=== PATIENT | female | born 1995 | race Caucasian/White ===

== ENCOUNTER 2017-09-07 21:37 | Emergency (ER) | payer MEDICAID, SELFPAY ==
[2017-09-07 21:38] VITALS: BP 138/86; PULSE 107; RESP 20; TEMP 36.9; O2SAT 98; BMI 61.8
--- NOTE | 2017-09-07 22:12 | EKG12_ITS ---
Test Reason : Blood Pressure : / mmHG Vent. Rate : 088 BPM Atrial Rate : 088 BPM P-R Int : 138 ms QRS Dur : 084 ms QT Int : 344 ms P-R-T Axes : 043 066 059 degrees QTc Int : 416 ms Normal sinus rhythm Normal ECG Confirmed by FABRICIO TRIPLETT ([id number]), associate entertainment editor TROY BLANK ([id number] on 09/12/2017 10:02:16 AM Referred By: JANIA Confirmed By:FABRICIO TRIPLETT
--- NOTE | 2017-09-07 22:14 | ED.VISSUMM ---
- ER Visit Summary Date of Service: 09/07/17 Chief Complaint: [] Chest pain, cough History of Present Illness: The patient is a 21 F [] morbidly obese female presenting with chest discomfort after cough. She reports URI symptoms. Denies fevers. Denies nausea and vomiting. No other complaints at this time. Physical Examination: [] Afebrile, vital signs stable. Patient is slightly tachycardic on cardiovascular exam. Regular rhythm. Lungs were clear to auscultation. Abdomen is obese, soft, nontender. No lower extremity edema. Test Results: [] Chest x-ray negative. EKG shows normal sinus rhythm, rate of 88 with no ectopy or ischemic changes. CBC, BMP within normal limits. D-dimer negative at 0.35. Emergency Department Course and Treatment: [] Patient was evaluated for her symptoms including chest pain. Workup was negative. Patient was reassured and encouraged to follow-up with her primary care physician. Treatment Plan: [] Follow-up with PCP. Disposition: [] Discharge, stable. Impression: [] URI This note was generated with [employer]ian[employer] dictation software. It may contain incorrect words, spelling, and punctuation that were not noted in review of the chart prior to signing ED Disposition - Plan for ED Patient: Chief Complaint: Cough Referrals: Talha Vargas MD [STAFF PHYSICIAN] -
--- NOTE | 2017-09-07 23:05 | RAD_ITS ---
STUDY: X-RAY CHEST REASON FOR EXAM: Female, 21 years old. Chest pain and coughing. TECHNIQUE: 2 views COMPARISON: None. FINDINGS: The lungs are clear and expanded. There is no demonstrated pleural abnormality. Normal size heart. Normal mediastinum and debora. Normal visualized pulmonary arteries. Normal visualized aortic arch and descending thoracic aorta. Normal visualized thoracic spine. Normal visualized ribs, clavicles, and shoulders. There is no demonstrated abnormality of the visualized soft tissue structures of the upper abdomen. RAD/Chest PA and Lateral IMPRESSION: Normal x-ray examination of the chest. Electronically Signed: Nela Pearl MD at 23:22 EST , Service support ,
[2017-09-07 23:06] LABS: Absolute Lymphocyte Count 1.67 X10^3/ul (0.83-4.51); Absolute Neutrophil Count 3.2 X10^3/uL (2.0-7.7); Basophil# 0.05 X10^3/uL; Basophil% 0.8 % (0-1); Eosinophil# 0.38 X10^3/uL; Eosinophils% 6.3 % (0-5); Hematocrit 43.3 % (37-47); Hemoglobin 13.8 g/dl (12.0-15.0); Lymphocyte # 1.67 X10^3/ul (4.0); Lymphocyte % 27.6 % (19-41); Mean Corp Hgb Conc 31.9 g/gl (32-36); Mean Corpuscular Hgb 28.2 pg (27.0-32.0); Mean Corpuscular Volume 88.5 fL (81-99); Mean Platelet Vol. 10.5 fl (6.2-12.0); Monocyte# 0.77 X10^3/uL; Monocyte% 12.7 % (0-10); Neutrophil # 3.18 X10^3/uL (2.7-7.7); Neutrophil % 52.4 % (47-70); Platelet Count 237 K/mm3 (150-450); RBC Distribution Width CV 13.5 % (11.6-14.6); RBC Distribution Width SD 43.7 fl (35.1-43.9); Red Blood Count 4.89 M/mm3 (4.2-5.4); White Blood Count 6.1 K/mm3 (4.4-11.0)
[2017-09-07 23:07] LABS: POSITIVE COUNT NO; POSITIVE DIFFERENTIAL NO; POSITIVE MORPHOLOGY NO
[2017-09-07 23:16] LABS: D-Dimer Quantitative (DVT/PE) 0.35 FEU/ug/m (0.27-0.49)
[2017-09-07 23:17] LABS: Anion Gap 6 (5-15); BUN 7 mg/dL (7-18); BUN/Creat Ratio 10.2 RATIO (10-20); Calcium,Total 8.8 mg/dL (8.5-10.1); Chloride 106 mmol/L (98-107); Creatinine, Serum 0.69 mg/dL (0.55-1.02); EST Glomerular Filtration Rate 116 mL/min (>60); Est Glom Filt Rate - Afr Amer 141 mL/min (>60); Glucose 94 mg/dL (70-110); Potassium 4.4 mmol/L (3.5-5.1); Sodium Level 141 mmol/L (136-145)
--- NOTE | 2017-09-07 23:58 | ED.DEP ---
ED Disposition - Plan for ED Patient: Disposition: Home or Assisted Living Chief Complaint: Cough Instructions: ED Upper Resp Infec No Abx Tx Referrals: Talha Vargas MD [STAFF PHYSICIAN] -
[2017-09-08 00:18] VITALS: BP 95/67; PULSE 81; RESP 16; O2SAT 98
== END 2017-09-08 00:24 | disposition home or self-care (01) ==
PROVIDERS: Emergency Provider Emergency Medicine
DX: J06.9 Acute upper respiratory infection, unspecified (principal); E66.01 Morbid (severe) obesity due to excess calories; Z72.0 Tobacco use
CPT/HCPCS: 71046; 80048; 85025; 85379; 93005; 99283; A4216

== ENCOUNTER 2018-07-13 13:20 | Emergency (ER) | payer MEDICAID, SELFPAY ==
[2018-07-13 13:21] VITALS: BP 159/84; PULSE 105; RESP 20; TEMP 36.2; O2SAT 96; BMI 56.2
[2018-07-13] MEDS: Metoclopramide 10 MG/2 ML Vial IV (15:00)
[2018-07-13] MEDS: DiphenhydrAMINE 50 MG/ML Syringe 25 MG IV (15:00)
[2018-07-13] MEDS: Ketorolac 30 MG/ML Syringe IV (15:00)
--- NOTE | 2018-07-13 16:01 | ED.VISSUMM ---
- ER Visit Summary Date of Service: 07/13/18 Chief Complaint: Bifrontal throbbing headache History of Present Illness: The patient is a 22 F who presents with bifrontal throbbing headache associated with photophobia and sonophobia. She has history of chronic headaches. She is unaware of any trigger. She denies fever, chills night sweats. She denies blurred vision, change in vision or loss of vision. Denies double vision. Does complain of mild nasal congestion otherwise HEENT exam normal. She denies chest pain palpitations. Denies shortness of breath, cough, dyspnea on exertion, orthopnea PND. She does report nausea and vomiting since last evening. Denies diarrhea. Denies black or maroon stool. She denies urologic symptoms. She has myalgias arthralgias or back pain. She denies anesthesia, paresthesia or motor weakness. Physical Examination: Vital signs noted and remarkable for heart rate of 105 and blood pressure 139/84. BMI is 56.3. Head is atraumatic normocephalic. Pupils are equal round reactive. Extraocular muscles are intact. TMs are pearly white with landmarks noted. Nares patent with no drainage. Posterior pharynx without erythema or exudate. Uvula is midline. There is no dysphonia or dysphasia. Trachea is midline. There is no stridor with auscultation of the neck. Neck is supple. Heart is regular without murmur, gallop or rub. S1 and S2 are normal. Lungs are clear to auscultation with good movement of air bilaterally. Abdomen is soft nontender. Patient is alert and oriented ?3. Motor is 5 over 5. Sensory is intact. DTRs are symmetric with no clonus or Babinski sign. Cranial 2 through 12 are intact. Cerebellar testing is normal. Test Results: None were obtained Emergency Department Course and Treatment: She was treated with 30 mg Toradol IV push, 25 mg of Benadryl IV push and 10 mg of Reglan IV push. She was reassessed at 1600. She is smiling with 90% improvement of her pain. Treatment Plan: Follow-up with PCP Disposition: Discharged to home in stable improved condition Impression: Migraine without aura This note was generated with [employer]VS Intelestream[employer] software. It may contain incorrect words, spelling, and punctuation that were not noted in review of the chart prior to signing ED Disposition - Plan for ED Patient: Disposition: Home or Assisted Living Chief Complaint: Headache Instructions: ED Headache Migraine Referrals: Care Physician,No Primary [Primary Care Provider] - [facility] [NON-STAFF] - Additional Instructions: You should keep a diary to see if there are any association with certain types of foods. Since you have recurrent headaches recommend following up with health care provider at [facility].
[2018-07-13 16:23] VITALS: BP 130/80; PULSE 90; RESP 18; O2SAT 98
--- OUTSIDE RECORDS SUMMARY | 2018-09-07 14:01 | XMS RPT_ITS ---
:1995 Author Organization OH[facility] Care Team Providers Name Role Phone ALLEN KIMBALL (PA) Referring Unavailable SUZANNA LUA Attending Unavailable Roxanna Barrientos Attending Unavailable Primay Care Physicia, No Primary Care Unavailable Primay Care Physicia, No Primary Care Unavailable Marcos Rodriguez Attending Unavailable PROBLEMS PROBLEMS DATE TYPE CONDITION / CODE ATTENDING STATUS SOURCE 10/07/2017 Active Pain in left NA Active [facility] ankle and joints [facility] [place] of left foot / Repository M25.572(ICD-10) PROCEDURES PROCEDURES No Procedure Records FoundRESULTS RESULTS EMERGENCY DEPARTMENT Observed: 07/13/2018 Status: F Source: [place] SUMMARY 4:05 PM [facility] REPOSITORY [facility] Medical Records Department [address] [place] [address] Emergency Department Summary 07/13/18 1601 MR#: [id number] Acct: [id number] Name: ABRAHAM MCCLELLAN Rep #: [id number] : 1995 22 From: Marcos Rodriguez MD PCP: Care Physician, No Primary Status: REG ER - ER Visit Summary Date of Service: 07/13/18 Chief Complaint: Bifrontal throbbing headache History of Present Illness: The patient is a 22 F who presents with bifrontal throbbing headache associated with photophobia and sonophobia. She has history of chronic headaches. She is unaware of any trigger. She denies fever, chills night sweats. She denies blurred vision, change in vision or loss of vision. Denies double vision. Does complain of mild nasal congestion otherwise HEENT exam normal. She denies chest pain palpitations. Denies shortness of breath, cough, dyspnea on exertion, orthopnea PND. She does report nausea and vomiting since last evening. Denies diarrhea. Denies black or maroon stool. She denies urologic symptoms. She has myalgias arthralgias or back pain. She denies anesthesia, paresthesia or motor weakness. Physical Examination: Vital signs noted and remarkable for heart rate of 105 and blood pressure 139/84. BMI is 56.3. Head is atraumatic normocephalic. Pupils are equal round reactive. Extraocular muscles are intact. TMs are pearly white with landmarks noted. Nares patent with no drainage. Posterior pharynx without erythema or exudate. Uvula is midline. There is no dysphonia or dysphasia. Trachea is midline. There is no stridor with auscultation of the neck. Neck is supple. Heart is regular without murmur, gallop or rub. S1 and S2 are normal. Lungs are clear to auscultation with good movement of air bilaterally. Abdomen is soft nontender. Patient is alert and oriented 3. Motor is 5 over 5. Sensory is intact. DTRs are symmetric with no clonus or Babinski sign. Cranial 2 through 12 are intact. Cerebellar testing is normal. Test Results: None were obtained Emergency Department Course and Treatment: She was treated with 30 mg Toradol IV push, 25 mg of Benadryl IV push and 10 mg of Reglan IV push. She was reassessed at 1600. She is smiling with 90% improvement of her pain. Treatment Plan: Follow-up with PCP Disposition: Discharged to home in stable improved condition Impression: Migraine without aura This note was generated with [email or web address] dictation software. It may contain incorrect words, spelling, and punctuation that were not noted in review of the chart prior to signing ED Disposition - Plan for ED Patient: Disposition: Home or Assisted Living Chief Complaint: Headache Instructions: ED Headache Migraine Referrals: Care Physician,No Primary [Primary Care Provider] - Juana Rosado [NON-STAFF] - Additional Instructions: You should keep a diary to see if there are any association with certain types of foods. Since you have recurrent headaches recommend following up with health care provider at [facility]. What to do if you have Problems For any increased pain, shortness of breath, bleeding, nausea or vomiting, chest pain, or any unexpected problems, contact your Primary Care Provider. Call [facility] ([phone]) or report to the closest Emergency Room. Call 911 if necessary. 07/13/18 [id number] <Electronically signed by Marcos Rodriguez MD> Date Marcos Rodriguez MD Cosigner Signature (If Indicated): Date CC: No Primary Care Physician PROGRESS Observed: 05/02/2018 Status: COMPLETED Source: [place] 7:58 AM [facility] REPOSITORY [facility] ID: [id number] Author: Silvina Longoria Page Service: (none) Author Type: Nurse Practitioner Type: Progress Notes Filed: 05/02/2018 8:21 AM Note Text: 05/02/2018 Patient presents with: cough, congestion and bilateral ear pain: x 2 days SUBJECTIVE: This is a 22 year old female that is here today for acute onset of bilateral ear pain, left side worse than left for 4 days. Patient rates pain at 7 on Numerical pain scale. Patient has been taking ibuprofen, dayquil with minimal relief of symptoms. The severity is mild and the symptoms are not improving. The patient did not have a similar problem in the last 3 months. The patient did not take any antibiotics in the last 3 months. Patient has not been exposed to sick contacts. Patient denies recent travel. Pertinent medical history PAST MEDICAL HISTORY Diagnosis Date - PMH - PAST MEDICAL HISTORY OF 03/16 normal color vision ALLERGIES Patient has no known allergies. MEDICATIONS No current outpatient prescriptions on file. No current facility-administered medications for this visit. SOCIAL HISTORY Social History Marital status: Single Spouse name: Years of education: Number of children: Social History Main Topics Smoking status: Former Smoker Packs/day: 0.00 Years: 0.00 Quit date: 01/18/2018 Smokeless tobacco: Never Used Comment: . step mom and sibling smokes outside Alcohol use: No Drug use: No Sexual activity: Yes control/protection: None REVIEW OF SYSTEMS Review of Systems Constitutional: Negative for chills, diaphoresis, fatigue and fever. HENT: Positive for congestion and ear pain. Negative for postnasal drip, rhinorrhea, sinus pain, sinus pressure and sore throat. Respiratory: Positive for cough. Negative for chest tightness, shortness of breath and wheezing. Cardiovascular: Negative for chest pain and palpitations. Gastrointestinal: Negative for abdominal pain, diarrhea, nausea and vomiting. Skin: Negative for rash. Neurological: Negative for dizziness, light-headedness and headaches. OBJECTIVE: BP 120/72 Pulse 92 Temp 37.2 ?C (99 ?F) (Tympanic) Resp 18 Wt (!) 179.7 kg (396 lb 3.2 oz) SpO2 100% BMI 65.93 kg/m? Physical Exam Constitutional: She is oriented to person, place, and time. Vital signs are normal. She appears well-developed and well-nourished. Non-toxic appearance. HENT: Head: Normocephalic and atraumatic. Right Ear: Tympanic membrane, external ear and ear canal normal. Left Ear: External ear and ear canal normal. Tympanic membrane is erythematous and bulging. Nose: Nose normal. Mouth/Throat: Uvula is midline, oropharynx is clear and moist and mucous membranes are normal. Neck: Normal range of motion. Cardiovascular: Normal rate, regular rhythm and normal heart sounds. Pulmonary/Chest: Effort normal and breath sounds normal. Lymphadenopathy: She has no cervical adenopathy. She has no axillary adenopathy. Neurological: She is alert and oriented to person, place, and time. Skin: Skin is warm, dry and intact. Nursing note and vitals reviewed. ASSESSMENT/PLAN: 1. Acute otitis media, left - ICD9: 382.9, ICD10: H66.92 - Will begin treatment with Augmentin 875 mg PO BID for 10 days - The patient should also be given OTC decongestants prn, OTC cough and cold meds as needed, warm salt water gargles, throat lozenges and/or OTC throat spray as needed and nasal saline gtts and suction prn for the first 5-7 days of treatment. - Supportive care with plenty of fluids, rest, and analgesia prn. - Follow up in 3-5 days if symptoms persist or worsen. Silvina Rai APRN.JONO CNOV Observed: 05/02/2018 Status: COMPLETED Source: [place] 7:45 AM [facility] REPOSITORY Office Visit (UCWSTR) ABRAHAM MCCLELLAN ([id number]) 1995 F Date Time Provider Department 05/02/18 7:45 AM SILVINA RAI [facility] During your visit today, we recorded the following information about you: Temperature Pulse Respiration Blood pressure 99 degrees 92/minute 18/minute 120/72 Weight 179.7 kg Silvina Rai APRN.JONO 05/02/2018 8:21 AM Signed 05/02/2018 Patient presents with: cough, congestion and bilateral ear pain: x 2 days SUBJECTIVE: This is a 22 year old female that is here today for acute onset of bilateral ear pain, left side worse than left for 4 days. Patient rates pain at 7 on Numerical pain scale. Patient has been taking ibuprofen, dayquil with minimal relief of symptoms. The severity is mild and the symptoms are not improving. The patient did not have a similar problem in the last 3 months. The patient did not take any antibiotics in the last 3 months. Patient has not been exposed to sick contacts. Patient denies recent travel. Pertinent medical history PAST MEDICAL HISTORY Diagnosis Date - PMH - PAST MEDICAL HISTORY OF 03/16 normal color vision ALLERGIES Patient has no known allergies. MEDICATIONS No current outpatient prescriptions on file. No current facility-administered medications for this visit. SOCIAL HISTORY Social History Marital status: Single Spouse name: Years of education: Number of children: Social History Main Topics Smoking status: Former Smoker Packs/day: 0.00 Years: 0.00 Quit date: 01/18/2018 Smokeless tobacco: Never Used Comment: . step mom and sibling smokes outside Alcohol use: No Drug use: No Sexual activity: Yes control/protection: None REVIEW OF SYSTEMS Review of Systems Constitutional: Negative for chills, diaphoresis, fatigue and fever. HENT: Positive for congestion and ear pain. Negative for postnasal drip, rhinorrhea, sinus pain, sinus pressure and sore throat. Respiratory: Positive for cough. Negative for chest tightness, shortness of breath and wheezing. Cardiovascular: Negative for chest pain and palpitations. Gastrointestinal: Negative for abdominal pain, diarrhea, nausea and vomiting. Skin: Negative for rash. Neurological: Negative for dizziness, light-headedness and headaches. OBJECTIVE: BP 120/72 Pulse 92 Temp 37.2 ?C (99 ?F) (Tympanic) Resp 18 Wt (!) 179.7 kg (396 lb 3.2 oz) SpO2 100% BMI 65.93 kg/m? Physical Exam Constitutional: She is oriented to person, place, and time. Vital signs are normal. She appears well-developed and well-nourished. Non- toxic appearance. HENT: Head: Normocephalic and atraumatic. Right Ear: Tympanic membrane, external ear and ear canal normal. Left Ear: External ear and ear canal normal. Tympanic membrane is erythematous and bulging. Nose: Nose normal. Mouth/Throat: Uvula is midline, oropharynx is clear and moist and mucous membranes are normal. Neck: Normal range of motion. Cardiovascular: Normal rate, regular rhythm and normal heart sounds. Pulmonary/Chest: Effort normal and breath sounds normal. Lymphadenopathy: She has no cervical adenopathy. She has no axillary adenopathy. Neurological: She is alert and oriented to person, place, and time. Skin: Skin is warm, dry and intact. Nursing note and vitals reviewed. ASSESSMENT/PLAN: 1. Acute otitis media, left - ICD9: 382.9, ICD10: H66.92 - Will begin treatment with Augmentin 875 mg PO BID for 10 days - The patient should also be given OTC decongestants prn, OTC cough and cold meds as needed, warm salt water gargles, throat lozenges and/or OTC throat spray as needed and nasal saline gtts and suction prn for the first 5-7 days of treatment. - Supportive care with plenty of fluids, rest, and analgesia prn. - Follow up in 3-5 days if symptoms persist or worsen. Silvina Rai APRN.JONO Rai APRN.JONO 05/02/2018 8:02 AM Signed ASSESSMENT/PLAN: 1. Acute otitis media, left - ICD9: 382.9, ICD10: H66.92 - Will begin treatment with Augmentin 875 mg PO BID for 10 days - The patient should also be given OTC decongestants prn, OTC cough and cold meds as needed, warm salt water gargles, throat lozenges and/or OTC throat spray as needed and nasal saline gtts and suction prn for the first 5-7 days of treatment. - Supportive care with plenty of fluids, rest, and analgesia prn. - Follow up in 3-5 days if symptoms persist or worsen. Silvina Rai APRN.GUN STOCKER Referring Provider: SELF [200] Allergies As of Date: 05/02/2018 (No Known Allergies) Date Reviewed: 05/02/2018 Reviewed by: Monica Bolton LPN - Fully Assessed Reason for Visit: cough, congestion and bilateral ear pain [Other] Cmt: x 2 days Primary Visit Diagnosis:Acute otitis media, left [H66.92] Order(s):amoxicillin-clavulanic acid (AUGMENTIN) 875-125 mg per tabletTake 1 tablet by mouth twice daily for 10 days.Disp: 20 tabletRfl: 0 fluticasone (FLONASE) 50 mcg/actuation nasal sprayUse 2 Sprays in each nostril once daily. Rinse mouth after use.Disp: 1 BottleRfl: 11 Prescriptions as of 05/02/2018 Sig: AMOXICILLIN 875 MG-POTASSIUM * Take 1 tablet by mouth twice * FLUTICASONE 50 MCG/ACTUATION * Use 2 Sprays in each nostril * Problem List As Of Date 05/02/2018 Noted Resolved Headache [R51] INVALID FOR* Papilledema [H47.10] INVALID FOR* Obesity [E66.9] INVALID FOR* Other instructions from your clinician: ASSESSMENT/PLAN: 1. Acute otitis media, left - ICD9: 382.9, ICD10: H66.92 - Will begin treatment with Augmentin 875 mg PO BID for 10 days - The patient should also be given OTC decongestants prn, OTC cough and cold meds as needed, warm salt water gargles, throat lozenges and/or OTC throat spray as needed and nasal saline gtts and suction prn for the first 5-7 days of treatment. - Supportive care with plenty of fluids, rest, and analgesia prn. - Follow up in 3-5 days if symptoms persist or worsen. Silvina Rai APRN.GUN STOCKER Prescriptions ordered this encounter Disp Refills Start End AMOXICILLIN 875 MG-POTASSIUM CLAVULA* 20 t* 0 05/02/2018 05/12/2018 Route: ORAL Sig: Take 1 tablet by mouth twice daily for 10 days. FLUTICASONE 50 MCG/ACTUATION NASAL S* 1 Jalil* 11 05/02/2018 Route: EACH NOSTRIL Sig: Use 2 Sprays in each nostril once daily. Rinse mouth after use. Medications Discontinued During This Encounter FLUoxetine (PROZAC) 20 mg capsule 14 c* 0 04/27/2015 05/02/2018 Route: ORAL Sig: Take 1 capsule by mouth once daily. Disc: Course of therapy completed Drospirenone-Ethinyl Estradiol (TRA,* 3 Pa* 3 11/10/2015 05/02/2018 Route: ORAL Sig: Take 1 tablet by mouth once daily. Disc: Course of therapy completed Encounter Status:Closed by SILVINA RAI on 05/02/18 PROGRESS Observed: 02/08/2018 Status: COMPLETED Source: [place] 6:42 AM [facility] REPOSITORY [facility] ID: [id number] Author: Leann Patricia Service: (none) Author Type: Nurse Practitioner Type: Progress Notes Filed: 02/08/2018 7:20 AM Note Text: Subjective The history is provided by the patient. No speech language specialist was used. Knee Pain Pertinent negatives include no fever or tingling. HPI Abraham Mcclellan is a 22 year old female who presents today for CC of right knee pain. This started Monday. She is also having decreased rom of motion. She was walking and stepped off step and felt like it hit hard. Symptoms are worsened by nothing. She has tried ice and ibuprofen with slight relief. Risk factors none known, obesity PMH none BP 118/74 Pulse 92 Temp 37.3 ?C (99.1 ?F) Resp 18 Wt (!) 176.9 kg (390 lb) BMI 64.90 kg/m? ALLERGIES No Known Allergies ACTIVE PROBLEM LIST Headache(784.0) Papilledema Obesity Family History Problem Relation Age of Onset - Breast Cancer Maternal Grandmother - Hypertension Maternal Grandfather - Diabetes mggm - Pulmonary Embolism [Other] [OTHER] Mother with embolism Social History Marital status: Single Spouse name: Years of education: Number of children: Social History Main Topics Smoking status: Former Smoker Packs/day: 0.00 Years: 0.00 Quit date: 01/18/2018 Smokeless tobacco: Never Used Comment: . step mom and sibling smokes outside Alcohol use: No Drug use: No Sexual activity: Yes control/protection: None Review of Systems Constitutional: Negative for chills, fever and malaise/fatigue. Musculoskeletal: Positive for joint pain (knee - right). Negative for myalgias. Skin: Negative for rash. Neurological: Negative for tingling and headaches. Speech change: Objective Physical Exam Constitutional: She is oriented to person, place, and time and well-developed, well-nourished, and in no distress. No distress. HENT: Head: Normocephalic and atraumatic. Eyes: Conjunctivae and EOM are normal. Pupils are equal, round, and reactive to light. Neck: Normal range of motion. Neck supple. Pulmonary/Chest: Effort normal. Musculoskeletal: Right knee: She exhibits decreased range of motion, swelling and abnormal meniscus. She exhibits no effusion, no ecchymosis, no deformity, no laceration, no erythema, normal alignment, no LCL laxity, no bony tenderness and no MCL laxity. No tenderness found. Neurological: She is alert and oriented to person, place, and time. Skin: Skin is warm and dry. Psychiatric: Affect normal. Nursing note and vitals reviewed. ASSESSMENT/PLAN: 1. Acute pain of right knee - ICD9: 719.46, ICD10: M25.561 Rest, ice, elevation, ELI wrap or splint as applied, pain medications as discussed Ibuprofen 800 mg three times a day or Aleve 2 twice a day - both with food, for 14 days If no improvement after 2 weeks, xray and follow up with ortho for further treatment. See your doctor or express care if not improving Order placed for xray, will obtain if no improvement. Knee exercises given. Diagnosis and treatment plan were discussed and questions were answered to the patient's satisfaction. Pt acknowledged understanding of concepts and follow up plan. Specific signs and symptoms that would indicate the need for higher level of care were discussed in detail warranting prompt ER evaluation. Leann Patricia APRN.CNP CNOV Observed: 02/08/2018 Status: COMPLETED Source: [place] 6:30 AM [facility] REPOSITORY Office Visit ([facility]) ABRAHAM MCCLELLAN ([id number]) 1995 F Date Time Provider Department 02/08/18 6:30 AM LEANN PATRICIA (JONO) [facility] During your visit today, we recorded the following information about you: Temperature Pulse Respiration Blood pressure 99.1 degrees 92/minute 18/minute 118/74 Weight 176.9 kg Leann Patricia APRN.CNP 02/08/2018 7:20 AM Addendum Subjective The history is provided by the patient. No speech language specialist was used. Knee Pain Pertinent negatives include no fever or tingling. DIMITRI Renee Kyree is a 22 year old female who presents today for CC of right knee pain. This started Monday. She is also having decreased rom of motion. She was walking and stepped off step and felt like it hit hard. Symptoms are worsened by nothing. She has tried ice and ibuprofen with slight relief. Risk factors none known, obesity PMH none BP 118/74 Pulse 92 Temp 37.3 ?C (99.1 ?F) Resp 18 Wt (!) 176.9 kg (390 lb) BMI 64.90 kg/m? ALLERGIES No Known Allergies ACTIVE PROBLEM LIST Headache(784.0) Papilledema Obesity Family History Problem Relation Age of Onset - Breast Cancer Maternal Grandmother - Hypertension Maternal Grandfather - Diabetes mggm - Pulmonary Embolism [Other] [OTHER] Mother with embolism Social History Marital status: Single Spouse name: Years of education: Number of children: Social History Main Topics Smoking status: Former Smoker Packs/day: 0.00 Years: 0.00 Quit date: 01/18/2018 Smokeless tobacco: Never Used Comment: . step mom and sibling smokes outside Alcohol use: No Drug use: No Sexual activity: Yes control/protection: None Review of Systems Constitutional: Negative for chills, fever and malaise/fatigue. Musculoskeletal: Positive for joint pain (knee - right). Negative for myalgias. Skin: Negative for rash. Neurological: Negative for tingling and headaches. Speech change: Objective Physical Exam Constitutional: She is oriented to person, place, and time and well-developed, well-nourished, and in no distress. No distress. HENT: Head: Normocephalic and atraumatic. Eyes: Conjunctivae and EOM are normal. Pupils are equal, round, and reactive to light. Neck: Normal range of motion. Neck supple. Pulmonary/Chest: Effort normal. Musculoskeletal: Right knee: She exhibits decreased range of motion, swelling and abnormal meniscus. She exhibits no effusion, no ecchymosis, no deformity, no laceration, no erythema, normal alignment, no LCL laxity, no bony tenderness and no MCL laxity. No tenderness found. Neurological: She is alert and oriented to person, place, and time. Skin: Skin is warm and dry. Psychiatric: Affect normal. Nursing note and vitals reviewed. ASSESSMENT/PLAN: 1. Acute pain of right knee - ICD9: 719.46, ICD10: M25.561 Rest, ice, elevation, ELI wrap or splint as applied, pain medications as discussed Ibuprofen 800 mg three times a day or Aleve 2 twice a day - both with food, for 14 days If no improvement after 2 weeks, xray and follow up with ortho for further treatment. See your doctor or express care if not improving Order placed for xray, will obtain if no improvement. Knee exercises given. Diagnosis and treatment plan were discussed and questions were answered to the patient's satisfaction. Pt acknowledged understanding of concepts and follow up plan. Specific signs and symptoms that would indicate the need for higher level of care were discussed in detail warranting prompt ER evaluation. NIRMALA Perkins APRN.CNP 02/08/2018 6:55 AM Signed ASSESSMENT/PLAN: 1. Acute pain of right knee - ICD9: 719.46, ICD10: M25.561 Rest, ice, elevation, ELI wrap or splint as applied, pain medications as discussed Ibuprofen 800 mg three times a day or Aleve 2 twice a day - both with food, for 14 days If no improvement after 2 weeks, xray and follow up with ortho for further treatment. See your doctor or express care if not improving Referring Provider: SELF [200] Allergies As of Date: 02/08/2018 (No Known Allergies) Date Reviewed: 02/08/2018 Reviewed by: Leann Hartley) Harshad - Fully Assessed Reason for Visit: Knee Pain [132] Cmt: x 3 weeks right knee pain radiating down into right posterior lower leg Primary Visit Diagnosis:Acute pain of right knee [M25.561] Order(s):XR KNEE GENERAL 4V AP BOTH/PA BOTH/LAT/MERC RT [[id number]] Order #: [id number] FUTURE Prescriptions as of 02/08/2018 Sig: DROSPIRENONE-ETHINYL ESTRADIO* Take 1 tablet by mouth once d* FLUOXETINE 20 MG CAPSULE Take 1 capsule by mouth once * Problem List As Of Date 02/08/2018 Noted Resolved Headache [R51] INVALID FOR* Papilledema [H47.10] INVALID FOR* Obesity [E66.9] INVALID FOR* Other instructions from your clinician: ASSESSMENT/PLAN: 1. Acute pain of right knee - ICD9: 719.46, ICD10: M25.561 Rest, ice, elevation, ELI wrap or splint as applied, pain medications as discussed Ibuprofen 800 mg three times a day or Aleve 2 twice a day - both with food, for 14 days If no improvement after 2 weeks, xray and follow up with ortho for further treatment. See your doctor or express care if not improving Encounter Status:Closed by LEANN PATRICIA CNP on 02/08/18 PROGRESS Observed: 10/18/2017 Status: COMPLETED Source: [place] 6:50 PM [facility] REPOSITORY [facility] ID: [id number] Author: Suzanna Lua Service: (none) Author Type: Physician Type: Progress Notes Filed: 10/18/2017 7:08 PM Note Text: Chief Complaint Patient presents with: Hearing Problem: x 6 months HPI Abraham Mcclellan is a 21 year old female who presents here today for Evaluation of of hearing changes.. Over the past year patient has been noting decreased hearing and at sometime hard to hear at all. No pain. Has ringing. No vertigo, nausea or vomiting. Ears will itch and in the past has used scissors to scratch the canals.. No vision changes. No weakness or numbness in extremities Past medical history, appointments, medications, allergies reviewed. Previous Medical History PAST MEDICAL HISTORY Diagnosis Date - PMH - PAST MEDICAL HISTORY OF 03/16 normal color vision Previous Surgical History PAST SURGICAL HISTORY Procedure Laterality Date - REMOVAL OF TONSILS,<14 Y/O Family History FAMILY HISTORY Problem Relation Age of Onset - Breast Cancer Maternal Grandmother - Hypertension Maternal Grandfather - Diabetes mggm - Pulmonary Embolism [Other] [OTHER] Mother with embolism Patient Allergies ALLERGIES No Known Allergies Current Medications Current Outpatient Prescriptions on File Prior to Visit: Drospirenone-Ethinyl Estradiol (TRA, 28,) 3-0.02 mg per tablet Take 1 tablet by mouth once daily. FLUoxetine (PROZAC) 20 mg capsule Take 1 capsule by mouth once daily. No current facility-administered medications on file prior to visit. Social History Social History Marital status: Single Spouse name: Years of education: Number of children: Social History Main Topics Smoking status: Current Every Day Smoker Packs/day: 0.00 Years: 0.00 Smokeless status: Never Used Comment: . step mom and sibling smokes outside Alcohol use: No Drug use: No Sexual activity: Yes control/protection: None Review of Symptoms REVIEW OF SYSTEMS sEE hpi EXAM: BP 120/84 (BP Site: Left Arm, BP Position: Sitting, BP Cuff Size: Large Adult) Pulse 96 Resp 16 Ht 165.1 cm (5' 5) Wt (!) 171.5 kg (378 lb) LMP 10/18/2017 BMI 62.9 kg/m2 General Appearance: Well appearing, alert, in no acute distress, well-hydrated, well nourished., Morbidly obese. Ears: External ears normal, canals clear. TM's normal on both sides. Health Maintenance List GC (GONORRHEA) SCREENING (18-24) due on 11/12/2015 CHLAMYDIA SCREENING (18-24) due on 11/12/2015 ONE PNEUMOVAX PRIOR TO AGE 65 due on 2016 TETANUS due on 12/03/2019 HPV VACCINE Completed INFLUENZA Completed Data reviewed In office hearing test was abnormal A/P ASSESSMENT/PLAN: 1. Bilateral hearing loss, unspecified hearing loss type - ICD9: 389.9, ICD10: H91.93 - CONSULT TO ENT 2. Abnormal hearing test - ICD9: 389.9, ICD10: Z01.118, R94.128 -consult to ENT Suzanna Lua MD CNOV Observed: 10/18/2017 Status: COMPLETED Source: [place] 6:00 PM [facility] REPOSITORY Office Visit (FAMPWS) ABRAHAM MCCLELLAN ([id number]) 1995 F Date Time Provider Department 10/18/17 6:00 PM [facility] During your visit today, we recorded the following information about you: Pulse Respiration Blood pressure Weight 96/minute 16/minute 120/84 171.5 kg Height Last Period 1.651 m 10/18/17 Suzanna Lua MD 10/18/2017 7:08 PM Signed Chief Complaint Patient presents with: Hearing Problem: x 6 months HPI Abraham Renee Kyree is a 21 year old female who presents here today for Evaluation of of hearing changes.. Over the past year patient has been noting decreased hearing and at sometime hard to hear at all. No pain. Has ringing. No vertigo, nausea or vomiting. Ears will itch and in the past has used scissors to scratch the canals.. No vision changes. No weakness or numbness in extremities Past medical history, appointments, medications, allergies reviewed. Previous Medical History PAST MEDICAL HISTORY Diagnosis Date - PMH - PAST MEDICAL HISTORY OF 03/16 normal color vision Previous Surgical History PAST SURGICAL HISTORY Procedure Laterality Date - REMOVAL OF TONSILS,ANDlt;14 Y/O Family History FAMILY HISTORY Problem Relation Age of Onset - Breast Cancer Maternal Grandmother - Hypertension Maternal Grandfather - Diabetes mggm - Pulmonary Embolism [Other] [OTHER] Mother with embolism Patient Allergies ALLERGIES No Known Allergies Current Medications Current Outpatient Prescriptions on File Prior to Visit: Drospirenone-Ethinyl Estradiol (TRA, 28,) 3-0.02 mg per tablet Take 1 tablet by mouth once daily. FLUoxetine (PROZAC) 20 mg capsule Take 1 capsule by mouth once daily. No current facility-administered medications on file prior to visit. Social History Social History Marital status: Single Spouse name: Years of education: Number of children: Social History Main Topics Smoking status: Current Every Day Smoker Packs/day: 0.00 Years: 0.00 Smokeless status: Never Used Comment: . step mom and sibling smokes outside Alcohol use: No Drug use: No Sexual activity: Yes control/protection: None Review of Symptoms REVIEW OF SYSTEMS sEE hpi EXAM: BP 120/84 (BP Site: Left Arm, BP Position: Sitting, BP Cuff Size: Large Adult) Pulse 96 Resp 16 Ht 165.1 cm (5' 5ANDquot;) Wt (!) 171.5 kg (378 lb) LMP 10/18/2017 BMI 62.9 kg/m2 General Appearance: Well appearing, alert, in no acute distress, well-hydrated, well nourished., Morbidly obese. Ears: External ears normal, canals clear. TM's normal on both sides. Health Maintenance List GC (GONORRHEA) SCREENING (18-24) due on 11/12/2015 CHLAMYDIA SCREENING (18-24) due on 11/12/2015 ONE PNEUMOVAX PRIOR TO AGE 65 due on 2016 TETANUS due on 12/03/2019 HPV VACCINE Completed INFLUENZA Completed Data reviewed In office hearing test was abnormal A/P ASSESSMENT/PLAN: 1. Bilateral hearing loss, unspecified hearing loss type - ICD9: 389.9, ICD10: H91.93 - CONSULT TO ENT 2. Abnormal hearing test - ICD9: 389.9, ICD10: Z01.118, R94.128 -consult to ENT Suzanna Lua MD Referring Provider: SELF [200] Allergies As of Date: 10/18/2017 (No Known Allergies) Date Reviewed: 10/18/2017 Reviewed by: Suzanna Lua - Fully Assessed Reason for Visit: Hearing Problem [53] Cmt: x 6 months Reason For Visit History Recorded Primary Visit Diagnosis:Bilateral hearing loss, unspecified hearing loss type [H91.93] Other Visit Diagnosis:Abnormal hearing test [Z01.118, R94.128] Order(s):CONSULT TO ENT [9008] Order #: [id number]: 1 Prescriptions as of 10/18/2017 Sig: DROSPIRENONE-ETHINYL ESTRADIO* Take 1 tablet by mouth once d* FLUOXETINE 20 MG CAPSULE Take 1 capsule by mouth once * Problem List As Of Date 10/18/2017 Noted Resolved Headache [R51] INVALID FOR* Papilledema [H47.10] INVALID FOR* Obesity [E66.9] INVALID FOR* Disposition: Return if symptoms worsen or fail to improve. Follow-up and Disposition History Recorded Encounter Status:Closed by SUZANNA LUA on 10/18/17 XR FOOT 3V AP/LAT/OBL Observed: 10/07/2017 Status: F Source: [facility] 9:23 AM [facility] REPOSITORY * * *Final Report* * * DATE OF EXAM: Oct 07 2017 9:23AM WOX 5336 - XR FOOT 3V AP/LAT/OBL LT / PROCEDURE REASON: Pain in left ankle and joints of left foot * * * * Physician Interpretation * * * * LEFT ANKLE AND FOOT TECHNIQUE: AP, lateral, oblique views of the ankle of interest: 3 images. AP lateral and oblique views of the foot of interest: 2 images HISTORY: Pain COMPARISON: none RESULT: Ankle: No soft tissue, osseous or articular abnormalities seen. Foot: No soft tissue, osseous or articular abnormalities seen. IMPRESSION: UNREMARKABLE EXAMINATION Box Tender: MAC Transcribe Date/Time: Oct 07 2017 9:31A Dictated by : SIERRA ALSTON MD This examination was interpreted and the report reviewed and electronically signed by: SIERRA ALSTON MD on Oct 07 2017 9:32AM EST [id number] XR ANKLE 3V AP/LAT/OBL Observed: 10/07/2017 Status: F Source: [facility] 9:23 AM [facility] REPOSITORY * * *Final Report* * * DATE OF EXAM: Oct 07 2017 9:23AM WOX 5298 - XR ANKLE 3V AP/LAT/OBL LT / PROCEDURE REASON: Pain in left ankle and joints of left foot * * * * Physician Interpretation * * * * LEFT ANKLE AND FOOT TECHNIQUE: AP, lateral, oblique views of the ankle of interest: 3 images. AP lateral and oblique views of the foot of interest: 2 images HISTORY: Pain COMPARISON: none RESULT: Ankle: No soft tissue, osseous or articular abnormalities seen. Foot: No soft tissue, osseous or articular abnormalities seen. IMPRESSION: UNREMARKABLE EXAMINATION Box Tender: MAC Transcribe Date/Time: Oct 07 2017 9:31A Dictated by : SIERRA ALSTON MD This examination was interpreted and the report reviewed and electronically signed by: SIERRA ALSTON MD on Oct 07 2017 9:32AM EST [id number] PROGRESS Observed: 10/07/2017 Status: COMPLETED Source: [place] 9:20 AM [facility] REPOSITORY HNO ID: [id number] Author: Sol Damian (Rt) Alivia Strickland Service: (none) Author Type: Vice President Education Type: Progress Notes Filed: 10/07/2017 9:23 AM Note Text: Radiology Service Progress Note PATIENT NAME: Abraham Mcclellan DATE OF SERVICE: October 07, 2017 TIME: 9:20 AM PATIENT IDENTITY VERIFICATION COMPLETED USING TWO (2) METHODS: Patient confirmed name verbally and Date of . PATIENT GENDER DATA: Female. status: : No status: NO. PATIENT RELEVANT IMPLANT DATA REVIEWED: Not Applicable RADIOLOGY DEPARTMENT: General X-ray: Exam(s) Completed: Lower Extremity X-Ray(s): Ankle, Left and Foot, Left: PERIPHERAL IV DATA: Not applicable SIGNED BY: RT Elo October 07, 2017 9:20 AM PROGRESS Observed: 10/07/2017 Status: COMPLETED Source: [facility] [facility] 8:54 AM [facility] REPOSITORY HNO ID: [id number] Author: Allen Kimball (Pa) Service: (none) Author Type: Physician Sample Card Maker Type: Progress Notes Filed: 10/07/2017 10:21 AM Note Text: Subjective HPI Pt presents with left ankle pain x 4 days. She had stepped off her stoop and twisted the ankle. Her pain is worsened with walking. Review of Systems HENT: Negative. Eyes: Negative. Respiratory: Negative. Cardiovascular: Negative. Gastrointestinal: Negative. Musculoskeletal: Left ankle pain Skin: Negative. All other systems reviewed and are negative. PAST MEDICAL HISTORY Diagnosis Date - PMH - PAST MEDICAL HISTORY OF 03/16 normal color vision Current Outpatient Prescriptions: Drospirenone-Ethinyl Estradiol (TRA, 28,) 3-0.02 mg per tablet Take 1 tablet by mouth once daily. Disp: 3 Package Rfl: 3 FLUoxetine (PROZAC) 20 mg capsule Take 1 capsule by mouth once daily. Disp: 14 capsule Rfl: 0 No current facility-administered medications for this visit. PAST SURGICAL HISTORY Procedure Laterality Date - REMOVAL OF TONSILS,<12 Y/O FAMILY HISTORY Problem Relation Age of Onset - Breast Cancer Maternal Grandmother - Hypertension Maternal Grandfather - Diabetes mggm - Pulmonary Embolism [Other] [OTHER] Mother with embolism Social History Substance Use Topics - Smoking status: Never Smoker - Smokeless tobacco: Never Used Comment: . step mom and sibling smokes outside - Alcohol use No Pulse 104 Temp 37.1 ?C (98.7 ?F) (Tympanic) Resp 20 Wt (!) 170.1 kg (375 lb) Objective Physical Exam Constitutional: She is oriented to person, place, and time and well-developed, well-nourished, and in no distress. HENT: Head: Normocephalic and atraumatic. Cardiovascular: Normal rate, regular rhythm and normal heart sounds. Pulmonary/Chest: Effort normal and breath sounds normal. Musculoskeletal: Pt tender diffusely on the lateral and medial malleolus. No tenderness of the achilles. FROM on plantar and dorsiflexion. Pedal pulses 2+. She is mildly tender over the base of the fifth metatarsal, no swelling. Neurological: She is oriented to person, place, and time. Skin: Skin is warm and dry. Psychiatric: Affect and judgment normal. Nursing note and vitals reviewed. ASSESSMENT/PLAN: 1. Acute left ankle pain - ICD9: 719.47, ICD10: M25.572 I feel pt has a strain, xrays here are negative. I placed her in an eli wrap and aircast ankle splint. Discussed RICE and if no improvement following up with primary doctor. She was agreeable with this plan. - XR ANKLE GENERAL 3V AP/LAT/OBL LT - XR FOOT GENERAL 3V AP/LAT/OBL LT Allen Kimball PA-C 12 LEAD ELECTROCARDIOGRAM Observed: 09/12/2017 Status: F Source: [place] 10:02 AM [facility] REPOSITORY [facility] Cardiovascular [place] [address] 12 Lead EKG 09/07/172231 MR#: [id number] Acct: [id number] Name: ABRAHAM MCCLELLAN O Rep #: [id number] : 1995 21 From: uJlian Triplett MD Attending Dr: Status: DEP ER Ordering Dr: Roxanna Barrientos DO Date: 09/07/17 Location: ED Sex: F C Admitted: Test Reason : Blood Pressure : / mmHG Vent. Rate : 088 BPM Atrial Rate : 088 BPM P-R Int : 138 ms QRS Dur : 084 ms QT Int : 344 ms P-R-T Axes : 043 066 059 degrees QTc Int : 416 ms Normal sinus rhythm Normal ECG Confirmed by JULIAN TRIPLETT ([id number]), legal editor TROY BLANK ([id number]) on 09/12/2017 10:02:16 AM Referred By: JANIA Confirmed By:JULIAN TRIPLETT 09/12/171001 Date Julian Triplett MD CC: No Primary Care Physician Signed EMERGENCY DEPARTMENT Observed: 09/08/2017 Status: F Source: [place] SUMMARY 7:45 AM [facility] REPOSITORY [facility] Medical Records Department [address] [place] [id number] Emergency Department Summary 09/07/17 2214 MR#: [id number] Acct: [id number] Name: ABRAHAM MCCLELLAN O Rep #: [id number] : 1995 21 From: Roxanna Barrientos DO PCP: Care Physician, No Primary Status: DEP ER - ER Visit Summary Date of Service: 09/07/17 Chief Complaint: [] Chest pain, cough History of Present Illness: The patient is a 21 F [] morbidly obese female presenting with chest discomfort after cough. She reports URI symptoms. Denies fevers. Denies nausea and vomiting. No other complaints at this time. Physical Examination: [] Afebrile, vital signs stable. Patient is slightly tachycardic on cardiovascular exam. Regular rhythm. Lungs were clear to auscultation. Abdomen is obese, soft, nontender. No lower extremity edema. Test Results: [] Chest x-ray negative. EKG shows normal sinus rhythm, rate of 88 with no ectopy or ischemic changes. CBC, BMP within normal limits. D-dimer negative at 0.35. Emergency Department Course and Treatment: [] Patient was evaluated for her symptoms including chest pain. Workup was negative. Patient was reassured and encouraged to follow-up with her primary care physician. Treatment Plan: [] Follow-up with PCP. Disposition: [] Discharge, stable. Impression: [] URI This note was generated with EyeICation software. It may contain incorrect words, spelling, and punctuation that were not noted in review of the chart prior to signing ED Disposition - Plan for ED Patient: Chief Complaint: Cough Referrals: Talha Vargas MD [STAFF PHYSICIAN] - What to do if you have Problems For any increased pain, shortness of breath, bleeding, nausea or vomiting, chest pain, or any unexpected problems, contact your Primary Care Provider. Call [facility] ([phone]) or report to the closest Emergency Room. Call 911 if necessary. 09/08/17 0745 <Electronically signed by Roxanna Barrientos DO> Date Roxanna Barrientos DO Cosigner Signature (If Indicated): Date CC: No Primary Care Physician DISCHARGE INSTRUCTION Observed: 09/07/2017 Status: F Source: [place] 11:58 PM [facility] REPOSITORY [facility] Medical Records Department [address] [place] [address] Discharge Instruction 09/07/17 2358 MR#: [id number] Acct: [id number] Name: ABRAHAM MCCLELLAN Thelma Rep #: [id number] : 1995 21 From: Roxanna Barrientos DO PCP: Care Physician, No Primary Status: REG ER ED Disposition - Plan for ED Patient: Disposition: Home or Assisted Living Chief Complaint: Cough Instructions: ED Upper Resp Infec No Abx Tx Referrals: Talha Vargas MD [STAFF PHYSICIAN] - What to do if you have Problems For any increased pain, shortness of breath, bleeding, nausea or vomiting, chest pain, or any unexpected problems, contact your Primary Care Provider. Call [facility] ([phone]) or report to the closest Emergency Room. Call 911 if necessary. 09/07/17 9097 <Electronically signed by Roxanna Barrientos DO> Date Roxanna Barrientos DO Cosigner Signature (If Indicated): Date CC: No Primary Care Physician CBC W/DIFF, AUTOMATED Collected: 09/07/2017 Status: F Source: [place] 10:59 PM [facility] REPOSITORY TYPE CODE TESTS RESULT OUT OF RANGE REFERENCE UNITS LAB L100.1000 4.4-11.0 K/mm3 Normal WBC 6.1 LAB L100.1200 4.2-5.4 M/mm3 Normal RBC 4.89 LAB L100.1300 12.0-15.0 g/dl Normal HGB 13.8 LAB L100.1400 37-47 % Normal HCT 43.3 LAB L100.1500 81-99 fL Normal MCV 88.5 LAB L100.1600 27.0-32.0 pg Normal MCH 28.2 LAB L100.1700 32-36 g/gl Low MCHC 31.9 LAB L100.1810 11.6-14.6 % Normal RDW CV 13.5 LAB L100.1820 35.1-43.9 fl Normal RDW SD 43.7 LAB L100.1900 150-450 K/mm3 Normal PLT 237 LAB L100.2000 6.2-12.0 fl Normal MPV 10.5 LAB L100.2100 47-70 % Normal NEUT% 52.4 LAB L100.2200 19-41 % Normal LY% 27.6 LAB L100.2300 0-10 % High MONO% 12.7 LAB L100.2400 0-5 % High EO% 6.3 LAB L100.2500 0-1 % Normal BASO% 0.8 LAB L100.2550 0.0-0.9 % Normal IM GRAN % 0.200 Result Comment: IG% - Immature Granulocytes (promyelocytes, myelocytes and metamyelocytes) > 1% indicates that a LEFT SHIFT is Present. LAB L100.2620 2.0-7.7 X10 3/uL Normal Absolute Neut 3.2 LAB L100.2720 0.83-4.51 X10 3/ul Normal Absolute Lymph 1.67 Performed By: #### L100.0100 #### [facility] [address] [place], [place], [address] D-DIMER QUANTITATIVE Collected: 09/07/2017 Status: F Source: [place] (DVT/PE) 10:59 PM [facility] REPOSITORY TYPE CODE TESTS RESULT OUT OF RANGE REFERENCE UNITS LAB L300.8000 0.27-0.49 FEU/ug/m Normal D-DIMER 0.35 QUANT Result Comment: NORMAL D-Dimer level (<0.50) indicates no DVT or PE. Performed By: #### L300.8000 #### [facility] [address] [place], [place], [address] BASIC METABOLIC Collected: 09/07/2017 Status: F Source: [place] PROFILE (BMP) 10:59 PM [facility] REPOSITORY TYPE CODE TESTS RESULT OUT OF RANGE REFERENCE UNITS LAB L501.0100 70-110 mg/dL Normal GLU 94 LAB L501.1000 7-18 mg/dL Normal BUN 7 LAB L501.1100 0.55-1.02 mg/dL Normal 0.69 CREAT,SERUM Result Comment: The validity of the calculated GFR AND GFRAA in patients over 70 years has not been determined. Clinical correlation is essential. LAB L501.1110 >60 mL/min Normal EST GFR 116 Result Comment: Non- GFR Calc LAB L501.1115 >60 mL/min Normal EST GFR - AA 141 Result Comment: GFR Calc LAB L501.1255 ml/min Normal Estimated CRCL 118.00 LAB L501.1300 10-20 RATIO BUN/CRE Normal 10.2 LAB L501.2200 8.5-10 mg/dL .1 CA Normal 8.8 LAB L501.5300 136-14 mmol/L 5 NA Normal 141 LAB L501.5600 3.5-5. mmol/L 1 K Normal 4.4 Result Comment: Slight Hemolysis, Result may be falsely increased. LAB L501.5900 98-107 mmol/L Normal CL 106 LAB L501.6100 21.0-32.0 mmol/L Normal CO2 29.0 LAB L501.6200 5-15 Normal 6 GAP Performed By: #### L500.2500 #### [facility] [address] [place], [address] CHEST PA AND LATERAL Observed: 09/07/2017 Status: F Source: [place] 10:14 PM [facility] REPOSITORY [facility] Imaging Services [address] [place] [address] Chest PA and Lateral MR#: [id number] Acct: [id number] Name: ABRAHAM MCCLELLAN Rep #: [id number] : 1995 F 21 From: Nela Pearl MD PCP: Care Physician, No Primary Status: REG ER Study: Chest PA and Lateral Date of Exam: 09/07/17 Exam# [id number] Ordering Dr: Roxanna Barrientos DO STUDY: X-RAY CHEST REASON FOR EXAM: Female, 21 years old. Chest pain and coughing. TECHNIQUE: 2 views COMPARISON: None. FINDINGS: The lungs are clear and expanded. There is no demonstrated pleural abnormality. Normal size heart. Normal mediastinum and debora. Normal visualized pulmonary arteries. Normal visualized aortic arch and descending thoracic aorta. Normal visualized thoracic spine. Normal visualized ribs, clavicles, and shoulders. There is no demonstrated abnormality of the visualized soft tissue structures of the upper abdomen. RAD/Chest PA and Lateral IMPRESSION: Normal x-ray examination of the chest. Electronically Signed: Nela Pearl MD at 23:22 EST , Service support , CC: No Primary Care Physician; Roxanna Barrientos DO Box Tender: Signed ALLERGIES ALLERGIES DATE TYPE / CODE NAME / CODE REACTION SEVERITY SOURCE 07/13/2018 Drug No Known Unknown [facility] Allergy/416 Allergies/D43054 Hospital 983051(SNOM 0388(RXNORM) Repository ED CT) Drug NO KNOWN [facility] Class/67100 ALLERGIES Main [place] 1003(SNOMED Repository CT) ENCOUNTERS ENCOUNTERS ADMIT/DISCHARGE ACCOUNT ADMITTING ENCOUNTER LOCATION SOURCE NUMBER CLASS 07/13/2018/07/13/20 [id number] Emergency [address] ing:ED Repository 05/02/2018/05/02/20 [id number] Ambulatory [address] Repository 02/08/2018/02/09/20 [id number] Ambulatory [address] Repository 10/18/2017/10/20/19 [id number] Ambulatory [address] [place] Repository 10/07/2017/10/07/19 [id number] Ambulatory [address] [place] Repository 10/07/2017/04/05/20 [id number] Ambulatory [address] Repository 09/07/2017/09/08/19 [id number] Emergency [address] ing:ED Repository PAYERS PAYERS ENCOUNTER GUARANTOR PAYER SUBSCRIBER SOURCE 07/13/2018 TAYLR O Primary TAYLR O [place] [id number] Insurance:ROSALIND TAVARES: [facility] [id number] [address]Txr: (121) PLANPolicy Number: Repository [phone] HP) [id number] Date:[id number] [address]SK: 07/13/2018 Secondary NOT GIVENUNK [place] Insurance:SELF PAY [facility] Number: Effective Repository Date:2018-07-13 09/07/2017 TAYLR O Primary TAYLR O [place] [id number] NILO Insurance:ROSALIND TAVARES: [facility] [id number] Number: Repository [id number]: (285) [id number] [phone] () Date:[id number] [address]GK: 09/07/2017 Secondary NOT GIVENUNK [place] Insurance:SELF PAY [facility] Number: Effective Repository Date:2017-09-07
== END 2018-07-13 16:24 | disposition home or self-care (01) ==
PROVIDERS: Emergency Provider Emergency Medicine
DX: G43.009 Migraine without aura, not intractable, without status migrainosus (principal); R09.81 Nasal congestion; E66.9 Obesity, unspecified; E28.2 Polycystic ovarian syndrome; Z87.891 Personal history of nicotine dependence
CPT/HCPCS: 96374; 96375; 99284; J7030; A4216

== ENCOUNTER 2018-10-03 19:00 | Emergency (ER) | payer MEDICAID, SELFPAY ==
[2018-10-03 19:01] VITALS: BP 162/102; PULSE 112; RESP 18; TEMP 37.2; O2SAT 98; BMI 64.9
--- NOTE | 2018-10-03 19:15 | RAD_ITS ---
STUDY: X-RAY - LEFT FOOT CLINICAL: Female, 22 years old. Fall. Pain. TECHNIQUE: 3 view(s) of the foot. COMPARISON: None. FINDINGS: There is no evidence of fracture or dislocation. There is a plantar calcaneal spur noted. There are no radiodense foreign bodies. RAD/Foot min 3 Views IMPRESSION: No fracture or dislocation. Plantar calcaneal spur. Electronically Signed: Mata Romero, at 19:47 EST Tel , Service support ,
--- NOTE | 2018-10-03 19:16 | RAD_ITS ---
STUDY: X-RAY - LEFT ANKLE REASON FOR EXAM: Female, 22 years old. Fall. Pain. TECHNIQUE: 3 view(s) of the ankle. COMPARISON: None. FINDINGS: There is no evidence of fracture or dislocation. There are no significant degenerative changes. There are no radiodense foreign bodies. RAD/Ankle min 3 Views IMPRESSION: No fracture or dislocation. Electronically Signed: Mata Romero, at 19:44 EST Tel , Service support ,
--- NOTE | 2018-10-03 20:13 | ED.DCSUM_ITS ---
- ER Visit Summary Date of Service: 10/03/18 Chief Complaint: [Left foot and ankle injury] History of Present Illness: The patient is a 22 F [presents the emergency department complaint of an injury to her left foot and ankle that occurred about an hour ago. Patient states she was getting out of the shower when she struck her foot on the tub and then twisted her ankle. Patient able to bear weight but having pain. Denies any other injuries.] Physical Examination: [HEENT-PERRLA, EOMI. Cranial nerves II through XII grossly intact. TMs clear. Mucous membranes moist. No adenopathy. Cardiovascular-regular rate and rhythm without murmur or ectopy Lungs-clear to auscultation, chest wall stable without crepitus or subcu emphysema Abdomen-normoactive bowel sounds, soft, nontender, no rebound or rigidity, no peritoneal signs. Extremities-intact ?4, normal range of motion, normal pulses, atraumatic. Left foot and ankle-patient does have tenderness palpation over the lateral malleolus with some mild soft tissue swelling noted. Patient has no pain at the proximal fibular head. Patient has tenderness diffusely about the first metatarsal and the distal aspect of the foot. There is no ecchymosis or bruising noted. No obvious deformity. Neurovascular intact.] Test Results: [X-rays of the left foot and ankle obtained showed no fractures] Emergency Department Course and Treatment: [Patient will be given an air splint] Treatment Plan: [Patient advised use ibuprofen or Tylenol for discomfort and to use ice and elevation. Patient to follow-up with primary care physician in 5-7 days.] Disposition: [Discharged home in stable condition.] Impression: [Left foot and ankle sprain] This note was generated with Newsbound dictation software. It may contain incorrect words, spelling, and punctuation that were not noted in review of the chart prior to signing ED Disposition - Plan for ED Patient: Referrals: Care Physician,No Primary [Primary Care Provider] -
--- NOTE | 2018-10-03 20:13 | ED.DEP ---
ED Disposition - Plan for ED Patient: Instructions: ED Sprain Foot, ED Sprain Ankle W X Ray Referrals: Care Physician,No Primary [Primary Care Provider] - Abhijeet Gilbert III, MD [STAFF PHYSICIAN] - 5-7 Days
[2018-10-03 20:40] VITALS: BP 131/64
== END 2018-10-03 20:50 | disposition home or self-care (01) ==
PROVIDERS: Emergency Provider Emergency Medicine
DX: S93.602A Unspecified sprain of left foot, initial encounter (principal); S93.402A Sprain of unspecified ligament of left ankle, initial encounter; X50.1XXA Overexertion from prolonged static or awkward postures, initial encounter; Y93.89 Activity, other specified; Y92.9 Unspecified place or not applicable
CPT/HCPCS: 73610; 73630; 99283

== ENCOUNTER 2018-11-24 14:34 | Emergency (ER) | payer MEDICAID, SELFPAY ==
--- NOTE | 2018-11-24 14:31 | EKG12_ITS ---
Test Reason : CP Blood Pressure : / mmHG Vent. Rate : 109 BPM Atrial Rate : 109 BPM P-R Int : 128 ms QRS Dur : 092 ms QT Int : 328 ms P-R-T Axes : 045 070 077 degrees QTc Int : 441 ms Sinus tachycardia Possible Left atrial enlargement Borderline ECG Confirmed by LOLITA EDGAR, BRETT ([id number]), image editor TROY BLANK ([id number]) on 11/28/2018 9:16:38 AM Referred By: KITTY Confirmed By:BRETT MCHUGH MD
[2018-11-24 14:35] VITALS: BP 153/90; PULSE 101; RESP 18; TEMP 36.3; O2SAT 97; BMI 66.4
--- NOTE | 2018-11-24 15:25 | RAD_ITS ---
STUDY: X-RAY CHEST REASON FOR EXAM: Female, 23 years old. Chest pain TECHNIQUE: PA and lateral views of the chest. COMPARISON: 09/07/2017 FINDINGS: EKG leads project over the chest. The lungs are clear and expanded. There is no demonstrated pleural abnormality. Normal size heart. Normal mediastinum and debora. Normal visualized pulmonary arteries. Normal visualized aortic arch and descending thoracic aorta. Normal visualized thoracic spine. Normal visualized ribs, clavicles, and shoulders. There is no demonstrated abnormality of the visualized soft tissue structures of the upper abdomen. RAD/Chest PA and Lateral IMPRESSION: Normal x-ray examination of the chest. Electronically Signed: Calin Golden MD at 15:40 EDT , Service support ,
[2018-11-24 15:56] LABS: D-Dimer Quantitative (DVT/PE) < 0.27 FEU/ug/m (0.27-0.49)
--- NOTE | 2018-11-24 16:07 | ED.DCSUM_ITS ---
- ER Visit Summary Date of Service: 11/24/18 Chief Complaint: [Chest pain] History of Present Illness: The patient is a 23 F [presents the emergency department complaint of chest pain that started about 45 minutes ago. Patient states that she was driving when she had sudden onset of intermittent sharp stab mar[place] pains lasting a few seconds. Patient states that she has had similar pains in the past and has been evaluated for these and she is not sure if it is anxiety related. Patient denies recent travel or surgery although she is concerned because her mother has had a history of pulmonary emboli. Patient denies recent travel or surgery. She denies any fever cough or recent illness. Patient's pain currently resolved.] Physical Examination: [HEENT-PERRLA, EOMI. Cranial nerves II through XII grossly intact. TMs clear. Mucous membranes moist. No adenopathy. Cardiovascular-regular rate and rhythm without murmur or ectopy Lungs-clear to auscultation, chest wall stable without crepitus or subcu emphysema Abdomen-normoactive bowel sounds, soft, nontender, no rebound or rigidity, no peritoneal signs. Extremities-intact ?4, normal range of motion, normal pulses, atraumatic] Test Results: [EKG obtained on arrival showed a sinus rhythm with a ventricular rate of 109 bpm with possible left atrial enlargement. d-dimer was less than 0.27. 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 It may contain incorrect words, spelling, and punctuation that were not noted in review of the chart prior to signing ED Disposition - Plan for ED Patient: Referrals: Care Physician,No Primary [Primary Care Provider] -
--- NOTE | 2018-11-24 16:08 | ED.DEP ---
ED Disposition - Plan for ED Patient: Instructions: ED Chest Pain Atypical Unkn Cause, ED Stress React Referrals: Care Physician,No Primary [Primary Care Provider] - Eloisa Selby MD [STAFF PHYSICIAN] - 5-7 Days
[2018-11-24 16:14] VITALS: BP 91/53; PULSE 90
== END 2018-11-24 16:15 | disposition home or self-care (01) ==
LOC: ED 14:56
PROVIDERS: Emergency Provider Emergency Medicine
DX: R07.89 Other chest pain (principal)
CPT/HCPCS: 71046; 85379; 93005; 99283; A4216

== ENCOUNTER 2019-08-02 04:50 | Emergency (ER) | payer MEDICAID, SELFPAY ==
[2019-08-02 04:52] VITALS: BP 137/87; PULSE 85; RESP 16; TEMP 36.7; O2SAT 99; BMI 68.8
--- NOTE | 2019-08-02 05:00 | ED.DCSUM_ITS ---
History of Present Illness Chief Complaint: Headache Detail of Chief Complaint: Migraine Informant: Patient Onset: Yesterday Context: Gradual Onset Current Severity: Moderate Maximum Severity: Moderate Narrative: Patient presents secondary to migraine headache. She is a history of similar headaches. She states they have been getting more frequent recently and her doc alfredo has an MRI ordered for her later this month. This headache started this morning. She states that initially was behind her left eye and is now moved behind her right eye. She does have sensitivity to light and sound. She has had vomiting. She took propranolol and Imitrex yesterday along with Tylenol and Motrin without improvement. - Past Medical History (1) Migraines Status: Chronic Past Medical History - Allergies and Home Meds Allergies/Adverse Reactions: Allergies No Known Allergies Allergy (Verified 08/02/19 04:52) Primary Care Physician: Clem Márquez MD [Primary Care Provider] - Prior records reviewed: Yes Smoking Status: Former smoker Review of Systems General: Denies: Chills, Fever Eyes: Denies: Visual changes - bilaterally ENT: Denies: Bilateral ear pain, Rhinorrhea, Sore throat Cardiovascular: Denies: Chest pain Respiratory: Denies: Dyspnea, Cough Gastrointestinal: Reports: Nausea, Vomiting. Denies: Abdominal pain Musculoskeletal: Denies: Swelling, Extremity Pain Skin: Denies: Rash Neurological: Reports: Headache Hematologic: Denies: Easy bruising Allergy: Denies: Uticaria Physical Exam Vital Signs/Narrative: Vital Signs Temp Pulse Resp BP Pulse Ox 08/02/19 04:52 98.0 F 85 16 137/87 H 99 Inital Vital Signs reviewed: Yes General: Well nourished, Well developed Head: Normocephalic ENT: Moist mucous membranes Neck: Supple Cardiovascular: Regular rate, Regular rhythm Respiratory: No distress, CTA bilaterally Abdomen: Soft, Nontender Extremities: Nontender Skin: Normal color Neurological: Alert, Oriented x3, Normal Strength, Normal Sensation Psychological: Normal affect Diagnostic/Tx/Re-eval - Medical Decision Making Patient is given Toradol, Reglan, Benadryl, and IV fluids. On repeat evaluation she feels significantly improved. She will be discharged home and will follow- up for her scheduled MRI. ED Disposition - Plan for ED Patient: Disposition: Home or Assisted Living Diagnosis: Migraine Instructions: ED, Migraine (Classical) Referrals: Clem Márquez MD [Primary Care Provider] - As Needed
[2019-08-02] MEDS: Metoclopramide 10 MG/2 ML Vial IV (05:09)
[2019-08-02] MEDS: 0.9% Normal Saline 1,000 ML 999 ML IV (05:09)
[2019-08-02] MEDS: Ketorolac 30 MG/ML Syringe IV (05:09)
[2019-08-02] MEDS: DiphenhydrAMINE 50 MG/ML Syringe 25 MG IV (05:09)
[2019-08-02 06:28] VITALS: BP 152/88; PULSE 70; RESP 18; O2SAT 99
== END 2019-08-02 06:30 | disposition home or self-care (01) ==
PROVIDERS: Emergency Provider Emergency Medicine; Family Provider Family Medicine; PCP Family Medicine
DX: G43.909 Migraine, unspecified, not intractable, without status migrainosus (principal); Z87.891 Personal history of nicotine dependence
CPT/HCPCS: 96361; 96374; 96375; 99283; A4216

== ENCOUNTER 2019-09-08 17:33 | Emergency (ER) | payer MEDICAID, SELFPAY ==
[2019-09-08 17:34] VITALS: BP 126/79; PULSE 100; RESP 18; TEMP 36.9; O2SAT 97; BMI 69.0
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
[2019-09-08] MEDS: 0.9% Normal Saline 1,000 ML 1000 ML IV (18:35)
[2019-09-08] MEDS: Ondansetron 4 MG/2 ML Vial IV (18:35)
[2019-09-08 18:38] LABS: Absolute Lymphocyte Count 1.74 X10^3/uL (0.83-4.51); Absolute Neutrophil Count 7.9 X10^3/uL (2.0-7.7); Basophil# 0.04 X10^3/uL; Basophil% 0.4 % (0-1); Eosinophil# 0.14 X10^3/uL; Eosinophils% 1.3 % (0-5); Hematocrit 43.5 % (37-47); Hemoglobin 13.9 g/dL (12.0-15.0); Lymphocyte # 1.74 X10^3/ul (4.0); Lymphocyte % 16.7 % (19-41); Mean Corpuscular Volume 87.5 fL (81-99); Mean Platelet Vol. 10.2 fl (6.2-12.0); Monocyte# 0.59 X10^3/uL; Monocyte% 5.7 % (0-10); NRBC Flagged by Analyzer 0 % (0-5); Neutrophil % 75.6 % (47-70); Platelet Count 322 K/mm3 (150-450); RBC Distribution Width CV 12.8 % (11.6-14.6); RBC Distribution Width SD 41.1 fl (35.1-43.9); Red Blood Count 4.97 M/mm3 (4.2-5.4); White Blood Count 10.4 K/mm3 (4.4-11.0)
[2019-09-08 18:57] LABS: Anion Gap 4 (5-15); BUN 6 mg/dL (7-18); Calcium,Total 9.2 mg/dL (8.5-10.1); Chloride 108 mmol/L (98-107); Creatinine, Serum 0.86 mg/dL (0.55-1.02); EST Glomerular Filtration Rate 88 mL/min (>60); Est Glom Filt Rate - Afr Amer 106 mL/min (>60); Estimated Creatinine Clearance 96.87 ml/min; Glucose 95 mg/dL (74-106); Potassium 3.7 mmol/L (3.5-5.1); Sodium Level 141 mmol/L (136-145)
[2019-09-08 19:03] LABS: Internal QC Validated? YES +Cl - CLEAR BKGD; Pregnancy, Serum, hCG Quali. NEGATIVE Negative
[2019-09-08 19:39] LABS: Mucous, Urine 0 SEEN /hpf (<or=2+); Red Blood Cells-Urine 0 SEEN /hpf (0-5); White Blood Cells 0 SEEN /hpf (0-5)
[2019-09-08 19:43] LABS: Color, Urine Yellow (Yellow); Glucose, Dipstick Normal (Normal); Ketone-Dipstick Negative (Negative); Leukocyte Esterase-Dipstick Negative /ul (Negative); Nitrite-Dipstick Negative (Negative); Occult Blood-Urine Negative /ul (Negative); Protein-Dipstick Negative (Negative); Specific Gravity, Urine 1.005 (1.002-1.030); Urine Bilirubin Dipstick Negative (Negative); Urine Clarity Cloudy (Clear); Urine Urobilinogen Normal (Normal)
[2019-09-08 19:50] VITALS: BP 137/95; PULSE 83; RESP 20; O2SAT 98
[2019-09-08 19:59] LABS: Squamous Epithelial Cells - UA 25-50 SEEN /hpf (5-10)
[2019-09-08 20:00] LABS: Bacteria 2+ /hpf (None Seen)
[2019-09-08] MEDS: 0.9% Normal Saline 1,000 ML 150 ML IV (20:06)
[2019-09-08 21:18] VITALS: BP 152/76; PULSE 89; RESP 18; O2SAT 97
== END 2019-09-08 21:20 | disposition home or self-care (01) ==
PROVIDERS: Emergency Provider Emergency Medicine; PCP Family Medicine
DX: A08.4 Viral intestinal infection, unspecified (principal); Z87.891 Personal history of nicotine dependence
CPT/HCPCS: 80048; 81001; 84703; 85025; 96361; 96374; 99285; J7030; A4216; J2405

== ENCOUNTER 2020-06-24 07:22 | Emergency (ER) | payer MEDICAID, SELFPAY ==
[2020-06-24 07:24] VITALS: BP 166/133; PULSE 83; RESP 16; TEMP 36.9; O2SAT 96; BMI 69.7
[2020-06-24 07:27] VITALS: BP 166/133; PULSE 83; RESP 16; TEMP 36.9; O2SAT 96
--- NOTE | 2020-06-24 07:37 | ED.VISSUMM ---
- ER Visit Summary Date of Service: 06/24/20 Chief Complaint: [Chest pain History of Present Illness: The patient is a 24 F [presents to the emergency department with complaint of chest pain that started around 5 AM when she woke up this morning. She describes a sharp stabbing pain in the center of her chest that radiate straight through to her back. Patient states that the pain is intermittent and last typically less than 20 seconds. When she does have the pain is worse with movement. Denies any significant shortness of breath. She denies any fevers or recent illness. She has had similar pains in the past that were attributed to anxiety although she states that she did not feel anxious this morning. Patient denies nausea or vomiting. Patient has never had a blood clot in her leg or lung. Patient does state that her mother of a pulmonary embolism. She denies recent travel or surgery.] Physical Examination: [HEENT-PERRLA, EOMI. Cranial nerves II through XII grossly intact. TMs clear. Mucous membranes moist. No adenopathy. Cardiovascular-regular rate and rhythm without murmur or ectopy Lungs-clear to auscultation, chest wall stable without crepitus or subcu emphysema Abdomen-normoactive bowel sounds, soft, nontender, no rebound or rigidity, no peritoneal signs. Extremities-intact ?4, normal range of motion, normal pulses, atraumatic] Test Results: [EKG obtained arrival shows sinus rhythm with a ventricular rate of 85 bpm with no acute segment changes. No evidence of pericarditis.] Chest x-ray obtained was normal. D-dimer was normal at 0.41. Emergency Department Course and Treatment: [Patient received a GI cocktail while in the emergency department. She had no further chest pain while in the department.] Treatment Plan: [Patient advised to follow-up with her primary care physician within next 5 to 7 days. She is advised to return if worsening pain, increasing shortness of breath, or condition should worsen anyway. At this point the etiology of her chest pain is unclear.] Disposition: [Discharged home in stable condition] Impression: [Chest pain-etiology uncertain] This note was generated with [employer] software. It may contain incorrect words, spelling, and punctuation that were not noted in review of the chart prior to signing ED Disposition - Plan for ED Patient: Referrals: Clem Márquez MD [Primary Care Provider] -
[2020-06-24] MEDS: Mag Hydrox/Al Hydrox/Simeth 30 ML UDC PO (07:44)
--- NOTE | 2020-06-24 07:46 | RAD_ITS ---
STUDY: X-RAY CHEST REASON FOR EXAM: Female, 24 years old. CHEST PAINS AND SOB TECHNIQUE: Single AP portable view of the chest. COMPARISON: Comparison is made with prior study dated 11/24/2018. FINDINGS: EKG electrodes are seen. The lungs are clear and expanded. There is no demonstrated pleural abnormality. Normal size heart. Normal mediastinum and debora. Normal visualized pulmonary arteries. Normal visualized aortic arch and descending thoracic aorta. Normal visualized thoracic spine. Normal visualized ribs, clavicles, and shoulders. There is no demonstrated abnormality of the visualized soft tissue structures of the upper abdomen. RAD/Chest 1 View (Portable) IMPRESSION: Normal x-ray examination of the chest. Electronically Signed: Shiv Bergman, at 8:08 EST , Service support ,
[2020-06-24 08:01] LABS: D-Dimer Quantitative (DVT/PE) 0.41 FEU/ug/m (0.27-0.49)
--- NOTE | 2020-06-24 08:13 | ED.DEP ---
ED Disposition - Plan for ED Patient: Instructions: ED Chest Pain Atypical Unkn Cause Referrals: Clem Márquez MD [Primary Care Provider] - 5-7 Days
--- NOTE | 2020-06-24 08:16 | EKG12_ITS ---
Test Reason : CP Blood Pressure : / mmHG Vent. Rate : 085 BPM Atrial Rate : 085 BPM P-R Int : 158 ms QRS Dur : 098 ms QT Int : 364 ms P-R-T Axes : 017 060 068 degrees QTc Int : 433 ms Normal sinus rhythm Normal ECG Confirmed by REYES EDGAR, PRIETO ([id number]), staff editor NELSON BARROSO ([id number]) on 06/26/2020 11:02:09 AM Referred By: RU Confirmed By:PRIETO CHAMBERS MD
[2020-06-24 08:25] VITALS: BP 108/61; PULSE 76; RESP 18; O2SAT 99
== END 2020-06-24 08:26 | disposition home or self-care (01) ==
PROVIDERS: Emergency Provider Emergency Medicine; PCP Family Medicine
DX: R07.9 Chest pain, unspecified (principal); Z87.891 Personal history of nicotine dependence
CPT/HCPCS: 71045; 85379; 93005; 99284; A4216

== ENCOUNTER 2021-03-03 19:12 | Emergency (ER) | payer MEDICAID, SELFPAY ==
[2021-03-03 19:12] VITALS: BP 135/87; PULSE 103; RESP 16; TEMP 36.8; O2SAT 97; BMI 63.4
--- NOTE | 2021-03-03 19:47 | ED.RN ---
1941: PT STATES SHE DOESN'T WANT TO WAIT AND WENT HOME. AMBULATING WITH STEADY GAIT.
== END 2021-03-03 19:44 | disposition left against medical advice (07) ==
LOC: ED 19:49
PROVIDERS: PCP Family Medicine
DX: R69 Illness, unspecified (principal); Z53.21 Procedure and treatment not carried out due to patient leaving prior to being seen by health care provider

== ENCOUNTER 2022-02-09 15:00 | Emergency (ER) | payer MEDICAID, SELFPAY ==
[2022-02-09 15:00] VITALS: BP 137/85; PULSE 84; RESP 14; TEMP 36.9; O2SAT 97; BMI 59.5
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
[2022-02-09] MEDS: Naproxen 500 MG Tablet PO (15:58)
== END 2022-02-09 16:00 | disposition home or self-care (01) ==
PROVIDERS: Emergency Provider Student in an Organized Health Care Education/Training Program; PCP Family Medicine; Visit Provider Student in an Organized Health Care Education/Training Program
DX: S16.1XXA Strain of muscle, fascia and tendon at neck level, initial encounter (principal); V43.52XA Car driver injured in collision with other type car in traffic accident, initial encounter; Y93.89 Activity, other specified; Z87.891 Personal history of nicotine dependence
CPT/HCPCS: 99284

== ENCOUNTER 2023-07-02 21:10 | Emergency (ER) | payer OTHER, SELFPAY ==
[2023-07-02 21:12] VITALS: BP 172/95; PULSE 107; RESP 16; TEMP 37.2; O2SAT 100
--- NOTE | 2023-07-02 21:37 | ED.VIS.CHEST ---
HPI History of Present Illness Chief Complaint: Chest Pain Informant: patient Narrative Narrative: 27-year-old female states she has been having chest pain has been waxing and waning all day today, it is left-sided feels like it is inside sometimes it feels more like it is in her back than her chest. It is there right now mildly, it was worse earlier. Has seem random, no obvious associated activities with this, not exertional, seems maybe a little pleuritic. No recent leg pain or swelling no history of DVT or PE but states her mom of a pulmonary embolus and her dad of an CT. She states she came in tonight more because she sat up and suddenly was dizzy, with the room feeling like it was spinning and feeling foggy in her head. After remaining still for couple minutes the symptoms gradually resolved. She did not feel nauseated, she had no vision disturbance, peripheral neurologic symptoms, earache, tinnitus. She states she had a cold 2 or 3 weeks ago that was a bad head cold and is now resolved. She denies having any ear pain now. PFSH PFSH Home Medications clindamycin phosphate 2 % vaginal cream 1 appful vaginal QHS 07/02/23 [History Last Taken Unknown] meclizine 25 mg tablet 25 mg PO Q8H PRN PRN Dizziness #20 tabs 07/02/23 [Rx Last Taken Unknown] Allergy/AdvReac Type Severity Reaction Status Date / Time No Known Allergies Allergy Verified 07/02/23 21:10 Surgical History (Updated 07/02/23 @ 21:12 by Zora Huston) Hx of tonsillectomy Social History Smoking Status: Never smoker ROS ROS ED Constitutional Constitutional ED: Denies chills or fever(s) Eyes Eyes: Denies change in vision or diplopia ENT ENT ED: Reports vertigo; Denies rhinorrhea or sore throat Cardiovascular Cardiovascular: Reports chest pain; Denies palpitations Respiratory/Chest Respiratory/Chest: Denies cough or dyspnea Gastrointestinal Gastrointestinal: Denies abdominal pain, diarrhea, nausea or vomiting Genitourinary Genitourinary ED: Denies dysuria or hematuria Musculoskeletal Musculoskeletal: Reports back pain; Denies neck pain Integumentary Denies abscess or rash Neurologic Neurologic: Denies headache(s), paresthesias or weakness Psychiatric Psychiatric: Denies anxiety or suicidal thoughts EXAM Physical Exam Const Vital Signs: 07/02/23 21:12 07/02/23 21:39 Temperature 98.9 F Temperature Source Temporal Pulse Rate 107 H Respiratory Rate 16 Blood Pressure 172/95 H Blood Pressure Mean 120 Pulse Ox 100 98 Oxygen Delivery Method Room Air Positive well nourished and well developed Constitutional Narrative: Morbid obesity General Appearance ED: well developed and NAD HEENT Reports moist mucous membranes HEENT Narrative: Right TM and EAC normal. Left TM is slightly erythematous without bulging, EAC normal. normocephalic and atraumatic Eyes PERRL and EOMs intact bilaterally Eyes Narrative: No pathologic nystagmus. Neck full ROM and supple Chest Wall inspection of chest normal and palpation of chest normal Resp normal respiratory effort and clear to auscultation bilaterally Cardio regular rate, regular rhythm and no murmurs Rate: Negative for tachycardic GI non-tender and non-distended Auscultation: normoactive bowel sounds Palpation: soft Back/Spine no CVA tenderness General Back: other FROM Extremity normal to inspection and no calf tenderness General Extremety ED: Negative for edema, pulses abnormal or tenderness General Extremity: Negative for edema or pulses abnormal Neuro oriented x3, CN's II-XII intact bilaterally and no sensory deficits noted Sensorium / Orientation: awake and alert Motor Exam: strength 5/5 throughout Skin no rashes or lesions noted and no wounds Heart Score History: Slightly/Non-Suspicious ECG: Normal Age: </= 45 years Risk Factors: 1 or 2 Risk Factors (Family history) Troponin: </= Normal Limit Score: 1 MDM MDM MDM Narrative Medical decision making narrative: Patient had a single episode of what seems like peripheral vertigo tonight, and I think that is unrelated to her chest discomfort. Differential for the latter includes esophageal etiologies, less likely to be pneumothorax, she has no risk for PE except for family history, less likely to be acute coronary syndrome, pericarditis myocarditis all in the differential as well as musculoskeletal etiologies. D-dimer is negative, ruling out pulmonary embolus in this patient with a mild resting tachycardia in triage but not during exam, EKG is normal, troponin is within normal limits after having discomfort all day, and the rest of her tests are unremarkable. 2 view chest x-ray is normal in my interpretation with no signs of pneumonia or pneumothorax, radiology in agreement. She was given a dose of Maalox, she is not sure if it really helped any but she has mild discomfort, she is hypertensive and that should be reevaluated but there are no signs of heart strain or injury at this time. Stable for discharge home close outpatient follow-up. She was given a dose of meclizine which helped with any recurrent vertigo. With regards to the left ear, it was a little red I would not treat her with antibiotics at this time but I advised her to keep an eye on it she is happy to return here if needed. Lab Data Attestation: I reviewed the patient's lab results. Labs: Laboratory Results - last 24 hr 07/02/23 07/02/23 21:30 21:54 WBC 12.2 H RBC 4.63 Hgb 12.8 Hct 40.7 MCV 87.9 MCH 27.6 MCHC 31.4 L RDW Std Deviation 42.4 RDW Coeff of Kourtney 13.3 Plt Count 314 MPV 10.2 Immature Gran % (Auto) 0.400 Neut % (Auto) 63.9 Lymph % (Auto) 27.0 Daniels % (Auto) 6.5 Eos % (Auto) 1.7 Baso % (Auto) 0.5 Absolute Neuts (auto) 7.8 H Absolute Lymphs (auto) 3.30 Nucleated RBC % 0 D-Dimer Quant (PE/DVT) Cancelled 0.31 Sodium 139 Potassium 4.0 Chloride 105 Carbon Dioxide 29.0 Anion Gap 5 BUN 10 Creatinine 0.80 Est GFR (MDRD) Af Amer 112 Est GFR (MDRD) Non-Af 93 BUN/Creatinine Ratio 12.5 Glucose 96 Calcium 8.9 Troponin I High Sens 6 Radiography Diagnostic Testing: Clinical Impression(s) from Imaging Studies Chest X-Ray 07/02/23 22:10 IMPRESSION: Normal x-ray examination of the chest. Electronically Signed: Chidi Benites MD at 22:25 EST , Rhythm Strip Rhythm Strip: Sinus Rhythm Rate: 95 Ectopy: None EKG Initial EKG: Attestation: I personally reviewed and interpreted this EKG as follows: Interpretation: Sinus Rhythm and No Acute Injury Pattern Comments: RSR prime. Normal EKG. Discharge Plan Triage Chief Complaint: Chest Pain ED Provider: Raudel Parikh Dx/Rx/DC Orders Clinical Impression: Left-sided chest pain, Episodic peripheral vertigo, Episode of hypertension Instructions: Hypertension Dc, ED Chest Pain, Uncertain Cause, ED Vertigo, Unspecified Prescriptions: New meclizine [meclizine] 25 mg tablet 25 mg PO Q8H PRN PRN (Reason: Dizziness) Qty: 20 0RF No Action clindamycin phosphate 2 % cream 1 appful VAGINAL QHS Rx Instructions: FOR 7 DAYS, STARTED 07/01/23 Primary Care Provider: Hal Fowler Referrals: Clem Márquez MD [Non-Staff] - (Follow-up this coming week for blood pressure recheck, and to have your left ear rechecked especially if it is starting to bother you) Disposition Disposition: Home, Self Care
[2023-07-02 21:39] VITALS: O2SAT 98
[2023-07-02] MEDS: Meclizine HCl 25 MG Tablet PO (21:43)
[2023-07-02] MEDS: Mag Hydrox/Al Hydrox/Simeth 30 ML UDC PO (21:44)
[2023-07-02 21:45] LABS: Absolute Neutrophil Count 7.8 X10^3/uL (2.0-7.7); Basophil# 0.06 X10^3/uL; Basophil% 0.5 % (0-1); Eosinophil# 0.21 X10^3/uL; Eosinophils% 1.7 % (0-5); Hematocrit 40.7 % (37-47); Hemoglobin 12.8 g/dL (12.0-15.0); Mean Corp Hgb Conc 31.4 g/dL (32-36); Mean Corpuscular Hgb 27.6 pg (27.0-32.0); Mean Corpuscular Volume 87.9 fL (81-99); Mean Platelet Vol. 10.2 fl (6.2-12.0); Monocyte% 6.5 % (0-10); NRBC Flagged by Analyzer 0 % (0-5); Neutrophil # 7.82 X10^3/uL (2.7-7.7); Neutrophil % 63.9 % (47-70); Platelet Count 314 K/mm3 (150-450); RBC Distribution Width CV 13.3 % (11.6-14.6); RBC Distribution Width SD 42.4 fl (35.1-43.9); Red Blood Count 4.63 M/mm3 (4.2-5.4); White Blood Count 12.2 K/mm3 (4.4-11.0)
[2023-07-02 22:06] LABS: Anion Gap 5 (5-15); BUN 10 mg/dL (7-18); BUN/Creat Ratio 12.5 RATIO (10-20); Calcium,Total 8.9 mg/dL (8.5-10.1); Chloride 105 mmol/L (98-107); EST Glomerular Filtration Rate 93 mL/min (>60); Est Glom Filt Rate - Afr Amer 112 mL/min (>60); Glucose 96 mg/dL (74-106); Sodium Level 139 mmol/L (136-145); Troponin-I HS 6 pg/mL (3.0-54.0)
--- NOTE | 2023-07-02 22:10 | RAD_ITS ---
STUDY: X-RAY CHEST REASON FOR EXAM: Female, 27 years old. left chest pain TECHNIQUE: PA and lateral views of the chest. COMPARISON: 06/24/2020 FINDINGS: The lungs are clear and expanded. There is no demonstrated pleural abnormality. Normal size heart. Normal mediastinum and debora. Normal visualized pulmonary arteries. Normal visualized aortic arch and descending thoracic aorta. Normal visualized thoracic spine. Normal visualized ribs, clavicles, and shoulders. There is no demonstrated abnormality of the visualized soft tissue structures of the upper abdomen. RAD/Chest PA and Lateral IMPRESSION: Normal x-ray examination of the chest. Electronically Signed: Chidi Benites MD at 22:25 EST ,
[2023-07-02 22:23] LABS: D-Dimer Quantitative (DVT/PE) 0.31 FEU/ug/m (0.27-0.49)
== END 2023-07-02 22:56 | disposition home or self-care (01) ==
PROVIDERS: Emergency Provider Emergency Medicine; PCP Family Medicine; Visit Provider Emergency Medicine
DX: R07.9 Chest pain, unspecified (principal); R42 Dizziness and giddiness; I10 Essential (primary) hypertension
CPT/HCPCS: 71046; 80048; 84484; 85025; 85379; 93005; 99284; A4216

== ENCOUNTER 2023-10-05 05:46 | Emergency (ER) | payer OTHER, SELFPAY ==
[2023-10-05 05:47] VITALS: BP 139/87; PULSE 94; RESP 18; TEMP 36.7; O2SAT 100; BMI 78.0
[2023-10-05] MEDS: MethylPREDNISolone 125 MG/2 ML Vial IV (05:57)
[2023-10-05] MEDS: Epi Pen (EQUIV) 0.3 MG Syringe 0.299999999999999989 MG IM (05:57)
[2023-10-05] MEDS: DiphenhydrAMINE 50 MG/ML Syringe IV (05:57)
[2023-10-05] MEDS: Famotidine 200 MG/20 ML MDV 40 MG in 0.9% Normal Saline (Pres. free 6 ML 300 MG IV (06:05)
--- OUTSIDE RECORDS SUMMARY | 2023-10-05 06:42 | XMS RPT_ITS | CCD ---
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 conjugate Mansoor Hampton MD Work Phone: [facility] Work Phone: 06-06-2000 pneumococcal conjuga te vaccine, 7 valent Mansoor Hampton MD Work Phone: [facility] Work Phone: 12-14-1998 measles, mumps and rubella virus vaccine Mansoor Hampton MD Work Phone: [facility] Work Phone: 12-14-1998 trivalent poliovirus vaccine, live, oral Mansoor Hampton MD Work Phone: [facility] Work Phone: 12-14-1998 varicella virus vaccine Edison Hampton MD Work Phone: [facility] Work Phone: 08-21-1998 diphtheria, tetanus toxoids and acellular pertussis vaccine Mansoor Hampton MD Work Phone: [facility] Work Phone: 08-21-1998 haemophilus influenz ae type b vaccine, HbOC conjugate Mansoor Hampton MD Work Phone: [facility] Work Phone: 08-21-1998 hepatitis B vaccine, pediatric or pediatric/adolescent dosage Mansoor Hampton MD Work Phone: [facility] Work Phone: 03-21-1998 diphtheria, tetanus toxoids and acellular pertussis vaccine Mansoor Hampton MD Work Phone: [facility] Work Phone: 03-21-1998 haemophilus influenz ae type b vaccine, HbOC conjugate Mansoor Hampton MD Work Phone: [facility] Work Phone: 03-21-1998 poliovirus vaccine, inactivated Mansoor Hampton MD Work Phone: [facility] Work Phone: 02-06-1998 diphtheria, tetanus toxoids and acellular pertussis vaccine Mansoor Hampton MD Work Phone: [facility] Work Phone: 02-06-1998 haemophilus influenz ae type b vaccine, HbOC conjugate Mansoor Hampton MD Work Phone: [facility] Work Phone: 02-06-1998 poliovirus vaccine, inactivated Mansoor Hampton MD Work Phone: [facility] Work Phone: 1997 hepatitis B vaccine, pediatric or pediatric/adolescent dosage Mansoor Hampton MD Work Phone: [facility] Work Phone: 1997 hepatitis B vaccine, pediatric or pediatric/adolescent dosage Mansoor Hampton MD Work Phone: [facility] Work Phone: Payers Date Payer Category Payer Medicaid [id number] 2022 Private Health Insurance [facility] [id number] 2022-Present [phone] [address] [place] [address] PPO [id number] 2022 Private Health Insurance [id number] 2003 Medicaid [employer] [id number] 2003-Present [phone] [address] [place] [address] Medicaid [id number] 2003 Medicaid [id number] 1997 Unknown [id number] 1997 Unknown [id number] 1997 Unknown [id number] Social History Date Type Detail Facility Start: 02-08-2018 End: 04-15-2022 Tobacco smoking status NHIS Ex-smoker [facility] End: 01-18-2018 History of tobacco use Current smoker [facility] Start: 02-08-2018 End: 04-15-2022 Tobacco use and exposure Smokeless tobacco non-user [facility] Start: 11-17-2021 End: 11-08-2022 Alcohol intake Current drinker of alcohol (finding) [facility] Start: 12-27-2019 End: 04-02-2020 History SDOH Alcohol Frequency 1 [facility] Start: 04-02-2020 History SDOH Alcohol Std Drinks 98 [facility] Start: 01-14-2021 History SDOH Alcohol Comment occ [facility] Start: 12-27-2019 End: 04-02-2020 History SDOH Social Connections Membership 2 [facility] Start: 04-02-2020 History SDOH Social Connections Living 7 [facility] Start: 04-02-2020 History SDOH Physica l Activity DPW 4 [facility] Start: 04-02-[address] [facility] Start: 02-10-2014 Tobacco Comment dad quit. step mom and sibling smokes outside [facility] Start: 1997 Sex Assigned At Not on file C [facility] Start: 11-07-2021 End: 04-27-2022 Exposure to SARS-CoV-2 (event) Not sure [facility] Work Phone: End: 01-18-2018 History of tobacco use Cigarette Smoker [facility] Start: 04-15-2022 Tobacco Comment . step mom and sibling smokes outside [facility] Start: 11-25-2022 End: 09-18-2023 Alcohol intake Ex-drinker (finding) [facility] Start: 04-02-2020 End: 03-09-2023 History of Social function [facility] Work Phone: Start: 04-02-2020 End: 03-09-2023 Social connection and isolation panel [facility] Work Phone: In a typical week, h ow many times do you talk on the telephone with family, friends, or neighbors? Patient refused [facility] Work Phone: Do you belong to any clubs or organizations such as evangelical groups, unions, fraternal or athletic groups, or school groups? No [facility] Work Phone: Are you now , , , , never or living with a partner? Never [facility] Work Phone: How often to you hav e a drink containing alcohol? Never [facility] Work Phone: How hard is it for y ou to pay for the very basics like food, housing, medical care, and heating Not very hard [facility] Work Phone: Do you feel stress - tense, restless, nervous, or anxious, or unable to sleep at night because your mind is troubled all the time - these days [OSQ] Rather much [facility] Work Phone: (I/We) worried wheth er (my/our) food would run out before (I/we) got money to buy more. Never true [facility] Work Phone: Start: 03-03-2021 Tobacco smoking status Never s moked tobacco (finding) [facility] Sex Assigned At Female [facility] Functional Status Date Assessment Result Facility 08-21-2023 Functional Status Awake, Resting [facility] Mental Status Date Assessment Result Facility 08-21-2023 Mental Status Oriented x 4 [place] Clinical Notes 12-11-2020 to 09-27-2023 Telephone Encounter - Karen Lund RN - 09/27/2023 10:58 AM ESTTelephone Encounter - Faye Chery MD - 09/27/2023 10:04 AM ESTTelephone Encounter - Karen Lund RN - 09/27/2023 9:54 AM EST Note Date & Type Note Facility 09-27-2023 Miscellaneous Notes Reviewed new orders Pt verbalized understanding and denies any questions. Karen Lund RN Done. Faye Chery MD Called pt, reviewed results and new orders. Pt requesting partner treatment: Mansoor Torres [birth year] Allergy: Codeine Pharmacy: [facility] Karen Lund RN Please notify patient that ureaplasma culture was positive. Would recommend treatment with doxycycline followed by moxifloxacin. May also be beneficial to treat partner as can be sexually transmitted. Would not necessarily consider to be an STD as can live in vagina without issue but cause irritation for some individuals. If sent partner's full name and can sent treatment. Faye Chery MD documented in this encounter [facility] 09-18-2023 Miscellaneous Notes Please call regarding boric acid prescription. Difficulty with e-script. ADDENDUM: Sent to [facility]. Phone number [phone] Faye Chery MD documented in this encounter [facility] 09-18-2023 Note HNO ID: [id number] Author: FAYE CHERY MD Service: ? Author Type: Physician Type: Progress Notes Filed: 09/18/2023 10:56 Note Text: Dejah Adorno is a 27 year old female who presents for recurrent vaginitis. Frequent BV, multiple positive tests over past year. Last positive 09/01/2023. Was given 7 day course of Flagyl. Previously used clindamycin cream for 7 days Ureaplasma positive 06/30, no SHADE. Treated with doxycycline Reports 4x infections since May. Notes that this problem first started with a new partner 2 years ago. Treated in [place]. Reports 2x treatments with Clindamycin, Flagyl 2-3 times, Doxycycline once. Does think her infection is adequately treated and then returns. Pain around clitoris/urethra. Some bleeding around urethra when wiping. Frequent urination, Denies any urinary tract infections Burning/stinging around introitus Some itching around introitus Vaginal discharge, white/milky with fishy odor Takes oral Provera and every 3-4 months. Does not have menses. Sexually active - not for last couple of months due to pain with intercourse. Hx morbid obesity. Hx of anxiety not treated with medication. Asthma. Denies other medical problems Consultation requested by Aydee Stinson CNM for an opinion regarding recurrent BV. My final recommendations will be communicated back to the requesting physician by way of shared Medical record or letter to requesting physician via US mail. 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 Vitamin D deficiency 12/21/2021 PAST SURGICAL HISTORY Procedure Laterality Date TONSILLECTOMY PRIMARY/SECONDARY FAMILY HISTORY Problem Relation Age of Onset other (Pulmonary Embolism) Mother with embolism Anxiety disorder Brother Depression Brother Breast Cancer Maternal Grandmother Hypertension Maternal Grandfather Lung Cancer Paternal Grandmother Bipolar disorder Maternal Aunt Diabetes Other mggm Social History Tobacco Use Smoking status: Former Types: Cigarettes Quit date: 01/18/2018 Years since quittin.6 Smokeless tobacco: Never Tobacco comments: . step mom and sibling smokes outside Vaping Use Vaping Use: Never used Substance Use Topics Alcohol use: Not Currently Drug use: Not Currently Types: Marijuana Current Outpatient Medications Medication Sig medroxyPROGESTERone (PROVERA) 10 mg tablet Take 1 tablet by mouth once daily. (Patient taking differently: Take 10 mg by mouth once daily. Takes every four to five months to start menses- last used September 2022) ondansetron orally disintegrating (ZOFRAN ODT) 4 mg disintegrating tablet Take 1 tablet by mouth every 6 hours as needed for nausea/vomiting. albuterol HFA (VENTOLIN HFA) 90 mcg/actuation inhaler Inhale 2 Puffs as instructed every 4 hours as needed for wheezing/shortness of breath. No current facility-administered medications for this visit. Allergies As of Date: 09/18/2023 (No Known Allergies) Fully Assessed 09/01/2023 REVIEW OF SYSTEMS Abdomen: No abdominal pain, nausea, vomiting, diarrhea, or constipation. Bladder: As above . Breast: No breast lumps, nipple d/c, overlying skin changes, redness or skin retraction. Expanded ROS: N/A Allergies and current medication updated:Yes EXAM: LMP 09/14/2022 GENERAL: pleasant, female in no apparent distress HEENT: Normocephalic and atraumatic NECK: Supple and full range of motion DERMATOLOGY: Normal, without lesions, non-icteric, and non-hirsute BREAST: deferred CHEST: Normal inspiratory effort ABDOMEN: soft, non-tender, and no masses PELVIC: external exam only. Tenderness and irritation at introitus without lesions. No discoloration, normal anatomy. BIMANUAL: deferred NEURO: alert and oriented x3,exam grossly non-focal EXTREMITIES: normal ASSESSMENT AND PLAN: Encounter Diagnosis ICD-10-CM 1. Vaginal itching N89.8 2. Vaginal burning N94.9 3. Bacterial vaginosis N76.0 B96.89 Vaginitis swab and ureaplasma culture performed today. Discussed longer course of treatment. Faye Chery MD [facility] 09-18-2023 Instructions Faye Chery MD - 09/18/2023 10:14 AM EST As first line, we can try Flagyl for 2 weeks along with boric acid suppositories for two weeks. I'll send the Flagyl to your pharmacy. The boric acid can be gotten over the counter or I can send a prescription. If you would like me to send it to a compound pharmacy let me know :) documented in this encounter [facility] 09-18-2023 History of Presen t illness Narrative Dejah Adorno is a 27 year old female who presents for recurrent vaginitis. Frequent BV, multiple positive tests over past year. Last positive 09/01/2023. Was given 7 day course of Flagyl. Previously used clindamycin cream for 7 days Ureaplasma positive 06/30, no SHADE. Treated with doxycycline Reports 4x infections since May. Notes that this problem first started with a new partner 2 years ago. Treated in [place]. Reports 2x treatments with Clindamycin, Flagyl 2-3 times, Doxycycline once. Does think her infection is adequately treated and then returns. Pain around clitoris/urethra. Some bleeding around urethra when wiping. Frequent urination, Denies any urinary tract infections Burning/stinging around introitus Some itching around introitus Vaginal discharge, white/milky with fishy odor Takes oral Provera and every 3-4 months. Does not have menses. Sexually active - not for last couple of months due to pain with intercourse. Hx morbid obesity. Hx of anxiety not treated with medication. Asthma. Denies other medical problems Consultation requested by Aydee Stinson CNM for an opinion regarding recurrent BV. My final recommendations will be communicated back to the requesting physician by way of shared Medical record or letter to requesting physician via [place] mail. 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 Vitamin D deficiency 12/21/2021 PAST SURGICAL HISTORY Procedure Laterality Date TONSILLECTOMY PRIMARY/SECONDARY <AGE 12 FAMILY HISTORY Problem Relation Age of Onset other (Pulmonary Embolism) Mother with embolism Anxiety disorder Brother Depression Brother Breast Cancer Maternal Grandmother Hypertension Maternal Grandfather Lung Cancer Paternal Grandmother Bipolar disorder Maternal Aunt Diabetes Other mggm Social History Tobacco Use Smoking status: Former Types: Cigarettes Quit date: 01/18/2018 Years since quittin.6 Smokeless tobacco: Never Tobacco comments: . step mom and sibling smokes outside Vaping Use Vaping Use: Never used Substance Use Topics Alcohol use: Not Currently Drug use: Not Currently Types: Marijuana Current Outpatient Medications Medication Sig medroxyPROGESTERone (PROVERA) 10 mg tablet Take 1 tablet by mouth once daily. (Patient taking differently: Take 10 mg by mouth once daily. Takes every four to five months to start menses- last used September 2022) ondansetron orally disintegrating (ZOFRAN ODT) 4 mg disintegrating tablet Take 1 tablet by mouth every 6 hours as needed for nausea/vomiting. albuterol HFA (VENTOLIN HFA) 90 mcg/actuation inhaler Inhale 2 Puffs as instructed every 4 hours as needed for wheezing/shortness of breath. No current facility-administered medications for this visit. Allergies As of Date: 09/18/2023 (No Known Allergies) Fully Assessed 09/01/2023 REVIEW OF SYSTEMS Abdomen: No abdominal pain, nausea, vomiting, diarrhea, or constipation. Bladder: As above . Breast: No breast lumps, nipple d/c, overlying skin changes, redness or skin retraction. Expanded ROS: N/A Allergies and current medication updated:Yes EXAM: LMP 09/14/2022 GENERAL: pleasant, female in no apparent distress HEENT: Normocephalic and atraumatic NECK: Supple and full range of motion DERMATOLOGY: Normal, without lesions, non-icteric, and non-hirsute BREAST: deferred CHEST: Normal inspiratory effort ABDOMEN: soft, non-tender, and no masses PELVIC: external exam only. Tenderness and irritation at introitus without lesions. No discoloration, normal anatomy. BIMANUAL: deferred NEURO: alert and oriented x3,exam grossly non-focal EXTREMITIES: normal ASSESSMENT AND PLAN: Encounter Diagnosis ICD-10-CM 1. Vaginal itching N89.8 2. Vaginal burning N94.9 3. Bacterial vaginosis N76.0 B96.89 Vaginitis swab and ureaplasma culture performed today. Discussed longer course of treatment. Faye Chery MD documented in this encounter [facility] 09-01-2023 Note HNO ID: [id number] Author: AYDEE STINSON APRN.APRIL Service: ? Author Type: Ski Topper Type: Progress Notes Filed: 09/01/2023 11:26 Note Text: SUBJECTIVE: Dejah Adorno is an 27 year old woman who presents with vaginitis. Symptoms include local irritation, vulvar itching, odor, burning, and pain. Onset of symptoms 1 week(s) ago, constant and gradually worsening since. Patient voicing frustration about recurrent vaginal infections. Predisposing factors: none Hx of previous vaginitis: frequent and Positive for bacterial vaginosis on 05/2023 AND 06/2023- treated with Flagyl and Clindamycin vaginally. UR Parvum PCR- positive 06/2023- treated with Doxycycline Sexually active: yes, single partner, contraception - none. Current Outpatient Medications on File Prior to Visit Medication Sig medroxyPROGESTERone (PROVERA) 10 mg tablet Take 1 tablet by mouth once daily. (Patient taking differently: Take 10 mg by mouth once daily. Takes every four to five months to start menses- last used September 2022) ondansetron orally disintegrating (ZOFRAN ODT) 4 mg disintegrating tablet Take 1 tablet by mouth every 6 hours as needed for nausea/vomiting. albuterol HFA (VENTOLIN HFA) 90 mcg/actuation inhaler Inhale 2 Puffs as instructed every 4 hours as needed for wheezing/shortness of breath. No current facility-administered medications on file prior to visit. ALLERGIES No Known Allergies Social History Tobacco Use Smoking status: Former Types: Cigarettes Quit date: 01/18/2018 Years since quittin.6 Smokeless tobacco: Never Tobacco comments: . step mom and sibling smokes outside Vaping Use Vaping Use: Never used Substance Use Topics Alcohol use: Not Currently Drug use: Not Currently Types: Marijuana OBJECTIVE: LMP 09/14/2022 (Approximate) Pelvic: External genitalia normal, no vulvar lesions. Introits very tender with touch and erythematous. Exam difficult due patient's weight. ENTRY LEVEL ELECTRICIAN present to assist with exam. ASSESSMENT/PLAN: 1. Vaginal itching - ICD9: 698.1, ICD10: N89.8 (primary diagnosis) 2. Vaginal burning - ICD9: 625.8, ICD10: N94.9 - Reviewed vulvar hygiene- - Using AANDD ointment to area - Suspect irritation from possible urine/stool due to patient being unable to clean at times - BACTERIAL VAGINOSIS NAAT - CAROLYN/TRICHOMONAS NAAT - GONORRHEA/CHLAMYDIA NAAT - Will notify patient of results and any treatment plans - May need referral to vulvar clinic Aydee Stinson APRN.CNM [facility] 08-22-2023 Hospital Discharg e instructions Patient Education 08/21/2023 23:09:13 Leg Swelling in a Single Leg Leg Swelling in a Single Leg Swelling of the arms, feet, ankles, and legs is called edema. It is caused by extra fluid collecting in the tissues. Because of gravity, extra fluid in the body settles to the lowest part. That is why the legs and feet are most affected. You have swelling in a single leg. Some of the causes for swelling in only a single leg include: Infection in the foot or leg Long-term problem with a vein not working well (venous insufficiency) Swollen, twisted vein in the leg (varicose veins) Insect bite or sting on the foot or leg Injury or recent surgery on the foot or leg Blood clot in a deep vein of the leg (deep vein thrombosis or DVT) Inflammation of the joints of the lower leg Medical treatment will depend on what is causing your swelling. Home care Follow these guidelines when caring for yourself at home: Don t wear tight clothing. Keep your legs up while lying or sitting. Take any medicines as directed. If infection, injury, or recent surgery is the cause of your swelling, stay off your legs as much as possible until your symptoms get better. If you have venous insufficiency or varicose veins, don t sit or cracking still operator one place for long periods of time. Take breaks and walk around every few hours. Talk with your healthcare provider about wearing support stockings to help lessen swelling during the day. Wear compression stockings with your doctor's approval Follow-up care Follow up with your healthcare provider as advised. Call 911 Call 911 if any of these occur: Shortness of breath or trouble breathing Chest pain Coughing up blood Fainting or loss of consciousness When to seek medical advice Call your healthcare provider right away if any of these occur: Increased pain, swelling, warmth, or redness of the leg, ankle, or foot Fever of 100.4 F (38 C) or higher, or as directed by your healthcare provider Weakness or dizziness Shaking chills Drenching sweats [id number] [employer]. [address], [place] [address]. All rights reserved. This information is not intended as a substitute for professional medical care. Always follow your healthcare professional's instructions. Follow Up Care 08/21/2023 22:40:04 With:JHONNY FOWLER MD Address: [address] [place] [address]- When:2-4 days [facility] 08-21-2023 Note Discharge Instructions Thank you for allowing [facility] to assist you with your healthcare needs. The following is important discharge information regarding your hospital visit. Diagnosis from Today's Visit Leg pain-swelling What to Do Next Instructions from Your Care Team Discharge ED Outpatient Vascular Lab - Ordered -- Test Requested: RLE, Lower extremity, Right, Test Reason: Edema, Mon-Fri 8am-4:30pm: Call [phone] at 7:30am to schedule a same day appointment for testing. Please be aware there may be a short wait time. Post Acute Orders No qualifying data available. You Need to Schedule the Following Appointments Follow Up with JHONNY FOWLER MD When Within 2-4 days Where: [address] [place] [address] [phone]- Allergies NKA Medications Please ask your primary doctor or pharmacist before taking any other medication not listed, including over the counter drugs, herbal medications, vitamins and or supplements as they may interact with your home medications. What How Much When Why Instructions Last Dose Unchanged albuterol (ProAir HFA MDI (90 mcg/ inh) inhalation aerosol) 2 puff(s) by inhalation Four (4) times a day as needed for as needed for wheezing Hypertension Pneumonia Please take this list to your next doctor s visit. Bring all medications you take, including over the counter medications, herbals and other supplements with you to your doctor s visit. Patients and families are reminded to discard old lists and to update any records with all medication providers or retail pharmacies. Education Materials Leg Swelling in a Single Leg Swelling of the arms, feet, ankles, and legs is called edema. It is caused by extra fluid collecting in the tissues. Because of gravity, extra fluid in the body settles to the lowest part. That is why the legs and feet are most affected. You have swelling in a single leg. Some of the causes for swelling in only a single leg include: Infection in the foot or leg Long-term problem with a vein not working well (venous insufficiency) Swollen, twisted vein in the leg (varicose veins) Insect bite or sting on the foot or leg Injury or recent surgery on the foot or leg Blood clot in a deep vein of the leg (deep vein thrombosis or DVT) Inflammation of the joints of the lower leg Medical treatment will depend on what is causing your swelling. Home care Follow these guidelines when caring for yourself at home: Don t wear tight clothing. Keep your legs up while lying or sitting. Take any medicines as directed. If infection, injury, or recent surgery is the cause of your swelling, stay off your legs as much as possible until your symptoms get better. If you have venous insufficiency or varicose veins, don t sit or cracking still operator one place for long periods of time. Take breaks and walk around every few hours. Talk with your healthcare provider about wearing support stockings to help lessen swelling during the day. Wear compression stockings with your doctor's approval Follow-up care Follow up with your healthcare provider as advised. Call 911 Call 911 if any of these occur: Shortness of breath or trouble breathing Chest pain Coughing up blood Fainting or loss of consciousness When to seek medical advice Call your healthcare provider right away if any of these occur: Increased pain, swelling, warmth, or redness of the leg, ankle, or foot Fever of 100.4 F (38 C) or higher, or as directed by your healthcare provider Weakness or dizziness Shaking chills Drenching sweats [id number] [employer]. [address] [place] [address], [place] [address]. All rights reserved. This information is not intended as a substitute for professional medical care. Always follow your healthcare professional's instructions. Additional Information VACCINATE! IT SAVES LIVES! Members of the community who have not yet received the COVID-19 vaccine and would like to receive it can visit one of [facility] vaccine clinics. There are many vaccine clinic locations within the [facility]. For locations and available times, please visit [email or web address] It is important to note that some COVID mobile vaccine clinics are held outdoors and may be canceled in rainy or stormy conditions. To learn more about pediatric vaccinations (ages 5-11), we invite you to visit the [facility] webpage. [email or web address] [email or web address] [email or web address] To learn more about the COVID-19 vaccine, we invite you to visit the CDC website for a list of frequently asked questions. https://www.cdc.gov/coronavirus/ 2019-ncov/vaccines/faq.html [facility] Patient Portal Access Instructions: Stay connected with your healthcare team and access your personal medical information anytime with the [facility] Patient Portal. If you would like a full copy of your medical records please contact the [facility] Medical Records Department Monday through Monday between 8a.m. and 4:30p.m. Please follow the directions below to access the portal: 1.Access the email account you provided upon registration to the hospital.2.Look for an invitation email from [facility].3.Open the email and access the invitation link: Accept Invitation to [facility]4.Fill in the required alvarez to create your account. Sign into [email or web address] with your username and password that you created in the above steps to stay up to date. You can then view a summary of results, a summary of your visits, and the ability to download your summaries to your computer or send the information securely to a physician. Remember that your healthcare information is confidential, so carefully consider who you will allow to register on the [facility] Patient Portal for access to your information. You can also access the [facility] Patient Portal on the [employer] gómez. Simply click on Health Records under Health Data and then click on the [facility] logo. HOW TO SAFELY DISPOSE OF PRESCRIPTION MEDICATIONS Please use one of the following methods to safely dispose of your unused medications. 1.Use a drug disposal kit: the drug disposal pouch allows you to safely discard your old and unused drugs. Ask your nurse to give you one when you are discharged.2.Visit a local take-back location: Many local pharmacies and police departments have programs that collect old and unwanted prescription drugs. Call your local pharmacy or go to http://[employer]-Tech/6K7Qx5s to find one close to you.3.Make use of household items: Use cat litter or old coffee grounds to dispose medications if other options are not available. Mix your drugs with these household products, seal them in an airtight container and throw it into the garbage. Call [facility]: [phone] to be sure your drugs can be disposed of in this way. Some medicines may require a different approach.4.Never flush your medications down the toilet. IF YOU HAVE BEEN PRESCRIBED AN OPIOIDS FOR PAIN If you have been prescribed an opioid (such as hydrocodone, oxycodone or morphine), it is critical to understand the possible side effects and risks of opioid pain medications. Even when taken as directed, opioids can have several side effects including: Tolerance, meaning you might need to take more of a medication for the same pain relief. Nausea, vomiting and/or constipation. Sleepiness, dizziness, dry mouth, confusion, depression or itching. Physical dependence, meaning you have withdrawal symptoms when a medication is stopped ? this can develop within a few days. KNOW YOUR RESPONSIBILITIES It is important to know exactly how much and how often to take the opioid pain medications you are prescribed. Never take opioids in higher amounts or more often than prescribed. Do not combine opioids with alcohol or other drugs that cause drowsiness, such as benzodiazepines, also known as benzos, including diazepam and alprazolam, muscle relaxants or sleep aids. Never sell or share prescription opioids. This is illegal. Store opioids in a secure place and out of reach of others (including children, family, friends and visitors). The last page(s) of this document has been signed and retained as a CHART COPY Signatures Patient Education Materials Leg Swelling in a Single Leg Medication Leaflets My discharge plan and instructions have been reviewed and explained to me and IVY TAYLR L understand my current condition and have read and understand these discharge instructions. I have received a written copy of the plan/instructions. If I have questions, I am aware that I should contact my doctor. 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 Author Type: Physician Steel Melter Type: Progress Notes Filed: 08/16/2023 7:55 PM Note Text: Telemedicine Visit - Distance Health Virtual Visit Note Patient seen on [employer] Video Visit platform. Location of patient: [place] I have communicated my name and active licensure. The patient's identity and physical location were verified at the time of this visit. Either the patient or their legal outside sales account representative has been informed of the risks and benefits of -- and alternatives to -- treatment through a remote evaluation and consents to proceed with the evaluation remotely. History of Present Illness Dejah Adorno is a 27 year old year old female who presents for the past 2 days with symptoms that are:gradually worsening. Symptoms include: Positive for Fever, Chills/Sweats, Sore throat, and Fatigue, Negative for Cough Oral intake: able to swallow Tobacco use: No Second hand smoke exposure: No Recent exposure to strep:Yes Sick contacts: see above Recent travel: denies OTC meds/remedies that patient has tried: acetaminophen . 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 Vitamin D deficiency 12/21/2021 PAST SURGICAL HISTORY Procedure Laterality Date TONSILLECTOMY PRIMARY/SECONDARY FAMILY HISTORY Problem Relation Age of Onset other (Pulmonary Embolism) Mother with embolism Anxiety disorder Brother Depression Brother Breast Cancer Maternal Grandmother Hypertension Maternal Grandfather Lung Cancer Paternal Grandmother Bipolar disorder Maternal Aunt Diabetes Other mggm Social History Tobacco Use Smoking status: Former Types: Cigarettes Quit date: 01/18/2018 Years since quittin.5 Smokeless tobacco: Never Tobacco comments: . step mom and sibling smokes outside Vaping Use Vaping Use: Never used Substance Use Topics Alcohol use: Not Currently Drug use: Not Currently Types: Marijuana Current Outpatient Medications Medication Sig medroxyPROGESTERone (PROVERA) 10 mg tablet Take 1 tablet by mouth once daily. (Patient taking differently: Take 10 mg by mouth once daily. Takes every four to five months to start menses- last used September 2022) ondansetron orally disintegrating (ZOFRAN ODT) 4 mg disintegrating tablet Take 1 tablet by mouth every 6 hours as needed for nausea/vomiting. albuterol HFA (VENTOLIN HFA) 90 mcg/actuation inhaler Inhale 2 Puffs as instructed every 4 hours as needed for wheezing/shortness of breath. No current facility-administered medications for this visit. ALLERGIES No Known Allergies Video Exam (Examination performed via Video enabled technology) General appearance: Alert, oriented, pleasant, in NAD :Yes Ill appearing :No Lethargic appearing :No Eyes: Sclera clear :Yes Conjunctiva without erythema :Yes Ears: Tragus / outer ear tenderness by self palpation :No Oropharynx: moderate erythema and exudates present Frontal sinus tenderness by self palpation;No Maxillary sinus tenderness by self palpation :No Tender cervical adenopathy by self palpation :No Respiratory distress :No Coughing noted :No Audible wheezing noted :No ASSESSMENT/PLAN: 1. Sore throat - ICD9: 462, ICD10: J02.9 - suspect strep, pt has limited financial resources refuses culture - antibiotic as written - Discussed supportive care treatment with fluids, rest and analgesia. - The patient may also use warm salt water gargles, throat lozenges and/or OTC throat spray as needed. - Contagious dz precautions discussed- including considered contagious until on antibiotics for 24 hours - The patient should follow up in 3-5 days if symptoms persist or worsen Syd Paul PA-C -Tylenol (generic acetaminophen) 500 mg-2 tabs every 8 hrs. as needed for fever and aches -Sudafed (generic is fine), behind the counter, 2x30 mg tabs twice daily as needed for congestion -Mucinex (generic is fine) 1200 mg twice daily to help with cough and to thin out mucus -http://www.choosingwisely.org/p atient-resources/antibiotics/. This link shares information about when antibiotics may help and when they may not. - Red flags discussed for need for in person care - All questions answered Syd Paul PA-C If you let us know who your primary care provider is, we will send them a notification of today?s visit through our electronic medical records system. Since not all providers have access to our notifications, we strongly encourage you to share the following record of today?s visit with your primary care provider at your next visit. This (more content not included)... [facility] 08-16-2023 Note HNO ID: [id number] Author: Fazal Boyle APRN.JONO Service: ? Author Type: Nurse Practitioner Type: Progress Notes Filed: 08/16/2023 1:36 PM Note Text: This is an Express Care eVisit note for Dejah Adorno eVisit/Questionnaire reviewed The chief complaint for the visit - Patient presents with: Sinus Problem Recommendations/Treatment plan - See My Chart Message to patient Fazal Boyle APRN.ENTRY LEVEL ELECTRICIAN TIME SPENT ON EVISIT: < 5 mins [facility] 07-05-2023 Miscellaneous Notes Spoke with patient, declines to schedule at this time d/t not having her work schedule with her, states that she will call after thanksgiving to schedule. Marie Albrecht MA Pt recently in [facility] ER for chest pain. Would like to see patient within the next 5 days in office. Will need to call and schedule. Marie Albrecht MA documented in this encounter [facility] 07-05-2023 Miscellaneous Notes Patient notified. ALICIA CLEMENTS RN Please notify patient that RX for Doxycycline 100 mg PO BID x 7 days was sent to pharmacy. Please have her complete all medication orally. Also, she needs to continue using the Clindamycin vaginally as well. Thank you. Aydee Stinson APRN.CNM documented in this encounter [facility] 07-03-2023 Miscellaneous Notes Patient viewed the following message from provider. Brett Pond, Your swab was positive for BV. Please keep using the Clindamycin vaginally. Let me know if you have any questions or concerns. Aydee Stinson APRN.CNM documented in this encounter [facility] 06-30-2023 Note HNO ID: [id number] Author: Aydee Stinson APRN.CNM Service: ? Author Type: Ski Topper Type: Progress Notes Filed: 06/30/2023 9:01 AM Note Text: Dejah Adorno is a 27 year old female who presents for problem visit of continued vaginal burning, irritation, swelling and pain. Stated she has been dealing with this for the past coupld of months. Was treated with Flagyl PO x two rounds last month for bacterial vaginosis. Stated feels like things get cleared up for about a week and then symptoms return. Has increased burning around clitoris and urethra. Increased vaginal discharge and odor. Continues to state she knows she still has BV. No recent intercourse. Denies use of any soaps, lotions, detergent changes or creams to vaginal area. Denies any dysuria. REVIEW OF SYSTEMS Abdomen: No bloating, early satiety, indigestion, or increased flatulence. No abdominal pain, nausea, vomiting, diarrhea, or constipation. Bladder: No dysuria, gross hematuria, urinary frequency, urinary urgency, or incontinence. Breast: No breast lumps, nipple d/c, overlying skin changes, redness or skin retraction. Expanded ROS: CAREER TECHNOLOGY TEACHER: SEE HPI Allergies and current medication updated:Yes EXAM: BP 120/76 Wt 472 lb (214.1kg) LMP 09/14/2022 GENERAL: pleasant, female in no apparent distress HEENT: Normocephalic and atraumatic NECK: Supple DERMATOLOGY: Normal BREAST: deferred CHEST: Normal inspiratory effort ABDOMEN: soft, non-tender, no masses, and pannus large PELVIC: external genitalia normal, no vulvar lesions, normal appearing perineal body and perianal region, Labia minora, vagina, and introits erythematous and tender with palpation/swab ASSESSMENT/PLAN: 1. Vaginal odor - ICD9: 625.8, ICD10: N89.8 (primary diagnosis) 2. Vaginal irritation - ICD9: 623.9, ICD10: N89.8 - Possible contact dermatitis or irritation from chaffing? - BACTERIAL VAGINOSIS NAAT - CAROLYN/TRICHOMONAS NAAT - GONORRHEA/CHLAMYDIA NAAT - UROGENITAL UREAPLASMA AND MYCOPLASMA SPECIES BY PCR, FOR GENITAL, RECTAL, URINE SAMPLES - Reviewed vulvar hygiene practices - Start taking Floragen for women probiotic daily - Start Clindamycin 2% vaginal cream x 7 nights - Will notify patient of results and any changes to treatment plan Aydee Stinson APRN.CNM [facility] 06-30-2023 Instructions Aydee Stinson APRN.CNM - 06/30/2023 8:43 AM EST Floragen for Women- Probiotic to take daily documented in this encounter [facility] 06-30-2023 History of Presen t illness Narrative Dejah Adorno is a 27 year old female who presents for problem visit of continued vaginal burning, irritation, swelling and pain. Stated she has been dealing with this for the past coupld of months. Was treated with Flagyl PO x two rounds last month for bacterial vaginosis. Stated feels like things get cleared up for about a week and then symptoms return. Has increased burning around clitoris and urethra. Increased vaginal discharge and odor. Continues to state she knows she still has BV. No recent intercourse. Denies use of any soaps, lotions, detergent changes or creams to vaginal area. Denies any dysuria. REVIEW OF SYSTEMS Abdomen: No bloating, early satiety, indigestion, or increased flatulence. No abdominal pain, nausea, vomiting, diarrhea, or constipation. Bladder: No dysuria, gross hematuria, urinary frequency, urinary urgency, or incontinence. Breast: No breast lumps, nipple d/c, overlying skin changes, redness or skin retraction. Expanded ROS: CAREER TECHNOLOGY TEACHER: SEE HPI Allergies and current medication updated:Yes EXAM: BP 120/76 Wt 472 lb (214.1kg) LMP 09/14/2022 GENERAL: pleasant, female in no apparent distress HEENT: Normocephalic and atraumatic NECK: Supple DERMATOLOGY: Normal BREAST: deferred CHEST: Normal inspiratory effort ABDOMEN: soft, non-tender, no masses, and pannus large PELVIC: external genitalia normal, no vulvar lesions, normal appearing perineal body and perianal region, Labia minora, vagina, and introits erythematous and tender with palpation/swab ASSESSMENT/PLAN: 1. Vaginal odor - ICD9: 625.8, ICD10: N89.8 (primary diagnosis) 2. Vaginal irritation - ICD9: 623.9, ICD10: N89.8 - Possible contact dermatitis or irritation from chaffing? - BACTERIAL VAGINOSIS NAAT - CAROLYN/TRICHOMONAS NAAT - GONORRHEA/CHLAMYDIA NAAT - UROGENITAL UREAPLASMA AND MYCOPLASMA SPECIES BY PCR, FOR GENITAL, RECTAL, URINE SAMPLES - Reviewed vulvar hygiene practices - Start taking Floragen for women probiotic daily - Start Clindamycin 2% vaginal cream x 7 nights - Will notify patient of results and any changes to treatment plan Aydee Stinson APRN.CNM documented in this encounter [facility] 06-08-2023 Miscellaneous Notes Noted. Leah Boykin LPN Please see pt's mychart message and further advise. Leah Boykin LPN documented in this encounter [facility] 05-29-2023 Miscellaneous Notes Patient notified. ALICIA CLEMENTS, RN Left message to call office. Lexii Gandhi RN BV positive. To treat with Flagyl 500mg PO BID for 7 days. 1) No alcohol during treatment and for 24 hours after last dose. 2) No intercourse during treatment. 3) Probiotic by mouth once daily for 30 days or as needed. Paradise Moralez APRN.ENTRY LEVEL ELECTRICIAN documented in this encounter [facility] 05-26-2023 Note HNO ID: [id number] Author: Paradise Moralez APRN.ENTRY LEVEL ELECTRICIAN Service: ? Author Type: Nurse Practitioner Type: Progress Notes Filed: 05/26/2023 12:16 PM Note Text: Sewing Teacher offered: Patient declines. Dejah Adorno is a 27 year old female who presents for problem visit vaginal burning for several week(s). HPI: Patient is continuing to experience vaginal burning, swelling and some discharge. She complains of burning near that urethra and clitoris area. Most recent urine dip was negative for infection waiting on culture result. 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 Vitamin D deficiency 12/21/2021 PAST SURGICAL HISTORY Procedure Laterality Date TONSILLECTOMY PRIMARY/SECONDARY FAMILY HISTORY Problem Relation Age of Onset other (Pulmonary Embolism) Mother with embolism Anxiety disorder Brother Depression Brother Breast Cancer Maternal Grandmother Hypertension Maternal Grandfather Lung Cancer Paternal Grandmother Bipolar disorder Maternal Aunt Diabetes Other mggm Social History Tobacco Use Smoking status: Former Types: Cigarettes Quit date: 01/18/2018 Years since quittin.3 Smokeless tobacco: Never Tobacco comments: . step mom and sibling smokes outside Vaping Use Vaping Use: Never used Substance Use Topics Alcohol use: Not Currently Drug use: Not Currently Types: Marijuana Current Outpatient Medications Medication Sig albuterol HFA (VENTOLIN HFA) 90 mcg/actuation inhaler Inhale 2 Puffs as instructed every 4 hours as needed for wheezing/shortness of breath. medroxyPROGESTERone (PROVERA) 10 mg tablet Take 1 tablet by mouth once daily. (Patient taking differently: Take 10 mg by mouth once daily. Takes every four to five months to start menses- last used September 2022) ondansetron orally disintegrating (ZOFRAN ODT) 4 mg disintegrating tablet Take 1 tablet by mouth every 6 hours as needed for nausea/vomiting. No current facility-administered medications for this visit. Allergies As of Date: 05/26/2023 (No Known Allergies) Fully Assessed 05/26/2023 REVIEW OF SYSTEMS Expanded ROS: N/A Allergies and current medication updated:Yes EXAM: BP 118/70 Pulse 94 Resp 14 Ht 5' 6.5 (1.69m) Wt 468 lb (212.3kg) SpO2 99% LMP 09/14/2022 BMI 74.41 kg/(m2). GENERAL: pleasant, female in no apparent distress HEENT: Normocephalic, atraumatic, mucus membranes moist, and no lesions CHEST: Normal inspiratory effort PELVIC: external genitalia normal, normal Bartholin's glands, urethra, [place]'s glands, no vulvar lesions, physiologic discharge present, normal appearing perineal body and perianal region BIMANUAL: deferred NEURO: alert and oriented x3,exam grossly non-focal EXTREMITIES: normal ASSESSMENT/PLAN: 1. Vaginal burning - ICD9: 625.8, ICD10: N94.9 - GONORRHEA/CHLAMYDIA NAAT - CAROLYN/TRICHOMONAS NAAT - BACTERIAL VAGINOSIS NAAT Will notify patient of test results. 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 Dejah Adonro is a 27 year old female who presents for problem visit vaginal burning for several week(s). HPI: Patient is continuing to experience vaginal burning, swelling and some discharge. She complains of burning near that urethra and clitoris area. Most recent urine dip was negative for infection waiting on culture result. 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 Vitamin D deficiency 12/21/2021 PAST SURGICAL HISTORY Procedure Laterality Date TONSILLECTOMY PRIMARY/SECONDARY <AGE 12 FAMILY HISTORY Problem Relation Age of Onset other (Pulmonary Embolism) Mother with embolism Anxiety disorder Brother Depression Brother Breast Cancer Maternal Grandmother Hypertension Maternal Grandfather Lung Cancer Paternal Grandmother Bipolar disorder Maternal Aunt Diabetes Other mggm Social History Tobacco Use Smoking status: Former Types: Cigarettes Quit date: 01/18/2018 Years since quittin.3 Smokeless tobacco: Never Tobacco comments: . step mom and sibling smokes outside Vaping Use Vaping Use: Never used Substance Use Topics Alcohol use: Not Currently Drug use: Not Currently Types: Marijuana Current Outpatient Medications Medication Sig albuterol HFA (VENTOLIN HFA) 90 mcg/actuation inhaler Inhale 2 Puffs as instructed every 4 hours as needed for wheezing/shortness of breath. medroxyPROGESTERone (PROVERA) 10 mg tablet Take 1 tablet by mouth once daily. (Patient taking differently: Take 10 mg by mouth once daily. Takes every four to five months to start menses- last used September 2022) ondansetron orally disintegrating (ZOFRAN ODT) 4 mg disintegrating tablet Take 1 tablet by mouth every 6 hours as needed for nausea/vomiting. No current facility-administered medications for this visit. Allergies As of Date: 05/26/2023 (No Known Allergies) Fully Assessed 05/26/2023 REVIEW OF SYSTEMS Expanded ROS: N/A Allergies and current medication updated:Yes EXAM: BP 118/70 Pulse 94 Resp 14 Ht 5' 6.5 (1.69m) Wt 468 lb (212.3kg) SpO2 99% LMP 09/14/2022 BMI 74.41 kg/(m^2). GENERAL: pleasant, female in no apparent distress HEENT: Normocephalic, atraumatic, mucus membranes moist, and no lesions CHEST: Normal inspiratory effort PELVIC: external genitalia normal, normal Bartholin's glands, urethra, [place]'s glands, no vulvar lesions, physiologic discharge present, normal appearing perineal body and perianal region BIMANUAL: deferred NEURO: alert and oriented x3,exam grossly non-focal EXTREMITIES: normal ASSESSMENT/PLAN: 1. Vaginal burning - ICD9: 625.8, ICD10: N94.9 - GONORRHEA/CHLAMYDIA NAAT - CAROLYN/TRICHOMONAS NAAT - BACTERIAL VAGINOSIS NAAT Will notify patient of test results. Paradise Moralez APRN.CNP Medical Decision Making: Problems: Moderate: New problem with uncertain prognosis Data: Unique test(s) ordered: 3+ Risk: Low: Low risk from testing/treatment Medical Decision Making Level: 4 - Moderate documented in this encounter [facility] 05-05-2023 Miscellaneous Notes Patient called asking for RM to review the new available test results. documented in this encounter [facility] 05-04-2023 Note HNO ID: [id number] Author: Paradise Moralez APRN.ENTRY LEVEL ELECTRICIAN Service: ? Author Type: Nurse Practitioner Type: Progress Notes Filed: 05/04/2023 10:39 AM Note Text: Sewing Teacher offered: Patient declines. Dejah Adorno is a 27 year old female who presents for problem visit vulvar pain and discharge for 3 days. HPI: pt states that she started with burning, swelling, and some discharge at the urethra/clitoris area. Patient was seen in urgent care and urine dip was negative for infection. Patient denies any new sexual partners no known history of herpes for herself or her partner. OB History T0 L0 SAB0 IAB0 Ectopic0 Multiple0 Live Births0 Shot Dropper History LMP: 09/14/2022 (Approximate), Having periods Age at Menarche: Age at First : Age at Menopause: Shot Dropper History Comments: Sexual Activity: Yes; No partner data on record Contraception: None PAST MEDICAL HISTORY Diagnosis Date Migraine without aura and without status migrainosus, not intractable 07/10/2019 Obesity 03/09/2011 PCOS (polycystic ovarian syndrome) 2016 PMH - PAST MEDICAL HISTORY OF 03/2003 normal color vision Unspecified hearing loss, bilateral 07/10/2019 Rt>LT, 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 Vitamin D deficiency 12/21/2021 PAST SURGICAL HISTORY Procedure Laterality Date TONSILLECTOMY PRIMARY/SECONDARY FAMILY HISTORY Problem Relation Age of Onset other (Pulmonary Embolism) Mother with embolism Anxiety disorder Brother Depression Brother Breast Cancer Maternal Grandmother Hypertension Maternal Grandfather Lung Cancer Paternal Grandmother Bipolar disorder Maternal Aunt Diabetes Other mggm Social History Tobacco Use Smoking status: Former Types: Cigarettes Quit date: 01/18/2018 Years since quittin.2 Smokeless tobacco: Never Tobacco comments: . step mom and sibling smokes outside Vaping Use Vaping Use: Never used Substance Use Topics Alcohol use: Not Currently Comment: occ Drug use: No Current Outpatient Medications Medication Sig medroxyPROGESTERone (PROVERA) 10 mg tablet Take 1 tablet by mouth once daily. ondansetron orally disintegrating (ZOFRAN ODT) 4 mg disintegrating tablet Take 1 tablet by mouth every 6 hours as needed for nausea/vomiting. albuterol HFA (VENTOLIN HFA) 90 mcg/actuation inhaler Inhale 2 Puffs as instructed every 4 hours as needed for wheezing/shortness of breath. No current facility-administered medications for this visit. Allergies As of Date: 05/04/2023 (No Known Allergies) Fully Assessed 05/04/2023 REVIEW OF SYSTEMS Bladder: Dysuria. Expanded ROS: N/A Allergies and current medication updated:Yes EXAM: BP 138/80 Wt 473 lb (214.6kg) LMP 09/14/2022 GENERAL: pleasant, female in no apparent distress HEENT: Normocephalic, atraumatic, mucus membranes moist, and no lesions CHEST: Normal inspiratory effort PELVIC: external genitalia normal, normal Bartholin's glands, urethra, [place]'s glands, vulvar lesion near clitoris/urethral area NEURO: alert and oriented x3,exam grossly non-focal EXTREMITIES: normal ASSESSMENT/PLAN: 1. Vulvar lesion - ICD9: 624.8, ICD10: N90.89 - HSV1,2/VZV NAAT LESION - HERPES SIMPLEX TYPE 1 AND 2 IG Valtrex ordered Will notify patient of test results. Paradise Moralez APRN.ENTRY LEVEL ELECTRICIAN Medical Decision Making: Problems: Moderate: New problem with uncertain prognosis Data: Unique test(s) ordered: 2 Risk: Low: Low risk from testing/treatment Moderate: Drug management Medical Decision Making Level: 4 - Moderate [facility] 05-04-2023 Note HNO ID: [id number] Author: Saida Paula PA-C Service: ? Author Type: Physician Steel Melter Type: Progress Notes Filed: 05/04/2023 10:03 AM Note Text: This note was created using Pfenexriter. Subjective Dejah Adorno is a 27 year old female. HPI Presents with frequency, fever pain and swelling in the vaginal area for 3 days. She had a temp of 101 yesterday. She did take some Tylenol which seemed to help. She is sexually active, had STD testing about a month ago which was negative. Also had a colposcopy. She denies any new sexual partners. No abdominal pain. No back pain. No vomiting or diarrhea. Review of Systems Genitourinary: Positive for dysuria, frequency, genital sores and vaginal pain. Negative for hematuria. All other systems reviewed and are negative. 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 Vitamin D deficiency 12/21/2021 Current Outpatient Medications Medication Sig Dispense Refill medroxyPROGESTERone (PROVERA) 10 mg tablet Take 1 tablet by mouth once daily. 10 tablet 6 ondansetron orally disintegrating (ZOFRAN ODT) 4 mg disintegrating tablet Take 1 tablet by mouth every 6 hours as needed for nausea/vomiting. 20 tablet 0 albuterol HFA (VENTOLIN HFA) 90 mcg/actuation inhaler Inhale 2 Puffs as instructed every 4 hours as needed for wheezing/shortness of breath. 18 g 0 No current facility-administered medications for this visit. PAST SURGICAL HISTORY Procedure Laterality Date TONSILLECTOMY PRIMARY/SECONDARY FAMILY HISTORY Problem Relation Age of Onset other (Pulmonary Embolism) Mother with embolism Anxiety disorder Brother Depression Brother Breast Cancer Maternal Grandmother Hypertension Maternal Grandfather Lung Cancer Paternal Grandmother Bipolar disorder Maternal Aunt Diabetes Other mggm Social History Tobacco Use Smoking status: Former Types: Cigarettes Quit date: 01/18/2018 Years since quittin.2 Smokeless tobacco: Never Tobacco comments: . step mom and sibling smokes outside Vaping Use Vaping Use: Never used Substance Use Topics Alcohol use: Not Currently Comment: occ Drug use: No Objective BP 138/80 Pulse 83 Temp 36.7 ?C (98.1 ?F) Resp 20 Wt (!) 214.6 kg (473 lb 3.2 oz) LMP 09/14/2022 (Approximate) SpO2 99% BMI 74.62 kg/m? Physical Exam Vitals reviewed. Constitutional: Appearance: Normal appearance. HENT: Head: Normocephalic and atraumatic. Genitourinary: Comments: Exam limited due to body habitus. Patient however is very tender on the vulva and inner portion of the labia bilaterally. Not able to view tissues as to the etiology of this. Speculum exam not able to be performed. Skin: General: Skin is warm and dry. Neurological: Mental Status: She is alert. Assessment and Plan ASSESSMENT/PLAN: 1. Vaginal pain - ICD9: 625.9, ICD10: R10.2 (primary diagnosis) Patient having vaginal pain, had a fever yesterday, the limited exam I am able to perform today does show some swelling and erythema however I feel she needs to be seen by [facility] today to be fully evaluated. I was able to get her in straight from here. 2. Frequency of urination - ICD9: 788.41, ICD10: R35.0 Urine dip was completely negative. - UA DIP, URINE (POC) - URINE CULTURE - HCG QUAL UR B/O Saida Paula PA-C [facility] 05-04-2023 History of Presen t illness Narrative Sewing Teacher offered: Patient declines. Dejah Adorno is a 27 year old female who presents for problem visit vulvar pain and discharge for 3 days. HPI: pt states that she started with burning, swelling, and some discharge at the urethra/clitoris area. Patient was seen in urgent care and urine dip was negative for infection. Patient denies any new sexual partners no known history of herpes for herself or her partner. OB History T0 L0 SAB0 IAB0 Ectopic0 Multiple0 Live Births0 Shot Dropper History LMP: 09/14/2022 (Approximate), Having periods Age at Menarche: Age at First : Age at Menopause: Shot Dropper History Comments: Sexual Activity: Yes; No partner data on record Contraception: None PAST MEDICAL HISTORY Diagnosis Date Migraine without aura and without status migrainosus, not intractable 07/10/2019 Obesity 03/09/2011 PCOS (polycystic ovarian syndrome) 2016 PMH - PAST MEDICAL HISTORY OF 03/2003 normal color vision Unspecified hearing loss, bilateral 07/10/2019 Rt>LT, 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 Vitamin D deficiency 12/21/2021 PAST SURGICAL HISTORY Procedure Laterality Date TONSILLECTOMY PRIMARY/SECONDARY <AGE 12 FAMILY HISTORY Problem Relation Age of Onset other (Pulmonary Embolism) Mother with embolism Anxiety disorder Brother Depression Brother Breast Cancer Maternal Grandmother Hypertension Maternal Grandfather Lung Cancer Paternal Grandmother Bipolar disorder Maternal Aunt Diabetes Other mggm Social History Tobacco Use Smoking status: Former Types: Cigarettes Quit date: 01/18/2018 Years since quittin.2 Smokeless tobacco: Never Tobacco comments: . step mom and sibling smokes outside Vaping Use Vaping Use: Never used Substance Use Topics Alcohol use: Not Currently Comment: occ Drug use: No Current Outpatient Medications Medication Sig medroxyPROGESTERone (PROVERA) 10 mg tablet Take 1 tablet by mouth once daily. ondansetron orally disintegrating (ZOFRAN ODT) 4 mg disintegrating tablet Take 1 tablet by mouth every 6 hours as needed for nausea/vomiting. albuterol HFA (VENTOLIN HFA) 90 mcg/actuation inhaler Inhale 2 Puffs as instructed every 4 hours as needed for wheezing/shortness of breath. No current facility-administered medications for this visit. Allergies As of Date: 05/04/2023 (No Known Allergies) Fully Assessed 05/04/2023 REVIEW OF SYSTEMS Bladder: Dysuria. Expanded ROS: N/A Allergies and current medication updated:Yes EXAM: BP 138/80 Wt 473 lb (214.6kg) LMP 09/14/2022 GENERAL: pleasant, female in no apparent distress HEENT: Normocephalic, atraumatic, mucus membranes moist, and no lesions CHEST: Normal inspiratory effort PELVIC: external genitalia normal, normal Bartholin's glands, urethra, [place]'s glands, vulvar lesion near clitoris/urethral area NEURO: alert and oriented x3,exam grossly non-focal EXTREMITIES: normal ASSESSMENT/PLAN: 1. Vulvar lesion - ICD9: 624.8, ICD10: N90.89 - HSV1,2/VZV NAAT LESION - HERPES SIMPLEX TYPE 1 AND 2 IG Valtrex ordered Will notify patient of test results. Paradise Moralez APRN.CNP Medical Decision Making: Problems: Moderate: New problem with uncertain prognosis Data: Unique test(s) ordered: 2 Risk: Low: Low risk from testing/treatment Moderate: Drug management Medical Decision Making Level: 4 - Moderate documented in this encounter [facility] 04-06-2023 Miscellaneous Notes I apologize for the delay. No high grade dysplasia noted. Plan is for repeat pap in 12 months Please review pathology result. Gisel Giauque RN documented in this encounter [facility] 04-04-2023 Note HNO ID: [id number] Author: Elba Jefferson APRN.JONO Service: ? Author Type: Nurse Practitioner Type: Progress Notes Filed: 04/04/2023 11:41 AM Note Text: Patient came in with complaints of severe neck pain 10 out of 10. Patient cannot even move her head to the right. Patient says this morning she felt something pop in crunchy in her neck. Patient says she screamed and cried because it hurts so bad. Patient says she feels like she is lost muscle in her arm due to it. At this time due to the amount of pain patient is in patient is being referred to the emergency department. Patient was okay with this and her significant other will take her. [facility] 03-31-2023 Note HNO ID: [id number] Author: Carol Steven MD Service: ? Author Type: Physician Type: Progress Notes Filed: 03/31/2023 10:28 AM Note Text: Sewing Teacher offered: Patient declines. Dejah is a 27 year old who presents today for a colposcopy. The patient's last pap smear was LGSIL from February 2023. Patient has a history of abnormal pap: No. The patient has had prior treatment: none. test: negative UNIVERSAL PROTOCOL / SAFETY CHECKLIST Procedure to be Performed: Colposcopy Sign In: A Moment of CARE was completed. Personnel directly involved with the procedure wore the appropriate PPE (Personal Protective Equipment). Patient/Surrogate Stated/Verified: PATIENT VERIFIED(optional for EMERGENT procedures): Patient name, Date of , Relevant allergies, and The intended procedure Time Out Communication: Intended patient and procedure match the source documents. Consent documented and matches the intended procedure. Sign Out: SIGN OUT (optional for EMERGENT procedures): All specimen containers correctly labeled. All instruments, equipment, possible retained foreign bodies accounted for. Post-procedure follow-up management communicated and Plan of Care Visit completed when applicable. PROCEDURE: EXTERNAL GENITALIA: Normal in appearance without lesions VAGINA: Normal in appearance without lesions CERVIX: Speculum placed in vagina and excellent visualization of cervix achieved. Cervix swabbed x 3 with 3% acetic acid solution. Cervix grossly normal. Squamocolumnar junction visualized. No acetowhite changes, punctations, mosaicism or atypical vasculature noted. BIOPSY: Done at 6:00 and 12:00 ECC: done HEMOSTASIS: Obtained with pressure Procedure Summary: Patient tolerated procedure well and colposcopy was adequate. ASSESSMENT: HPV effect PLAN: Specimens labeled and sent to Pathology. Will notify patient of results in 1-2 weeks. Post-procedure instructions reviewed and written material given to the patient. Carol Steven DO [facility] 03-31-2023 Instructions Jennifer Noonan MA - 03/31/2023 9:44 AM EDT YOUR RECOVERY It may take a few weeks for your cervix to heal. While your cervix heals, you may have: - Vaginal bleeding (less than a normal menstrual period) - Mild cramping - A brown-black vaginal discharge (similar to coffee grounds) which is a result of the paste used to help stop bleeding from the procedure Do NOT put anything in the vagina for 1 week after your colposcopy if your doctor does a biopsy of your cervix. This includes sex, tampons, and douches. If you have any discomfort, you may take an over the counter pain medication (motrin, advil, ibuprofen, tylenol, etc). If this does not relieve your discomfort, contact your doctor's office for a prescription strength pain medication. It is okay to wear a sanitary pad until the discharge and spotting stops. RISKS Although problems seldom occur with colposcopy, there can be some complications. You may feel faint during and shortly after the procedure as well as have some bleeding and vaginal discharge after the procedure. There is also a risk of infection after the procedure. These complications are rare and can be easily treated. You should contact you doctor is you have any of the following: - Heavy bleeding (more than your normal period) - Bleeding with clots - Severe abdominal pain - Fever (more than 100.4F) - Foul smelling vaginal discharge RESULTS If a biopsy was taken, we will have the results of your biopsy in 1-2 weeks. If you do not hear the results of your biopsy after 2 weeks, please contact your physicians office for the results. Depending on the biopsy results, your doctor will determine your follow up plan which may include further testing or treatments. STAYING HEALTHY After the procedure, you will need to see your doctor for follow up visits during the year. At these visits your doctor will check the health of your cervix with a pap smear. After three normal pap smears, your doctor will allow you to return to having exams once a year. If you have another abnormal pap smear, you may need closer follow up for longer or you may need additional treatment. By making a few lifestyle changes after the procedure, you can help protect the health of your cervix: - Have regular pelvic exams and pap smears as ordered by your doctor. - Stop smoking as smoking increases your risk of developing a cancer of the cervix - If you have more than one sexual partner, limit your number of partners and use condoms to reduce your risks of STDs. If you have any additional questions, please contact your doctor's office. documented in this encounter [facility] 03-31-2023 History of Presen t illness Narrative Sewing Teacher offered: Patient declines. Dejah is a 27 year old who presents today for a colposcopy. The patient's last pap smear was LGSIL from February 2023. Patient has a history of abnormal pap: No. The patient has had prior treatment: none. test: negative UNIVERSAL PROTOCOL / SAFETY CHECKLIST Procedure to be Performed: Colposcopy Sign In: A Moment of CARE was completed. Personnel directly involved with the procedure wore the appropriate PPE (Personal Protective Equipment). Patient/Surrogate Stated/Verified: PATIENT VERIFIED(optional for EMERGENT procedures): Patient name, Date of , Relevant allergies, and The intended procedure Time Out Communication: Intended patient and procedure match the source documents. Consent documented and matches the intended procedure. Sign Out: SIGN OUT (optional for EMERGENT procedures): All specimen containers correctly labeled. All instruments, equipment, possible retained foreign bodies accounted for. Post-procedure follow-up management communicated and Plan of Care Visit completed when applicable. PROCEDURE: EXTERNAL GENITALIA: Normal in appearance without lesions VAGINA: Normal in appearance without lesions CERVIX: Speculum placed in vagina and excellent visualization of cervix achieved. Cervix swabbed x 3 with 3% acetic acid solution. Cervix grossly normal. Squamocolumnar junction visualized. No acetowhite changes, punctations, mosaicism or atypical vasculature noted. BIOPSY: Done at 6:00 and 12:00 ECC: done HEMOSTASIS: Obtained with pressure Procedure Summary: Patient tolerated procedure well and colposcopy was adequate. ASSESSMENT: HPV effect PLAN: Specimens labeled and sent to Pathology. Will notify patient of results in 1-2 weeks. Post-procedure instructions reviewed and written material given to the patient. Carol Steven DO documented in this encounter [facility] 03-20-2023 Miscellaneous Notes Pt returned call and was given results and assisted to schedule colposcopy. Leah Boykin LPN Left message for patient to call office. Gisel Dominique RN Pap LSIL, will need colp done. Order filed. Paradise Moralez APRN.JONO documented in this encounter [facility] 03-09-2023 Note HNO ID: [id number] Author: Paradise Moralez APRN.CNP Service: ? Author Type: Nurse Practitioner Type: Progress Notes Filed: 03/09/2023 10:00 AM Note Text: Sewing Teacher offered: Patient declines. Dejah is a 27 year old who presents for an annual gynecologic exam without complaints. Working at [employer] Menses: LMP 09/2022. Using provera to induce menses Contraception: none HPV vaccine: Yes Last Pap: 04/06/2020 normal HPV: N/A History of abnormal pap: No Last mammogram: never Sexually active: Yes Pain with intercourse: No Postcoital bleeding: No OB History T0 L0 SAB0 IAB0 Ectopic0 Multiple0 Live Births0 Shot Dropper History LMP: 09/14/2022 (Approximate), Having periods Age at Menarche: Age at First : Age at Menopause: Shot Dropper History Comments: Sexual Activity: Yes; No partner data on record Contraception: None PAST MEDICAL HISTORY Diagnosis Date Migraine without aura and without status migrainosus, not intractable 07/10/2019 Obesity 03/09/2011 PCOS (polycystic ovarian syndrome) 2016 PMH - PAST MEDICAL HISTORY OF 03/2003 normal color vision Unspecified hearing loss, bilateral 07/10/2019 Rt>LT, 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 Vitamin D deficiency 12/21/2021 PAST SURGICAL HISTORY Procedure Laterality Date TONSILLECTOMY PRIMARY/SECONDARY FAMILY HISTORY Problem Relation Age of Onset other (Pulmonary Embolism) Mother with embolism Anxiety disorder Brother Depression Brother Breast Cancer Maternal Grandmother Hypertension Maternal Grandfather Lung Cancer Paternal Grandmother Bipolar disorder Maternal Aunt Diabetes Other mggm SOCIAL HISTORY Social History Tobacco Use Smoking status: Former Types: Cigarettes Quit date: 01/18/2018 Years since quittin.1 Smokeless tobacco: Never Tobacco comments: . step mom and sibling smokes outside Vaping Use Vaping Use: Never used Substance Use Topics Alcohol use: Not Currently Comment: occ Drug use: No REVIEW OF SYSTEMS Abdomen: No abdominal pain, nausea, vomiting, diarrhea, or constipation. No bloating, early satiety, indigestion, or increased flatulence.IBS issues Bladder: No dysuria, gross hematuria, urinary frequency, urinary urgency, or incontinence. Breast: No breast lumps, nipple d/c, overlying skin changes, redness or skin retraction. Allergies and current medication updated:Yes EXAM: Ht 5' 6.772 (1.70m) Wt 464 lb 3.2 oz (210.6kg) LMP 09/14/2022 BMI 73.20 kg/(m2). GENERAL: pleasant, female in no apparent distress HEENT: Normocephalic, atraumatic, mucus membranes moist, and no lesions NECK: Supple, full range of motion, no adenopathy, and thyroid normal DERMATOLOGY: Normal, without lesions, non-icteric, and non-hirsute BREAST: soft, non-tender, symmetric, no dominant mass, normal nipple-areolar complex, no lymphadenopathy, and no nipple discharge CHEST: Normal inspiratory effort ABDOMEN: soft, non-tender, and no masses PELVIC: external genitalia normal, normal Bartholin's glands, urethra, [place]'s glands, no vulvar lesions, good vaginal support, physiologic discharge present, normal appearing perineal body and perianal region BIMANUAL: non-tender and difficult to assess d/t habitus RECTOVAGINAL: deferred. NEURO: alert and oriented x3,exam grossly non-focal EXTREMITIES: normal ASSESSMENT/PLAN: 1) Health maintenance: Pap done with reflex HPV. Mammogram starting age 40. Nutrition, exercise and routine health maintenance exams reviewed. Calcium/Vitamin D supplementation information provided. 2) Contraception: none. Contraceptive options reviewed and information provided. 3) STD screening: Declined STD check. 4) Follow up one year or sooner as needed Paradise Moralez APRN.JONO [facility] 11-25-2022 Note HNO ID: [id number] Author: Anabella Haskins APRN.JONO Service: ? Author Type: Nurse Practitioner Type: Progress Notes Filed: 11/25/2022 10:46 AM Note Text: 11/25/2022 Patient presents with: Establish Care SUBJECTIVE: This is a 27 year old that is here today for Above Complaints.. Started with sore throat a couple of days. Friend had strep a couple a days ago. Also admits to headache, chest congestion, cough and nasal congestion. 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 Vitamin D deficiency 12/21/2021 ALLERGIES Patient has no known allergies. MEDICATIONS Current Outpatient Medications Medication Sig ondansetron orally disintegrating (ZOFRAN ODT) 4 mg disintegrating tablet Take 1 tablet by mouth every 6 hours as needed for nausea/vomiting. albuterol HFA (VENTOLIN HFA) 90 mcg/actuation inhaler Inhale 2 Puffs as instructed every 4 hours as needed for wheezing/shortness of breath. medroxyPROGESTERone (PROVERA) 10 mg tablet Take 1 tablet by mouth once daily. cholecalciferol, Vitamin D3, (VITAMIN D3) 1,250 mcg (50,000 unit) cap capsule Take 1 capsule by mouth one time a week. No current facility-administered medications for this visit. Medications and allergies reviewed by this provider. SOCIAL HISTORY Social History Tobacco Use Smoking status: Former Types: Cigarettes Quit date: 01/18/2018 Years since quittin.8 Smokeless tobacco: Never Tobacco comments: . step mom and sibling smokes outside Vaping Use Vaping Use: Never used Substance Use Topics Alcohol use: Yes Comment: occ Drug use: No REVIEW OF SYSTEMS GENERAL: No weight loss, malaise or fevers RESPIRATORY: Negative for cough, hemoptysis, wheezing, COPD, dyspnea or shortness of breath CARDIOVASCULAR: Negative for chest pain, leg swelling, hypertension, CHF or palpitations All other reviewed and negative other than HPI. OBJECTIVE: BP 132/74 Pulse 86 Temp 36.8 ?C (98.3 ?F) Resp 16 Ht 169.6 cm (5' 6.77 ) Wt (!) 212.6 kg (468 lb 12.8 oz) LMP 09/14/2022 (Approximate) SpO2 93% BMI 73.93 kg/m? . Vital signs reviewed by this provider. APPEARANCE Well appearing, alert, in no acute distress, well-hydrated, well nourished. and Morbidly obese EYES conjunctiva and sclera normal. EARS External ears normal, canals clear NECK Supple, no adenopathy; thyroid symmetric, normal size, no bruits HEART RRR with normal S1 and S2, no murmurs, no gallops, no JVD appreciated LUNG clear to auscultation. No wheezes, rhonchi or rales EXTREMITIES Extremities normal, No deformities, No skin discoloration, and No edema SKIN Skin color, texture, turgor normal, no suspicious rashes or lesions to exposed skin Component Latest Ref Rng AND Units 12/17/2021 Protein, Total 6.3 - 8.0 g/dL 7.4 Albumin 3.9 - 4.9 g/dL 4.4 Calcium 8.5 - 10.2 mg/dL 8.8 Bilirubin, Total 0.2 - 1.3 mg/dL 0.2 Alkaline Phosphatase 34 - 123 U/L 93 AST 13 - 35 U/L 16 ALT 7 - 38 U/L 26 Glucose 74 - 99 mg/dL 94 BUN 7 - 21 mg/dL 15 Creatinine 0.58 - 0.96 mg/dL 0.71 Sodium 136 - 144 mmol/L 139 Potassium 3.7 - 5.1 mmol/L 3.9 Chloride 97 - 105 mmol/L 104 CO2 22 - 30 mmol/L 25 Anion Gap 9 - 18 mmol/L 10 eGFR >=60 mL/min/1.73mA? 122 Cholesterol, Total <200 mg/dL 242 (H) Triglyceride <150 mg/dL 50 HDL Cholesterol >39 mg/dL 39 (L) Non HDL Cholesterol <130 mg/dL 203 (H) Fasting Time hrs 0 VLDL Cholesterol <30 mg/dL 10 TC:HDL Ratio <5.10 6.21 (H) LDL Cholesterol <100 mg/dL 193 (H) LDL:HDL Ratio <2.54 4.95 (H) Hemoglobin A1C 4.3 - 5.6 % 5.0 Estimated Average Glucose mg/dL 97 TSH 0.270 - 4.200 mIU/L 3.210 Vitamin D 25 Hydroxy 31.0 - 80.0 ng/mL 9.3 (L) DTAP,TDAP,TD(7 - Td or Tdap) due on 12/03/2019 COVID-19 VACCINE(3 - Booster for Moderna series) due on 03/16/2021 DEPRESSION ASSESSMENT Never done PAP TESTING due on 04/02/2023 INFLUENZA(Season Ended) due on 04/14/2023 HEPATITIS B Completed HPV VACCINE Completed HEPATITIS C SCREENING Completed HIV SCREENING Completed ASSESSMENT/PLAN: 1. Encounter to establish care - ICD9: V65.8, ICD10: Z76.89 (primary diagnosis) - plan as below 2. Vitamin D deficiency - ICD9: 268.9, ICD10: E55.9 - VITAMIN D 25 HYDROXY 3. Hyperlipidemia, mixed - ICD9: 272.2, ICD10: E78.2 - to be determined upon return of lab results - Encouraged following a low fat, low cholesterol diet. - Discussed the benefits of regular aerobic exercise and weight loss. - Follow up pending labs - Encouraged following a low carbohydrate, healthy oil inta (more content not included)... [facility] 11-25-2022 Instructions Anabella Haskins APRN.CNP - 11/25/2022 10:31 AM EDT Make follow-up to discuss GI issuse documented in this encounter [facility] 11-25-2022 History of Presen t illness Narrative 11/25/2022 Patient presents with: Establish Care SUBJECTIVE: This is a 27 year old that is here today for Above Complaints.. Started with sore throat a couple of days. Friend had strep a couple a days ago. Also admits to headache, chest congestion, cough and nasal congestion. 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 Vitamin D deficiency 12/21/2021 ALLERGIES Patient has no known allergies. MEDICATIONS Current Outpatient Medications Medication Sig ondansetron orally disintegrating (ZOFRAN ODT) 4 mg disintegrating tablet Take 1 tablet by mouth every 6 hours as needed for nausea/vomiting. albuterol HFA (VENTOLIN HFA) 90 mcg/actuation inhaler Inhale 2 Puffs as instructed every 4 hours as needed for wheezing/shortness of breath. medroxyPROGESTERone (PROVERA) 10 mg tablet Take 1 tablet by mouth once daily. cholecalciferol, Vitamin D3, (VITAMIN D3) 1,250 mcg (50,000 unit) cap capsule Take 1 capsule by mouth one time a week. No current facility-administered medications for this visit. Medications and allergies reviewed by this provider. SOCIAL HISTORY Social History Tobacco Use Smoking status: Former Types: Cigarettes Quit date: 01/18/2018 Years since quittin.8 Smokeless tobacco: Never Tobacco comments: . step mom and sibling smokes outside Vaping Use Vaping Use: Never used Substance Use Topics Alcohol use: Yes Comment: occ Drug use: No REVIEW OF SYSTEMS GENERAL: No weight loss, malaise or fevers RESPIRATORY: Negative for cough, hemoptysis, wheezing, COPD, dyspnea or shortness of breath CARDIOVASCULAR: Negative for chest pain, leg swelling, hypertension, CHF or palpitations All other reviewed and negative other than HPI. OBJECTIVE: BP 132/74 Pulse 86 Temp 36.8 C (98.3 F) Resp 16 Ht 169.6 cm (5' 6.77 ) Wt (!) 212.6 kg (468 lb 12.8 oz) LMP 09/14/2022 (Approximate) SpO2 93% BMI 73.93 kg/m . Vital signs reviewed by this provider. APPEARANCE Well appearing, alert, in no acute distress, well-hydrated, well nourished. and Morbidly obese EYES conjunctiva and sclera normal. EARS External ears normal, canals clear NECK Supple, no adenopathy; thyroid symmetric, normal size, no bruits HEART RRR with normal S1 and S2, no murmurs, no gallops, no JVD appreciated LUNG clear to auscultation. No wheezes, rhonchi or rales EXTREMITIES Extremities normal, No deformities, No skin discoloration, and No edema SKIN Skin color, texture, turgor normal, no suspicious rashes or lesions to exposed skin Component Latest Ref Rng & Units 12/17/2021 Protein, Total 6.3 - 8.0 g/dL 7.4 Albumin 3.9 - 4.9 g/dL 4.4 Calcium 8.5 - 10.2 mg/dL 8.8 Bilirubin, Total 0.2 - 1.3 mg/dL 0.2 Alkaline Phosphatase 34 - 123 U/L 93 AST 13 - 35 U/L 16 ALT 7 - 38 U/L 26 Glucose 74 - 99 mg/dL 94 BUN 7 - 21 mg/dL 15 Creatinine 0.58 - 0.96 mg/dL 0.71 Sodium 136 - 144 mmol/L 139 Potassium 3.7 - 5.1 mmol/L 3.9 Chloride 97 - 105 mmol/L 104 CO2 22 - 30 mmol/L 25 Anion Gap 9 - 18 mmol/L 10 eGFR >=60 mL/min/1.73m 122 Cholesterol, Total <200 mg/dL 242 (H) Triglyceride <150 mg/dL 50 HDL Cholesterol >39 mg/dL 39 (L) Non HDL Cholesterol <130 mg/dL 203 (H) Fasting Time hrs 0 VLDL Cholesterol <30 mg/dL 10 TC:HDL Ratio <5.10 6.21 (H) LDL Cholesterol <100 mg/dL 193 (H) LDL:HDL Ratio <2.54 4.95 (H) Hemoglobin A1C 4.3 - 5.6 % 5.0 Estimated Average Glucose mg/dL 97 TSH 0.270 - 4.200 mIU/L 3.210 Vitamin D 25 Hydroxy 31.0 - 80.0 ng/mL 9.3 (L) DTAP,TDAP,TD(7 - Td or Tdap) due on 12/03/2019 COVID-19 VACCINE(3 - Booster for Moderna series) due on 03/16/2021 DEPRESSION ASSESSMENT Never done PAP TESTING due on 04/02/2023 INFLUENZA(Season Ended) due on 04/14/2023 HEPATITIS B Completed HPV VACCINE Completed HEPATITIS C SCREENING Completed HIV SCREENING Completed ASSESSMENT/PLAN: 1. Encounter to establish care - ICD9: V65.8, ICD10: Z76.89 (primary diagnosis) - plan as below 2. Vitamin D deficiency - ICD9: 268.9, ICD10: E55.9 - VITAMIN D 25 HYDROXY 3. Hyperlipidemia, mixed - ICD9: 272.2, ICD10: E78.2 - to be determined upon return of lab results - Encouraged following a low fat, low cholesterol diet. - Discussed the benefits of regular aerobic exercise and weight loss. - Follow up pending labs - Encouraged following a low carbohydrate, healthy oil intake diet. - COMP METABOLIC PANEL - LIPID PANEL BASIC 4. Sore throat - ICD9: 462, ICD10: J02.9 - suspect viral - Rapid Strep negative in the office today - Discussed supportive care treatment with fluids, rest and analgesia. - The patient may also use OTC cough and cold meds as needed and warm salt water gargles, throat lozenges and/or OTC throat spray as needed. - The patient should follow up in 3-5 days if symptoms persist or worsen - Call back if drooling, increased temperature, symptoms of dehydration and/or still sick in one week - STREP A MOLECULAR (POC) 5. Flu-like symptoms - ICD9: 780.99, ICD10: R68.89 - may use OTC cough and cold medications as directed on packaging - isolate pending COVID-19 results - COVID WITH FLUA+B, ROUTINE 6. Morbidly obese (HCC) - ICD9: 278.01, ICD10: E66.01 - will discuss in more detail at next appointment - make follow-up to discuss Anabella Haskins APRN.[employer] Prescription instructions reviewed with patient as applicable. Patient advised if symptoms do not improve or if symptoms worsen sooner, to contact their primary care physician. Potential red flag symptoms discussed with the patient. Reviewed appropriate action plan to take if red flag symptoms occur. Patient agreeable to treatment plan. I spent a total of 30 minutes on the date of the service which included preparing to see the patient, [id number] patient care, completing clinical documentation, obtaining and/or reviewing separately obtained history, performing a medically appropriate examination, counseling and educating the patient/family/caregiver, and ordering medications, tests, or procedures. documented in this encounter [facility] 11-18-2022 Note HNO ID: [id number] Author: Viji Griggs APRN.CNP Service: ? Author Type: Nurse Practitioner Type: Progress Notes Filed: 11/17/2022 10:49 PM Note Text: Patient cancelled the appointment due to having technical difficulties with her Mychart. She did not answer her phone when the provider's nurse called to reschedule. [facility] 11-17-2022 History of Presen t illness Narrative Patient cancelled the appointment due to having technical difficulties with her Mychart. She did not answer her phone when the provider's nurse called to reschedule. documented in this encounter [facility] 11-08-2022 Note HNO ID: [id number] Author: Brad Serrano APRN.CNP Service: ? Author Type: Nurse Practitioner Type: Progress Notes Filed: 11/08/2022 5:06 PM Note Text: Subjective HPI HPI Dejah Adorno is a 26 year old female who presents today for CC of migrain, dizziness. This started 1 week ago. Has tried otc medication with minimal relief. Symptoms are worsened by nothing specific. Risk factors hx of migrains, failed medications in past. Denies possibility of being . Denies uri symptoms. 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 Vitamin D deficiency 12/21/2021 PAST SURGICAL HISTORY Procedure Laterality Date TONSILLECTOMY PRIMARY/SECONDARY ALLERGIES Patient has no known allergies. MEDICATIONS albuterol HFA (VENTOLIN HFA) 90 mcg/actuation inhaler Inhale 2 Puffs as instructed every 4 hours as needed for wheezing/shortness of breath. medroxyPROGESTERone (PROVERA) 10 mg tablet Take 1 tablet by mouth once daily. cholecalciferol, Vitamin D3, (VITAMIN D3) 1,250 mcg (50,000 unit) cap capsule Take 1 capsule by mouth one time a week. predniSONE (DELTASONE) 20 mg tablet Take 2 tablets by mouth once daily for 5 days. ondansetron orally disintegrating (ZOFRAN ODT) 4 mg disintegrating tablet Take 1 tablet by mouth every 6 hours as needed for nausea/vomiting. FAMILY HISTORY Problem Relation Age of Onset other (Pulmonary Embolism) Mother with embolism Anxiety disorder Brother Depression Brother Bipolar disorder Maternal Aunt Breast Cancer Maternal Grandmother Hypertension Maternal Grandfather Diabetes Other mggm Social History Tobacco Use Smoking status: Former Types: Cigarettes Quit date: 01/18/2018 Years since quittin.8 Smokeless tobacco: Never Tobacco comments: . step mom and sibling smokes outside Vaping Use Vaping Use: Never used Substance Use Topics Alcohol use: Yes Comment: occ Drug use: No Review of Systems Constitutional: Negative for chills and fever. HENT: Negative for congestion, ear discharge, ear pain, hearing loss and sore throat. Eyes: Negative for blurred vision, double vision, photophobia, pain, discharge and redness. Respiratory: Negative for cough and shortness of breath. Cardiovascular: Negative for chest pain. Gastrointestinal: Negative for abdominal pain, nausea and vomiting. Musculoskeletal: Negative for myalgias and neck pain. Skin: Negative for rash. Neurological: Positive for dizziness and headaches. Negative for tremors, sensory change, speech change and focal weakness. Psychiatric/Behavioral: Negative for depression. Objective Blood pressure 148/78, pulse 86, temperature 36.7 ?C (98 ?F), resp. rate 18, weight (!) 214.6 kg (473 lb), last menstrual period 09/14/2022, SpO2 98 %. Physical Exam Constitutional: General: She is not in acute distress. Appearance: She is not diaphoretic. HENT: Head: Normocephalic and atraumatic. Right Ear: Hearing, tympanic membrane, ear canal and external ear normal. Left Ear: Hearing, tympanic membrane, ear canal and external ear normal. Eyes: General: Lids are normal. Lids are everted, no foreign bodies appreciated. No scleral icterus. Right eye: No discharge. Left eye: No discharge. Conjunctiva/sclera: Conjunctivae normal. Pupils: Pupils are equal, round, and reactive to light. Neck: Trachea: Trachea normal. Cardiovascular: Rate and Rhythm: Normal rate and regular rhythm. Heart sounds: Normal heart sounds. Pulmonary: Effort: Pulmonary effort is normal. Breath sounds: Normal breath sounds. Musculoskeletal: Cervical back: Normal range of motion and neck supple. Lymphadenopathy: Cervical: No cervical adenopathy. Skin: Findings: No rash. Neurological: Mental Status: She is alert. She is not disoriented. Cranial Nerves: Cranial nerves 2-12 are intact. No cranial nerve deficit or facial asymmetry. Sensory: Sensation is intact. Motor: No weakness. Gait: Gait is intact. Gait normal. Deep Tendon Reflexes: Reflexes are normal and symmetric. Psychiatric: Mood and Affect: Mood is not anxious. Affect is blunt. Affect is not angry. ASSESSMENT/PLAN: 1. Unspecified migraine - ICD9: 346.90, ICD10: G43.909 Otc management discussed F/u with pcp if s/s persist Offered toradol inj, does not want today. - PREDNISONE 20 MG TABLET - ONDANSETRON 4 MG DISINTEGRATING TABLET Brad Serrano APRN.JONO [facility] 11-08-2022 History of Presen t illness Narrative Subjective HPI HPI Dejah Adorno is a 26 year old female who presents today for CC of migrain, dizziness. This started 1 week ago. Has tried otc medication with minimal relief. Symptoms are worsened by nothing specific. Risk factors hx of migrains, failed medications in past. Denies possibility of being . Denies uri symptoms. 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 Vitamin D deficiency 12/21/2021 PAST SURGICAL HISTORY Procedure Laterality Date TONSILLECTOMY PRIMARY/SECONDARY <AGE 12 ALLERGIES Patient has no known allergies. MEDICATIONS albuterol HFA (VENTOLIN HFA) 90 mcg/actuation inhaler Inhale 2 Puffs as instructed every 4 hours as needed for wheezing/shortness of breath. medroxyPROGESTERone (PROVERA) 10 mg tablet Take 1 tablet by mouth once daily. cholecalciferol, Vitamin D3, (VITAMIN D3) 1,250 mcg (50,000 unit) cap capsule Take 1 capsule by mouth one time a week. predniSONE (DELTASONE) 20 mg tablet Take 2 tablets by mouth once daily for 5 days. ondansetron orally disintegrating (ZOFRAN ODT) 4 mg disintegrating tablet Take 1 tablet by mouth every 6 hours as needed for nausea/vomiting. FAMILY HISTORY Problem Relation Age of Onset other (Pulmonary Embolism) Mother with embolism Anxiety disorder Brother Depression Brother Bipolar disorder Maternal Aunt Breast Cancer Maternal Grandmother Hypertension Maternal Grandfather Diabetes Other mggm Social History Tobacco Use Smoking status: Former Types: Cigarettes Quit date: 01/18/2018 Years since quittin.8 Smokeless tobacco: Never Tobacco comments: . step mom and sibling smokes outside Vaping Use Vaping Use: Never used Substance Use Topics Alcohol use: Yes Comment: occ Drug use: No Review of Systems Constitutional: Negative for chills and fever. HENT: Negative for congestion, ear discharge, ear pain, hearing loss and sore throat. Eyes: Negative for blurred vision, double vision, photophobia, pain, discharge and redness. Respiratory: Negative for cough and shortness of breath. Cardiovascular: Negative for chest pain. Gastrointestinal: Negative for abdominal pain, nausea and vomiting. Musculoskeletal: Negative for myalgias and neck pain. Skin: Negative for rash. Neurological: Positive for dizziness and headaches. Negative for tremors, sensory change, speech change and focal weakness. Psychiatric/Behavioral: Negative for depression. Objective Blood pressure 148/78, pulse 86, temperature 36.7 C (98 F), resp. rate 18, weight (!) 214.6 kg (473 lb), last menstrual period 09/14/2022, SpO2 98 %. Physical Exam Constitutional: General: She is not in acute distress. Appearance: She is not diaphoretic. HENT: Head: Normocephalic and atraumatic. Right Ear: Hearing, tympanic membrane, ear canal and external ear normal. Left Ear: Hearing, tympanic membrane, ear canal and external ear normal. Eyes: General: Lids are normal. Lids are everted, no foreign bodies appreciated. No scleral icterus. Right eye: No discharge. Left eye: No discharge. Conjunctiva/sclera: Conjunctivae normal. Pupils: Pupils are equal, round, and reactive to light. Neck: Trachea: Trachea normal. Cardiovascular: Rate and Rhythm: Normal rate and regular rhythm. Heart sounds: Normal heart sounds. Pulmonary: Effort: Pulmonary effort is normal. Breath sounds: Normal breath sounds. Musculoskeletal: Cervical back: Normal range of motion and neck supple. Lymphadenopathy: Cervical: No cervical adenopathy. Skin: Findings: No rash. Neurological: Mental Status: She is alert. She is not disoriented. Cranial Nerves: Cranial nerves 2-12 are intact. No cranial nerve deficit or facial asymmetry. Sensory: Sensation is intact. Motor: No weakness. Gait: Gait is intact. Gait normal. Deep Tendon Reflexes: Reflexes are normal and symmetric. Psychiatric: Mood and Affect: Mood is not anxious. Affect is blunt. Affect is not angry. ASSESSMENT/PLAN: 1. Unspecified migraine - ICD9: 346.90, ICD10: G43.909 Otc management discussed F/u with pcp if s/s persist Offered toradol inj, does not want today. - PREDNISONE 20 MG TABLET - ONDANSETRON 4 MG DISINTEGRATING TABLET Brad Serrano APRN.JONO documented in this encounter [facility] 10-20-2022 Note HNO ID: [id number] Author: Leann Patricia APRN.JONO Service: ? Author Type: Nurse Practitioner Type: Progress Notes Filed: 10/20/2022 10:52 AM Note Text: Subjective The history is provided by the patient. No sign language interpreter was used. HPI Dejah Adorno is a 26 year old female who presents today for CC of left side upper and lower dental pain, that started 2 weeks ago and is getting worse. She is also having drainage under crown Dental appointment Monday - dentist advised to come here to get started on antibiotic prior to appointment BP 136/90 Pulse 106 Temp 37.2 ?C (98.9 ?F) (Tympanic) Resp 18 Wt (!) 212.9 kg (469 lb 6.4 oz) LMP 09/14/2022 (Approximate) SpO2 98% BMI 77.51 kg/m? Social History Tobacco Use Smoking status: Former Types: Cigarettes Quit date: 01/18/2018 Years since quittin.7 Smokeless tobacco: Never Tobacco comments: . 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 Vitamin D deficiency 12/21/2021 I have confirmed and edited as necessary, the [facility] Review of Systems Constitutional: Negative for chills and fever. HENT: Negative for congestion, ear pain, sinus pain and sore throat. Dental pain Respiratory: Negative for cough, sputum production, shortness of breath and wheezing. Cardiovascular: Negative for chest pain. Musculoskeletal: Negative for myalgias. Neurological: Negative for headaches. Objective Physical Exam Vitals and nursing note reviewed. HENT: Mouth/Throat: Dentition: Abnormal dentition. Dental tenderness, gingival swelling and dental caries present. Pulmonary: Effort: Pulmonary effort is normal. Skin: General: Skin is warm and dry. Neurological: Mental Status: She is alert and oriented to person, place, and time. Psychiatric: Mood and Affect: Affect normal. ASSESSMENT/PLAN: 1. Pain, dental - ICD9: 525.9, ICD10: K08.89 Possible infection, abscess Amoxil as ordered Follow up with Dentist on Monday Tylenol/ibuprofen as needed for pain. To ER over the weekend if worsening pain. Diagnosis and treatment plan were discussed and questions were answered to the patient's satisfaction. Pt acknowledged understanding of concepts and follow up plan. Specific signs and symptoms that would indicate the need for higher level of care were discussed in detail warranting prompt ER evaluation. Leann Patricia APRN.CNP [facility] 10-20-2022 Instructions Leann Patricia APRN.CNP - 10/20/2022 10:40 AM EST Amoxil as ordered Follow up with Dentist on Monday Tylenol/ibuprofen as needed for pain. To ER over the weekend if worsening pain. documented in this encounter [facility] 10-20-2022 History of Presen t illness Narrative Images from the original note were not included. Subjective The history is provided by the patient. No sign language interpreter was used. HPI Dejah Adorno is a 26 year old female who presents today for CC of left side upper and lower dental pain, that started 2 weeks ago and is getting worse. She is also having drainage under crown Dental appointment Monday - dentist advised to come here to get started on antibiotic prior to appointment BP 136/90 Pulse 106 Temp 37.2 C (98.9 F) (Tympanic) Resp 18 Wt (!) 212.9 kg (469 lb 6.4 oz) LMP 09/14/2022 (Approximate) SpO2 98% BMI 77.51 kg/m Social History Tobacco Use Smoking status: Former Types: Cigarettes Quit date: 01/18/2018 Years since quittin.7 Smokeless tobacco: Never Tobacco comments: . 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 Vitamin D deficiency 12/21/2021 I have confirmed and edited as necessary, the [facility] Review of Systems Constitutional: Negative for chills and fever. HENT: Negative for congestion, ear pain, sinus pain and sore throat. Dental pain Respiratory: Negative for cough, sputum production, shortness of breath and wheezing. Cardiovascular: Negative for chest pain. Musculoskeletal: Negative for myalgias. Neurological: Negative for headaches. Objective Physical Exam Vitals and nursing note reviewed. HENT: Mouth/Throat: Dentition: Abnormal dentition. Dental tenderness, gingival swelling and dental caries present. Pulmonary: Effort: Pulmonary effort is normal. Skin: General: Skin is warm and dry. Neurological: Mental Status: She is alert and oriented to person, place, and time. Psychiatric: Mood and Affect: Affect normal. ASSESSMENT/PLAN: 1. Pain, dental - ICD9: 525.9, ICD10: K08.89 Possible infection, abscess Amoxil as ordered Follow up with Dentist on Monday Tylenol/ibuprofen as needed for pain. To ER over the weekend if worsening pain. Diagnosis and treatment plan were discussed and questions were answered to the patient's satisfaction. Pt acknowledged understanding of concepts and follow up plan. Specific signs and symptoms that would indicate the need for higher level of care were discussed in detail warranting prompt ER evaluation. Leann Patricia APRN.JONO documented in this encounter [facility] 08-21-2022 History of Presen t illness Narrative This note was created using [employer]. Subjective Dejah Adorno is a 26 year old female. 26 year old female with PMH migraine presents for migraines Acute onset upon awakening today +temporal region +photosensitivity +phonophobia +nausea +blurred vision, which she endorses is normal for her States she has been having N/V/D States that a fellow coworker had influenza B Wonder if I have it Denies worst headache of her life, occurred during coitus, or associated with sudden clap Denies unilateral weakness. 1030 Tylenol Accompanied by her boyfriend The history is provided by the patient. No sign language interpreter was used. Headache This is a new problem. The current episode started 3 to 5 hours ago. The problem occurs constantly. The problem has not changed since onset.The headache is associated with bright light. The pain is located in the Temporal region. The quality of the pain is described as throbbing and sharp. The pain is at a severity of 8/10. The pain is moderate. The pain does not radiate. Associated symptoms include nausea. Pertinent negatives include no anorexia, no fever, no malaise/fatigue, no chest pressure, no near-syncope, no orthopnea, no palpitations, no syncope, no shortness of breath and no vomiting. She has tried acetaminophen for the symptoms. The treatment provided no relief. 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 Vitamin D deficiency 12/21/2021 PAST SURGICAL HISTORY Procedure Laterality Date TONSILLECTOMY PRIMARY/SECONDARY <AGE 14 ALLERGIES Patient has no known allergies. MEDICATIONS albuterol HFA (VENTOLIN HFA) 90 mcg/actuation inhaler Inhale 2 Puffs as instructed every 4 hours as needed for wheezing/shortness of breath. medroxyPROGESTERone (PROVERA) 10 mg tablet Take 1 tablet by mouth once daily. cholecalciferol, Vitamin D3, (VITAMIN D3) 1,250 mcg (50,000 unit) cap capsule Take 1 capsule by mouth one time a week. ondansetron orally disintegrating (ZOFRAN ODT) 4 mg disintegrating tablet Take 2 tablets by mouth every 8 hours as needed for nausea/vomiting. FAMILY HISTORY Problem Relation Age of Onset other (Pulmonary Embolism) Mother with embolism Anxiety disorder Brother Depression Brother Bipolar disorder Maternal Aunt Breast Cancer Maternal Grandmother Hypertension Maternal Grandfather Diabetes Other mggm Social History Tobacco Use Smoking status: Former Types: Cigarettes Quit date: 01/18/2018 Years since quittin.5 Smokeless tobacco: Never Tobacco comments: . step mom and sibling smokes outside Vaping Use Vaping Use: Never used Substance Use Topics Alcohol use: Yes Comment: occ Drug use: No Review of Systems Constitutional: Negative for activity change, appetite change, chills, fever and malaise/fatigue. Eyes: Negative for pain, discharge, redness and itching. Respiratory: Negative for apnea, choking, chest tightness and shortness of breath. Cardiovascular: Negative for chest pain, palpitations, orthopnea, leg swelling, syncope and near-syncope. Gastrointestinal: Positive for nausea. Negative for abdominal pain, anorexia and vomiting. Musculoskeletal: Negative for back pain. Skin: Negative for color change, pallor, rash and wound. Allergic/Immunologic: Negative for environmental allergies, food allergies and immunocompromised state. Neurological: Positive for headaches. Negative for dizziness, seizures, facial asymmetry and speech difficulty. Hematological: Negative for adenopathy. Does not bruise/bleed easily. Psychiatric/Behavioral: Negative for agitation and behavioral problems. Objective BP 142/94 Temp (P) 36.7 C (98.1 F) Resp (P) 16 Wt (!) (P) 210 kg (463 lb) LMP 10/18/2021 SpO2 (P) 97% BMI (P) 76.46 kg/m Physical Exam Vitals and nursing note reviewed. Constitutional: General: She is not in acute distress. Appearance: Normal appearance. She is obese. She is not ill-appearing, toxic-appearing or diaphoretic. HENT: Head: Normocephalic and atraumatic. Right Ear: Ear canal and external ear normal. Left Ear: Ear canal and external ear normal. Nose: Nose normal. No congestion or rhinorrhea. Mouth/Throat: Mouth: Mucous membranes are moist. Pharynx: No oropharyngeal exudate or posterior oropharyngeal erythema. Eyes: General: Right eye: No discharge. Left eye: No discharge. Extraocular Movements: Extraocular movements intact. Conjunctiva/sclera: Conjunctivae normal. Pupils: Pupils are equal, round, and reactive to light. Cardiovascular: Rate and Rhythm: Normal rate and regular rhythm. Pulses: Normal pulses. Heart sounds: Normal heart sounds. No murmur heard. No friction rub. Pulmonary: Effort: Pulmonary effort is normal. No respiratory distress. Breath sounds: Normal breath sounds. No stridor. No wheezing, rhonchi or rales. Chest: Chest wall: No tenderness. Abdominal: General: Abdomen is flat. There is no distension. Palpations: Abdomen is soft. There is no mass. Tenderness: There is no abdominal tenderness. There is no right CVA tenderness, left CVA tenderness, guarding or rebound. Hernia: No hernia is present. Musculoskeletal: General: No swelling, tenderness, deformity or signs of injury. Normal range of motion. Cervical back: Normal range of motion and neck supple. No rigidity. Right lower leg: No edema. Left lower leg: No edema. Lymphadenopathy: Cervical: No cervical adenopathy. Skin: General: Skin is warm and dry. Coloration: Skin is not jaundiced or pale. Findings: No bruising, erythema, lesion or rash. Neurological: General: No focal deficit present. Mental Status: She is alert and oriented to person, place, and time. Cranial Nerves: No cranial nerve deficit. Sensory: No sensory deficit. Motor: No weakness. Coordination: Coordination normal. Gait: Gait normal. Psychiatric: Mood and Affect: Mood normal. Behavior: Behavior normal. Thought Content: Thought content normal. Judgment: Judgment normal. Assessment and Plan ASSESSMENT/PLAN: 1. Migraine headaches - ICD9: 346.90, ICD10: G43.909 (primary diagnosis) Onset today History of same No red flags - KETOROLAC 60 MG/2 ML INTRAMUSCULAR SOLUTION - ONDANSETRON 8 MG DISINTEGRATING TABLET - DIPHENHYDRAMINE 25 MG TABLET Above administered Re-exam at 1330 and patient states symptoms improving RX Zofran Follow up with PCP 2. Exposure to influenza - ICD9: V01.79, ICD10: Z20.828 Coworker tested positive - COVID WITH FLUA+B, ROUTINE Sonya Galarza APRN.ENTRY LEVEL ELECTRICIAN documented in this encounter [facility] 08-11-2022 History of Presen t illness Narrative Subjective HPI Nontoxic-appearing female presents urgent care chief complaint headache nausea vomiting. Duration of symptoms today. Associated symptoms headache and GI symptoms. Patient states she woke up with a migraine headache. History of migraines this feels similar. Also concerned about influenza. States she was around individuals who tested positive for influenza 3 to 4 days ago. Has not use any OTC medications recently. Did take Tylenol around 3 in the morning. This did help some with her headache. Has not used any NSAIDs. Denies any acute onset of headache stiff neck LOC headache upon exertion. Denies any fever body aches chills productive cough chest pain shortness of breath pleuritic pain hemoptysis nausea vomiting abdominal pain change in bowel or bladder habits. Past medical history prescription medication use and allergies reviewed. Denies chance of is not breast-feeding. .Patient presents with: Headache: Pt reported Kate, N/V, onset AM, positive flu exposure. 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 Vitamin D deficiency 12/21/2021 PAST SURGICAL HISTORY Procedure Laterality Date TONSILLECTOMY PRIMARY/SECONDARY <AGE 14 ALLERGIES Patient has no known allergies. MEDICATIONS albuterol HFA (VENTOLIN HFA) 90 mcg/actuation inhaler Inhale 2 Puffs as instructed every 4 hours as needed for wheezing/shortness of breath. medroxyPROGESTERone (PROVERA) 10 mg tablet Take 1 tablet by mouth once daily. cholecalciferol, Vitamin D3, (VITAMIN D3) 1,250 mcg (50,000 unit) cap capsule Take 1 capsule by mouth one time a week. naproxen (NAPROSYN) 500 mg tablet Take 1 tablet by mouth twice daily as needed (for pain/inflammation). Take with food. FAMILY HISTORY Problem Relation Age of Onset other (Pulmonary Embolism) Mother with embolism Anxiety disorder Brother Depression Brother Bipolar disorder Maternal Aunt Breast Cancer Maternal Grandmother Hypertension Maternal Grandfather Diabetes Other mggm Social History Tobacco Use Smoking status: Former Types: Cigarettes Quit date: 01/18/2018 Years since quittin.5 Smokeless tobacco: Never Tobacco comments: . step mom and sibling smokes outside Vaping Use Vaping Use: Never used Substance Use Topics Alcohol use: Yes Comment: occ Drug use: No BP 130/70 Pulse 82 Temp 37.2 C (98.9 F) (Tympanic) Resp 16 Wt (!) 210.6 kg (464 lb 3.2 oz) LMP (Approximate) SpO2 98% BMI 76.66 kg/m Review of Systems Constitutional: Negative for chills, fever and malaise/fatigue. HENT: Negative for congestion, ear discharge, ear pain, sinus pain and sore throat. Eyes: Negative for blurred vision, pain, discharge and redness. Respiratory: Negative for cough, hemoptysis, sputum production, shortness of breath, wheezing and stridor. Cardiovascular: Negative for chest pain. Gastrointestinal: Positive for nausea and vomiting. Negative for abdominal pain and diarrhea. Musculoskeletal: Negative for myalgias. Skin: Negative for itching and rash. Neurological: Positive for headaches. Negative for dizziness. Objective Physical Exam Constitutional: General: She is not in acute distress. Appearance: She is not diaphoretic. HENT: Head: Normocephalic. Nose: Nose normal. Mouth/Throat: Mouth: Mucous membranes are moist. Pharynx: Oropharynx is clear. No oropharyngeal exudate or posterior oropharyngeal erythema. Eyes: Conjunctiva/sclera: Conjunctivae normal. Pupils: Pupils are equal, round, and reactive to light. Cardiovascular: Rate and Rhythm: Normal rate and regular rhythm. Heart sounds: Normal heart sounds. Pulmonary: Effort: Pulmonary effort is normal. No tachypnea, accessory muscle usage or respiratory distress. Breath sounds: Normal breath sounds. No stridor. No wheezing, rhonchi or rales. Abdominal: Palpations: Abdomen is soft. Tenderness: There is no abdominal tenderness. Musculoskeletal: Cervical back: Normal range of motion and neck supple. No rigidity or tenderness. Lymphadenopathy: Cervical: No cervical adenopathy. Skin: General: Skin is warm and dry. Neurological: Mental Status: She is alert and oriented to person, place, and time. ASSESSMENT/PLAN: 1. Viral illness - ICD9: 079.99, ICD10: B34.9 (primary diagnosis) - COVID WITH FLUA+B, ROUTINE 2. Headache, unspecified headache type - ICD9: 784.0, ICD10: R51.9 - KETOROLAC 60 MG/2 ML INTRAMUSCULAR SOLUTION Patient diagnosed with viral illness and headache. Similar onset to previous migraines. Johnston subarachnoid rule 0. Has not taken any NSAIDs today. Previously Toradol has helped with headaches. 30 mg of Toradol administered in office. Charissafran sent to pharmacy. Patient was educated on supportive therapies. Patient will follow up with primary care provider as needed. Patient was instructed to immediately proceed to emergency room for any new, worsening, or symptoms lasting longer than anticipated. The patient's clinical presentation is otherwise unremarkable at this time. Based on exam and clinical finding, the patient is stable for discharge. Plan of care was discussed with patient. Patient verbalizes understanding and agrees to plan of care. This note was generated using [employer] software. It may contain errors in wording, punctuation, or spelling. Clem Yeager APRN.JONO documented in this encounter [facility] 08-11-2022 Instructions Clem Yeager APRN.JONO - 08/11/2022 9:09 AM EST How to Manage Common Symptoms Associated with COVID for Adults Fever- Fever is a temperature over 100.4 F and can occur when the body is fighting an infection. To help treat a fever: Drink plenty of fluids and stay well hydrated. Eat small amounts of easy to digest food. Rest. Your body needs rest to recover, but getting up and moving around the house frequently is a good idea. You should try to continue doing your normal daily activities (bathing, toileting, grooming, cooking), though you will probably feel tired, and need to rest often. Avoid any heavy activity or exercise, as this will increase your body temperature. Dress in light clothing and stay covered in a light sheet. Keep the room temperature cool. Take a slightly warm (not cold or cool) bath, or apply damp washcloths to the forehead and wrists. Cough- Cough is a common symptom associated with COVID and can be bothersome. To help treat a cough: Stay well hydrated. Try warm water or tea with lemon and/or honey to help soothe the cough. Use a humidifier to add moisture to the air. Try a product with menthol, like a cough drop or a rub for your chest such as Vicks, which can help reduce cough. Try cough drops. Avoid smoking and other strong odors or perfumes. Try breathing exercises to keep your lungs open and clear. Take a big deep breath through your nose and hold for 5 seconds before slowly releasing. Repeat frequently, while you are awake. Congestion- Runny nose or nasal congestion can occur with COVID. Treatment can help relieve symptoms: Try OTC nasal saline spray, or nasal saline rinse to relieve mucus congestion. Nasal strips can help keep nasal passages open, to increase airflow. Elevating your head with an extra pillow in bed can help reduce congestion. Using a humidifier can increase moisture in the air, and make breathing easier. Sore Throat- Another common symptom with COVID, can be managed at home by: Stay well hydrated. Gargle with salt water - mix teaspoon salt with 1 cup of warm water and gargle. This helps to loosen mucus in the back of the throat and may reduce discomfort. Try ice chips, popsicles or lozenges to soothe the throat. Nausea/Vomiting/Diarrhea- These are common symptoms, and staying hydrated is most important. If you are nauseous or vomiting, start with small sips of water every 10-15 minutes and increase as tolerated. You can try sucking an ice cube too. If tolerating, you can try pedialyte or Gatorade, or flat sprite or jean-jodee. Start slowly and increase as you are able to. Instead of meals, try smaller, more frequent snacks. Try eating bland foods like crackers, toast, rice, and applesauce. Avoid spicy, greasy or fried foods and dairy containing foods. Even if you aren't feeling hungry due to lack of smell or taste, it is important to try to take in some food when you are able. After drinking and eating, rest in an upright position for up to two hours as needed to help decrease nauseous feelings. Try closing your eyes, avoid moving and watching TV. Avoid strong odors that can make you feel more nauseated. When to seek emergency medical attention Look for emergency warning signs for COVID-19. If having any of these symptoms, seek emergency medical care immediately: Trouble breathing Persistent pain or pressure in the chest New confusion Inability to wake or stay awake Bluish lips or face *This list is not all possible symptoms. Please call your medical provider for any other symptoms that are severe or concerning to you. documented in this encounter [facility] 05-02-2022 Miscellaneous Notes Patient viewed message on [employer]. Lexii Gandhi RN Left message to call office. Lexii Gandhi RN ----- Message from Aydee Stinson APRN.CNM sent at 04/29/2022 8:53 AM EDT ----- Please notify patient that swab was positive for Bacterial Vaginosis. A prescription was called in for Flagyl 500mg PO BID x 7 days. No alcohol while on medication or 24 hours after last dose. No intercourse during treatment. It is also recommended that patient take a probiotic for 30 days- Floragen. Aydee Stinson APRN.CNM documented in this encounter [facility] 04-28-2022 Miscellaneous Notes Done Cande Jefferson MD Please review vaginal culture result. +BV. Flagyl pending. Gisel Dominique RN documented in this encounter [facility] 04-27-2022 History of Presen t illness Narrative Dejah Adorno is a 26 year old female who presents for problem visit of vaginal pain. Reports 4-5 days ago feeling burning and pain in upper vagina towards clitoris. Denies vaginal discharge, pruritis, odor or dysuria. Stated had boyfriend look and he said everything looks red and swollen. Currently in monogamous relationship and declines STD screening. 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 Vitamin D deficiency 12/21/2021 PAST SURGICAL HISTORY Procedure Laterality Date TONSILLECTOMY PRIMARY/SECONDARY <AGE 14 FAMILY HISTORY Problem Relation Age of Onset other (Pulmonary Embolism) Mother with embolism Anxiety disorder Brother Depression Brother Bipolar disorder Maternal Aunt Breast Cancer Maternal Grandmother Hypertension Maternal Grandfather Diabetes Other mggm Social History Tobacco Use Smoking status: Former Types: Cigarettes Quit date: 01/18/2018 Years since quittin.2 Smokeless tobacco: Never Tobacco comments: . step mom and sibling smokes outside Vaping Use Vaping Use: Never used Substance Use Topics Alcohol use: Yes Comment: occ Drug use: No Current Outpatient Medications Medication Sig albuterol HFA (VENTOLIN HFA) 90 mcg/actuation inhaler Inhale 2 Puffs as instructed every 4 hours as needed for wheezing/shortness of breath. medroxyPROGESTERone (PROVERA) 10 mg tablet Take 1 tablet by mouth once daily. cholecalciferol, Vitamin D3, (VITAMIN D3) 1,250 mcg (50,000 unit) cap capsule Take 1 capsule by mouth one time a week. naproxen (NAPROSYN) 500 mg tablet Take 1 tablet by mouth twice daily as needed (for pain/inflammation). Take with food. No current facility-administered medications for this visit. Allergies As of Date: 04/27/2022 (No Known Allergies) Fully Assessed 04/27/2022 REVIEW OF SYSTEMS Abdomen: No bloating, early satiety, indigestion, or increased flatulence. No abdominal pain, nausea, vomiting, diarrhea, or constipation. Bladder: No dysuria, gross hematuria, urinary frequency, urinary urgency, or incontinence. Breast: No breast lumps, nipple d/c, overlying skin changes, redness or skin retraction. 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 external genitalia normal, normal Bartholin's glands, urethra, [place]'s glands, physiologic discharge present, Small open abrasion seen to right labia minora towards clitoris. No active bleeding. BIMANUAL: deferred NEURO: alert and oriented x3,exam grossly non-focal EXTREMITIES: normal ASSESSMENT/PLAN: 1. Vaginal burning - ICD9: 625.8, ICD10: N94.9 (primary diagnosis) - BACTERIAL VAGINOSIS AMPLIFICATION - CAROLYN / TRICHOMONAS AMPLIFICATION - Urine dip- Negative 2. Abrasion of vagina, initial encounter - ICD9: 911.0, ICD10: S30.814A - Keep area clean and dry - Triple antibiotic ointment to abrasion/ A&D ointment RTO- PRN or if symptoms worsen Aydee Stinson APRN.CNM documented in this encounter [facility] 04-19-2022 History of Presen t illness Narrative Subjective HPI HPI Dejah Adorno is a 26 year old female who presents today for CC of st, congestion, cough, fever. This started 1 day ago. Has tried otc medication for relief. Symptoms are worsened by nothing. Risk factors sick exposures at work. Hx of asthma. Denies cp/sob, n/v/d, ear pain, rash. 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 Vitamin D deficiency 12/21/2021 PAST SURGICAL HISTORY Procedure Laterality Date TONSILLECTOMY PRIMARY/SECONDARY <AGE 14 ALLERGIES Patient has no known allergies. MEDICATIONS medroxyPROGESTERone (PROVERA) 10 mg tablet Take 1 tablet by mouth once daily. cholecalciferol, Vitamin D3, (VITAMIN D3) 1,250 mcg (50,000 unit) cap capsule Take 1 capsule by mouth one time a week. naproxen (NAPROSYN) 500 mg tablet Take 1 tablet by mouth twice daily as needed (for pain/inflammation). Take with food. albuterol HFA (VENTOLIN HFA) 90 mcg/actuation inhaler Inhale 2 Puffs as instructed every 4 hours as needed for wheezing/shortness of breath. methylPREDNISolone (MEDROL, MANSI,) 4 mg Dose-Pack Follow dosing instructions, take with food. (Patient not taking: Reported on 04/19/2022) FAMILY HISTORY Problem Relation Age of Onset other (Pulmonary Embolism) Mother with embolism Anxiety disorder Brother Depression Brother Bipolar disorder Maternal Aunt Breast Cancer Maternal Grandmother Hypertension Maternal Grandfather Diabetes Other mggm Social History Tobacco Use Smoking status: Former Types: Cigarettes Quit date: 01/18/2018 Years since quittin.2 Smokeless tobacco: Never Tobacco comments: . step mom and sibling smokes outside Vaping Use Vaping Use: Never used Substance Use Topics Alcohol use: Yes Comment: occ Drug use: No ROS Objective Blood pressure 124/82, pulse 118, temperature 37.3 C (99.2 F), resp. rate 18, weight (!) 195 kg (430 lb), last menstrual period 10/18/2021, SpO2 97 %. Physical Exam Constitutional: General: She is not in acute distress. Appearance: She is not toxic-appearing or diaphoretic. HENT: Head: Normocephalic and atraumatic. Nose: Nose normal. Mouth/Throat: Pharynx: Uvula midline. Posterior oropharyngeal erythema present. No pharyngeal swelling, oropharyngeal exudate or uvula swelling. Eyes: General: Lids are normal. No scleral icterus. Right eye: No discharge. Left eye: No discharge. Conjunctiva/sclera: Conjunctivae normal. Pupils: Pupils are equal, round, and reactive to light. Neck: Trachea: Trachea normal. Cardiovascular: Rate and Rhythm: Normal rate and regular rhythm. Heart sounds: Normal heart sounds. Pulmonary: Effort: Pulmonary effort is normal. Breath sounds: Normal breath sounds. Musculoskeletal: Cervical back: Normal range of motion and neck supple. Lymphadenopathy: Cervical: No cervical adenopathy. Skin: Findings: No rash. Neurological: Mental Status: She is alert and oriented to person, place, and time. ASSESSMENT/PLAN: 1. Sore throat - ICD9: 462, ICD10: J02.9 (primary diagnosis) - suspect viral - Alere Strep Test neg, no culture pending - Discussed supportive care treatment with fluids, rest and analgesia. - The patient should follow up in 3-5 days if symptoms persist or worsen - ALERE STREP A TEST (AG) 2. URI, acute - ICD9: 465.9, ICD10: J06.9 - Discussed viral etiology and rationale for treatment. - Rapid strep negative in office today - Symptomatic treatment with prn analgesia - Supportive care with fluids and rest - Follow up in 3-5 days if symptoms persist or sooner if worsening of symptoms Discussed quarantine, social distancing otc medications discussed Push fluids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 or prosecute any alcohol or drug abuse patient.[facility] CenterIn the event this information is protected by the Federal Confidentiality of Alcohol and Drug Abuse Patient Records regulations: The Federal rules restrict any use of the information to criminally investigate or prosecute any alcohol or drug abuse patient.[facility] CenterIn the event this information is protected by the Federal Confidentiality of Alcohol and Drug Abuse Patient Records regulations: The Federal rules restrict any use of the information to criminally investigate or prosecute any alcohol or drug abuse patient.[facility] CenterIn the event this information is protected by the Federal Confidentiality of Alcohol and Drug Abuse Patient Records regulations: The Federal rules restrict any use of the information to criminally investigate or prosecute any alcohol or drug abuse patient.[facility] Reason for Visit (unrecogniz ed section and content) Reason Comments Knee Pain Chronic R knee pain, worsened x4 days, no injury Reason Comments Results Patient Update Reason Comments Nausea Abdominal Pain Reason Comments Patient Question Reason Comments Std Exposure december 8th Reason Comments Appointment Cancelled Reason Comments Discussion Fertility Reason Comments Headache Migraine x3 days, li ght sensitivity, Reason Comments Nasal Congestion drainage, fever and sore throat x 1 day Reason Comments Vaginal Problem Burning, swelling Reason Comments Results Reason Comments Headache Pt reported Kate, N/V, onset AM, positive flu exposure. Reason Comments Headache nausea Reason Comments Dental Problem Pt reported (LT) upp er, lower tooth pain, swelling, x2 wks. Reason Comments Headache nausea and dizziness x 1 week Reason Comments No Show Reason Comments Establish Care Reason Comments Results Reason Comments Colposcopy Specialty Diagnoses / Procedures Referred By Fritz aguilera Referred To Contact [facility] Diagnoses LGSIL on Pap smear of cervix Procedures COLPOSCOPY COLPOSCOPY CERVIX BX CERVIX & ENDOCRV CURRJOELLENGE Paradise Moralez, RUFUS.[employer] [address] [place] [address] [facility]ly [facility] [address] [place] [address] Referral ID Status Reason Start Date Expiration Date V isits Requested Visits Authorized [id number] Closed Auto-Generate d Referral 03/18/2023 03/17/2024 1 1 Reason Comments Vaginal Problem Reason Comments vaginitis Reason Comments Vaginal Problem Vaginal odor and irr itation Reason Comments ER F/U Care Teams (unrecognized sec tion and content) Census Taker Relationship Specialty Start Date End Date Clem Lua MD [address] [place] [id number] PCP - General Family Practice 07/19/19 Census Taker Relationship Specialty Start Date End Date Clem Lua MD [address] [place] [id number] PCP - General Family Practice 07/19/19 Census Taker Relationship Specialty Start Date End Date Clem Lua MD [address] [place] [id number] PCP - General Family Practice 07/19/19 Census Taker Relationship Specialty Start Date End Date Clem Lua MD [address] [place] [id number] PCP - General Family Practice 07/19/19 Census Taker Relationship Specialty Start Date End Date Clem Lua MD [address] [place] [address] PCP - General Family Practice 07/19/19 Census Taker Relationship Specialty Start Date End Date Clem Lua MD [address] [place] [id number] PCP - General Family Practice 07/19/19 Census Taker Relationship Specialty Start Date End Date Clem Lua MD [address] [place] [address] PCP - General Family Practice 07/19/19 Census Taker Relationship Specialty Start Date End Date Clem Lua MD [address] [place] [address] PCP - General Family Practice 07/19/19 Census Taker Relationship Specialty Start Date End Date Clem Lua MD [facility] [place] [address] PCP - General Family Medicine 07/19/19 Census Taker Relationship Specialty Start Date End Date Clem Lua MD [address] [place] [address], [place] [address] PCP - General Family Medicine 07/19/19 Census Taker Relationship Specialty Start Date End Date Clem Lua MD [facility] [place] [address] PCP - General Family Medicine 07/19/19 Census Taker Relationship Specialty Start Date End Date Clem Lua MD [facility] [place] [address] PCP - General Family Medicine 07/19/19 Census Taker Relationship Specialty Start Date End Date Clem Lua MD [address] [place] [address] PCP - General Family Medicine 07/19/19 Census Taker Relationship Specialty Start Date End Date Clem Lua MD [facility] [place] [address] PCP - General Family Medicine 07/19/19 Census Taker Relationship Specialty Start Date End Date Jhonny Fowler MD [address] [place] [address] PCP - General Family Medicine 11/22/22 Census Taker Relationship Specialty Start Date End Date Jhonny Fowler MD [address] [place] [address] PCP - General Family Medicine 11/22/22 Census Taker Relationship Specialty Start Date End Date Jhonny Fowler MD [address] [place] [address] PCP - General Family Medicine 11/22/22 Census Taker Relationship Specialty Start Date End Date Jhonny Fowler MD [address] [place] [address] PCP - General Family Medicine 11/22/22 Census Taker Relationship Specialty Start Date End Date Jhonny Fowler MD [address] [place] [address] PCP - General Family Medicine 11/22/22 Census Taker Relationship Specialty Start Date End Date Jhonny Fowler MD [address] [place] [address] PCP - General Family Medicine 11/22/22 Census Taker Relationship Specialty Start Date End Date Jhonny Fowler MD [address] [place] [address] PCP - General Family Medicine 11/22/22 Census Taker Relationship Specialty Start Date End Date Jhonny Fowler MD [address] [place] [address] PCP - General Family Medicine 11/22/22 Census Taker Relationship Specialty Start Date End Date Jhonny Fowler MD [address] [place] [address] PCP - General [facility] Medicine 11/22/22 Census Taker Relationship Specialty Start Date End Date Jhonny Fowler MD [address] [place] [address] PCP - General [facility] 11/22/22 Census Taker Relationship Specialty Start Date End Date Jhonny Fowler MD [address] [place] [address] PCP - [facility] 11/22/22 Census Taker Relationship Specialty Start Date End Date Jhonny Fowler MD [address] [place] [address] PCP - [facility] 11/22/22 Census Taker Relationship Specialty Start Date End Date Jhonny Fowler MD [address] [place] [address] PCP - General [facility] Medicine 11/22/22 FOR RECORDS PERTAINING TO PATIENTS WHO ARE OR HAVE BEEN ENROLLED IN A CHEMICAL DEPENDENCY/SUBSTANCEABUSE PROGRAM, SOME INFORMATION MAY BE OMITTED. This clinical summary was aggregated from multiple sources. Caution should be exercised in using it in the provision of clinical care. This summary normalizes information from multiple sources, and as a consequence, information in this document may materially change the coding, format and clinical context of patient data. In addition, data may be omitted in some cases. CLINICAL DECISIONS SHOULD BE BASED ON THE PRIMARY CLINICAL RECORDS. [employer] [facility]. provides no warranty or guarantee of the accuracy or completeness of information in this document.
--- NOTE | 2023-10-05 07:20 | EX.ED.DYSGE1 ---
HPI History of Present Illness Chief Complaint: Allergic Reaction Informant: patient Narrative Narrative: Patient is a 27-year-old female with past medical history of migraines as well as anxiety and depression. She states she is also been dealing with bacterial vaginosis for approximately 5 months and went and saw a specialist at the [facility] who placed her on doxycycline and Flagyl for approximately 2 to 3 weeks. She states when she finishes these medications she will need to go on moxifloxacin. She states that she has had doxycycline and Flagyl in the past and has been on it for roughly 5 to 6 days at this point. She states this is only new exposure in her life as she denies any change in lotions or detergents or soaps. She states she noticed a mild amount of itching last night and was able to go to sleep but when she awoke she had redness and swelling to her face her scalp her arms and back and felt slightly short of breath and therefore comes in for evaluation. PFSH PFSH Home Medications clindamycin phosphate 2 % vaginal cream 1 appful vaginal QHS 07/02/23 [History Last Taken Unknown] meclizine 25 mg tablet 25 mg PO Q8H PRN PRN Dizziness #20 tabs 07/02/23 [Rx Last Taken Unknown] prednisone 20 mg tablet 40 mg (2 x 20 mg) PO DAILY 5 days #10 tabs 10/05/23 [Rx Last Taken Unknown] Allergy/AdvReac Type Severity Reaction Status Date / Time doxycycline Allergy Severe Angioedema Verified 10/05/23 05:54 metronidazole [From Flagyl] Allergy Severe Angioedema Verified 10/05/23 05:54 Surgical History Hx of tonsillectomy Social History Smoking Status: Never smoker ROS ROS ED Constitutional Constitutional ED: Denies chills or fever(s) Eyes Eyes: Denies change in vision ENT ENT ED: Denies sore throat Cardiovascular Cardiovascular: Denies chest pain Respiratory/Chest Respiratory/Chest: Reports dyspnea; Denies cough Gastrointestinal Gastrointestinal: Denies abdominal pain, diarrhea, nausea or vomiting Genitourinary Genitourinary ED: Denies dysuria Musculoskeletal Musculoskeletal: Denies myalgias Integumentary Reports rash Neurologic Neurologic: Denies headache(s) Hematologic/Lymphatic Hematologic/Lymphatic: Denies easy bleeding or easy bruising EXAM Physical Exam Const Vital Signs: 10/05/23 05:47 Temperature 98.1 F Temperature Source Temporal Pulse Rate 94 Respiratory Rate 18 Blood Pressure 139/87 H Blood Pressure Mean 104 Pulse Ox 100 Oxygen Delivery Method Room Air Positive well nourished, well developed and obese General Appearance ED: well developed Nutritional Appearance: obese HEENT HEENT Narrative: Patient has mild swelling to both the upper and lower lip but the oral cavity is not show tongue swelling or airway edema or compromise No change in voice no trismus no difficulty with secretions No signs of infection noted in the posterior pharynx Eyes PERRL and EOMs intact bilaterally General Eye ED: Negative for scleral icterus Neck supple Resp normal respiratory effort and clear to auscultation bilaterally Resp Narrative: No nasal flaring retractions tachypnea or accessory muscle use Cardio regular rate and regular rhythm Extremity normal to inspection Neuro oriented x3, CN's II-XII intact bilaterally and no sensory deficits noted Sensorium / Orientation: alert Motor Exam: strength 5/5 throughout Psych mental status grossly normal Skin Skin Narrative: Patient has diffuse erythema across the forehead cheeks chin and scalp this is blanchable in nature. There is also erythema along the bilateral upper extremities and across the back and chest. There is no vesicular or pustule changes to suggest infection and no involvement of the palms or soles. MDM MDM MDM Narrative Medical decision making narrative: Patient arrived to the ER slightly hypertensive otherwise with stable vitals. She had diffuse areas of redness and mild lip swelling but did not have tongue swelling and she was able to talk in full sentences she was not in respiratory distress and did not have any type of change in voice so airway was stable and there is no need for emergent intubation. Her history is most consistent with drug reaction either to doxycycline or Flagyl or potentially both. Based on the lip swelling she was given IM epinephrine as well as IV Solu-Medrol Benadryl and Pepcid. The patient was watched in the ER and she had improvement of her rash and swelling and she remained in no acute respiratory distress. Therefore at this time with patient not having any progression to respiratory failure and her history and exam consistent with acute allergic reaction and not infection there is no need for further workup and he is otherwise safe for discharge History & Record Review Discussion w/independent historian: Patient Discharge Plan Triage Chief Complaint: Allergic Reaction ED Provider: Dylan Beckham Dx/Rx/DC Orders Clinical Impression: Acute allergic reaction, Anxiety and depression Instructions: ED ADVERSE DRUG REACTION Allergic Prescriptions: New prednisone 20 mg tablet 40 mg PO DAILY 5 Days Qty: 10 0RF No Action clindamycin phosphate 2 % cream 1 appful VAGINAL QHS Rx Instructions: FOR 7 DAYS, STARTED 07/01/23 meclizine [meclizine] 25 mg tablet 25 mg PO Q8H PRN PRN (Reason: Dizziness) Qty: 20 0RF Stand Alone Forms: ED Work / School Excuse Primary Care Provider: Hal Fowler Referrals: Hal Fowler MD [Primary Care Provider] - Activity Restrictions/Additional Instructions: Please stop taking the Flagyl and doxycycline as either both or 1 of these medications is leading to an acute allergic reaction. Take the prednisone as directed control inflammation and you may take up to 2 Benadryl 3 times a day as well as 2 [id number] Pepcid once a day to help with any further itch or rash. If you have any further concerns or worsening symptoms please return to the ER for repeat evaluation Disposition Disposition: Home, Self Care
[2023-10-05 07:47] VITALS: RESP 18
[2023-10-05 09:06] VITALS: BP 121/76; PULSE 86; RESP 18; TEMP 36.8; O2SAT 99
== END 2023-10-05 09:07 | disposition home or self-care (01) ==
PROVIDERS: Emergency Provider Emergency Medicine; PCP Family Medicine; Visit Provider Emergency Medicine
DX: R22.0 Localized swelling, mass and lump, head (principal); R22.2 Localized swelling, mass and lump, trunk; R06.02 Shortness of breath; M79.89 Other specified soft tissue disorders; T36.4X5A Adverse effect of tetracyclines, initial encounter; L29.8 Other pruritus; T37.3X5A Adverse effect of other antiprotozoal drugs, initial encounter; F32.A Depression, unspecified; F41.9 Anxiety disorder, unspecified
CPT/HCPCS: 96372; 96374; 96375; 99283; J3490

== ENCOUNTER 2023-10-06 08:29 | Emergency (ER) | payer OTHER, SELFPAY ==
[2023-10-06 08:30] VITALS: BP 156/93; PULSE 98; RESP 16; TEMP 35.9; O2SAT 99
--- NOTE | 2023-10-06 09:23 | EX.ED.DYSGE1 ---
HPI History of Present Illness Chief Complaint: Allergic Reaction Detail of Chief Complaint: Generalized allergic reaction with itching. Informant: patient Onset/Context/Timing Onset: Days Context: Gradual Onset Timing: Intermittent Current Severity: Moderate Maximum Severity: Moderate Narrative Narrative: 27-year-old female no seen past medical history. Was on doxycycline and Flagyl for bacterial vaginosis. Had an allergic reaction it was generalized. Was seen here the other day placed on prednisone 40 mg a day for 5 days with also Benadryl and Pepcid as needed. She stopped those antibiotics. Today she had a similar reaction. No swelling of her lips or tongue today. She is having itching on her back and legs. Prior similar symptoms: Yes Recent Illness/Hospitalization: No PFSH PFSH no medical history Home Medications clindamycin phosphate 2 % vaginal cream 1 appful vaginal QHS 07/02/23 [History Last Taken Unknown] meclizine 25 mg tablet 25 mg PO Q8H PRN PRN Dizziness #20 tabs 07/02/23 [Rx Last Taken Unknown] ondansetron 4 mg disintegrating tablet 4 mg PO TID PRN nausea and vomiting #21 tabs 10/05/23 [Rx Last Taken Unknown] prednisone 20 mg tablet 40 mg (2 x 20 mg) PO DAILY 5 days #10 tabs 10/05/23 [Rx Last Taken Unknown] prednisone 20 mg tablet 40 mg (2 x 20 mg) PO DAILY 7 days #14 tabs 10/06/23 [Rx Last Taken Unknown] Allergy/AdvReac Type Severity Reaction Status Date / Time doxycycline Allergy Severe Angioedema Verified 10/05/23 05:54 metronidazole [From Flagyl] Allergy Severe Angioedema Verified 10/05/23 05:54 Surgical History Hx of tonsillectomy Social History Smoking Status: Never smoker ROS ROS ED ROS Narrative Red skin. Itching. No recent illness. Review of Systems ROS Unobtainable: Denies due to encephalopathy Constitutional Constitutional ED: Denies chills or fever(s) Eyes Eyes: Denies blurry vision ENT ENT ED: Denies ear pain Cardiovascular Cardiovascular: Denies chest pain Respiratory/Chest Respiratory/Chest: Denies cough or dyspnea Gastrointestinal Gastrointestinal: Denies abdominal pain Genitourinary Genitourinary ED: Denies dysuria or hematuria Musculoskeletal Musculoskeletal: Denies arthralgias or back pain Integumentary Reports rash; Denies abscess or Abrasions Neurologic Neurologic: Denies headache(s) Psychiatric Psychiatric: Denies anxiety Endocrine Endocrinology: Denies cold intolerance Hematologic/Lymphatic Hematologic/Lymphatic: Reports none Allergic/Immunologic Allergic/Immunologic ED: Denies mouth swelling, tongue swelling or urticaria EXAM Physical Exam Narrative Exam Narrative: Well-appearing 27-year-old female. Vital signs stable afebrile. H EENT exam unremarkable. Neck nontender. Lungs clear to auscultation bilaterally. No wheezing. Heart regular rhythm rate about 90 no murmur. Chest wall nontender. Abdomen soft nontender. Moving all 4 extremities. Fine red rash on her back and legs consistent with allergic reaction. Currently no hives. No cellulitis. No swelling of her lips or tongue. Patient is awake alert. Const Vital Signs: 10/06/23 08:30 10/06/23 09:29 10/06/23 09:37 Temperature 96.7 F L 98 F Temperature Source Temporal Pulse Rate 98 84 91 Respiratory Rate 16 16 16 Blood Pressure 156/93 H 143/82 H 134/74 H Blood Pressure Mean 114 102 94 Pulse Ox 99 98 98 Oxygen Delivery Method Room Air Room Air Positive well nourished and well developed; Negative for cachectic, contractures or unkempt General Appearance ED: well developed; Negative for unkempt, cachectic, contractures, cyanotic, diaphoretic or pallor Nutritional Appearance: Negative for cachectic HEENT Reports moist mucous membranes Negative for trauma or tenderness Eyes PERRL and EOMs intact bilaterally General Eye ED: Negative for pale conjunctiva or scleral icterus Neck no lymphadenopathy, supple and no JVD General: Negative for tenderness Lymph Lymphatic: Negative for other Chest Wall inspection of chest normal and palpation of chest normal Chest: Negative for other Resp normal respiratory effort and clear to auscultation bilaterally Effort and Inspection: Negative for retractions Auscultation: Negative for rales, rhonchi or wheezes Cardio regular rate, regular rhythm, S1 normal heart sound, S2 normal heart sound and no murmurs Rate: Negative for bradycardia or tachycardic Rhythm: Negative for abnormal rhythm GI normal to inspection, nondistended, normoactive bowel sounds, non-tender, non-distended and no masses Inspection: Negative for abdominal distention Palpation: soft; Negative for tender, guarding or mass Back/Spine no CVA tenderness General Back: Negative for CVA tenderness Cervical Spine: Negative for cervical spine tenderness Thoracic Spine / Upper Back: Negative for thoracic spinal tenderness or paraspinal muscle tenderness Lumbar Spine / Lower Back: Negative for lumbar spinal tenderness Extremity Negative for normal to inspection General Extremety ED: Negative for edema or tenderness General Extremity: Negative for edema Neuro oriented x3 and CN's II-XII intact bilaterally Sensorium / Orientation: alert Motor Exam: strength 5/5 throughout Psych mental status grossly normal Appearance: Negative for unkempt Attitude: No agitated Mood & Affect: Negative for depressed, anxious or tearful Skin No no rashes or lesions noted and no wounds Skin Narrative: Red rash consistent with allergic reaction. Primarily to back and legs. General Skin Exam: Negative for jaundice or pallor Lesions: No lesion noted Rashes: rashes noted Trauma: Negative for abrasion Wounds: Negative for wounds noted MDM MDM MDM Narrative Medical decision making narrative: 27-year-old female with generalized allergic reaction. Already on prednisone, Benadryl and Pepcid. I gave her an additional prescription of prednisone but only to start if she continues to have the symptoms after the next 5 days. Follow-up with her doctor as needed if she needs allergy testing. History & Record Review Discussion w/independent historian: Patient Discharge Plan Triage Chief Complaint: Allergic Reaction ED Provider: David Bojorquez Dx/Rx/DC Orders Clinical Impression: Acute allergic reaction Instructions: ED General Allergic Reactions Prescriptions: New prednisone 20 mg tablet 40 mg PO DAILY 7 Days Qty: 14 0RF No Action clindamycin phosphate 2 % cream 1 appful VAGINAL QHS Rx Instructions: FOR 7 DAYS, STARTED 07/01/23 meclizine [meclizine] 25 mg tablet 25 mg PO Q8H PRN PRN (Reason: Dizziness) Qty: 20 0RF prednisone 20 mg tablet 40 mg PO DAILY 5 Days Qty: 10 0RF ondansetron 4 mg tablet,disintegrating 4 mg PO TID PRN (Reason: nausea and vomiting) Qty: 21 0RF Primary Care Provider: Hal Fowler Referrals: Hal Fowler MD [Primary Care Provider] - 1 Week if not improving Activity Restrictions/Additional Instructions: This is a generalized allergic reaction. Very likely to one of the 2 antibiotics. There is a not out of your system yet even though you stop taking them. Continue the current prescription of 40 mg a day along with the Benadryl and Pepcid. I wrote you for additional prednisone. Do not even get it filled unless you are still having the rash after down the prescription. Follow-up with your doctor if not improving. This could be an allergic reaction to other things also. Disposition Disposition: Home, Self Care
[2023-10-06 09:29] VITALS: BP 143/82; PULSE 84; RESP 16; O2SAT 98
[2023-10-06 09:37] VITALS: BP 134/74; PULSE 91; RESP 16; TEMP 36.6; O2SAT 98
== END 2023-10-06 09:40 | disposition home or self-care (01) ==
PROVIDERS: Emergency Provider Emergency Medicine; PCP Family Medicine; Visit Provider Emergency Medicine
DX: L29.8 Other pruritus (principal); T36.4X5A Adverse effect of tetracyclines, initial encounter; T37.3X5A Adverse effect of other antiprotozoal drugs, initial encounter
CPT/HCPCS: 99282

== ENCOUNTER 2023-12-18 21:58 | Emergency (ER) | payer OTHER, SELFPAY ==
[2023-12-18 21:59] VITALS: BP 168/99; PULSE 95; RESP 16; TEMP 36.6; O2SAT 99; BMI 69.5
--- NOTE | 2023-12-18 22:34 | EX.ED.VIS.UR ---
HPI HPI - URI History of Present Illness Chief Complaint: Sore Throat Informant: patient Onset/Context/Timing Onset: Weeks (2) Context: Gradual Onset Timing: Waxes and wanes Quality: Swollen Location: Throat Worsened by: Eating Solids Relieved by: - (Nothing) Associated Symptoms Associated Symptoms: Positive for Headache, Nausea, Vomiting, Diarrhea, Shortness of Breath and Nonproductive cough; Negative for Nasal Congestion, Sinus Pressure, Myalgias, Chest Pain, Hemoptysis or Productive Cough Narrative Narrative: Patient presents with a sore throat that has been getting worse over the past 2 weeks. Patient states it has been waxing and waning. Patient states her throat feels swollen. Patient states it is worse with eating. Patient admits to some nausea, vomiting, and diarrhea. Patient states she has been worked up by her primary care physician for that. Patient admits to some shortness of breath. Patient admits to a cough but denies any sputum production. Patient also admits to a mild headache. ROS ROS ED Constitutional Constitutional ED: Denies chills or fever(s) Eyes Eyes: Denies blurry vision or change in vision ENT ENT ED: Reports sore throat; Denies rhinorrhea Cardiovascular Cardiovascular: Denies chest pain or palpitations Respiratory/Chest Respiratory/Chest: Reports dyspnea; Denies cough Gastrointestinal Gastrointestinal: Reports diarrhea, nausea and vomiting Genitourinary Genitourinary ED: Denies dysuria or hematuria Musculoskeletal Musculoskeletal: Reports back pain; Denies neck pain Integumentary Denies abscess or rash Neurologic Neurologic: Reports headache(s); Denies weakness Allergic/Immunologic Allergic/Immunologic ED: Denies mouth swelling or urticaria [facility] Medical History Physical exam, pre-employment Home Medications clindamycin phosphate 2 % vaginal cream 1 appful vaginal QHS 07/02/23 [History Last Taken Unknown] meclizine 25 mg tablet 25 mg PO Q8H PRN PRN Dizziness #20 tabs 07/02/23 [Rx Last Taken Unknown] ondansetron 4 mg disintegrating tablet 4 mg PO TID PRN nausea and vomiting #21 tabs 10/05/23 [Rx Last Taken Unknown] prednisone 20 mg tablet 40 mg (2 x 20 mg) PO DAILY 5 days #10 tabs 10/05/23 [Rx Last Taken Unknown] prednisone 20 mg tablet 40 mg (2 x 20 mg) PO DAILY 7 days #14 tabs 10/06/23 [Rx Last Taken Unknown] Allergy/AdvReac Type Severity Reaction Status Date / Time doxycycline Allergy Severe Angioedema Verified 12/18/23 22:01 metronidazole [From Flagyl] Allergy Severe Angioedema Verified 12/18/23 22:01 Surgical History Hx of tonsillectomy Social History Smoking Status: Never smoker EXAM Physical Exam Const Vital Signs: 12/18/23 21:59 Temperature 98 F Temperature Source Temporal Pulse Rate 95 Respiratory Rate 16 Blood Pressure 168/99 H Blood Pressure Mean 122 Pulse Ox 99 Oxygen Delivery Method Room Air Positive well nourished, well developed and obese General Appearance ED: well developed and NAD Nutritional Appearance: obese HEENT Reports moist mucous membranes HEENT Narrative: Oropharynx is mildly erythematous. There is some postnasal drainage noted. There are no exudates noted. Neck is supple. Trachea is midline. There is no JVD. Throat: posterior oropharynx abnormal Positive for cobblestoning and erythema; Negative for exudates Neck supple, no meningeal signs and no JVD General: lymphadenopathy anterior cervical Resp normal respiratory effort and clear to auscultation bilaterally Cardio Rate: regular rate Rhythm: regular rhythm Neuro oriented x3, CN's II-XII intact bilaterally and no sensory deficits noted Sensorium / Orientation: alert Motor Exam: strength 5/5 throughout Psych mental status grossly normal MDM MDM MDM Narrative Medical decision making narrative: Differential diagnosis includes strep pharyngitis, viral pharyngitis, viral upper respiratory infection, and seasonal allergies. Rapid strep will be obtained to assess for strep pharyngitis. COVID-19, influenza, and RSV PCR will be obtained to assess for viral upper respiratory infection. Lab Data Lab results narrative: COVID-19 PCR was reviewed and was negative. Influenza PCR was reviewed and was negative for influenza A and influenza B. RSV PCR was reviewed and was negative. Rapid strep was reviewed and was negative. Treatment and Re-Evaluation Narrative: Patient was advised of her findings. Patient was instructed to drink plenty of fluids. Patient was instructed to follow-up with her primary care physician in 5 to 7 days. Patient was instructed to take Tylenol or ibuprofen as needed for any pain or fevers. Patient understood and was agreeable with the plan. All questions were answered. Discharge Plan Triage Chief Complaint: Sore Throat ED Provider: Maurizio Cates Dx/Rx/DC Orders Clinical Impression: Pharyngitis, Morbid obesity with BMI of 60.0-69.9, adult Instructions: ED Pharyngitis, Viral Prescriptions: No Action clindamycin phosphate 2 % cream 1 appful VAGINAL QHS Rx Instructions: FOR 7 DAYS, STARTED 07/01/23 meclizine [meclizine] 25 mg tablet 25 mg PO Q8H PRN PRN (Reason: Dizziness) Qty: 20 0RF prednisone 20 mg tablet 40 mg PO DAILY 5 Days Qty: 10 0RF ondansetron 4 mg tablet,disintegrating 4 mg PO TID PRN (Reason: nausea and vomiting) Qty: 21 0RF prednisone 20 mg tablet 40 mg PO DAILY 7 Days Qty: 14 0RF Primary Care Provider: Hal Fowler Referrals: Hal Fowler MD [Primary Care Provider] - 5-7 Days Disposition Disposition: Home, Self Care
[2023-12-18 23:59] VITALS: BP 144/79; PULSE 82; RESP 16; TEMP 36.9; O2SAT 98
[2023-12-19 00:14] VITALS: BP 133/79; PULSE 82; RESP 16; TEMP 36.7; O2SAT 97
== END 2023-12-19 00:14 | disposition home or self-care (01) ==
PROVIDERS: Emergency Provider Emergency Medicine; PCP Family Medicine; Visit Provider Emergency Medicine
DX: J02.9 Acute pharyngitis, unspecified (principal); E66.01 Morbid (severe) obesity due to excess calories; Z68.44 Body mass index [BMI] 60.0-69.9, adult; R06.02 Shortness of breath; R19.7 Diarrhea, unspecified; R51.9 Headache, unspecified; R11.2 Nausea with vomiting, unspecified
CPT/HCPCS: 87631; 87651; 99282

== ENCOUNTER 2024-05-10 04:44 | Emergency (ER) | payer OTHER, SELFPAY ==
[2024-05-10 04:44] VITALS: BP 128/74; PULSE 91; RESP 18; TEMP 36.6; O2SAT 99; BMI 76.3
--- NOTE | 2024-05-10 04:51 | EKG12_ITS ---
Test Reason : CP Blood Pressure : / mmHG Vent. Rate : 084 BPM Atrial Rate : 084 BPM P-R Int : 162 ms QRS Dur : 094 ms QT Int : 364 ms P-R-T Axes : 054 059 067 degrees QTc Int : 430 ms Normal sinus rhythm Normal ECG Confirmed by LOLITA EDGAR, BRETT ([id number]), editorial manager ERICK FERNANDEZ ([id number]) on 05/13/2024 7:29:15 AM Referred By: Confirmed By:BRETT MCHUGH MD
--- NOTE | 2024-05-10 04:51 | RAD_ITS ---
INDICATION: CP EXAMINATION/TECHNIQUE: X-RAY - XR Chest 1 View COMPARISON: 07/02/2023 chest radiograph. Findings: Single frontal view of the chest. LUNG PARENCHYMA: No acute focal airspace disease or mass lesion. PLEURA: No pleural effusion. No pneumothorax. HEART/GREAT VESSELS: Cardiomediastinal silhouette is unremarkable. BONES: Osseous structures are unremarkable for age. RAD/Chest 1 View (Portable) IMPRESSION: Chest with no acute disease. Electronically Signed: Iain Nicolas MD at 6:08 EDT ,
--- NOTE | 2024-05-10 04:57 | ED.VIS.CHEST ---
HPI History of Present Illness Chief Complaint: Chest Pain Narrative Narrative: Patient is a 28-year-old female with a BMI of 76.3 who presents to the emergency department with a chief complaint of chest pain. States that she woke up out of the middle of a sleep when she noted that she had chest pain and some shortness of breath. Patient states that she has had this happen in the past just not this bad which prompted her here this morning for further evaluation management. Patient denies any recent travel history denies any history of blood clots. Patient states that she felt her normal self prior to going to bed last night. [facility] Medical History Physical exam, pre-employment Home Medications ?Medication ?Instructions ?Recorded ?Last Taken ?Type NK 05/10/24 Unknown History Allergy/AdvReac Type Severity Reaction Status Date / Time doxycycline Allergy Severe Angioedema Verified 05/10/24 04:48 metronidazole (From Flagyl) Allergy Severe Angioedema Verified 05/10/24 04:48 Surgical History Hx of tonsillectomy Social History Smoking Status: Former smoker ROS ROS ED ROS Narrative Constitutional: Denies fevers, chills, headaches Eyes: Denies changes double vision blurry vision Cardiovascular: Complains of chest pain as noted above denies palpitations Respiratory: Denies coughing wheezing Abdomen: Denies abdominal pain nausea vomit diarrhea : Denies any urinary symptoms Neurological: Denies numbness, weakness, tingling Musculoskeletal: Complains of some back discomfort Skin: Denies rashes or lesions EXAM Physical Exam Narrative Exam Narrative: General: Patient was lying in bed rest comfortably did not appear to be in any acute distress Head: Atraumatic, normocephalic Eyes: PERRL bilateral, EOMI bilateral, no conjunctival injection noted Neck: Soft, supple, trachea midline Cardiovascular: Regular rate and rhythm no murmurs gallops rubs noted Respiratory: Clear to auscultation bilaterally no rales rhonchi or wheezes noted Abdomen: Soft, nondistended, no tenderness palpation, bowel sounds present x 4 Extremities: +5/5 strength noted in the bilateral upper and lower extremities Neurological: Patient following commands knew that she is at [facility] year is 2023 Skin: Warm, dry, tact Const Vital Signs: 05/10/24 04:44 05/10/24 04:51 Temperature 97.9 F Temperature Source Oral Pulse Rate 91 Respiratory Rate 18 Blood Pressure 128/74 H Blood Pressure Mean 92 Pulse Ox 99 Oxygen Delivery Method Room Air Room Air MDM MDM MDM Narrative Medical decision making narrative: Patient is a 28-year-old female who presents to the emerged part the chief complaint of chest pain. Patient will have workup performed here on the differential diagnose includes ACS, musculoskeletal strain, anxiety, panic attack. Once workup is obtained reviewed she will be reevaluated Patient's CBC reviewed and showed no evidence of leukocytosis white blood count normal at 10.3, hemoglobin stable 12.3, platelet count normal at 283. Patient's sodium normal at 141, potassium normal 3.8, creatinine normal at 0.79. Patient's troponin normal at 5, EKG reviewed and independently interpreted by myself which showed sinus rhythm with a rate of 84 bpm. Patient's chest x-ray was reviewed by myself and by radiology which showed no acute cardiopulmonary processes. Patient's Richardson score was noted to be low risk. I did discuss the results with the patient she states that she would like to go home at this point time. She was advised to follow-up with her primary care physician outpatient setting. She advised to return with worsening symptoms or other concerns. Patient is agreeable to plan all question concerns answered she is discharged home in stable condition. Lab Data Labs: Laboratory Results - last 24 hr 05/10/24 05:04 WBC 10.3 RBC 4.54 Hgb 12.3 Hct 40.0 MCV 88.1 MCH 27.1 MCHC 30.8 L RDW Std Deviation 43.4 RDW Coeff of Kourtney 13.4 Plt Count 283 MPV 9.9 Immature Gran % (Auto) 0.600 Neut % (Auto) 61.9 Lymph % (Auto) 28.3 [place] % (Auto) 6.8 Eos % (Auto) 1.8 Baso % (Auto) 0.6 Absolute Neuts (auto) 6.4 Absolute Lymphs (auto) 2.91 Nucleated RBC % 0 Sodium 141 Potassium 3.8 Chloride 108 H Carbon Dioxide 30.0 Anion Gap 3 L BUN 12 Creatinine 0.79 Estim Creat Clear Calc 206.71 Est GFR (MDRD) Af Amer 113 Est GFR (MDRD) Non-Af 93 BUN/Creatinine Ratio 15.2 Glucose 105 Calcium 8.6 Troponin I High Sens 5 Radiography Diagnostic Testing: Clinical Impression(s) from Imaging Studies Chest X-Ray 05/10/24 04:51 IMPRESSION: Chest with no acute disease. Electronically Signed: Iain Nicolas MD at 6:08 EDT , Discharge Plan Triage Chief Complaint: Chest Pain ED Provider: Salvatore Haynes Dx/Rx/DC Orders Clinical Impression: Chest pain Prescriptions: No Action NK Primary Care Provider: Hal Fowler Referrals: Hal Fowler MD [Primary Care Provider] - Activity Restrictions/Additional Instructions: Follow-up with your primary care physician outpatient setting. Return with worsening symptoms or any other concerns. Take ibuprofen Tylenol for pain control. Print Language: Gambian Disposition Disposition: Home, Self Care
[2024-05-10] MEDS: 0.9% Normal Saline (1000mL) 1,000 ML 999 ML IV (05:02)
[2024-05-10] MEDS: Ketorolac 15 MG/ML Vial IV (05:07)
[2024-05-10 05:13] LABS: Absolute Lymphocyte Count 2.91 X10^3/uL (0.83-4.51); Absolute Neutrophil Count 6.4 X10^3/uL (2.0-7.7); Basophil# 0.06 X10^3/uL; Basophil% 0.6 % (0-1); Eosinophil# 0.19 X10^3/uL; Eosinophils% 1.8 % (0-5); Hemoglobin 12.3 g/dL (12.0-15.0); Lymphocyte # 2.91 X10^3/ul (0.83-4.51); Lymphocyte % 28.3 % (19-41); Mean Corp Hgb Conc 30.8 g/dL (32-36); Mean Corpuscular Hgb 27.1 pg (27.0-32.0); Mean Corpuscular Volume 88.1 fL (81-99); Mean Platelet Vol. 9.9 fl (6.2-12.0); Monocyte% 6.8 % (0-10); NRBC Flagged by Analyzer 0 % (0-5); Neutrophil # 6.38 X10^3/uL (2.7-7.7); Neutrophil % 61.9 % (47-70); Platelet Count 283 K/mm3 (150-450); RBC Distribution Width CV 13.4 % (11.6-14.6); RBC Distribution Width SD 43.4 fl (35.1-43.9); Red Blood Count 4.54 M/mm3 (4.2-5.4); White Blood Count 10.3 K/mm3 (4.4-11.0)
[2024-05-10 05:32] LABS: Anion Gap 3 (5-15); BUN 12 mg/dL (7-18); BUN/Creat Ratio 15.2 RATIO (10-20); Calcium,Total 8.6 mg/dL (8.5-10.1); Chloride 108 mmol/L (98-107); Creatinine, Serum 0.79 mg/dL (0.55-1.02); EST Glomerular Filtration Rate 93 mL/min (>60); Est Glom Filt Rate - Afr Amer 113 mL/min (>60); Estimated Creatinine Clearance 206.71 ml/min; Glucose 105 mg/dL (74-106); Potassium 3.8 mmol/L (3.5-5.1); Sodium Level 141 mmol/L (136-145); Troponin-I HS (w/2H Reflex) 5 pg/mL (3.0-54.0)
[2024-05-10 06:26] VITALS: BP 140/91; PULSE 75; RESP 18; TEMP 36.6; O2SAT 99
[2024-05-10 07:08] LABS: Reflex Troponin-HS? (from REC) Y
== END 2024-05-10 06:27 | disposition home or self-care (01) ==
PROVIDERS: Emergency Provider Emergency Medicine; PCP Family Medicine; Visit Provider Emergency Medicine
DX: R07.9 Chest pain, unspecified (principal); Z87.891 Personal history of nicotine dependence
CPT/HCPCS: 71045; 80048; 84484; 85025; 93005; 96361; 96374; 99283; J7030; A4216

== ENCOUNTER 2024-10-27 03:27 | Emergency (ER) | payer OTHER, SELFPAY ==
[2024-10-27 03:28] VITALS: BP 117/79; PULSE 83; RESP 18; TEMP 36.7; O2SAT 98; BMI 77.6
[2024-10-27 03:57] VITALS: BP 131/83; PULSE 73; RESP 18; TEMP 36.8; O2SAT 99
[2024-10-27] MEDS: HYDROcodone Bitartrate/Apap 5/325 Tablet PO (04:01)
[2024-10-27] MEDS: Penicillin Vk 250 MG Tablet 500 MG PO (04:01)
--- NOTE | 2024-10-27 04:10 | ED.VIS.DENTA ---
HPI History of Present Illness Chief Complaint: Dental Informant: patient Narrative Narrative: 28-year-old female presenting to the emergency room with left lower dental pain. Patient states for the past couple weeks she has had a pain and what remains of the left posterior molar. She states she saw a dentist who did not feel that the tooth needed to be pulled but stated the tooth was . She states that she has an appointment on Monday with a new dentist. However she has been taking Tylenol and tonight the pain was worsening. She feels that it slightly swollen and is worried about infection. No reported fevers. PFSH [facility] Medical History Physical exam, pre-employment Home Medications ?Medication ?Instructions ?Recorded ?Last Taken ?Type hydrocodone-acetaminophen 5-325mg 1 tab PO Q6H PRN pain 2 days #12 10/27/24 Unknown Rx 5mg-325mg TABLETS hydroxyzine HCl 25 mg tablet 25 mg PO Q6H PRN PRN itch 10/27/24 Unknown History penicillin V potassium 500 mg 500 mg PO 4X/DAY #28 tabs 10/27/24 Unknown Rx tablet Allergy/AdvReac Type Severity Reaction Status Date / Time doxycycline Allergy Severe Angioedema Verified 10/27/24 03:28 metronidazole (From Flagyl) Allergy Severe Angioedema Verified 10/27/24 03:28 Surgical History Hx of tonsillectomy Social History Smoking Status: Former smoker ROS ROS ED Constitutional Constitutional ED: Denies chills, fever(s) or weight loss Eyes Eyes: Denies change in vision or diplopia ENT ENT ED: Reports other Details: See history of present illness ; Denies ear pain, rhinorrhea or sore throat Cardiovascular Cardiovascular: Denies chest pain, orthopnea, palpitations or racing heartbeat Respiratory/Chest Respiratory/Chest: Denies cough, dyspnea or orthopnea Gastrointestinal Gastrointestinal: Denies abdominal pain, diarrhea, nausea or vomiting Genitourinary Genitourinary ED: Denies dysuria, hematuria or urinary frequency Musculoskeletal Musculoskeletal: Denies arthralgias or myalgias Integumentary Denies abscess or rash Neurologic Neurologic: Denies headache(s) or weakness Psychiatric Psychiatric: Denies anxiety, depression, suicidal ideation or suicidal thoughts Endocrine Endocrinology: Denies polydipsia, polyphagia or polyuria Allergic/Immunologic Allergic/Immunologic ED: Denies mouth swelling, tongue swelling or urticaria EXAM Physical Exam Const Vital Signs: 10/27/24 03:28 10/27/24 03:57 Temperature 98.0 F 98.2 F Temperature Source Oral Pulse Rate 83 73 Respiratory Rate 18 18 Blood Pressure 117/79 131/83 H Blood Pressure Mean 91 99 Pulse Ox 98 99 Oxygen Delivery Method Room Air Positive well nourished, well developed and obese General Appearance ED: well developed and NAD Nutritional Appearance: obese HEENT Reports normocephalic, head/scalp atraumatic and moist mucous membranes HEENT Narrative: There is 1 remaining molar on the left lower side. There is no focal gum swelling or erythema. There is focal dental decay. I do not appreciate significant facial swelling or erythema. There is no trismus. Floor the mouth is soft. She is handling her secretions normally. Eyes PERRL and EOMs intact bilaterally Neck no lymphadenopathy, supple and no JVD Resp normal respiratory effort and clear to auscultation bilaterally Cardio regular rate, regular rhythm and no murmurs GI normal to inspection, nondistended, normoactive bowel sounds and non-tender Palpation: soft Back/Spine no CVA tenderness and normal ROM Extremity normal to inspection General Extremety ED: Negative for edema General Extremity: Negative for edema Neuro oriented x3 and CN's II-XII intact bilaterally Sensorium / Orientation: alert Motor Exam: strength 5/5 throughout Psych mental status grossly normal Mood & Affect: Negative for depressed or tearful Skin no rashes or lesions noted and no wounds MDM MDM MDM Narrative Medical decision making narrative: Differential diagnosis includes but is not limited to Nikolay's angina dental abscess cellulitis ANUG gingivitis Patient will be started on antibiotics. I will write for some Harris for pain. Would recommend her keeping her dentist appointment on Monday. History & Record Review Discussion w/independent historian: Patient Discharge Plan Triage Chief Complaint: Dental ED Provider: Julian Perdomo Dx/Rx/DC Orders Clinical Impression: Pain, dental, Dental decay Instructions: ED Dental Pain Prescriptions: New hydrocodone-acetaminophen 5-325 mg tablet 1 tab PO Q6H PRN (Reason: pain) 2 Days Qty: 12 0RF penicillin V potassium 500 mg tablet 500 mg PO 4X/DAY Qty: 28 0RF No Action hydroxyzine HCl 25 mg tablet 25 mg PO Q6H PRN PRN (Reason: itch) Primary Care Provider: Hal Fowler Referrals: Hal Fowler MD [Primary Care Provider] - Activity Restrictions/Additional Instructions: Please keep your dentist appointment as scheduled on Monday Print Language: Greek Disposition Disposition: Home, Self Care Discharge Date/Time: 10/27/24 04:03
== END 2024-10-27 04:03 | disposition home or self-care (01) ==
LOC: ED 04:00
PROVIDERS: Emergency Provider Emergency Medicine; PCP Family Medicine; Visit Provider Emergency Medicine
DX: K08.89 Other specified disorders of teeth and supporting structures (principal); K02.9 Dental caries, unspecified; Z87.891 Personal history of nicotine dependence
CPT/HCPCS: 99283

== ENCOUNTER 2025-05-16 19:27 | Emergency (ER) | payer OTHER, SELFPAY ==
[2025-05-16 19:28] VITALS: BP 144/88; PULSE 106; RESP 21; TEMP 36.2; O2SAT 100
--- NOTE | 2025-05-16 19:40 | RAD_ITS ---
PROCEDURE: ANKLE MIN 3 VIEWS 05/16/2025 REASON FOR EXAM: PAIN TECHNIQUE: Procedure Code: RADANK Modality: DX Procedure: ANKLE MIN 3 VIEWS Laterality: Left COMPARISON: None FINDINGS: Bones: No acute bony abnormalities. Joints: Unremarkable. Soft tissues: No soft tissue abnormalities. RAD/Ankle min 3 Views IMPRESSION: No acute osseous abnormalities. Reading Location: [id number]
[2025-05-16 21:36] VITALS: BMI 79.1
[2025-05-16 21:39] VITALS: BP 121/70; PULSE 95; RESP 16; O2SAT 99
--- NOTE | 2025-05-16 22:06 | EDS_ITS ---
HPI History of Present Illness HPI Narrative: 29-year-old female history of anxiety. Got out of the shower the floor was wet she slipped and fell twisting her left ankle. Has pain in the left ankle and foot. She states she fell she really did not hurt anyplace else. No head injury. No LOC. She is on no blood thinners. She has never broken her ankle before any surgery to it. Chief Complaint: Lower Extremity Injury Informant: patient and spouse/S.O. Occured/Mechanism Mechanism/Context: Yes injury and Yes blunt trauma Onset/Context/Timing Onset: Today and Hours Context: Sudden Onset Timing: Continuous Quality of Pain: Sharp Current Severity: Moderate Maximum Severity: Moderate Associated Symptoms Associated Symptoms: Negative for Parasthesia, Weakness or Loss of Funtion Narrative Narrative: 29-year-old female slipped on a wet bathroom floor after getting out of the shower injuring her left foot and ankle. No other significant injuries or complaints. Prior similar symptoms: No Recent Illness/Hospitalization: No PFSH PFSH Medical History Physical exam, pre-employment Home Medications ?Medication ?Instructions ?Recorded ?Last Taken ?Type hydroxyzine HCl 25 mg tablet 25 mg PO Q6H PRN PRN itch 10/27/24 Unknown History Allergy/AdvReac Type Severity Reaction Status Date / Time doxycycline Allergy Severe Angioedema Verified 05/16/25 19:30 metronidazole (From Flagyl) Allergy Severe Angioedema Verified 05/16/25 19:30 Surgical History Hx of tonsillectomy Social History Smoking Status: Former smoker ROS ROS ED ROS Narrative Denies recent illness. Constitutional Constitutional ED: Denies chills or fever(s) Eyes Eyes: Denies blurry vision ENT ENT ED: Denies ear pain Cardiovascular Cardiovascular: Denies chest pain or palpitations Respiratory/Chest Respiratory/Chest: Denies cough or dyspnea Gastrointestinal Gastrointestinal: Denies abdominal pain Genitourinary Genitourinary ED: Denies dysuria or hematuria Musculoskeletal Musculoskeletal: Denies arthralgias or back pain Integumentary Denies abscess or Abrasions Neurologic Neurologic: Denies headache(s) Psychiatric Psychiatric: Reports anxiety; Denies depression Endocrine Endocrinology: Denies polydipsia Hematologic/Lymphatic Hematologic/Lymphatic: Denies easy bleeding, easy bruising or lymphadenopathy Allergic/Immunologic Allergic/Immunologic ED: Denies mouth swelling, tongue swelling or urticaria EXAM Physical Exam Narrative Exam Narrative: 29-year-old female sitting upright in bed. Vital signs stable afebrile. No acute distress. H EENT exam pupils round react light. Moist membranes. Face and scalp nontender no bruising no hematoma. No laceration. Nontender. Neck and C-spine nontender. Back and spine nontender. No bruising. Lungs clear to auscultation bilaterally. Heart regular rhythm rate about 95 no murmur. Chest wall ribs nontender. Abdomen soft nontender. No peritoneal signs. Pelvic girdle intact. Upper extremities nontender normal range of motion normal grounding engineer strength. Right lower extremity nontender. Left hip and knee nontender. Left ankle tender both medial and lateral and over the proximal metatarsals of the foot. No gross bony deformity. Dorsi plantarflexion intact. Normal DP pulse. Achilles tendon intact. Skin intact. Neurologically she is awake alert. Answer question and following commands. GCS 15. Const Vital Signs: 05/16/25 19:28 05/16/25 21:39 Temperature 97.1 F L Temperature Source Temporal Pulse Rate 106 H 95 Respiratory Rate 21 H 16 Blood Pressure 144/88 H 121/70 H Blood Pressure Mean 106 87 Pulse Ox 100 99 Oxygen Delivery Method Room Air Room Air Positive well nourished and well developed; Negative for cachectic, contractures or unkempt General Appearance ED: well developed and NAD; Negative for unkempt, cachectic or contractures Nutritional Appearance: Negative for cachectic HEENT normocephalic and atraumatic Eyes PERRL Neck full ROM and supple Chest Wall inspection of chest normal and palpation of chest normal Resp normal respiratory effort, no retractions and clear to auscultation bilaterally Cardio regular rate, regular rhythm, S1 normal heart sound, S2 normal heart sound and no murmurs GI non-tender, non-distended and no masses Auscultation: normoactive bowel sounds Palpation: soft; Negative for tender, guarding or rebound tenderness present Back/Spine no CVA tenderness General Back: Negative for CVA tenderness Cervical Spine: Negative for cervical spine tenderness Thoracic Spine / Upper Back: Negative for thoracic spinal tenderness Lumbar Spine / Lower Back: Negative for lumbar spinal tenderness Extremity normal to inspection and full ROM Extremity Narrative: Except left ankle medial or lateral tenderness mild swelling Achilles tendon intact. DP pulse intact. No gross bony deformity. low pressure boiler tender proximally primarily over the proximal metatarsals and lateral aspect of the foot. Able to wiggle toes normal touch sensation skin intact. General Extremety ED: Yes edema and weight-bearing difficulty; Negative for cyanosis General Extremity: edema and weight-bearing difficulty; Negative for cyanosis Neuro oriented x3, CN's II-XII intact bilaterally, moves all extremities and no sensory deficits noted Sensorium / Orientation: alert, oriented to person, oriented to place and oriented to time Motor Exam: strength 5/5 throughout Psych mental status grossly normal Appearance: Negative for unkempt Skin no wounds Lesions: no lesions Rashes: no rashes MDM MDM MDM Narrative Medical decision making narrative: 29-year-old female slipped and fell on a wet floor and she the shower injuring her left ankle and foot. X-rays being obtained. Given Tylenol for pain she did not want a thing stronger. History & Record Review Discussion w/independent historian: Patient and Family Additional record(s) reviewed:: Prior inpatient record, Prior outpatient record, Prior ED visit and Prior labs Radiography Diagnostic Testing: Clinical Impression(s) from Imaging Studies Ankle X-Ray 05/16/25 19:40 IMPRESSION: No acute osseous abnormalities. Reading Location: [facility] Left ankle x-ray 3 views interpreted by myself shows soft tissue swelling. No fracture. No dislocation. Also read by the radiologist agrees. Left foot x-ray, 3 views, interpreted by myself shows no acute fracture or dislocation. Discharge Plan Triage Chief Complaint: Lower Extremity Injury ED Provider: David Bojorquez Dx/Rx/DC Orders Clinical Impression: Fall, Left ankle sprain, Contusion of foot, left Instructions: ED Foot Contusion, ED Ankle Sprain (Adult) Prescriptions: No Action hydroxyzine HCl 25 mg tablet 25 mg PO Q6H PRN PRN (Reason: itch) Primary Care Provider: Hal Fowler Referrals: Hal Fowler MD [Primary Care Provider, Family Practice] - 10-14 Days if not better Activity Restrictions/Additional Instructions: Ice and elevate your left foot and ankle to decrease pain and swelling. Motrin for pain and swelling Tylenol for pain. Aircast to walk. Crutches if too painful and then increase weightbearing as tolerated. Follow-up with your doctor if not improving in 1 to 2 weeks. Print Language: [place] Disposition Disposition: Home, Self Care
--- OUTSIDE RECORDS SUMMARY | 2025-05-16 22:07 | XMS RPT_ITS | CCD ---
Author Organization [facility] Inform ion Partnership [facility] Care Team Providers Care Chief Scientific Officer Name Role Phone Yulisa EDGAR, Clem Andersen Primary Care Provider Malcolm EDGAR, Jhonny Acosta Primary Care Provider MALCOLM EDGAR, JHONNY Primary Care Physician Jhonny Fowler MD Primary Care Provider Dr. Hal Fowler Primary Care Provider Dr. Hal Fowler Referring Provider AVIS Garzon Attending Provider ISMA EDGAR, RISHI Coleman Attending Unavail felipe FOWLER MD, [facility] Care UnavailRISHI Aguilar MD Attending Unavail felipe FOWLER MD, [facility] Unavailnicola GUERIN DO, DR MICHELL Phillip Attending Unavailable MALCOLM EDGAR, JHONNY [facility] Care Unavailnicola GUERIN DO, DR MICHELL Phillip Attending Unavailable MALCOLM EDGAR, [facility] Unavailnicola Lua MD, Clem Andersen Primary Care Provider [phone] [employer] RESCUE INSTRUCTOR.ENDOCRINOLOGY NURSE, Anabella Unavailable Maurizio Cates Attending Unavailable Hal Fowler Primary Care Unavailable Salvatore Haynes Attending Unavailable Hal Fowler Primary Care Unavailable Julian Perdomo Attending Unavailable Hal Fowler Primary Care Unavailable Mata Garzon Attending Unavailable Hal Fowler Referring Unavailable Hal Fowler Primary Care Unavailable Malcolm EDGAR, Dr. Hong Primary Care Provider Dr. Julian Perdomo DO Emergency Provider [phone] [place] RESCUE INSTRUCTOR.ENDOCRINOLOGY NURSE, Alicia Unavailable [place] RESCUE INSTRUCTOR.ENDOCRINOLOGY NURSE, Alicia Unavailable [place] RESCUE INSTRUCTOR.ENDOCRINOLOGY NURSE, Alicia Unavailable [place] RESCUE INSTRUCTOR.ENDOCRINOLOGY NURSE, Alicia Unavailable JHONNY FOWLER Attending Unavailab JHONNY May Primary Care Unavailab le PEACE, PARADISE Referring Unavailable JHONNY FOWLER Primary Care Unavailab le PEACE, PARADISE Attending Unavailable JHONNY FOWLER Primary Care Unavailab le KNALICIA ELLIS Attending Unavailable JHONNY FOWLER Primary Care Unavailab le ALICIA LANG Referring Unavailable JHONNY FOWLER Primary Care Unavailab KELLEY Lopez Attending Unavailable JHONNY FOWLER Primary Care Unavailab le JHONNY FOWLER Primary Care Unavailab VIJI Larios Attending Unavailable JHONNY FOWLER Primary Care Unavailab le PEACE, PARADISE Attending Unavailable JHONNY FOWLER Primary Care Unavailab le JHONNY FOWLER Attending Unavailab le JHONNY FOWLER Primary Care Unavailab le PODLOGAR, ANABELLA Attending Unavailable ARIA PRECIADO Attending Unavailable SELF Referring Unavailable JHONNY FOWLER Primary Care Unavailab le JHONNY FOWLER B Primary Care Unavailab le PODLOGAR, ANABELLA Attending Unavailable JHONNY FOWLER Primary Care Unavailab le PODLOGAR, ANABELLA Referring Unavailable ALICIA LANG Attending Unavailable JHONNY FOWLER Primary Care Unavailab le BURSLEYJEAN-CLAUDEER B Primary Care Unavailab le PODLOGAR, ANABELLA Referring Unavailable ANGIE FAIRCHILD Attending Unavailable JHONNY FOWLER Primary Care Unavailab le PODLOGAR, ANABELLA Referring Unavailable JHONNY FOWLER Primary Care Unavailab le PEACE, PARADISE Referring Unavailable JEAN-CLAUDE FOWLERER B Primary Care Unavailab le Allergies Allergy Classification Reported Allergen(s) Allergy Type Date of Onset Reaction(s) Facility Doxycycline (2 sources) Doxycycline Drug Allergy 4 Anaphylaxis [facility] Nitroimidazoles (antibiotic) (2 sources) metroNIDAZOLE Drug Allergy 4 Anaphylaxis [facility] (20 sources) Doxycycline; Translations: [DOXYCYCLINE] Drug Allergy 4 Anaphylaxis [facility] (20 sources) metroNIDAZOLE; Translations: [METRONIDAZOLE] Drug Allergy 4 Anaphylaxis [facility] (1 source) Doxycycline Drug Allergy 5 [facility] Repository (1 source) metroNIDAZOLE Drug Allergy 5 [facility] Rep[facility] Medications Current Medications Medication Drug Class(es) Dates Sig (Normalized) Sig (Original) acetaminophen 325 mg / HYDROcodone bitartrate 5 mg oral tablet (1 source) Opioid Agonist Start: 10-27-2024 take 1 tablet by mouth every six hours as needed for pain Hydrocodone-Aceta minophen 5-325 mg tablet Active 1 {tbl} PO EVERY 6 HOURS as needed for pain 07 15October 27, 2024 Start: 10-27-2024 take 1 tablet by pedrito th every six hours as needed for pain Hydrocodone-Acetaminophen 5-325 mg table t Active 1 {tbl} PO EVERY 6 HOURS as needed for pain 07 15October 27, 2024 [id number] 200 actuat albuterol 0.09 mg/actuat metered dose inhaler (20 sources) beta2-Adrenergic Agonist Start: 08-09-2024 End: 12-05-2025 take 2 puff(s) by inhalation every four hours as needed for wheezing albuterol HFA (VENTOLIN HFA) 90 mcg/actuation inhaler Indications: SOB (shortness of breath) Inhale 2 puffs as instructed every 4 hours as needed for wheezing/shortness of breath. 3 each 3 12/05/2024 12/05/2025 Active Start: 06-27-2021 take 2 puff(s) by in halation four times daily as needed for wheezing ProAir HFA MDI (90 mcg/inh) inhalation aerosol 2 puff(s), Inhalation, QID, PRN as needed for wheezing, # 8.5 gram(s), 0 Refill(s), Hypertension Pneumonia Start Date: 06/27/21 Status: Ordered Start: 04-05-2021 End: 08-09-2024 take 2 puff(s) by inhalation every four hours as needed for wheezing albuterol HFA (VENTOLIN HFA) 90 mcg/actuation inhaler Indications: History of asthma Inhale 2 Puffs as instructed every 4 hours as needed for wheezing/shortness of breath. 18 g 04/19/2022 08/09/2024 Discontinued Start: 10-26-2019 End: 04-05-2021 take 2 puff(s) by inhalation every four hours as needed for wheezing albuterol HFA (VENTOLIN HFA) 90 mcg/actuation inhaler Indications: Wheezing Inhale 2 Puffs as instructed every 4 hours as needed for Wheezing/Shortness of Breath. 1 Inhaler 10/26/2019 04/05/2021 Discontinued Comment on above: Inhale 2 Puffs as in structed every 4 hours as needed for wheezing/shortness of breath. amoxicillin 875 mg oral tablet (1 source) Penicillin-class Antibacterial Start: 10-21-19 End: 10-26-19 take 1 tablet by mouth twice daily amoxicillin (AMOXIL) 875 mg tablet Take 1 tablet by mouth twice daily for 5 days. 10 tablet 0 10/20/2022 10/25/2022 Active Comment on above: Take 1 tablet by pedrito twice daily for 5 days. BORIC ACID 600 MG VAGINAL SUPPOSITORY (20 sources) Start: 09-18-19 End: 08-09-20 BORIC ACID 600 MG VAGINAL SUPPOSITORY Use 1 Suppository vaginally once daily. Unwrap and insert as directed. 14 Suppository 09/18/2023 08/09/2024 Discontinued (Discontinued by Patient) Start: 09-18-2023 BORIC ACID 600 MG VAGINAL SUPPOSITORY Use 1 Suppository vaginally once daily. Unwrap and insert as directed. 14 Suppository 09/18/2023 Active Start: 09-18-2023 BORIC ACID 600 MG VAGINAL SUPPOSITORY Use 1 Suppository vaginally once daily. Unwrap and insert as directed. 14 Suppository 0 09/18/2023 Active Start: 09-18-2023 End: 09-18-2023 BORIC ACID 600 MG VAGINAL WOOTEN PPOSITORY Use 1 Suppository vaginally once daily. Unwrap and insert as directed. 14 Suppository 0 09/18/2023 09/18/2023 Discontinued Comment on above: Use 1 Suppository va ginally once daily. Unwrap and insert as directed. cholecalciferol 1.25 mg oral capsule (20 sources) Vitamin D Start: take 1 capsule by mouth every week cholecalciferol, Vitamin D3, (VITAMIN D3) 1,250 mcg (50,000 unit) cap capsule Take 1 capsule by mouth one time a week. 30 capsule 1 12/20/2024 Active Start: 12-21-2021 End: 11-25-2022 take 1 capsule by mouth every week cholecalciferol, Vitamin D3, (VITAMIN D3) 1,250 mcg (50,000 unit) cap capsule Take 1 capsule by mouth one time a week. 12 capsule 3 12/21/2021 11/25/2022 Discontinued (Course of therapy completed) Comment on above: Take [address] [facility] one time a week. cyclobenzaprine hydrochloride 10 mg oral tablet (20 sources) Muscle Relaxant Start: 08-05-20 24 End: 12-24-19 take 1 tablet by mouth three times daily as needed for muscle spasms cyclobenzaprine (FLEXERIL) 10 mg tablet Indications: Neck pain Take 1 tablet by mouth three times a day as needed for muscle spasm. 30 tablet 12/24/2024 Active Start: 05-16-2024 End: 08-03-2024 take 1 tablet by mouth three times daily as needed for muscle spasms cyclobenzaprine (FLEXERIL) 10 mg tablet Indications: Neck pain Take 1 tablet by mouth three times a day as needed for muscle spasm. 30 tablet 05/16/2024 08/03/2024 Discontinued Start: 02-09-2022 End: 07-02-2023 take 1 tablet by mouth twice daily as needed for muscle spasms Cyclobenzaprine 10 mg tablet Discontinued 10 mg PO TWICE A DAY as needed for muscle spasm February 09, 2022 12:00am July 02, 2023 10:11pm doxycycline hyclate 100 mg oral capsule (7 sources) Tetracycline-class Drug Start: 09-27-2023 End: 10-11-2023 take 1 capsule by mouth twice daily doxycycline hyclate (VIBRAMYCIN) 100 mg capsule Take 1 capsule by mouth two times a day for 7 days. 14 capsule 0 10/04/2023 10/11/2023 Active Start: 07-05-2023 End: 07-12-2023 take 1 capsule by mouth twice daily doxycycline hyclate (VIBRAMYCIN) 100 mg capsule Take 1 capsule by mouth two times a day for 7 days. 14 capsule 0 07/05/2023 07/12/2023 Active Comment on above: Take [address] [facility] two times a day for 7 days. [id number] 0.3 ml EPINEPHrine 1 mg/ml auto-injector (20 sources) alpha-Adrenergic Agonist, beta-Adrenergic Agonist, Catecholamine Start : 08-09 EPINEPHrine (EPIPEN 2-MANSI) 0.3 mg/0.3 mL auto-injector Indications: Hives Inject 0.3 mL intramuscularly as needed. 2 Each 1 08/09/2024 Active fluticasone (5 sources) Corticosteroid fluticasone prop ionate (FLONASE NASAL) Use 1 spray in the nose as needed. Active hydrOXYzine hydrochloride 25 mg oral tablet (19 sources) Antihistamine Start : 08-09 End: 02-05 take 1 tablet by mouth every six hours as needed hydrOXYzine HCl (ATARAX) 25 mg tablet Indications: Hives , OVIDIO (generalized anxiety disorder) Take 1 tablet by mouth every 6 hours as needed for itching/rash. 120 tablet 5 08/09/2024 02/05/2025 Active medroxyPROGESTERone acetate 10 mg oral tablet (20 sources) Progestin Start : 09-27 take 1 tablet by mouth once daily medroxyPROGESTERone (PROVERA) 10 mg tablet Take 1 tablet by mouth once daily. 10 tablet 4 09/27/2024 Active Start: 03-09-2023 End: 08-09-2024 take 1 tablet by mouth once daily medroxyPROGESTERone (PROVERA) 10 mg tablet Take 1 tablet by mouth once daily. 10 tablet 6 11/03/2023 08/09/2024 Discontinued (Discontinued by Patient) Start: 04-01-2022 take 1 tablet by pedrito th once daily medroxyPROGESTERone (PROVERA) 10 mg tablet Take 1 tablet by mouth once daily. 10 tablet 4 04/01/2022 Active Comment on above: Take 1 tablet by pedrito th once daily. meloxicam 15 mg oral tablet (6 sources) Nonsteroidal Anti-inflammatory Drug Start : 11-22 End: 12-22 take 1 tablet by mouth once daily at mealtime meloxicam (MOBIC) 15 mg tablet Indications: Acute left-sided low back pain without sciatica Take 1 tablet by mouth once daily. With food. 30 tablet 11/22/2024 12/22/2024 Active methylPREDNISolone (2 sources) Corticosteroid Start : 04-15 End: 04-21 methylPREDNISolone (MEDROL, MANSI,) 4 mg Dose-Pack Follow dosing instructions, take with food. 21 tablet 0 04/15/2022 04/21/2022 Active Comment on above: Follow dosing instru ctions, take with food. metroNIDAZOLE 500 mg oral tablet (7 sources) Nitroimidazole Antimicrobial Start : 09-22 End: 10-06 take 1 tablet by mouth twice daily metroNIDAZOLE (FLAGYL) 500 mg tablet Take 1 tablet by mouth two times a day for 14 days. 28 tablet 0 09/22/2023 10/06/2023 Active Start: 06-08-2023 End: 06-15-2023 take 1 tablet by mouth twice daily metroNIDAZOLE (FLAGYL) 500 mg tablet Take 1 tablet by mouth two times a day for 7 days. 14 tablet 0 06/08/2023 06/15/2023 Active Start: 05-29-2023 End: 06-05-2023 take 1 tablet by mouth twice daily metroNIDAZOLE (FLAGYL) 500 mg tablet Take 1 tablet by mouth two times a day for 7 days. 14 tablet 0 05/29/2023 06/05/2023 Active Start: 04-28-2022 End: 05-06-2022 take 1 tablet by mouth twice daily metroNIDAZOLE (FLAGYL) 500 mg tablet Take 1 tablet by mouth twice daily for 7 days. 14 tablet 0 04/29/2022 05/06/2022 Active Comment on above: Take 1 tablet by pedrito th twice daily for 7 days. Take 1 tablet by pedrito th two times a day for 7 days. Take 1 tablet by pedrito th two times a day for 14 days. moxifloxacin 400 mg oral tablet (5 sources) Quinolone Antimicrobial Start: End: take 1 tablet by mouth once daily moxifloxacin (AVELOX) 400 mg tablet Take 1 tablet by mouth once daily for 7 days. After completion of doxycycline 7 tablet 0 10/04/2023 10/11/2023 Active Comment on above: Take 1 tablet by pedrito th once daily for 7 days. After completion of doxycycline omeprazole 40 mg delayed release oral capsule (20 sources) Proton Pump Inhibitor Start: take 1 capsule by mouth once daily omeprazole (PRILOSEC) 40 mg capsule Indications: Gastroesophageal reflux disease, unspecified whether esophagitis present , Heartburn Take 1 capsule by mouth once daily. 90 capsule 1 12/05/2024 Active Start: 12-13-2023 End: 08-09-2024 take 1 capsule by mouth once daily omeprazole (PRILOSEC) 40 mg capsule Indications: RUQ pain Take 1 capsule by mouth once daily. 30 capsule 2 12/14/2023 08/09/2024 Discontinued (Discontinued by Patient) penicillin v potassium 500 mg oral tablet (1 source) Start: 10-27-2024 take 1 tablet by mouth four times daily Penicillin V Potassium 500 mg tablet Active 500 mg PO 4 TIMES DAILY October 27, 2024 12:00am valACYclovir 1000 mg oral tablet (2 sources) Herpesvirus Nucleoside Analog DNA Polymerase Inhibitor, Herpes Simplex Virus Nucleoside Analog DNA Polymerase Inhibitor, Herpes Zoster Virus Nucleoside Analog DNA Polymerase Inhibitor Start: 05-04-2023 End: 05-14-2023 valACYclovir (VALTREX) 1 gram Take 1 tablet by mouth twice daily for 10 days. FOR 10 DAYS. 20 tablet 0 05/04/2023 05/14/2023 Active Comment on above: Take 1 tablet by pedrito th twice daily for 10 days. FOR 10 DAYS. Completed/Discontinued Medications Medication Drug Class(es) Dates Sig (Normalized) Sig (Original) benzonatate 100 mg oral capsule (7 sources) Non-narcotic Antitussive Start: 12-19-2024 End: 01-13-2025 take 1 capsule by mouth three times daily as needed benzonatate (TESSALON PERLE) 100 mg capsule Indications: Viral URI with cough Take 1-2 capsules by mouth three times a day as needed. 30 capsule 12/19/2024 01/13/2025 Discontinued (Course of therapy completed) bisacodyl 5 mg delayed release oral tablet (1 source) Stimulant Laxative Start: 09-01-2020 End: 11-26-2020 Bisacodyl (DULCOLAX) 5 mg tab Indications: Chronic diarrhea Use as directed for Miralax / Gatorade Bowel Prep Kit 4 tablet 09/01/2020 11/26/2020 Discontinued clindamycin 300 mg oral capsule (12 sources) Lincosamide Antibacterial Start: 09-30-2024 End: 10-07-2024 take 1 capsule by mouth twice daily clindamycin (CLEOCIN) 300 mg capsule Take 1 capsule by mouth two times a day for 7 days. 14 capsule 09/30/2024 10/07/2024 Start: 07-02-2023 End: 05-10-2024 Clindamycin Phosphate 2 % cr eam Discontinued 1 NMA VAGINAL AT BEDTIME July 02, 2023 1:00am May 10, 2024 4:48am FOR 7 DAYS, STARTED 07/01/23 Start: 06-30-2023 End: 07-07-2023 Clindamycin Phosphate Active 1 APPFUL VAGINAL AT BEDTIME July 02, 2023 1:00am FOR 7 DAYS, STARTED 07/01/23 Comment on above: Use 1 Applicatorful vaginally daily at bedtime for 7 days. dicyclomine hydrochloride 10 mg oral capsule (1 source) Anticholinergic Start: End: take 1 capsule by mouth at bedtime dicyclomine (BENTYL) 10 mg capsule Indications: Altered bowel habits Take 1 capsule by mouth before meals and at bedtime. 120 capsule 6 09/01/2020 11/26/2020 Discontinued diphenhydrAMINE hydrochloride 25 mg oral tablet (1 source) Histamine-1 Receptor Antagonist Start: End: diphenhydrAMINE 50 mg (BENADRYL) fluconazole 150 mg oral tablet (1 source) Azole Antifungal Start: End: fluconazole (DIFLUCAN) 150 mg tablet Take 1 tablet today, then a 2nd tablet in 72 hours, and 3rd tablet in another 72 hours. 3 tablet 0 05/16/2023 05/26/2023 Discontinued (Course of therapy completed) Comment on above: Take 1 tablet today, then a 2nd tablet in 72 hours, and 3rd tablet in another 72 hours. Gatorade Sports Drink (1 source) Start: End: Gatorade Sports Drink Indications: Chronic diarrhea Use as directed for Miralax / Gatorade Bowel Prep Kit 64 oz 09/01/2020 11/26/2020 Discontinued ipratropium bromide 0.042 mg/actuat metered dose nasal spray (7 sources) Anticholinergic Start: 025 End: ipratropium bromide (ATROVENT) 42 mcg (0.06 %) nasal spray Indications: Viral URI with cough Use 2 sprays in the nose four times daily. 15 mL 12/19/2024 01/13/2025 Discontinued (Course of therapy completed) 2 ml ketorolac tromethamine 30 mg/ml injection (4 sources) Nonsteroidal Anti-inflammatory Drug, Cyclooxygenase Inhibitor Start: End: keTORolac 60 mg injection (TORADOL) Start: 08-11-2022 End: 08-11-2022 keTORolac 30 mg injection (TORADOL) Start: 04-15-2022 End: 04-15-2022 inject 2 mL by intramuscular injection once keTORolac (TORADOL) 60 mg/2 mL soln Indications: Migraine with aura, not intractable, without status migrainosus Inject 2 mL intramuscularly one time only for 1 dose. 1 mL 0 04/15/2022 04/15/2022 Discontinued Start: 04-15-2022 End: 04-15-2022 keTORolac 60 mg injection (TORADOL) Comment on above: Inject 2 mL intramus cularly one time only for 1 dose. lamoTRIgine 100 mg oral tablet (9 sources) Mood Stabilizer, Anti-epileptic Agent Start: 022 End: take 0.5 tablet by mouth once daily in the evening, then take 1 tablet by mouth once daily in the evening lamoTRIgine (LAMICTAL) 100 mg tablet Take 0.5 tablets by mouth every evening for 7 days, THEN 1 tablet every evening. 34 tablet 1 11/17/2021 04/01/2022 Discontinued (Discontinued by Patient) Comment on above: Take 0.5 tablets by mouth every evening for 7 days, THEN 1 tablet every evening. meclizine hydrochloride 25 mg oral tablet (5 sources) Antiemetic Start: End: take 1 tablet by mouth every eight hours as needed for dizziness Meclizine 25 mg tablet Discontinued 25 mg PO EVERY 8 HOURS NEEDED as needed for Dizziness July 02, 2023 11:48pm May 10, 2024 4:49am naproxen 500 mg oral tablet (20 sources) Nonsteroidal Anti-inflammatory Drug Start: End: take 1 tablet by mouth twice daily as needed for pain Naproxen (Naprosyn) 500 mg tablet Discontinued 500 mg PO TWICE A DAY as needed for pain February 09, 2022 12:00am July 02, 2023 10:11pm Comment on above: Take 1 tablet by pedrito twice daily as needed (for pain/inflammation). Take with food. ondansetron 4 mg disintegrating oral tablet (20 sources) Serotonin-3 Receptor Antagonist Start: End: take 1 tablet by mouth three times daily as needed for nausea and vomiting Ondansetron 4 mg tablet,disintegrati ng Discontinued 4 mg PO THREE TIMES A DAY as needed for nausea and vomiting October 05, 2023 9:02am May 10, 2024 4:49am Start: 11-08-2022 End: 08-09-2024 take 1 tablet by mouth every six hours as needed for nausea ondansetron orally disintegrating (ZOFRAN ODT) 4 mg disintegrating tablet Indications: Unspecified migraine Take 1 tablet by mouth every 6 hours as needed for nausea/vomiting. 20 tablet 11/08/2022 08/09/2024 Discontinued (Discontinued by Patient) Start: 08-21-2022 End: 11-08-2022 take 2 tablets by mouth every eight hours as needed ondansetron orally disintegrating (ZOFRAN ODT) 4 mg disintegrating tablet Take 2 tablets by mouth every 8 hours as needed for nausea/vomiting. 18 tablet 0 08/21/2022 11/08/2022 Discontinued Start: 08-21-2022 End: 08-21-2022 ondansetron orally disintegr ating 8 mg tab(s) (ZOFRAN ODT) Start: 02-09-2022 End: 07-02-2023 take 1 tablet by mouth every eight hours as needed for nausea and vomiting Ondansetron 4 mg tablet,disintegrating Discontinued 4 mg PO Q8H as needed for nausea and vomiting February 09, 2022 12:00am July 02, 2023 10:11pm Start: 08-12-2020 End: 11-26-2020 take 1 tablet by mouth every eight hours as needed ondansetron orally disintegrating (ZOFRAN ODT) 4 mg disintegrating tablet Take 1 tablet by mouth every 8 hours as needed. 12 tablet 08/12/2020 11/26/2020 Discontinued Comment on above: Take 1 tablet by pedrito every 8 hours as needed for nausea/vomiting. Take [address] [facility] every 8 hours as needed for nausea/vomiting. Take 1 tablet by pedrito every 6 hours as needed for nausea/vomiting. polyethylene glycol 3350 87340 mg powder for oral solution (1 source) Osmotic Laxative Start: 09-01-19 End: 11-27-19 polyethylene glycol 3350 (MIRALAX, GLYCOLAX) 17 gram/dose powder Indications: Chronic diarrhea Use as directed for Miralax / Gatorade Bowel Prep Kit 238 g 09/01/2020 11/26/2020 Discontinued predniSONE 20 mg oral tablet (8 sources) Start: 10-05-19 End: 05-10-20 take 2 tablets by mouth once daily Prednisone 20 mg tablet Discontinued 40 mg PO DAILY 14 October 06, 2023 1:00am May 10, 2024 4:49am Start: 10-05-2023 take 40 mg by mouth once daily Prednisone Active 40 MG PO DAILY 14 October 06, 2023 1:00am Start: 11-08-2022 End: 11-13-2022 take 2 tablets by mouth once daily predniSONE (DELTASONE) 20 mg tablet Indications: Unspecified migraine Take 2 tablets by mouth once daily for 5 days. 10 tablet 0 11/08/2022 11/13/2022 Active Comment on above: Take [address] [facility] once daily for 5 days. QUEtiapine 25 mg oral tablet (9 sources) Atypical Antipsychotic Start: End: 2 take 1 tablet by mouth every twenty-four hours as needed QUEtiapine (SEROQUEL) 25 mg tablet Take 1 tablet by mouth at bedtime as needed. 90 tablet 11/17/2021 04/01/2022 Discontinued (Discontinued by Patient) Comment on above: Take 1 tablet by pedrito th at bedtime as needed. Problems Active Problems Problem Classification Problem Date Documented Da te Episodic/Chronic Administrative/social admission (1 source) Encounter for pre-employment examination; Translations: [Health examination of defined subpopulations] 11-13-2023 Episodic Allergic reactions (5 sources) Acute allergic reaction; Translations: [Allergy, unspecified, initial encounter] 10-05-2023 Episodic Anxiety disorders (7 sources) Mixed anxiety and depressive disorder; Translations: [Anxiety disorder, unspecified] 09-08-2019 Chronic Asthma (2 sources) Mild intermittent asthma; Translations: [Mild intermittent asthma, uncomplicated] Onset: 5 01-13-2025 Chronic Blindness and vision defects (3 sources) Reduced visual acuity; Translations: [Unspecified visual loss] Onset: 5 01-13-2025 Chronic Cancer of cervix (2 sources) Low grade squamous intraepithelial lesion on cervical Papanicolaou smear; Translations: [Low grade squamous intraepithelial lesion on cytologic smear of cervix (LGSIL)] 03-18-2023 Episodic Conditions associated with dizziness or vertigo (6 sources) Peripheral vertigo; Translations: [Other peripheral vertigo, unspecified ear] Onset: 4 07-02-2023 Episodic Disorders of lipid metabolism (1 source) Mixed hyperlipidemia; Translations: [Mixed hyperlipidemia] Chronic Disorders of teeth and jaw (4 sources) Toothache; Translations: [Other specified disorders of teeth and supporting structures] Onset: 5 Episodic Esophageal disorders (2 sources) Gastroesophageal reflux disease; Translations: [Gastro-esophageal reflux disease without esophagitis] Onset: 5 01-13-2025 Chronic Essential hypertension (5 sources) Elevated blood pressure; Translations: [Essential (primary) hypertension] 07-02-2023 Chronic Headache; including migraine (20 sources) Migraine without aura, not refractory ; Translations: [Migraine without aura, not intractable, without status migrainosus] Onset: 9 12-11-2019 Chronic Headache; including migraine (1 source) Headache; Translations: [Headache, unspecified headache type] Episodic Inflammatory diseases of female pelvic organs (1 source) Bacterial vaginosis; Translations: [Acute vaginitis] 09-18-2023 Episodic Intestinal infection (6 sources) Viral gastroenteritis; Translations: [Viral intestinal infection, unspecified] 09-09-2019 Episodic Nausea and vomiting (1 source) Nausea and vomiting; Translations: [Nausea with vomiting, unspecified] 12-13-2023 Episodic Nutritional deficiencies (20 sources) Vitamin D deficiency; Translations: [Vitamin D deficiency, unspecified] Onset: 2 Chronic Other ear and sense organ disorders (20 sources) Bilateral hearing loss; Translations: [Unspecified hearing loss, bilateral] Onset: 9 12-11-2019 Chronic Other ear and sense organ disorders (1 source) Otalgia, left ear; Translations: [Otalgia, unspecified] Episodic Other eye disorders (20 sources) Optic disc edema; 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 [id number] [address] [place] [address] [place] RBC (Bld) [#/Vol] 4.93 10*6/uL Normal 3.90-5.20 [facility] Comment on above: Order Comment: Speci men Type: BLOOD SPECIMEN Ordering Facility: [facility] Address: [address] [place] [address] Performed By: #### 3 016-3, 15018-2, 08994-0 #### [facility] CLIA [id number] [address] [place] [address] [place] WBC (Bld) [#/Vol] 7.21 10*3/uL Normal 3.70-11.00 [facility] Comment on above: Order Comment: Speci men Type: BLOOD SPECIMEN Ordering Facility: [facility] Address: [address] [place] [address] Performed By: #### 3 016-3, 93200-2, 03381-1 #### [facility] CLIA [id number] [address] [place] [address] OF [place] CNOVon 01-13-2025 CNOV Office Visit (FAMPWS ) DEJAH ADORNO ([id number]) 1995 F Date Time Provider Department 01/13/25 8:00 AM JHONNY FOWLER FAMPWS During your visit today, we recorded the following information about you: Pulse Respiration Blood pressure Weight 71/minute 18/minute 128/74 207.8 kg Jhonny Fowler MD 01/13/2025 9:00 AM Signed Chief Complaint Patient presents with: Physical Recording using Rapid Vocabulary software for draft documentation of the visit was discussed with the patient/authorized authorization representative; all questions welcomed and answered. Patient/authorized authorization representative agreed to proceed HPI Dejah Adorno is a 29 year old female who presents here today for Above Complaints. Annual Wellness Exam: - Recent Pap smear was normal; tested positive for BV in September, treated successfully. - Last tetanus shot over 10 years ago. - Recent TB test at [facility]. Vision Changes: - Difficulty seeing objects at a distance, requiring squinting. - Left eye perceived as weaker than right eye. - No complete loss of vision or scotomas. - No recent eye exam since high school. - No associated eye pain, redness, or drainage. - No recent eye trauma or injury. Asthma: - Uses albuterol inhaler PRN, approximately once a week for cough, wheezing, and dyspnea. - No recent pulmonary function testing. GERD: - Managed with omeprazole. - Reports improvement with dietary changes, avoiding fast food and processed foods. - Consumes whole meats, vegetables, and whole grains. - Drinks diet soda for caffeine to prevent migraines. Migraines: - Occur approximately once a month. - Managed with ibuprofen and rest. - Triggered by lack of caffeine and sleep. - No current prophylactic medication. Obesity: - Weight loss of approximately 30 lbs since November. - Engages in regular walking. - Aims to lose an additional 50 lbs by the end of the year. - Previous concern for fatty liver. Vitamin D Deficiency: - Taking 50,000 units of vitamin D weekly. - No recent recheck of vitamin D levels. Allergies: - Allergic to doxycycline and Flagyl, carries an EpiPen. - Uses Flonase PRN. Social History: - Former smoker, quit a long time ago. - Denies current use of tobacco, vaping, alcohol, or drugs. - Lives with boyfriend; feels safe at home. - Currently working at [employer], transitioning to a new job at [employer]. Past medical history, appointments, medications, allergies reviewed. 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 Vitamin D deficiency 12/21/2021 Previous Surgical History PAST SURGICAL HISTORY Procedure Laterality Date COLPOSCOPY CERVIX BX CERVIX AND ENDOCRV CURRETAGE 03/31/2023 TONSILLECTOMY PRIMARY/SECONDARY Family History FAMILY HISTORY Problem Relation Age of Onset other (Pulmonary Embolism) Mother with embolism Anxiety disorder Brother Depression Brother Breast Cancer Maternal Grandmother Hypertension Maternal Grandfather Lung Cancer Paternal Grandmother Bipolar disorder Maternal Aunt Diabetes Other mggm Patient Allergies ALLERGIES Allergen Reactions Doxycycline Anaphylaxis Flagyl [Metronidazo* Anaphylaxis Current Medications Current Outpatient Medications on File Prior to Visit Medication Sig fluticasone propionate (FLONASE NASAL) Use 1 spray in the nose as needed. cyclobenzaprine (FLEXERIL) 10 mg tablet Take 1 tablet by mouth three times a day as needed for muscle spasm. cholecalciferol, Vitamin D3, (VITAMIN D3) 1,250 mcg (50,000 unit) cap capsule Take 1 capsule by mouth one time a week. omeprazole (PRILOSEC) 40 mg capsule Take 1 capsule by mouth once daily. albuterol HFA (VENTOLIN HFA) 90 mcg/actuation inhaler Inhale 2 puffs as instructed every 4 hours as needed for wheezing/shortness of breath. medroxyPROGESTERone (PROVERA) 10 mg tablet Take 1 tablet by mouth once daily. hydrOXYzine HCl (ATARAX) 25 mg tablet Take 1 tablet by mouth every 6 hours as needed for itching/rash. EPINEPHrine (EPIPEN 2-MANSI) 0.3 mg/0.3 mL auto-injector Inject 0.3 mL intramuscularly as needed. benzonatate (TESSALON PERLE) 100 mg capsule Take 1-2 capsules by mouth three times a day as needed. ipratropium bromide (ATROVENT) 42 mcg (0.06 %) nasal spray Use 2 sprays in the nose four times daily. (Patient not taking: Reported on 01/14/20 (more content not included)... Normal [facility] Comprehensive metabolic 2000 panelon 01-13-2025 Albumin [Mass/Vol] 4.1 g/dL Normal 3.9-4.9 [facility] Comment on above: Order Comment: Speci men Type: BLOOD SPECIMEN Ordering Facility: [facility] Address: [address] [place] [address] Performed By: #### 3 016-3, 27954-4, #### [facility] CLIA [id number] [address] [place] [address] [place] ALP [Catalytic activity/Vol] 104 U/L Normal 34-123 [facility] Comment on above: Order Comment: Speci men Type: BLOOD SPECIMEN Ordering Facility: [facility] Address: [address] [place] [address] Performed By: #### 3 016-3, 16997-1, #### [facility] CLIA [id number] [address] [place] [address] [place] ALT [Catalytic activity/Vol] 29 U/L Normal 7-38 [facility] Comment on above: Order Comment: Speci men Type: BLOOD SPECIMEN Ordering Facility: [facility] Address: [address] [place] [address] Performed By: #### 3 016-3, 41171-8, #### [facility] CLIA [id number] [address] [place] [address] [place] Anion gap [Moles/Vol] 11 mmol/L Normal 8-15 [facility] Comment on above: Order Comment: Speci men Type: BLOOD SPECIMEN Ordering Facility: [facility] Address: [address] [place] [address] Performed By: #### 3 016-3, 31926-3, 66484-9 #### [facility] CLIA [id number] [address] [place] [address] [place] AST [Catalytic activity/Vol] 18 U/L Normal 13-35 [facility] Comment on above: Order Comment: Speci men Type: BLOOD SPECIMEN Ordering Facility: [facility] Address: [address] [place] [address] Performed By: #### 3 016-3, 47978-4, 46733-1 #### [facility] CLIA [id number] [address] [place] [address] [place] Bilirubin [Mass/Vol] 0.3 mg/dL Normal 0.2-1.3 [facility] Comment on above: Order Comment: Speci men Type: BLOOD SPECIMEN Ordering Facility: [facility] Address: [address] [place] [address] Performed By: #### 3 016-3, 23120-5, 19369-7 #### [facility] CLIA [id number] [address] [place] [address] [place] Calcium [Mass/Vol] 9.5 mg/dL Normal 8.5-10.2 [facility] Comment on above: Order Comment: Speci men Type: BLOOD SPECIMEN Ordering Facility: [facility] Address: [address] [place] [address] Performed By: #### 3 016-3, 97279-6, 45443-5 #### [facility] CLIA [id number] [address] [place] [address] [place] Chloride [Moles/Vol] 104 mmol/L Normal 98-107 [facility] Comment on above: Order Comment: Speci men Type: BLOOD SPECIMEN Ordering Facility: [facility] Address: [address] [place] [address] Performed By: #### 3 016-3, 84341-2, 73495-1 #### [facility] CLIA [id number] [address] [place] [address] [place] CO2 [Moles/Vol] 24 mmol/L Normal 22-30 [facility] Comment on above: Order Comment: Speci men Type: BLOOD SPECIMEN Ordering Facility: [facility] Address: [address] [place] [address] Performed By: #### 3 016-3, 14248-1, 11110-4 #### [facility] CLIA [id number] [address] [place] [address] [place] Creatinine [Mass/Vol] 0.72 mg/dL Normal 0.58-0.96 [facility] Comment on above: Order Comment: Presley pantoja Type: BLOOD SPECIMEN Ordering Facility: [facility] Address: [address] [place] [address] Performed By: #### 3 016-3, 46863-6, #### [facility] CLIA [id number] [address] [place] [address] [place] Creatinine and Glomerular filtration rate.predicted panel (S/P/Bld) 118 mL/min/1.73m??? Normal >=60 [facility] Comment on above: Order Comment: Presley pantoja Type: BLOOD SPECIMEN Ordering Facility: [facility] Address: [address] [place] [address] Result Comment: Malou mated Glomerular Filtration Rate (eGFR) is calculated using the 2020 CKD-EPI creatinine equation. This equation utilizes serum creatinine, sex, and age as parameters. The creatinine assay has traceable calibration to isotope dilution-mass spectrometry. Refer to KDIGO guidelines for clinical interpretation. In patients with unstable renal function, e.g. those with acute kidney injury, the eGFR may not accurately reflect actual GFR. Performed By: #### 3 016-3, 59461-5, #### [facility] CLIA [id number] [address] [place] [address] [place] Glucose [Mass/Vol] 94 mg/dL Normal 74-99 [facility] Comment on above: Order Comment: Presley pantoja Type: BLOOD SPECIMEN Ordering Facility: [facility] Address: [address] [place] [address] Result Comment: The [place] Diabetes Association (ADA) provides guidance for cutoff values for fasting glucose and random glucose. The ADA defines fasting as no caloric intake for at least 8 hours. Fasting plasma glucose results between 100 to 125 mg/dL indicate increased risk for diabetes (prediabetes). Fasting plasma glucose results greater than or equal to 126 mg/dL meet the criteria for diagnosis of diabetes. In the absence of unequivocal hyperglycemia, results should be confirmed by repeat testing. In a patient with classic symptoms of hyperglycemia or hyperglycemic crisis, random plasma glucose results greater than or equal to 200 mg/dL meet the criteria for diagnosis of diabetes. Reference: Standards of Medical Care in Diabetes 2016, [place] Diabetes Association. Diabetes Care. 2016.39(Suppl 1). Performed By: #### 3 016-3, 72522-0, #### [facility] CLIA [id number] [address] [place] [address] [place] Potassium [Moles/Vol] 4.1 mmol/L Normal 3.7-5.1 [facility] Comment on above: Order Comment: Speci men Type: BLOOD SPECIMEN Ordering Facility: [facility] Address: [address] [place] [address] Performed By: #### 3 016-3, 87349-0, 17836-6 #### [facility] CLIA [id number] [address] [place] [address] [place] Protein [Mass/Vol] 7.4 g/dL Normal 6.3-8.0 [facility] Comment on above: Order Comment: Speci men Type: BLOOD SPECIMEN Ordering Facility: [facility] Address: [address] [place] [address] Performed By: #### 3 016-3, 91264-3, 24345-0 #### [facility] CLIA [id number] [address] [place], [place] [address] [place] Sodium [Moles/Vol] 139 mmol/L Normal 136-144 [facility] Comment on above: Order Comment: Speci men Type: BLOOD SPECIMEN Ordering Facility: [facility] Address: [address] [place] [address] Performed By: #### 3 016-3, 06169-1, 91333-2 #### [facility] CLIA [id number] [address] [place] [address] [place] Urea nitrogen [Mass/Vol] 12 mg/dL Normal 7-21 [facility] Comment on above: Order Comment: Presley pantoja Type: BLOOD SPECIMEN Ordering Facility: [facility] Address: [address] [place] [address] Performed By: #### 3 016-3, 95712-0, 23826-2 #### [facility] CLIA [id number] [address] [place] [address] [place] HbA1c (Bld)on 01-13-2025 Average glucose Estimated from glycated hemoglobin (Bld) [Mass/Vol] 94 mg/dL Normal [facility] Comment on above: Order Comment: Presley pantoja Type: BLOOD SPECIMEN Ordering Facility: [facility] Address: [address] [place] [address] Result Comment: eAG: (Estimated average glucose) is a calculated value from HgbA1c and is authorization representative of the average blood glucose level in the last 2-3 month period. Performed By: #### 3 016-3, 62088-8, #### [facility] CLIA [id number] [address] [place] [address] [place] HbA1c (Bld) [Mass fraction] 4.9 % Normal 4.3-5.6 [facility] Comment on above: Order Comment: Presley pantoja Type: BLOOD SPECIMEN Ordering Facility: [facility] Address: [address] [place] [address] Result Comment: [place] Diabetes Association guidelines indicate that patients with HgbA1c in the range 5.7-6.4% are at increased risk for development of diabetes, and intervention by lifestyle modification may be beneficial. HgbA1c greater or equal to 6.5% is considered diagnostic of diabetes. Performed By: #### 3 016-3, 95391-2, 23215-4 #### [facility] CLIA [id number] [address] [place], [place] [address] [place] Lipid 1996 panelon 5 Cholesterol [Mass/Vol] 209 mg/dL High <200 [facility] Comment on above: Order Comment: Yazi scarlett Type: BLOOD SPECIMEN Ordering Facility: [facility] Address: [address] [place] [address] Result Comment: <200 mg/dL, Desirable 200-239 mg/dL, Borderline high >239 mg/dL, High Performed By: #### 3 016-3, 00504-0, 51834-5 #### [facility] CLIA [id number] [address] [place] [address] [place] Cholesterol in HDL [Mass/Vol] 30 mg/dL Low >39 [facility] Comment on above: Order Comment: Presley pantoja Type: BLOOD SPECIMEN Ordering Facility: [facility] Address: [address] [place] [address] Result Comment: 40-5 9 mg/dL, Acceptable >59 mg/dL, High: Negative risk factor for coronary heart disease <40 mg/dL, Low: Positive risk factor for coronary heart disease Performed By: #### 3 016-3, 70505-0, #### [facility] CLIA [id number] [address] [place] [address] [place] Cholesterol in LDL [Mass/Vol] 167 mg/dL High <100 [facility] Comment on above: Order Comment: Yazjef pantoja Type: BLOOD SPECIMEN Ordering Facility: [facility] Address: [address] [place] [address] Result Comment: <100 mg/dL, Optimal 100-129 mg/dL, Near optimal/above optimal 130-159 mg/dL, Borderline high 160-189 mg/dL, High >189 mg/dL, Very high Secondary prevention optimal LDL Cholesterol levels are recommended to be <70 mg/dL LDL cholesterol is calculated using the Myers-NIH equation. Performed By: #### 3 016-3, 08989-0, 89295-7 #### [facility] CLIA [id number] [address] [place], [place] [address] [place] Cholesterol in LDL/Cholesterol in HDL [Mass ratio] 5.57 {ratio} High <2.54 [facility] Comment on above: Order Comment: Presley pantoja Type: BLOOD SPECIMEN Ordering Facility: [facility] Address: [address] [place] [address] Result Comment: Felicia jean: 1. National Cholesterol Education Program ATP III Guideline At-A-Glance Quick Desk Reference: National Heart, Lung, and Blood [place]. National Institutes of Health. 2001: NIH Publication No. 01-3305. 2. An International Atherosclerosis Society position paper: global recommendations for the management of dyslipidemia: executive summary, Atherosclerosis. 2014: 232(2):410-413. Performed By: #### 3 016-3, 88155-4, #### [facility] CLIA [id number] [address] [place] [address] [place] Cholesterol in VLDL [Mass/Vol] 13 mg/dL Normal <30 [facility] Comment on above: Order Comment: Presley pantoja Type: BLOOD SPECIMEN Ordering Facility: [facility] Address: [address] [place] [address] Performed By: #### 3 016-3, 14843-3, #### [facility] CLIA [id number] [address] [place] [address] [place] Cholesterol non HDL [Mass/Vol] 179 mg/dL High <130 [facility] Comment on above: Order Comment: Presley scarlett Type: BLOOD SPECIMEN Ordering Facility: [facility] Address: [address] [place] [address] Result Comment: <130 mg/dL, Optimal 130-159 mg/dL, Near optimal/above optimal 160-189 mg/dL, Borderline high 190-219 mg/dL, High >219 mg/dL, Very high Secondary prevention optimal non HDL Cholesterol levels are recommended to be <100 mg/dL Performed By: #### 3 016-3, 84023-8, 90599-6 #### [facility] CLIA [id number] [address] [place] [address] [place] Cholesterol.total/Choles terol in HDL [Mass ratio] 6.97 {ratio} High <5.10 [facility] Comment on above: Order Comment: Presley pantoja Type: BLOOD SPECIMEN Ordering Facility: [facility] Address: [address] [place] [address] Performed By: #### 3 016-3, 75977-9, 63368-6 #### [facility] CLIA [id number] [address] [place] [address] OF [facility] FASTING TIME 12 hrs Normal [facility] Comment on above: Order Comment: Presley pantoja Type: BLOOD SPECIMEN Ordering Facility: [facility] Address: [address] [place] [address] Performed By: #### 3 016-3, 97065-1, #### [facility] CLIA [id number] [address] [place] [address] OF [facility] Triglyceride [Mass/Vol] 67 mg/dL Normal <150 [facility] Comment on above: Order Comment: Presley pantoja Type: BLOOD SPECIMEN Ordering Facility: [facility] Address: [address] [place] [address] Result Comment: <150 mg/dL, Normal 150-199 mg/dL, Borderline high 200-499 mg/dL, High >499 mg/dL, Very high Performed By: #### 3 016-3, 78943-9, 82794-5 #### [facility] CLIA [id number] [address] [place] [address] [place] TSH SerPl-aCncon 01-13-2025 TSH Qn 2.210 m[IU]/L Normal 0.270-4.200 [facility] Comment on above: Order Comment: Presley pantoja Type: BLOOD SPECIMEN Ordering Facility: [facility] Address: [address] [place] [address] Result Comment: If t he patient is , TSH reference range varies by gestational period: First Trimester (weeks 9-12): 0.180-2.990 mIU/L Second Trimester: 0.110-3.980 mIU/L Third Trimester: 0.480-4.710 mIU/L Schuyler So et al. A Practical Approach for the Verifications and Determination of Site- and Trimester-Specific Reference Intervals for Thyroid Function tests in . Thyroid, 2019:29:3:412-420. Barrear Coleman et al. 2017 Guidelines of the [place] Thyroid Association for the Diagnosis and Management of Thyroid Disease during and the . Thyroid, 2017:27:3:315-389. Performed By: #### 3 016-3, 18471-8, 03974-7 #### [facility] CLIA [id number] [address] [place] [address] [place] 25([place])D3 [facility] 25-hydroxyvitamin D3 [Mass/Vol] 8.5 ng/mL Low 31.0-80.0 [facility] Comment on above: Order Comment: Speci men Type: BLOOD SPECIMEN Ordering Facility: [facility] Address: [address] [place] [address] Performed By: #### 3 016-3, 78016-4, 50268-2 #### [facility] CLIA [id number] [address] [place] [address] [place] CNCOon 12-19-2024 CNCO Letter Text Normal [facility] XR CHEST 2V FRONTAL/LATon XR CHEST 2V FRONTAL/LAT * * *Final Repor t* * * DATE OF EXAM: Dec 19 2024 11:04AM WOX [id number] - XR CHEST 2V FRONTAL/LAT / PROCEDURE REASON: Abnormal chest x-ray * * * * Physician Interpretation * * * * EXAMINATION: CHEST RADIOGRAPH (2 VIEW FRONTAL and LATERAL) CLINICAL HISTORY: Abnormal chest x-ray MQ: [id number] EXAM DATE/TIME: 12/19/2024 11:04 AM COMPARISON: Chest x-ray on 12/05/2024 RESULT: Lines, tubes, and devices: None. Lungs and pleura: No consolidation seen on the current study. No lung mass. No pleural effusion. No pneumothorax. Cardiomediastinal silhouette: Normal cardiomediastinal silhouette. Bones and soft tissues: Unremarkable. IMPRESSION: No acute radiographic abnormality. Propeller Inspector: PSC Transcribe Date/Time: Dec 19 2024 11:27A Dictated by : WILFREDO JOY MD This examination was interpreted and the report reviewed and electronically signed by: WILFREDO JOY MD on Dec 19 2024 11:28AM EST [id number] Normal [facility] XR Chest PA and Lateralon IMPRESSION: No acute radiographic abnormality. Propeller Inspector: PSC Transcribe Date/Time: Dec 19 2024 11:27A Dictated by : WILFREDO JOY MD This examination was interpreted and the report reviewed and electronically signed by: WILFREDO JOY MD on Dec 19 2024 11:28AM EST DIVISION OF RADIOLOGY * * *Final Report* * * DATE OF EXAM: Dec 19 2024 11:04AM WOX [id number] - XR CHEST 2V FRONTAL/LAT / PROCEDURE REASON: Abnormal chest x-ray * * * * Physician Interpretation * * * * EXAMINATION: CHEST RADIOGRAPH (2 VIEW FRONTAL & LATERAL) CLINICAL HISTORY: Abnormal chest x-ray MQ: XC2_6 EXAM DATE/TIME: 12/19/2024 11:04 AM COMPARISON: Chest x-ray on 12/05/2024 RESULT: Lines, tubes, and devices: None. Lungs and pleura: No consolidation seen on the current study. No lung mass. No pleural effusion. No pneumothorax. Cardiomediastinal silhouette: Normal cardiomediastinal silhouette. Bones and soft tissues: Unremarkable. DIVISION OF RADIOLOGY Provider, [facility] - 12/19/2024 * * *Final Report* * * DATE OF EXAM: Dec 19 2024 11:04AM WOX [id number] - XR CHEST 2V FRONTAL/LAT / PROCEDURE REASON: Abnormal chest x-ray * * * * Physician Interpretation * * * * EXAMINATION: CHEST RADIOGRAPH (2 VIEW FRONTAL & LATERAL) CLINICAL HISTORY: Abnormal chest x-ray MQ: XC2_6 EXAM DATE/TIME: 12/19/2024 11:04 AM COMPARISON: Chest x-ray on 12/05/2024 RESULT: Lines, tubes, and devices: None. Lungs and pleura: No consolidation seen on the current study. No lung mass. No pleural effusion. No pneumothorax. Cardiomediastinal silhouette: Normal cardiomediastinal silhouette. Bones and soft tissues: Unremarkable. IMPRESSION IMPRESSION: No acute radiographic abnormality. Propeller Inspector: MAC Transcribe Date/Time: Dec 19 2024 11:27A Dictated by : WILFREDO JOY MD This examination was interpreted and the report reviewed and electronically signed by: WILFREDO JOY MD on Dec 19 2024 11:28AM EST [facility] Radiology Study observation (narrative) [facility] XR Chest PA and LateralOrder ed By: Ccf Provider on 12-19-2024 [facility] CNOVon 12-05-2024 CNOV Office Visit (TORYE ) DEJAH ADORNO ([id number]) 1995 F Date Time Provider Department 12/05/24 9:20 AM ANABELLA HASKINS During your visit today, we recorded the following information about you: Pulse Blood pressure Weight Height 92/minute 120/90 220.2 kg 1.702 m Anabella Haskins APRN.JONO 12/05/2024 10:06 AM Signed 12/05/2024 Patient presents with: Shortness of Breath SUBJECTIVE: This is a 29 year old that is here today for Above Complaints. Reports for over a year will have an episode where it feels like she can not take a deep breath in. Reports will hyperventilate until it goes away. Doesn't think it is related to anxiety. Has an inhaler but has not used it when feeling this way. Happens maybe twice a week. Happens at random and not tied to any specific event like physical activity. Denies wheezing, orthopnea, hemoptysis, cough, chest pain, or palpitations. Also has some mucous in her throat. For over a year. Reports it is sticky and thick. Has not tried anything routinely to see if it helps.Admits to heartburn and acid reflux. Also has some nasal congestion at times. Denies fevers, chills, sore throat, or rhinorrhea. 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 Vitamin D deficiency 12/21/2021 ALLERGIES Doxycycline and Flagyl [Metronidazole] MEDICATIONS Current Outpatient Medications Medication Sig meloxicam (MOBIC) 15 mg tablet Take 1 tablet by mouth once daily. With food. cyclobenzaprine (FLEXERIL) 10 mg tablet Take 1 tablet by mouth three times a day as needed for muscle spasm. medroxyPROGESTERone (PROVERA) 10 mg tablet Take 1 tablet by mouth once daily. hydrOXYzine HCl (ATARAX) 25 mg tablet Take 1 tablet by mouth every 6 hours as needed for itching/rash. albuterol HFA (VENTOLIN HFA) 90 mcg/actuation inhaler Inhale 2 Puffs as instructed every 4 hours as needed for wheezing/shortness of breath. EPINEPHrine (EPIPEN 2-MANSI) 0.3 mg/0.3 mL auto-injector Inject 0.3 mL intramuscularly as needed. No current facility-administered medications for this visit. Medications and allergies reviewed by this provider. SOCIAL HISTORY Social History Tobacco Use Smoking status: Former Current packs/day: 0.00 Types: Cigarettes Quit date: 01/18/2018 Years since quittin.8 Smokeless tobacco: Never Tobacco comments: . step mom and sibling smokes outside Vaping Use Vaping status: Never Used Substance Use Topics Alcohol use: Not Currently Drug use: Not Currently Types: Marijuana REVIEW OF SYSTEMS All other reviewed and negative other than HPI. OBJECTIVE: BP 120/90 Pulse 92 Ht 170.2 cm (5' 7) Wt (!) 220.2 kg (485 lb 6.4 oz) LMP 07/22/2024 (Approximate) SpO2 97% BMI 76.02 kg/m? . Vital signs reviewed by this provider. APPEARANCE Well appearing, alert, in no acute distress, well-hydrated, well nourished. EYES conjunctiva and sclera normal. HEART RRR with normal S1 and S2, no murmurs, no gallops, no JVD appreciated LUNG clear to auscultation. No wheezes, rhonchi or rales EXTREMITIES Extremities normal, No deformities, No skin discoloration, and No edema SKIN Skin color, texture, turgor normal, no suspicious rashes or lesions to exposed skin DTaP,Tdap,Td Vaccine(7 - Td or Tdap) due on 12/03/2019 Influenza Vaccine(1) due on 04/14/2024 Covid-19 Vaccine(3 - season) due on 04/14/2024 Depression Screening due on 08/09/2025 Anxiety Screening due on 08/09/2025 Cervical Cancer Screening due on 09/27/2025 Hepatitis B Vaccine Completed Hepatitis C Screening Completed HIV Screening Completed ASSESSMENT/PLAN: 1. SOB (shortness of breath) - ICD9: 786.05, ICD10: R06.02 (primary diagnosis) - no red flag symptoms or exam findings - red flag symptoms discussed, verbalizes understanding - XR CHEST 2V FRONTAL/LAT - ALBUTEROL SULFATE HFA 90 MCG/ACTUATION AEROSOL INHALER - will see if trial of albuterol inhaler helps during episodes - need to follow-up for physical 2. Gastroesophageal reflux disease, unspecified whether esophagitis present - ICD9: 530.81, ICD10: K21.9 - Discussed lifestyle modifications including losing weight, limiting caffeine, no meals three hours before sleep, and head of bed elevation - OMEPRAZOLE 40 MG CAPSULE,DELAYED RELEASE - follow-up if symptoms fail to improve 3. Heartburn - ICD9: 787.1, ICD10: R12 - plan as in #2 - OMEPRAZOLE 40 MG CAPSULE,DELAYED RELEASE 4. Thick sputum - ICD9: 786.4, ICD10: R09.3 - possible related to allerg (more content not included)... Normal [facility] XR CHEST 2V FRONTAL/LATon XR CHEST 2V FRONTAL/LAT * * *Final Repor t* * * DATE OF EXAM: Dec 05 2024 9:43AM WOX [id number] - XR CHEST 2V FRONTAL/LAT / PROCEDURE REASON: multiple diagnoses * * * * Physician Interpretation * * * * EXAMINATION: CHEST RADIOGRAPH (2 VIEW FRONTAL and LATERAL) CLINICAL HISTORY: SOB (shortness of breath) Gastroesophageal reflux disease, unspecified whether esophagitis present MQ: XC2_6 EXAM DATE/TIME: 12/05/2024 9:43 AM COMPARISON: 01/20/2024 RESULT: Lines, tubes, and devices: None. Lungs and pleura: No consolidation. No lung mass. No pleural effusion. No pneumothorax. Atelectasis or early infiltrate in the lingula Cardiomediastinal silhouette: Normal cardiomediastinal silhouette. Bones and soft tissues: Unremarkable. IMPRESSION: Atelectasis or early infiltrate in the lingula. Follow-up recommended Visualization is suboptimal due to patient build Propeller Inspector: PSCB Transcribe Date/Time: Dec 05 2024 10:06A Dictated by : BETHANY CAN MD This examination was interpreted and the report reviewed and electronically signed by: BETHANY CAN MD on Dec 05 2024 10:17AM EST [id number] Normal [facility] CNOVon 11-22-2024 CNOV Office Visit (FAMPWS ) KYREEDEJAH Renee ([id number]) 1995 F Date Time Provider Department 11/22/24 8:00 AM JHONNY FOWLER FAMPWS During your visit today, we recorded the following information about you: Pulse Respiration Blood pressure Weight 87/minute 18/minute 120/76 216 kg Jhonny Fowler MD 11/22/2024 8:58 AM Signed Chief Complaint Patient presents with: Pain, Back UTI: C/o frequency HPI Taycash Renee Kyree is a 29 year old female who presents here today for Above Complaints. Patient complaining of left lower back pain in the last 2 weeks and wanted to make sure she didn't have a UTI. Got a new mattress a couple weeks ago and thinks that may be related. No other fall or injury. Denies as intermittent sharp pain, currently 2/10, without radiation down her legs. Exacerbated with bending and twisting. Denies fever/chills, loss of bowel/bladder control, saddle anesthesia, LE weakness. Taking ibuprofen and previous rx for muscle relaxer and switched back to her old mattress. Pain gradually improving. Evaluated by chiropractor on Monday who treated her with TENS unit and adjustment of her back and pelvis. Symptoms have been better over the last couple of days. Urinating more frequently without dysuria, hematuria, urgency, abdominal pain, nausea, vomiting. Past medical history, appointments, medications, allergies reviewed. 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 Vitamin D deficiency 12/21/2021 Previous Surgical History PAST SURGICAL HISTORY Procedure Laterality Date COLPOSCOPY CERVIX BX CERVIX AND ENDOCRV CURRETAGE 03/31/2023 TONSILLECTOMY PRIMARY/SECONDARY Family History FAMILY HISTORY Problem Relation Age of Onset other (Pulmonary Embolism) Mother with embolism Anxiety disorder Brother Depression Brother Breast Cancer Maternal Grandmother Hypertension Maternal Grandfather Lung Cancer Paternal Grandmother Bipolar disorder Maternal Aunt Diabetes Other mggm Patient Allergies ALLERGIES Allergen Reactions Doxycycline Anaphylaxis Flagyl [Metronidazo* Anaphylaxis Current Medications Current Outpatient Medications on File Prior to Visit Medication Sig cyclobenzaprine (FLEXERIL) 10 mg tablet Take 1 tablet by mouth three times a day as needed for muscle spasm. medroxyPROGESTERone (PROVERA) 10 mg tablet Take 1 tablet by mouth once daily. (Patient taking differently: Take 10 mg by mouth as needed.) hydrOXYzine HCl (ATARAX) 25 mg tablet Take 1 tablet by mouth every 6 hours as needed for itching/rash. albuterol HFA (VENTOLIN HFA) 90 mcg/actuation inhaler Inhale 2 Puffs as instructed every 4 hours as needed for wheezing/shortness of breath. EPINEPHrine (EPIPEN 2-MANSI) 0.3 mg/0.3 mL auto-injector Inject 0.3 mL intramuscularly as needed. No current facility-administered medications on file prior to visit. Social History Social History Tobacco Use Smoking status: Former Current packs/day: 0.00 Types: Cigarettes Quit date: 01/18/2018 Years since quittin.8 Smokeless tobacco: Never Tobacco comments: . step mom and sibling smokes outside Vaping Use Vaping status: Never Used Substance Use Topics Alcohol use: Not Currently Drug use: Not Currently Types: Marijuana Review of Symptoms REVIEW OF SYSTEMS See HPI EXAM: BP 120/76 Pulse 87 Resp 18 Wt (!) 216 kg (476 lb 3.2 oz) LMP 07/22/2024 (Approximate) SpO2 98% BMI 74.58 kg/m? General Appearance: Well appearing, alert, in no acute distress, well-hydrated, well nourished.. Skin: Skin color, texture, turgor normal, no suspicious rashes or lesions. Back:no pain to palpation of vertebrae, good flexion and extension, good range of motion, no muscle tenderness, reflexes are 2+ and symmetric, motor and sensory appear to be normal, negative SLR test, no evidence of scoliosis Abdomen: Abdomen soft, non-tender. Bowel sounds normal. No masses, organomegaly. Health Maintenance List DTaP,Tdap,Td Vaccine(7 - Td or Tdap) due on 12/03/2019 Influenza Vaccine(1) due on 04/14/2024 Covid-19 Vaccine(2023- season) due on 04/14/2024 Depression Screening due on 08/09/2025 Anxiety Screening due on 08/09/2025 Cervical Cancer Screening due on 09/27/2025 Hepatitis B Vaccine Completed Hepatitis C Screening Completed HIV Screening Completed Latest Ref Rng 11/22/2024 GLUCOSE UA (POCT) Negative mg/dL Negative BILIRUBIN UA (POCT) Negative Negative KETONE UA (more content not included)... Normal [facility] UA DIP, URINE (POC)on 2024 BILIRUBIN UA (POCT) Negative Negative [facility] CLARITY UA (POCT) Slightly Cloudy [facility] COLOR UA (POCT) Yellow [facility] GLUCOSE UA (POCT) Negative Negative mg/dL [facility] Hemoglobin Ql (U) Negative Negative [facility] Interpretation and review of laboratory results Abnormal [facility] KETONE UA (POCT) Negative Negative mg/dL [facility] LEUKOCYTES UA (POCT) Trace Abnormal [facility] NITRITE UA (POCT) Negative Negative [facility] PH UA (POCT) 5.5 4.5 - 8.0 [facility] Protein Ql (U) Negative Negative mg/dL [facility] SPECIFIC GRAVITY UA (POCT) 1.02 1.005 - 1.030 [facility] UROBILINOGEN UA (POCT) 0.2 Brittnee l E.U./dL [facility] Location:[address], [id number] [place] [address] POINT OF CARE [facility] UA DIP,URINE HCG (POC)on Beta HCG ( test) Ql (U) Negative Negative [facility] Comment on above: Location:[address], [address] Software Technician (POCT) Internal QC [facility] Location:[address] POINT OF CARE [facility] Emergency Department Summary on 10-27-2024 Emergency Department Summary [facility] Medical Records Department [address] [place] [address] Emergency Department Summary 10/27/24 MR#: [id number] Acct: [id number] Name: DEJAH ADORNO Rep #: [id number] : 1995 28 From: Julian Perdomo DO PCP: Dr. Hal Fowler MD Status:DEP ER Location: ED HPI History of Present Illness Chief Complaint: Dental Informant: patient Narrative Narrative: 28-year-old female presenting to the emergency room with left lower dental pain. Patient states for the past couple weeks she has had a pain and what remains of the left posterior molar. She states she saw a dentist who did not feel that the tooth needed to be pulled but stated the tooth was . She states that she has an appointment on Monday with a new dentist. However she has been taking Tylenol and tonight the pain was worsening. She feels that it slightly swollen and is worried about infection. No reported fevers. 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 Home Medications ???Medication ???Instructions ???Recorded ???Last Taken ???Type hydrocodone-acetaminop hen 5-325mg 1 tab PO Q6H PRN pain 2 days #12 10/27/24 Unknown Rx 5mg-325mg TABLETS hydroxyzine HCl 25 mg tablet 25 mg PO Q6H PRN PRN itch 10/27/24 Unknown History penicillin V potassium 500 mg 500 mg PO 4X/DAY #28 tabs 10/27/24 Unknown Rx tablet Allergy/AdvReac Type Severity Reaction Status Date / Time doxycycline Allergy Severe Angioedema Verified 10/27/24 03:28 metronidazole (From Flagyl) Allergy Severe Angioedema Verified 10/27/24 03:28 Surgical History Hx of tonsillectomy Social History Smoking Status: Former smoker ROS ROS ED Constitutional Constitutional ED: Denies chills, fever(s) or weight loss Eyes Eyes: Denies change in vision or diplopia ENT ENT ED: Reports other Details: See history of present illness ; Denies ear pain, rhinorrhea or sore throat Cardiovascular Cardiovascular: Denies chest pain, orthopnea, palpitations or racing heartbeat Respiratory/Chest Respiratory/Chest: Denies cough, dyspnea or orthopnea Gastrointestinal Gastrointestinal: Denies abdominal pain, diarrhea, nausea or vomiting Genitourinary Genitourinary ED: Denies dysuria, hematuria or urinary frequency Musculoskeletal Musculoskeletal: Denies arthralgias or myalgias Integumentary Denies abscess or rash Neurologic Neurologic: Denies headache(s) or weakness Psychiatric Psychiatric: Denies anxiety, depression, suicidal ideation or suicidal thoughts Endocrine Endocrinology: Denies polydipsia, polyphagia or polyuria Allergic/Immunologic Allergic/Immunologic ED: Denies mouth swelling, tongue swelling or urticaria EXAM Physical Exam Const Vital Signs: 10/27/24 03:28 10/27/24 03:57 Temperature 98.0 F 98.2 F Temperature Source Oral Pulse Rate 83 73 Respiratory Rate 18 18 Blood Pressure 117/79 131/83 H Blood Pressure Mean 91 99 Pulse Ox 98 99 Oxygen Delivery Method Room Air Positive well nourished, well developed and obese General Appearance ED: well developed and NAD Nutritional Appearance: obese HEENT Reports normocephalic, head/scalp atraumatic and moist mucous membranes HEENT Narrative: There is 1 remaining molar on the left lower side. There is no focal gum swelling or erythema. There is focal dental decay. I do not appreciate significant facial swelling or erythema. There is no trismus. Floor the mouth is soft. She is handling her secretions normally. Eyes PERRL and EOMs intact bilaterally Neck no lymphadenopathy, supple and no JVD Resp normal respiratory effort and clear to auscultation bilaterally Cardio regular rate, regular rhythm and no murmurs GI normal to inspection, nondistended, normoactive bowel sounds and non-tender Palpation: soft Back/Spine no CVA tenderness and normal ROM Extremity normal to inspection General Extremety ED: Negative for edema General Extremity: Negative for edema Neuro oriented x3 and CN's II-XII intact bilaterally Sensorium / Orientation: alert Motor Exam: strength 5/5 throughout Psych mental status grossly normal Mood Affect: Negative for depressed or tearful Skin no rashes or lesions noted and no wounds MDM MDM MDM Narrative Medical decision making narrative: Differential diagnosis includes but is not limited to Nikolay's angina dental abscess cellulitis ANUG gingivitis Patient will be started on antibiotics. I will write for some [place] for pain. Would recommend her keeping her dentist appointment on Monday. History Record Review Discussion w/independent historian: Patient Discharge Plan (more content not included)... Normal [facility] BACTERIAL VAGINOSIS NAATon 0 09-27-2024 Lactobacillus crispatus+gasseri+grier ii + Gardnerella vaginalis + Atopobium vaginae rRNA TAYO+probe Ql (Vag fld) Detected Abnormal Not detected [facility] Comment on above: Order Comment: Speci men Type: SWABOrdering Facility: [facility] Address: [address] [place] [address] Performed By: #### MATTEO GONZÁLESTV ####[facility] [id number] [place] [address] [place] C. trachomatis+N. gonorrhoea e DNA TAYO+probe Ql (Unsp spec)on 09-27-2024 C. trachomatis rRNA TAYO+probe Ql (Unsp spec) Not detected Normal Not detected [facility] Comment on above: Order Comment: Speci men Type: SWAB [facility] Address: [address] [place] [address] Performed By: #### 3 6902-5 #### [facility] CLIA [id number] [address] [place] [address] [place] N. gonorrhoeae rRNA TAYO+probe Ql (Unsp spec) Not detected Normal Not detected [facility] Comment on above: Order Comment: Speci men Type: SWAB [facility] Address: [address] [place] [address] Performed By: #### 3 [id number] #### [facility] CLIA [id number] [address] [place] [address] [place] CAROLYN/TRICHOMONAS NAATon 0 09-27-2024 C. glabrata RNA TAYO+probe Ql (Vag fld) Not detected Normal Not detected [facility] Comment on above: Order Comment: Speci men Type: SWABOrdering Facility: [facility] Address: [address] [place] [address] Performed By: #### B VAMP, CVTV ####[facility] [id number] [place] [address] [place] Carolyn sp DNA TAYO+probe Ql (Vag fld) Not detected Normal Not detected [facility] Comment on above: Order Comment: Speci men Type: SWABOrdering Facility: [facility] Address: [address] [place] [address] Result Comment: The Carolyn species group target includes C. albicans, C. tropicalis, C. parapsilosis, and C. dubliniensis. Performed By: #### B VAMP, CVTV ####[facility] [id number] [place] [address] [place] T. vaginalis DNA TAYO+probe Ql (Unsp spec) Not detected Normal Not detected [facility] Comment on above: Order Comment: Speci men Type: SWABOrdering Facility: [facility] Address: [address] [place] [address] Performed By: #### VAUGHN GONZÁLES ####[facility] [id number] MARYLINMitch HOLMESDESK [id number] STATES OF [facility] CNOVon 09-27-2024 CNOV Office Visit (OBGYWM ) DEJAH ADORNO ([id number]) 1995 F Date Time Provider Department 09/27/24 8:15 AM [facility] OBGYWM During your visit today, we recorded the following information about you: Blood pressure Weight Height Last Period 118/80 217.3 kg 1.702 m 07/22/24 [facility] APRN.ENDOCRINOLOGY NURSE 09/27/2024 10:28 AM Signed Senior Cost Analyst offered: Patient declines. Dejah is a 28 year old who presents for an annual gynecologic exam without complaints. Still get period: Yes LMP: Abnormal 08/06 spotting Menses: Abnormal menses, last one was about 2 months ago Menstrual flow: Light Bleeding amount bothersome: No Bleeding between periods: Yes, sometimes gets spotting after intercourse Period symptoms: Acne and Cramps Sexually active: Yes Time with current partner: 2.5 years Contraception: None Contraception frequency: Never HPV vaccine: Yes HPV:N/A Last pap smear: 2022 LSIL History of abnormal pap: Yes Colposcopy: Yes: 2 years ago, Normal Leep: No. Cone biopsy: No. Bothersome pelvic pain: No Last mammogram: never OB History Gravida0 Para0 Term0 Preterm0 AB0 Living0 SAB0 IAB0 Ectopic0 Multiple0 Live Births0 Sign Installer History LMP: 07/22/2024 (Approximate), Having periods Age at Menarche: 14 Age at First : Age at Menopause: Sign Installer History Comments: Sexual Activity: Yes; Male Contraception: Not used PAST MEDICAL HISTORY Diagnosis Date Fatty liver LGSIL on Pap smear of cervix 03/09/2023 Migraine without aura and without status migrainosus, not intractable 07/10/2019 Obesity 03/09/2011 PCOS (polycystic ovarian syndrome) 2015 PMH - PAST MEDICAL HISTORY OF 03/2003 normal color vision Splenomegaly 01/17/2024 mild Unspecified hearing loss, bilateral 07/10/2019 Rt>LT, 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 Vitamin D deficiency 12/21/2021 PAST SURGICAL HISTORY Procedure Laterality Date COLPOSCOPY CERVIX BX CERVIX AND ENDOCRV CURRETAGE 03/31/2023 TONSILLECTOMY PRIMARY/SECONDARY FAMILY HISTORY Problem Relation Age of Onset other (Pulmonary Embolism) Mother with embolism Anxiety disorder Brother Depression Brother Breast Cancer Maternal Grandmother Hypertension Maternal Grandfather Lung Cancer Paternal Grandmother Bipolar disorder Maternal Aunt Diabetes Other mggm SOCIAL HISTORY Social History Tobacco Use Smoking status: Former Current packs/day: 0.00 Types: Cigarettes Quit date: 01/18/2018 Years since quittin.6 Smokeless tobacco: Never Tobacco comments: . step mom and sibling smokes outside Vaping Use Vaping status: Never Used Substance Use Topics Alcohol use: Not Currently Drug use: Not Currently Types: Marijuana REVIEW OF SYSTEMS Abdomen: No abdominal pain, nausea, vomiting, diarrhea, or constipation. No bloating, early satiety, indigestion, or increased flatulence. Bladder: No dysuria, gross hematuria, urinary frequency, urinary urgency, or incontinence. Breast: No breast lumps, nipple d/c, overlying skin changes, redness or skin retraction. Allergies and current medication updated:Yes SENSITIVE EXAM: The sensitive examination was discussed with the Patient or Patient's Authorized [place] Worker. As applicable, any other physician, advance practice provider, medical student, or other health professional student that will be observing or involved in the sensitive examination for educational or training purposes was discussed with the Patient or Authorized [place] Worker. The Patient or Authorized [place] Worker has agreed to proceed with the sensitive examination. (Sensitive examination includes inspection and/or palpation of the breasts, pelvis, prostate and anorectal regions). EXAM: BP 118/80 Ht 5' 7 (1.70m) Wt 479 lb (217.3kg) LMP 07/22/2024 BMI 75.00 kg/(m2). GENERAL: pleasant, female in no apparent distress HEENT: Normocephalic, atraumatic, mucus membranes moist, and no lesions DERMATOLOGY: Normal, without lesions, non-icteric, and non-hirsute BREAST: soft, non-tender, symmetric, no dominant mass, normal nipple-areolar complex, no lymphadenopathy, and no nipple discharge CHEST: Normal inspiratory effort ABDOMEN: soft, non-tender, and no masses PELVIC: external genitalia normal, normal Bartholin's glands, urethra, [place]'s glands, no vulvar lesions, no cervical lesions, physiologic discharge present, normal appearing perineal body and perianal region BIMANUAL: non-tender and difficulty to assess due body habitus RECTOVAGINAL: deferred. NEURO: alert and oriented x3,exam grossly non-focal EXTREMITIES: normal ASSESSMENT/PLAN: 1) Health maintenance: Pap done with reflex HPV. Mammogram starting age 40. Nutrition, exercise and routine health maintenance exams reviewed. Calcium/Vitamin D supplementation information provided. Colon cancer screening (more content not included)... Normal [facility] PAP TESTon 09-27-2024 ADEQUACY Normal [facility] Comment on above: Order Comment: Speci men Type: BLOOD SPECIMEN Ordering Facility: [facility] Address: [address] [place] [address] Result Comment: Sati sfactory for interpretation. Transformation zone present Performed By: #### 3 016-3, 02005-8, 84882-0 #### [facility] CLIA [id number] [address] [place], [place] [address] [address] [place] CASE REPORT Normal [facility] Comment on above: Order Comment: Speci men Type: BLOOD SPECIMEN Ordering Facility: [facility] Address: [address] [place] [address] Result Comment: Gyne cologic Cytology Report Case: [id number] Authorizing Provider: Paradise Hand APRN.ENDOCRINOLOGY NURSE Collected: 09/27/2024 09:03 AM Ordering Location: OB/Gynecology Received: 09/27/2024 12:02 PM First Screen: Neyda Ribera Rescreen: Zhorova, Tessa, CT, ASCP Specimen: Pap Test, ThinPrep, Cervix Performed By: #### 3 016-3, 30860-4, 12914-1 #### [facility] CLIA [id number] [address] [place] [address] [place] CLINICAL HISTORY, CYTOLOGY, NEUROLOGY PROFESSOR Routine Exam Normal [facility] Comment on above: Order Comment: Speci men Type: BLOOD SPECIMEN Ordering Facility: [facility] Address: [address] [place] [address] Performed By: #### 3 016-3, 23570-0, 52142-4 #### [facility] CLIA [id number] [address] [place] [address] [place] CYTOLOGY PAP OTHER INTERPRETATION Predominance of coccobacilli consistent with shift in vaginal clyde. Normal [facility] Comment on above: Order Comment: Speci men Type: BLOOD SPECIMEN Ordering Facility: [facility] Address: [address] [place] [address] Performed By: #### 3 016-3, 70205-6, 66065-3 #### [facility] CLIA [id number] [address] [place] [address] STATES OF [facility] Normal [facility] Comment on above: Order Comment: Speci men Type: BLOOD SPECIMEN Ordering Facility: [facility] Address: [address] [place] [address] Result Comment: Tech nical component, hitcher screening performed at [facility], [address] [place] [address] [place] [address] CLIA# [id number] Diagnostic interpretation performed at [facility], [address] [place] [address] CLIA# [id number] Security Sergeant: Jasper Pichardo M.D. Performed By: #### 3 016-3, 20705-3, 06926-4 #### [facility] CLIA [id number] [address] [id number] [address] [place] INTERPRETATION, CYTOLOGY, NEUROLOGY PROFESSOR Normal [facility] Comment on above: Order Comment: Speci men Type: BLOOD SPECIMEN Ordering Facility: [facility] Address: [address] [place] [address] Result Comment: Nega tive for intraepithelial lesion or malignancy. at 1217 EST Performed By: #### 3 016-3, 55162-9, 42316-2 #### [facility] CLIA [id number] [address] [place] [address] [place] LMP 07/22/2024 Normal [facility] Comment on above: Order Comment: Speci men Type: BLOOD SPECIMEN Ordering Facility: [facility] Address: [address] [place] [address] Performed By: #### 3 016-3, 08223-9, 30257-0 #### [facility] CLIA [id number] [address] [place] [address] [place] PAP DISCLAIMER COMMENT The Pap Smear is a screening test for cervical cancer. False negative results occur with all screening tests, emphasizing the need for rescreening at recommended intervals, and clinical correlation. Normal [facility] Comment on above: Order Comment: Speci men Type: BLOOD SPECIMEN Ordering Facility: [facility] Address: [address] [place] [address] Performed By: #### 3 016-3, 73036-8, 50977-5 #### [facility] CLIA [id number] [address] [place] [address] [place] PAP FLATWORK WASHER COMMENT This specimen has be en analyzed by the ThinPrep Imaging System, an automated imaging and review system, which assists the laboratory in evaluating cells on ThinPrep Pap tests. Following automated imaging, selected alvarez from every slide are reviewed by a hitcher. Normal [facility] Comment on above: Order Comment: Speci men Type: BLOOD SPECIMEN Ordering Facility: [facility] Address: [address] [place] [address] Performed By: #### 3 016-3, 61720-6, 26964-2 #### [facility] CLIA [id number] [address] [place] [address] [place] CNOVon 08-09-2024 CNOV Office Visit (FAMPWS ) PETER ADORNOCASH Renee ([id number]) 1995 F Date Time Provider Department 08/09/24 8:00 AM [facility] During your visit today, we recorded the following information about you: Temperature Pulse Respiration Blood pressure 98.1 degrees 76/minute 16/minute 128/80 Weight 217.3 kg Aria Preciado, RESCUE INSTRUCTOR.ENDOCRINOLOGY NURSE 08/09/2024 8:33 AM Signed This is a 28 year old female who presents today with: Patient presents with: Allergic Reaction: Allergic reaction to amoxicillin HISTORY OF PRESENT ILLNESS: Dejah Renee Kyree is a 28 year old female. Patient presents with: Allergic Reaction: Allergic reaction to amoxicillin Hx of anaphylaxis on doxycyline and flagyl in sep. Dentist started her on amoxicillin- took it for 3 days. Got itchy bumpon neck and face. Itchy all over body. Quit amoxicillin 2 days go. Benadryl x1. Getting little bumps still on face. Also, anxious all the time. PAST MEDICAL HISTORY: PAST MEDICAL HISTORY Diagnosis Date Fatty liver LGSIL on Pap smear of cervix 03/09/2023 Migraine without aura and without status migrainosus, not intractable 07/10/2019 Obesity 03/09/2011 PCOS (polycystic ovarian syndrome) 2016 PMH - PAST MEDICAL HISTORY OF 03/2003 normal color vision Splenomegaly 01/17/2024 mild Unspecified hearing loss, bilateral 07/10/2019 Rt>LT, 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 Vitamin D deficiency 12/21/2021 PAST SURGICAL HISTORY Procedure Laterality Date COLPOSCOPY CERVIX BX CERVIX AND ENDOCRV CURRETAGE 03/31/2023 TONSILLECTOMY PRIMARY/SECONDARY ALLERGIES Doxycycline and Flagyl [Metronidazole] MEDICATIONS Current Outpatient Medications Medication Sig cyclobenzaprine (FLEXERIL) 10 mg tablet Take 1 tablet by mouth three times a day as needed for muscle spasm. omeprazole (PRILOSEC) 40 mg capsule Take 1 capsule by mouth once daily. (Patient not taking: Reported on 12/20/2023) medroxyPROGESTERone (PROVERA) 10 mg tablet Take 1 tablet by mouth once daily. (Patient not taking: Reported on 05/07/2024) BORIC ACID 600 MG VAGINAL SUPPOSITORY Use 1 Suppository vaginally once daily. Unwrap and insert as directed. (Patient not taking: Reported on 12/20/2023) ondansetron orally disintegrating (ZOFRAN ODT) 4 mg disintegrating tablet Take 1 tablet by mouth every 6 hours as needed for nausea/vomiting. (Patient not taking: Reported on 12/20/2023) albuterol HFA (VENTOLIN HFA) 90 mcg/actuation inhaler Inhale 2 Puffs as instructed every 4 hours as needed for wheezing/shortness of breath. No current facility-administered medications for this visit. FAMILY HISTORY Problem Relation Age of Onset other (Pulmonary Embolism) Mother with embolism Anxiety disorder Brother Depression Brother Breast Cancer Maternal Grandmother Hypertension Maternal Grandfather Lung Cancer Paternal Grandmother Bipolar disorder Maternal Aunt Diabetes Other mggm Social History Tobacco Use Smoking status: Former Current packs/day: 0.00 Types: Cigarettes Quit date: 01/18/2018 Years since quittin.5 Smokeless tobacco: Never Tobacco comments: . step mom and sibling smokes outside Vaping Use Vaping status: Never Used Substance Use Topics Alcohol use: Not Currently Drug use: Not Currently Types: Marijuana EXAM: BP 128/80 Pulse 76 Temp 36.7 ?C (98.1 ?F) (Tympanic) Resp 16 Wt (!) 217.3 kg (479 lb) LMP 09/14/2022 (Approximate) SpO2 97% BMI 77.31 kg/m? PHYSICAL EXAM: Physical Exam Vitals reviewed. Constitutional: Appearance: Normal appearance. HENT: Head: Normocephalic. Cardiovascular: Rate and Rhythm: Normal rate and regular rhythm. Pulses: Normal pulses. Heart sounds: Normal heart sounds. Pulmonary: Effort: Pulmonary effort is normal. Breath sounds: Normal breath sounds. Abdominal: General: Bowel sounds are normal. Palpations: Abdomen is soft. Musculoskeletal: General: Normal range of motion. Skin: General: Skin is warm and dry. Comments: Pictures a=of raised hives on neck Neurological: Mental Status: She is alert and oriented to person, place, and time. LABS: ASSESSMENT/PLAN: 1. Screening for depression - ICD9: V79.0, ICD10: Z13.31 (primary diagnosis) Negative - DEPRESSION SCREENING 2. Encounter for screening examination for other mental health and behavioral disorders - ICD9: V79.8, ICD10: Z13.39 Negative - ANXIETY SCREENING 3. Hives - ICD9: 708.9, ICD10: L50.9 - Likely viral or allergic etiology discussed with patient - Follow up if symptoms persist or worsen. - HYDROXYZINE HCL 25 MG TABLET - Will order epi-pen for acute angioedema 4. OVIDIO (generalized anxiety disorder) - ICD9: 300.02, ICD10: F41.1 Chronic - HYDROXYZINE HCL 25 MG TABLET every 6 hours as needed Discussed treatment plan and patient voices understanding. Patient's questions answered appropr (more content not included)... Normal [facility] DEJAH ADORNO ([id number]) 1995 F Date Time Provider Department 08/09/24 [facility] During your visit today, we recorded the following information about you: Aria Preciado APRN.ENDOCRINOLOGY NURSE 08/09/2024 10:41 AM Signed Please let pt. Know that I was going to have her just complete the amoxicillin. We are limited in the antibiotics to use for dental due to angioedema Aria Childs LPN 08/09/2024 11:20 AM Signed Patient notified. Verbalized understanding. Allergies As of Date: 08/09/2024 Noted Allergy Reaction DOXYCYCLINE 12/13/2023 10 - Anaphylaxis FLAGYL (METRONIDAZOLE) 12/13/2023 10 - Anaphylaxis Date Reviewed: 08/09/2024 Reviewed by: Aria Preciado APRN.ENDOCRINOLOGY NURSE - Fully Assessed Prescriptions as of 08/09/2024 - hydrOXYzine HCl (ATARAX) 25 mg tablet Take 1 tablet by mouth every 6 hours as needed for itching/rash. - albuterol HFA (VENTOLIN HFA) 90 mcg/actuation inhaler Inhale 2 Puffs as instructed every 4 hours as needed for wheezing/shortness of breath. - EPINEPHrine (EPIPEN 2-MANSI) 0.3 mg/0.3 mL auto-injector Inject 0.3 mL intramuscularly as needed. - cyclobenzaprine (FLEXERIL) 10 mg tablet Take 1 tablet by mouth three times a day as needed for muscle spasm. Problem List As Of Date 08/09/2024 Noted Resolved Papilledema [H47.10] 03/09/2011 BMI 60.0-69.9, adult (HCC) [Z68.44] 03/09/2011 Migraine without aura and without status migrai*07/10/2019 Unspecified hearing loss, bilateral [H91.93] 07/10/2019 Obesity, Class III, BMI >= 40 [E66.01] 01/14/2021 12/17/2021 Vitamin D deficiency [E55.9] 12/21/2021 Encounter Status:Closed by ARIA CHILDS on 08/09/24 [facility] 12 Lead EKGon 05-10-2024 12 Lead EKG [facility] Cardiovascular Services [address] [place] [address] 12 Lead EKG 05/10/24 0507 MR#: [id number] Acct: [id number] Name: DEJAH ADORNO Rep #: [id number] : 1995 28 From: Mayco Freedman MD Attending Dr: Status: DEP ER Ordering Dr: Salvatore Haynes DO Date: 05/10/24 Location: ED Sex: F C Admitted: Test Reason : CP Blood Pressure : / mmHG Vent. Rate : 084 BPM Atrial Rate : 084 BPM P-R Int : 162 ms QRS Dur : 094 ms QT Int : 364 ms P-R-T Axes : 054 059 067 degrees QTc Int : 430 ms Normal sinus rhythm Normal ECG Confirmed by MAYCO FREEDMAN MD ([id number]), index editor ERICK FERNANDEZ ([id number]) on 05/13/2024 7:29:15 AM Referred By: Confirmed By:MAYCO FREEDMAN MD 05/13/24728 Date Mayco Freedman MD CC: Dr. Hal Fowler MD; Dr. Salvatore Haynes DO Signed Normal [facility] Basic Metabolic Profile (BMP )on 05-10-2024 BUN/CRE 15.2 RATIO Normal 10-20 [facility] Comment on above: Order Comment: 1 Y Performed By: #### L 100.0100, L501.5425, L500.2500 #### [facility] [address] [place], [address] CA,Total 8.6 mg/dL Normal 8.5-10.1 [facility] Comment on above: Order Comment: 1 Y Performed By: #### L 100.0100, L501.5425, L500.2500 #### [facility] [address] [place], [address] Chloride [Moles/Vol] 108 mmol/L High 98-107 [facility] Comment on above: Order Comment: 1 Y Performed By: #### L 100.0100, L501.5425, L500.2500 #### [facility] [address] [place], [address] CO2 [Moles/Vol] 30.0 mmol/L Normal 21.0-32.0 [facility] Comment on above: Order Comment: 1 Y Performed By: #### L 100.0100, L501.5425, L500.2500 #### [facility] [address] [place], [address] Creatinine [Mass/Vol] 0.79 mg/dL Normal 0.55-1.02 [facility] Comment on above: Order Comment: 1 Y Result Comment: The validity of the calculated GFR GFRAA in patients over 70 years has not been determined. Clinical correlation is essential. Performed By: #### L 100.0100, L501.5425, L500.2500 #### [facility] [address] [place], [address] ECRCL 206.71 ml/min Normal [facility] Comment on above: Order Comment: 1 Y Performed By: #### L 100.0100, L501.5425, L500.2500 #### [facility] [address] [place], [address] EST GFR - AA 113 mL/min Normal >60 [facility] Comment on above: Order Comment: 1 Y Result Comment: Afri can [place] GFR Calc Performed By: #### L 100.0100, L501.5425, L500.2500 #### [facility] [address] [place], [address] GAP 3 Low 5-15 [facility] Comment on above: Order Comment: 1 Y Performed By: #### L 100.0100, L501.5425, L500.2500 #### [facility] [address] [place], [address] GFR/1.73 sq M.predicted among non-blacks MDRD (S/P/Bld) [Vol rate/Area] 93 mL/min/{1.73_m2} Normal >60 [facility] Comment on above: Order Comment: 1 Y Result Comment: Non- GFR Calc Performed By: #### L 100.0100, L501.5425, L500.2500 #### [facility] [address] [place], [address] Glucose [Mass/Vol] 105 mg/dL Normal 74-106 [facility] Comment on above: Order Comment: 1 Y Result Comment: Fast ing Glucose result from 100 to 125 mg/dL suggests IMPAIRED HOMEOSTASIS per A.D.A. criteria. Performed By: #### L 100.0100, L501.5425, L500.2500 #### [facility] [address] [place], [address] Potassium [Moles/Vol] 3.8 mmol/L Normal 3.5-5.1 [facility] Comment on above: Order Comment: 1 Y Performed By: #### L 100.0100, L501.5425, L500.2500 #### [facility] [address] [place], [address] Sodium [Moles/Vol] 141 mmol/L Normal 136-145 [facility] Comment on above: Order Comment: 1 Y Performed By: #### L 100.0100, L501.5425, L500.2500 #### [facility] [address] [place], [address] Urea nitrogen [Mass/Vol] 12 mg/dL Normal 7-18 [facility] Comment on above: Order Comment: 1 Y Performed By: #### L 100.0100, L501.5425, L500.2500 #### [facility] [address] [place], [address] CBC W/Diff, Automatedon 09-2 Absolute Lymph 2.91 X10 3/uL Normal 0.83-4.51 [facility] Comment on above: Performed By: #### L 100.0100, L501.5425, L500.2500 #### [facility] [address] [place], [address] Absolute Neut 6.4 X10 3/uL Normal 2.0-7.7 [facility] Comment on above: Performed By: #### L 100.0100, L501.5425, L500.2500 #### [facility] [address] [place], [address] Basophils/100 WBC (Bld) 0.6 % Normal 0-1 [facility] Comment on above: Performed By: #### L 100.0100, L501.5425, L500.2500 #### [facility] [address] [place], [address] Eosinophils/100 WBC (Bld) 1.8 % Normal 0-5 [facility] Comment on above: Performed By: #### L 100.0100, L501.5425, L500.2500 #### [facility] [address] [place], [address] Erythrocyte distribution width (RBC) [Ratio] 13.4 % Normal 11.6-14.6 [facility] Comment on above: Performed By: #### L 100.0100, L501.5425, L500.2500 #### [facility] [address] [place], [address] Hematocrit (Bld) [Volume fraction] 40.0 % Normal 37-47 [facility] Comment on above: Performed By: #### L 100.0100, L501.5425, L500.2500 #### [facility] [address] [place], [address] Hemoglobin (Bld) [Mass/Vol] 12.3 g/dL Normal 12.0-15.0 [facility] Comment on above: Performed By: #### L 100.0100, L501.5425, L500.2500 #### [facility] [address] [place], [address] IG% 0.600 Normal 0.0-0.9 [facility] Comment on above: Result Comment: IG% - Immature Granulocytes (promyelocytes, myelocytes and metamyelocytes) > 1% indicates that a LEFT SHIFT is Present. Performed By: #### L 100.0100, L501.5425, L500.2500 #### [facility] [address] [place], [address] Lymphocytes/100 WBC (Bld) 28.3 % Normal 19-41 [facility] Comment on above: Performed By: #### L 100.0100, L501.5425, L500.2500 #### [facility] [address] [place], [address] MCH (RBC) [Entitic mass] 27.1 pg Normal 27.0-32.0 [facility] Comment on above: Performed By: #### L 100.0100, L501.5425, L500.2500 #### [facility] [address] [place], [address] MCHC (RBC) [Mass/Vol] 30.8 g/dL Low 32-36 [facility] Comment on above: Performed By: #### L 100.0100, L501.5425, L500.2500 #### [facility] [address] [place], [address] MCV (RBC) [Entitic vol] 88.1 fL Normal 81-99 [facility] Comment on above: Performed By: #### L 100.0100, L501.5425, L500.2500 #### [facility] [address] [place], [address] Monocytes/100 WBC (Bld) 6.8 % Normal 0-10 [facility] Comment on above: Performed By: #### L 100.0100, L501.5425, L500.2500 #### [facility] [address] [place], [address] Neutrophils/100 WBC (Bld) 61.9 % Normal 47-70 [facility] Comment on above: Performed By: #### L 100.0100, L501.5425, L500.2500 #### [facility] [address] [place], [address] Nucleated RBC (Bld) [#/Vol] 0 10*3/uL Normal 0-5 [facility] Comment on above: Performed By: #### L 100.0100, L501.5425, L500.2500 #### [facility] [address] [place], [address] Platelet mean volume (Bld) [Entitic vol] 9.9 fL Normal 6.2-12.0 [facility] Comment on above: Performed By: #### L 100.0100, L501.5425, L500.2500 #### [facility] [address] [place], [address] Platelets (Bld) [#/Vol] 283 10*3/uL Normal 150-450 [facility] Comment on above: Performed By: #### L 100.0100, L501.5425, L500.2500 #### [facility] [address] [place], [address] RBC (Bld) [#/Vol] 4.54 10*6/uL Normal 4.2-5.4 [facility] Comment on above: Performed By: #### L 100.0100, L501.5425, L500.2500 #### [facility] [address] [place], [address] RDW SD 43.4 fl Normal 35.1-43.9 [facility] Comment on above: Performed By: #### L 100.0100, L501.5425, L500.2500 #### [facility] [address] [place], [address] WBC (Bld) [#/Vol] 10.3 10*3/uL Normal 4.4-11.0 [facility] Comment on above: Performed By: #### L 100.0100, L501.5425, L500.2500 #### [facility] [address] [place], [address] Chest 1 View (Portable)on Chest 1 View (Portable) [facility] Imaging Services [address] [place] [address] Chest 1 View (Portable) MR#: [id number] Acct: [id number] Name: DEJAH ADORNO Rep #: [id number] : 1995 F 28 From: Iain Nicolas MD PCP: Dr. Hal Fowler MD Status: REG ER Study: Chest 1 View (Portable) Date of Exam: 05/10/24 Exam# [id number] Ordering Dr: Salvatore Haynes DO [id number] INDICATION: CP EXAMINATION/TECHNIQUE: X-RAY - XR Chest 1 View COMPARISON: 07/02/2023 chest radiograph. Findings: Single frontal view of the chest. LUNG PARENCHYMA: No acute focal airspace disease or mass lesion. PLEURA: No pleural effusion. No pneumothorax. HEART/GREAT VESSELS: Cardiomediastinal silhouette is unremarkable. BONES: Osseous structures are unremarkable for age. RAD/Chest 1 View (Portable) IMPRESSION: Chest with no acute disease. Electronically Signed: Iain Nicolas MD at 6:08 EDT , CC: Dr. Hal Fowler MD; Dr. Salvatore Haynes DO Propeller Inspector: Signed Normal [facility] Emergency Department Summary on 05-10-2024 Emergency Department Summary [facility] Medical Records Department [address] [place] [address] Emergency Department Summary 05/10/24 MR#: [id number] Acct: [id number] Name: DEJAH ADORNO Rep #: [id number] : 1995 28 From: Salvatore Haynes DO PCP: Dr. Hal Fowler MD Status:REG ER Location: ED HPI History of Present Illness Chief Complaint: Chest Pain Narrative Narrative: Patient is a 28-year-old female with a BMI of 76.3 who presents to the emergency department with a chief complaint of chest pain. States that she woke up out of the middle of a sleep when she noted that she had chest pain and some shortness of breath. Patient states that she has had this happen in the past just not this bad which prompted her here this morning for further evaluation management. Patient denies any recent travel history denies any history of blood clots. Patient states that she felt her normal self prior to going to bed last night. 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 Home Medications ???Medication ???Instructions ???Recorded ???Last Taken ???Type NK 05/10/24 Unknown History Allergy/AdvReac Type Severity Reaction Status Date / Time doxycycline Allergy Severe Angioedema Verified 05/10/24 04:48 metronidazole (From Flagyl) Allergy Severe Angioedema Verified 05/10/24 04:48 Surgical History Hx of tonsillectomy Social History Smoking Status: Former smoker ROS ROS ED ROS Narrative Constitutional: Denies fevers, chills, headaches Eyes: Denies changes double vision blurry vision Cardiovascular: Complains of chest pain as noted above denies palpitations Respiratory: Denies coughing wheezing Abdomen: Denies abdominal pain nausea vomit diarrhea : Denies any urinary symptoms Neurological: Denies numbness, weakness, tingling Musculoskeletal: Complains of some back discomfort Skin: Denies rashes or lesions EXAM Physical Exam Narrative Exam Narrative: General: Patient was lying in bed rest comfortably did not appear to be in any acute distress Head: Atraumatic, normocephalic Eyes: PERRL bilateral, EOMI bilateral, no conjunctival injection noted Neck: Soft, supple, trachea midline Cardiovascular: Regular rate and rhythm no murmurs gallops rubs noted Respiratory: Clear to auscultation bilaterally no rales rhonchi or wheezes noted Abdomen: Soft, nondistended, no tenderness palpation, bowel sounds present x 4 Extremities: +5/5 strength noted in the bilateral upper and lower extremities Neurological: Patient following commands knew that she is at [facility] year is 2023 Skin: Warm, dry, tact Const Vital Signs: 05/10/24 04:44 05/10/24 04:51 Temperature 97.9 F Temperature Source Oral Pulse Rate 91 Respiratory Rate 18 Blood Pressure 128/74 H Blood Pressure Mean 92 Pulse Ox 99 Oxygen Delivery Method Room Air Room Air MDM MDM MDM Narrative Medical decision making narrative: Patient is a 28-year-old female who presents to the emerged part the chief complaint of chest pain. Patient will have workup performed here on the differential diagnose includes ACS, musculoskeletal strain, anxiety, panic attack. Once workup is obtained reviewed she will be reevaluated Patient's CBC reviewed and showed no evidence of leukocytosis white blood count normal at 10.3, hemoglobin stable 12.3, platelet count normal at 283. Patient's sodium normal at 141, potassium normal 3.8, creatinine normal at 0.79. Patient's troponin normal at 5, EKG reviewed and independently interpreted by myself which showed sinus rhythm with a rate of 84 bpm. Patient's chest x-ray was reviewed by myself and by radiology which showed no acute cardiopulmonary processes. Patient's Gage score was noted to be low risk. I did discuss the results with the patient she states that she would like to go home at this point time. She was advised to follow-up with her primary care physician outpatient setting. She advised to return with worsening symptoms or other concerns. Patient is agreeable to plan all question concerns answered she is discharged home in stable condition. Lab Data Labs: Laboratory Results - last 24 hr 05/10/24 05:04 WBC 10.3 RBC 4.54 Hgb 12.3 Hct 40.0 MCV 88.1 MCH 27.1 MCHC 30.8 L RDW Std Deviation 43.4 RDW Coeff of Kourtney 13.4 Plt Count 283 MPV 9.9 Immature Gran % (Auto) 0.600 Neut % (Auto) 61.9 Lymph % (Auto) 28.3 [place] % (Auto) 6.8 Eos % (Auto) 1.8 Baso % (Auto) 0.6 Absolute Neuts (auto) 6.4 Absolute Lymphs (auto) 2.91 Nucleated RBC % 0 Sodium 141 Potassium 3.8 Chloride 108 H Carbon Dioxi (more content not included)... Normal [facility] L501.5425on 05-10-2024 TROPONIN-I HS 5 pg/mL Normal 3.0-54.0 [facility] Comment on above: Order Comment: 1 Y Result Comment: Rosa martínez Note: New Test Units and Gender Specific Reference Ranges. For more information see Policy Stat Procedure [facility] High Sensitivity Troponin (TNIH) and attachments. Performed By: #### L 100.0100, L501.5425, L500.2500 #### [facility] Laboratory [address] [place], [address] [facility] DON Telephone (TOREY) DEJAH ADORNO ([id number]) 1995 F Date Time Provider Department 05/08/24 ANABELLA HASKINS During your visit today, we recorded the following information about you: Anabella Haskins APRN.JONO 05/08/2024 7:53 AM Signed Since there are now RBC in urine sample we can repeat this in a month. Please let patient know Jordy Villalpando RN 05/08/2024 9:28 AM Signed Call placed to patient and notified. Patient verbalizes understanding. Jordy Villalpando RN Allergies As of Date: 05/08/2024 Noted Allergy Reaction DOXYCYCLINE 12/13/2023 10 - Anaphylaxis FLAGYL (METRONIDAZOLE) 12/13/2023 10 - Anaphylaxis Date Reviewed: 05/07/2024 Reviewed by: Funmi Conde LPN - Fully Assessed Primary Visit Diagnosis:Microscopic hematuria [R31.29] Order(s):URINALYSIS, WITH MICROSCOPIC [SQUAWMIC] Order #: [id number] FUTURE Prescriptions as of 05/08/2024 - omeprazole (PRILOSEC) 40 mg capsule Take 1 capsule by mouth once daily. - medroxyPROGESTERone (PROVERA) 10 mg tablet Take 1 tablet by mouth once daily. - BORIC ACID 600 MG VAGINAL SUPPOSITORY Use 1 Suppository vaginally once daily. Unwrap and insert as directed. - ondansetron orally disintegrating (ZOFRAN ODT) 4 mg disintegrating tablet Take 1 tablet by mouth every 6 hours as needed for nausea/vomiting. - albuterol HFA (VENTOLIN HFA) 90 mcg/actuation inhaler Inhale 2 Puffs as instructed every 4 hours as needed for wheezing/shortness of breath. Problem List As Of Date 05/08/2024 Noted Resolved Papilledema [H47.10] 03/09/2011 BMI 60.0-69.9, adult (HCC) [Z68.44] 03/09/2011 Migraine without aura and without status migrai*07/10/2019 Unspecified hearing loss, bilateral [H91.93] 07/10/2019 Obesity, Class III, BMI >= 40 [E66.01] 01/14/2021 12/17/2021 Vitamin D deficiency [E55.9] 12/21/2021 Encounter Status:Closed by [facility]PANDO [facility] ([id number]) 1995 F Date Time Provider Department 05/08/24 [facility] During your visit today, we recorded the following information about you: Marilyn Pichardo LPN 05/08/2024 3:01 PM Signed ----- Message from Anabella Haskins APRN.ENDOCRINOLOGY NURSE sent at 05/08/2024 2:03 PM EDT ----- US still shows some enlargement but some smaller. No further imaging is needed at this time. Anabella Podlogar, RESCUE INSTRUCTOR.Marilyn Calzada LPN 05/08/2024 3:01 PM Signed Left a message for pt to call the office and ask to speak to a nurse. JOSIE Olsen Stephanie, RN 05/08/2024 3:30 PM Signed Patient notified of results and provider's instructions. Patient verbalizes understanding. Karen Maddox RN Allergies As of Date: 05/08/2024 Noted Allergy Reaction DOXYCYCLINE 12/13/2023 10 - Anaphylaxis FLAGYL (METRONIDAZOLE) 12/13/2023 10 - Anaphylaxis Date Reviewed: 05/07/2024 Reviewed by: Funmi Conde LPN - Fully Assessed Reason for Visit: Results [95] Prescriptions as of 05/08/2024 - omeprazole (PRILOSEC) 40 mg capsule Take 1 capsule by mouth once daily. - medroxyPROGESTERone (PROVERA) 10 mg tablet Take 1 tablet by mouth once daily. - BORIC ACID 600 MG VAGINAL SUPPOSITORY Use 1 Suppository vaginally once daily. Unwrap and insert as directed. - ondansetron orally disintegrating (ZOFRAN ODT) 4 mg disintegrating tablet Take 1 tablet by mouth every 6 hours as needed for nausea/vomiting. - albuterol HFA (VENTOLIN HFA) 90 mcg/actuation inhaler Inhale 2 Puffs as instructed every 4 hours as needed for wheezing/shortness of breath. Problem List As Of Date 05/08/2024 Noted Resolved Papilledema [H47.10] 03/09/2011 BMI 60.0-69.9, adult (HCC) [Z68.44] 03/09/2011 Migraine without aura and without status migrai*07/10/2019 Unspecified hearing loss, bilateral [H91.93] 07/10/2019 Obesity, Class III, BMI >= 40 [E66.01] 01/14/2021 12/17/2021 Vitamin D deficiency [E55.9] 12/21/2021 Encounter Status:Closed by KAREN MADDOX on 05/08/24 Normal [facility] US ABD SPLEENon 05-08-2024 US ABD SPLEEN * * *Final Report* * * DATE OF EXAM: May 08 2024 7:23AM WRU 1039 - US ABD SPLEEN / PROCEDURE REASON: History of splenomegaly * * * * Physician Interpretation * * * * EXAMINATION: SPLENIC ULTRASOUND HISTORY: Splenomegaly. TECHNIQUE: Sonography of the spleen was performed. Images were obtained and stored in a permanent archive. M: USS_1 COMPARISON: Ultrasound spleen on 01/15/2024 RESULT: Limitations: Body habitus. Spleen measurements: 14.1 x 6.8 x 13 cm Lesions: None Left Kidney: Within normal limits. IMPRESSION: Splenomegaly. Propeller Inspector: PSCB Transcribe Date/Time: May 08 2024 8:52A Dictated by : WILFREDO JOY MD This examination was interpreted and the report reviewed and electronically signed by: WILFREDO JOY MD on May 08 2024 8:54AM EST [id number] Normal [facility] US Spleenon 05-08-2024 IMPRESSION: Splenomegaly. Propeller Inspector: PSCB Transcribe Date/Time: May 08 2024 8:52A Dictated by : WILFREDO JOY MD This examination was interpreted and the report reviewed and electronically signed by: WILFREDO JOY MD on May 08 2024 8:54AM EST DIVISION OF RADIOLOGY * * *Final Report* * * DATE OF EXAM: May 08 2024 7:23AM WRU 1039 - US ABD SPLEEN / PROCEDURE REASON: History of splenomegaly * * * * Physician Interpretation * * * * EXAMINATION: SPLENIC ULTRASOUND HISTORY: Splenomegaly. TECHNIQUE: Sonography of the spleen was performed. Images were obtained and stored in a permanent archive. M: USS_1 COMPARISON: Ultrasound spleen on 01/15/2024 RESULT: Limitations: Body habitus. Spleen measurements: 14.1 x 6.8 x 13 cm Lesions: None Left Kidney: Within normal limits. DIVISION OF RADIOLOGY Provider, [facility] - 05/08/2024 * * *Final Report* * * DATE OF EXAM: May 08 2024 7:23AM WRU 1039 - US ABD SPLEEN / PROCEDURE REASON: History of splenomegaly * * * * Physician Interpretation * * * * EXAMINATION: SPLENIC ULTRASOUND HISTORY: Splenomegaly. TECHNIQUE: Sonography of the spleen was performed. Images were obtained and stored in a permanent archive. M: USS_1 COMPARISON: Ultrasound spleen on 01/15/2024 RESULT: Limitations: Body habitus. Spleen measurements: 14.1 x 6.8 x 13 cm Lesions: None Left Kidney: Within normal limits. IMPRESSION IMPRESSION: Splenomegaly. Propeller Inspector: MAC Transcribe Date/Time: May 08 2024 8:52A Dictated by : WILFREDO JOY MD This examination was interpreted and the report reviewed and electronically signed by: WILFREDO JOY MD on May 08 2024 8:54AM EST [facility] Radiology Study observation (narrative) [facility] US SpleenOrdered By: Ccf Pro vider on 05-08-2024 [facility] CNOVon 05-07-2024 CNOV Office Visit (DILIPWS ) DEJAH ADORNO ([id number]) 1995 F Date Time Provider Department 05/07/24 8:20 AM ANABELLA HASKINS During your visit today, we recorded the following information about you: Pulse Respiration Blood pressure Weight 77/minute 18/minute 124/88 212.6 kg Anabella Haskins APRN.JONO 05/07/2024 9:13 AM Signed 05/07/2024 Patient presents with: Follow Up: Enlarged spleen, is having some cramping to the area that comes and goes x3 days SUBJECTIVE: This is a 28 year old that is here today for Above Complaints. Since Monday has had some intermittent left upper quadrant cramping which as times can wrap around to her left flank area. No aggravating features. Took some stool softeners. Believes her left upper quadrat has a little swelling in comparison to her right. Admits to some fatigue and looser stools but reports stools always run a little lose. Denies weight loss, fevers, chills, nausea, vomiting, melana, hematochezia, constipation, dysuria, urinary urgency/frequency or hematuria Latest Ref Rng 05/07/2024 GLUCOSE UA (POCT) Negative mg/dL Negative BILIRUBIN UA (POCT) Negative Negative KETONE UA (POCT) Negative mg/dL Negative SPECIFIC GRAVITY UA (POCT) 1.005 - 1.030 1.025 HEMOGLOBIN/BLOOD UA (POCT) Negative Large ! PH UA (POCT) 4.5 - 8.0 6.0 PROTEIN UA (POCT) Negative mg/dL Negative UROBILINOGEN UA (POCT) Normal E.U./dL 0.2 NITRITE UA (POCT) Negative Negative LEUKOCYTES UA (POCT) Negative Trace ! COLOR UA (POCT) Dark yellow CLARITY UA (POCT) Clear Legend: ! 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 Vitamin D deficiency 12/21/2021 ALLERGIES Doxycycline and Flagyl [Metronidazole] MEDICATIONS Current Outpatient Medications Medication Sig omeprazole (PRILOSEC) 40 mg capsule Take 1 capsule by mouth once daily. (Patient not taking: Reported on 12/20/2023) medroxyPROGESTERone (PROVERA) 10 mg tablet Take 1 tablet by mouth once daily. BORIC ACID 600 MG VAGINAL SUPPOSITORY Use 1 Suppository vaginally once daily. Unwrap and insert as directed. (Patient not taking: Reported on 12/20/2023) ondansetron orally disintegrating (ZOFRAN ODT) 4 mg disintegrating tablet Take 1 tablet by mouth every 6 hours as needed for nausea/vomiting. (Patient not taking: Reported on 12/20/2023) albuterol HFA (VENTOLIN HFA) 90 mcg/actuation inhaler Inhale 2 Puffs as instructed every 4 hours as needed for wheezing/shortness of breath. No current facility-administered medications for this visit. Medications and allergies reviewed by this provider. SOCIAL HISTORY Social History Tobacco Use Smoking status: Former Current packs/day: 0.00 Types: Cigarettes Quit date: 01/18/2018 Years since quittin.3 Smokeless tobacco: Never Tobacco comments: . step mom and sibling smokes outside Vaping Use Vaping status: Never Used Substance Use Topics Alcohol use: Not Currently Drug use: Not Currently Types: Marijuana REVIEW OF SYSTEMS All other reviewed and negative other than HPI. OBJECTIVE: BP 124/88 Pulse 77 Resp 18 Wt (!) 212.6 kg (468 lb 11.2 oz) LMP 09/14/2022 (Approximate) SpO2 96% BMI 75.65 kg/m? . Vital signs reviewed by this provider. APPEARANCE Well appearing, alert, in no acute distress, well-hydrated, well nourished. and Morbidly obese EYES PERRLA, conjunctiva and sclera normal. HEART RRR with normal S1 and S2, no murmurs, no gallops, no JVD appreciated LUNG clear to auscultation. No wheezes, rhonchi or rales ABDOMEN bowel sounds normoactive, no bruits, soft, non-tender, non-distended, without organomegaly or palpable masses- difficulty exam due to body habitus. No rebound tenderness or guarding BACK: No CVA tenderness SKIN Skin color, texture, turgor normal, no suspicious rashes or lesions to exposed skin Depression Screening Never done Anxiety Screening Never done DTaP,Tdap,Td Vaccine(7 - Td or Tdap) due on 12/03/2019 Cervical Cancer Screening due on 03/09/2024 Covid-19 Vaccine(2023- season) due on 04/14/2024 Influenza Vaccine(1) due on 04/14/2024 Hepatitis B Vaccine Completed HPV Vaccine Completed Hepatitis C Screening Completed HIV Screening Completed ASSESSMENT/PLAN: 1. LUQ cramping - ICD9: 789.02, ICD10: R10.12 (primary diagnosis) - no red flag symptoms or exam findings - red flag symptoms discussed, verbalizes understanding - would recommend OTC pain relievers as directed on packaging, may also use heat for 15 minutes at a ti (more content not included)... [facility]POC)on 2023 BILIRUBIN UA (POCT) Negative Negative [facility] CLARITY UA (POCT) Clear [facility] COLOR UA (POCT) Dark yellow [facility] GLUCOSE UA (POCT) Negative Negative mg/dL [facility] Hemoglobin Ql (U) Large Abnormal Negative [facility] Interpretation and review of laboratory results Abnormal [facility] KETONE UA (POCT) Negative Negative mg/dL [facility] LEUKOCYTES UA (POCT) Trace Abnormal Negative [facility] NITRITE UA (POCT) Negative Negative [facility] PH UA (POCT) 6.0 4.5 - 8.0 [facility] Protein Ql (U) Negative Negative mg/dL [facility] SPECIFIC GRAVITY UA (POCT) 1.025 1.005 - 1.030 [facility] UROBILINOGEN UA (POCT) 0.2 Brittnee l E.U./dL [facility] Location:[facility], [address] [place] [address], [place], [place], [address] [place] [address] POINT OF CARE [facility] Urinalysis complete panel (U )on 05-07-2024 Bacteria LM.HPF (Urine sed) [#/Area] Negative Normal Negative [facility] Comment on above: Order Comment: Speci men Type: URINE SPECIMENOrdering Facility: [facility] Address: [address] [place] [address] Performed By: #### 2 4356-8 ####[facility] [id number] [place] [address] [place] Bilirubin Ql (U) Negative Normal Negative [facility] Comment on above: Order Comment: Speci men Type: URINE SPECIMENOrdering Facility: [facility] Address: [address] [place] [address] Performed By: #### 2 4356-8 ####[facility] [id number] [place] [address] [place] Clarity (Unsp spec) Clear Normal Clear [facility] Comment on above: Order Comment: Speci men Type: URINE SPECIMENOrdering Facility: [facility] Address: [address] [place] [address] Performed By: #### 2 4356-8 ####[facility] [id number] [place] [address] [place] Color (U) Yellow Normal Yellow [facility] Comment on above: Order Comment: Speci men Type: URINE SPECIMENOrdering Facility: [facility] Address: [address] [place] [address] Performed By: #### 2 4356-8 ####[facility]CL[facility] [id number] [place] [address] [place] Epithelial cells LM.HPF (Urine sed) [#/Area] Moderate Normal [facility] Comment on above: Order Comment: Speci men Type: URINE SPECIMENOrdering Facility: [facility] Address: [address] [place] [address] Performed By: #### 2 4356-8 ####[facility]CL[facility] [id number] [place] [address] [place] Glucose Test strip (U) [Mass/Vol] Negative Normal Negative [facility] Comment on above: Order Comment: Speci men Type: URINE SPECIMENOrdering Facility: [facility] Address: [address] [place] [address] Performed By: #### 2 4356-8 ####[facility]CL[facility] [id number] [place] [address] [place] Hemoglobin Ql (U) 2+ Abnormal Negative [facility] Comment on above: Order Comment: Speci men Type: URINE SPECIMENOrdering Facility: [facility] Address: [address] [place] [address] Performed By: #### 2 4356-8 ####[facility]CL[facility] [id number] [place] [address] [place] Hyaline casts (Urine sed) [#/Area] 0 /[LPF] Normal 0 /LPF [facility] Comment on above: Order Comment: Speci men Type: URINE SPECIMENOrdering Facility: [facility] Address: [address] [place] [address] Performed By: #### 2 4356-8 ####[facility] [id number] [place] [address] [place] Ketones Ql (U) Negative Normal Negative [facility] Comment on above: Order Comment: Speci men Type: URINE SPECIMENOrdering Facility: [facility] Address: [address] [place] [address] Performed By: #### 2 4356-8 ####[facility] [id number] [place] [address] [place] Leukocyte esterase Test strip Ql (U) Negative Normal Negative [facility] Comment on above: Order Comment: Speci men Type: URINE SPECIMENOrdering Facility: [facility] Address: [address] [place] [address] Performed By: #### 2 4356-8 ####[facility] [id number] [place] [address] [place] Nitrite Ql (U) Negative Normal Negative [facility] Comment on above: Order Comment: Speci men Type: URINE SPECIMENOrdering Facility: [facility] Address: [address] [place] [address] Performed By: #### 2 4356-8 ####[facility] [id number] [place] [address] [place] pH (U) 6.0 [pH] Normal <8.5 [facility] Comment on above: Order Comment: Speci men Type: URINE SPECIMENOrdering Facility: [facility] Address: [address] [place] [address] Performed By: #### 2 4356-8 ####[facility] [id number] [place] [address] [place] Protein (U) [Mass/Vol] Negative Normal Negative [facility] Comment on above: Order Comment: Speci men Type: URINE SPECIMENOrdering Facility: [facility] Address: [address] [place] [address] Performed By: #### 2 4356-8 ####[facility] [id number] [place] [address] [place] RBC LM.HPF (Urine sed) [#/Area] 0-2 /HPF Normal 0-2 /HPF [facility] Comment on above: Order Comment: Speci men Type: URINE SPECIMENOrdering Facility: [facility] Address: [address] [place] [address] Performed By: #### 2 4356-8 ####[facility] [id number] [place] [address] [place] Specific gravity (U) [Rel density] 1.020 Normal 1.005-1.030 [facility] Comment on above: Order Comment: Speci men Type: URINE SPECIMENOrdering Facility: [facility] Address: [address] [place] [address] Performed By: #### 2 4356-8 ####[facility] [id number] [place] [address] [place] Urobilinogen Ql (U) 0.2 EU/dL Normal 0.2-1.0 EU/dL [facility] Comment on above: Order Comment: Speci men Type: URINE SPECIMENOrdering Facility: [facility] Address: [address] [place] [address] Performed By: #### 2 4356-8 ####[facility] [id number] [place] [address] [place] WBC LM.HPF (Urine sed) [#/Area] 0-5 /HPF Normal 0-5 /HPF [facility] Comment on above: Order Comment: Speci men Type: URINE SPECIMENOrdering Facility: [facility] Address: [address] [place] [address] Performed By: #### 2 4356-8 ####[facility] [id number] [place] [address] [place] [address] HEAD OR BRAIN W/O CONTRAS Ton 03-05-2024 CT HEAD OR BRAIN W/O CONTRAST ORIGINAL EXAMINATION: CT OF THE HEAD WITHOUT CONTRAST 03/05/2024 3:32 pm TECHNIQUE: CT of the head was performed without the administration of intravenous contrast. Automated exposure control, iterative reconstruction, and/or weight based adjustment of the mA/kV was utilized to reduce the radiation dose to as low as reasonably achievable. COMPARISON: None available HISTORY: ORDERING SYSTEM PROVIDED HISTORY: Reason for Exam: pain/headache FINDINGS: Examination is compromised by patient body habitus. Agency Operator (topogram) images: Unremarkable BRAIN/VENTRICLES: No evidence of acute hemorrhage, mass effect or midline shift. Huffman-white matter differentiation is well maintained. No evidence of intra-axial mass lesion or extra-axial fluid collection. The ventricular system and basal cisterns are patent and normal in morphology. ORBITS: The visualized portions of the orbits demonstrate no acute abnormality. SINUSES: The paranasal sinuses and mastoid air cells are unremarkable. SOFT TISSUE/SKULL: No acute abnormality of the visualized skull or soft tissues. IMPRESSION: No acute intracranial hemorrhage, hydrocephalus, or mass effect. I have personally reviewed the images of this examination and agree with the resident's findings and interpretation. Interpreted by: Janet Bravo MD Preliminary Report By: Thierry Nagy Electronically signed By Janet Bravo MD Dictated Date: 03/05/2024 3:42:00 PM Prelim Date: 03/05/2024 3:52:21 PM Sign Date: 03/05/2024 3:52:21 PM Ordering Provider: RISHI ASHBY [facility] ([place]) XR Chest PA and Lateralon IMPRESSION: Unremarkable exam with no acute radiographic abnormality. Propeller Inspector: PSCB Transcribe Date/Time: Jan 20 2024 7:11P Dictated by : JAMES BAIN MD This examination was interpreted and the report reviewed and electronically signed by: JAMES BAIN MD on Jan 20 2024 7:12PM [facility] DIVISION OF RADIOLOGY * * *Final Report* * * DATE OF EXAM: Jan 20 2024 8:23AM WOX 5291 - XR CHEST 2V FRONTAL/LAT / PROCEDURE REASON: Splenomegaly * * * * Physician Interpretation * * * * EXAMINATION: CHEST RADIOGRAPH (2 VIEW FRONTAL & LATERAL) CLINICAL HISTORY: Splenomegaly MQ: XC2_6 EXAM DATE/TIME: 01/20/2024 8:23 AM COMPARISON: No relevant prior studies available. RESULT: Lines, tubes, and devices: None. Lungs and pleura: No consolidation. No lung mass. No pleural effusion. No pneumothorax. Cardiomediastinal silhouette: Normal cardiomediastinal silhouette. Bones and soft tissues: Unremarkable. DIVISION OF RADIOLOGY Provider, [facility] - 01/20/2024 * * *Final Report* * * DATE OF EXAM: Jan 20 2024 8:23AM WOX 5291 - XR CHEST 2V FRONTAL/LAT / PROCEDURE REASON: Splenomegaly * * * * Physician Interpretation * * * * EXAMINATION: CHEST RADIOGRAPH (2 VIEW FRONTAL & LATERAL) CLINICAL HISTORY: Splenomegaly MQ: XC2_6 EXAM DATE/TIME: 01/20/2024 8:23 AM COMPARISON: No relevant prior studies available. RESULT: Lines, tubes, and devices: None. Lungs and pleura: No consolidation. No lung mass. No pleural effusion. No pneumothorax. Cardiomediastinal silhouette: Normal cardiomediastinal silhouette. Bones and soft tissues: Unremarkable. IMPRESSION IMPRESSION: Unremarkable exam with no acute radiographic abnormality. Propeller Inspector: MAC Transcribe Date/Time: Jan 20 2024 7:11P Dictated by : JAMES BAIN MD This examination was interpreted and the report reviewed and electronically signed by: JAMES BAIN MD on Jan 20 2024 7:12PM EST [facility] Radiology Study observation (narrative) [facility] XR Chest PA and LateralOrder ed By: [facility] Provider on 01-20-2024 [facility] US Spleenon 01-16-2024 IMPRESSION: Overall stable mild splenomegaly. Propeller Inspector: [facility] Transcribe Date/Time: Jan 16 2024 10:05A Dictated by : JIA HARTLEY MD This examination was interpreted and the report reviewed and electronically signed by: JIA HARTLEY MD on Jan 16 2024 10:07AM EST DIVISION OF RADIOLOGY * * *Final Report* * * DATE OF EXAM: Jan 15 2024 8:38AM U 1039 - US ABD SPLEEN / PROCEDURE REASON: Splenomegaly * * * * Physician Interpretation * * * * EXAMINATION: SPLENIC ULTRASOUND HISTORY: Splenomegaly TECHNIQUE: Sonography of the spleen was performed. Images were obtained and stored in a permanent archive and interpreted remotely. M: USS_1 COMPARISON: None RESULT: Spleen measurements: 5.5 x 15.5 x 14.6 cm Craniocaudal length: 14.6 cm, previously 14.2 cm Lesions: None Left Kidney: Measures approximately 15 cm in craniocaudad dimension. Normal cortical echogenicity. No hydronephrosis. DIVISION OF RADIOLOGY Provider, [facility] - 01/16/2024 * * *Final Report* * * DATE OF EXAM: Jan 15 2024 8:38AM U 1039 - US ABD SPLEEN / PROCEDURE REASON: Splenomegaly * * * * Physician Interpretation * * * * EXAMINATION: SPLENIC ULTRASOUND HISTORY: Splenomegaly TECHNIQUE: Sonography of the spleen was performed. Images were obtained and stored in a permanent archive and interpreted remotely. M: USS_1 COMPARISON: None RESULT: Spleen measurements: 5.5 x 15.5 x 14.6 cm Craniocaudal length: 14.6 cm, previously 14.2 cm Lesions: None Left Kidney: Measures approximately 15 cm in craniocaudad dimension. Normal cortical echogenicity. No hydronephrosis. IMPRESSION IMPRESSION: Overall stable mild splenomegaly. Propeller Inspector: MAC Transcribe Date/Time: Jan 16 2024 10:05A Dictated by : JIA HARTLEY MD This examination was interpreted and the report reviewed and electronically signed by: JIA HARTLEY MD on Jan 16 2024 10:07AM EST [facility] US SpleenOrdered By: [facility] Pro vider on 01-16-2024 [facility] US Spleenon 01-15-2024 [facility]narrative[facility] Emergency Department Summary on 12-18-2023 Emergency Department Summary [facility] Medical Records Department [address] [place] [address] Emergency Department Summary 12/18/23 MR#: [id number] Acct: [id number] Name: DEJAH ADORNO Rep #: [id number] : 1995 28 From: Maurizio Cates DO PCP: Dr. Hal Fowler MD Status:DEP ER Location: ED HPI HPI - URI History of Present Illness Chief Complaint: Sore Throat Informant: patient Onset/Context/Timing Onset: Weeks (2) Context: Gradual Onset Timing: Waxes and wanes Quality: Swollen Location: Throat Worsened by: Eating Solids Relieved by: - (Nothing) Associated Symptoms Associated Symptoms: Positive for Headache, Nausea, Vomiting, Diarrhea, Shortness of Breath and Nonproductive cough; Negative for Nasal Congestion, Sinus Pressure, Myalgias, Chest Pain, Hemoptysis or Productive Cough Narrative Narrative: Patient presents with a sore throat that has been getting worse over the past 2 weeks. Patient states it has been waxing and waning. Patient states her throat feels swollen. Patient states it is worse with eating. Patient admits to some nausea, vomiting, and diarrhea. Patient states she has been worked up by her primary care physician for that. Patient admits to some shortness of breath. Patient admits to a cough but denies any sputum production. Patient also admits to a mild headache. ROS ROS ED Constitutional Constitutional ED: Denies chills or fever(s) Eyes Eyes: Denies blurry vision or change in vision ENT ENT ED: Reports sore throat; Denies rhinorrhea Cardiovascular Cardiovascular: Denies chest pain or palpitations Respiratory/Chest Respiratory/Chest: Reports dyspnea; Denies cough Gastrointestinal Gastrointestinal: Reports diarrhea, nausea and vomiting Genitourinary Genitourinary ED: Denies dysuria or hematuria Musculoskeletal Musculoskeletal: Reports back pain; Denies neck pain Integumentary Denies abscess or rash Neurologic Neurologic: Reports headache(s); Denies weakness Allergic/Immunologic Allergic/Immunologic ED: Denies mouth swelling or urticaria 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 Home Medications clindamycin phosphate 2 % vaginal cream 1 appful vaginal QHS 07/02/23 [History Last Taken Unknown] meclizine 25 mg tablet 25 mg PO Q8H PRN PRN Dizziness #20 tabs 07/02/23 [Rx Last Taken Unknown] ondansetron 4 mg disintegrating tablet 4 mg PO TID PRN nausea and vomiting #21 tabs 10/05/23 [Rx Last Taken Unknown] prednisone 20 mg tablet 40 mg (2 x 20 mg) PO DAILY 5 days #10 tabs 10/05/23 [Rx Last Taken Unknown] prednisone 20 mg tablet 40 mg (2 x 20 mg) PO DAILY 7 days #14 tabs 10/06/23 [Rx Last Taken Unknown] Allergy/AdvReac Type Severity Reaction Status Date / Time doxycycline Allergy Severe Angioedema Verified 12/18/23 22:01 metronidazole [From Flagyl] Allergy Severe Angioedema Verified 12/18/23 22:01 Surgical History Hx of tonsillectomy Social History Smoking Status: Never smoker EXAM Physical Exam Const Vital Signs: 12/18/23 21:59 Temperature 98 F Temperature Source Temporal Pulse Rate 95 Respiratory Rate 16 Blood Pressure 168/99 H Blood Pressure Mean 122 Pulse Ox 99 Oxygen Delivery Method Room Air Positive well nourished, well developed and obese General Appearance ED: well developed and NAD Nutritional Appearance: obese HEENT Reports moist mucous membranes HEENT Narrative: Oropharynx is mildly erythematous. There is some postnasal drainage noted. There are no exudates noted. Neck is supple. Trachea is midline. There is no JVD. Throat: posterior oropharynx abnormal Positive for cobblestoning and erythema; Negative for exudates Neck supple, no meningeal signs and no JVD General: lymphadenopathy anterior cervical Resp normal respiratory effort and clear to auscultation bilaterally Cardio Rate: regular rate Rhythm: regular rhythm Neuro oriented x3, CN's II-XII intact bilaterally and no sensory deficits noted Sensorium / Orientation: alert Motor Exam: strength 5/5 throughout Psych mental status grossly normal MDM MDM MDM Narrative Medical decision making narrative: Differential diagnosis includes strep pharyngitis, viral pharyngitis, viral upper respiratory infection, and seasonal allergies. Rapid strep will be obtained to assess for strep pharyngitis. COVID-19, influenza, and RSV PCR will be obtained to assess for viral upper respiratory infection. Lab Data Lab results narrative: COVID-19 PCR was reviewed and was negative. Influenza PCR was reviewed and was negative for influenza A and influenza B. RSV PCR was reviewed and was negative. Rapid strep was reviewed and w (more content not included)... Normal [facility] - Microbiology an d Antimicrobial susceptibilityOrdered By: Maurizio Cates on 12-18-2023 SARS-CoV-2 (COVID-19) RNA TAYO+probe Ql (Unsp spec) [facility] M100.677on 12-18-2023 M100.677 Negative Normal [facility] Comment on above: Performed By: #### M 100.677 #### [facility] [address] [place], [address] M100.678on 12-18-2023 M100.678 SARS-CoV-2 (COVID 19 ) Negative INFLUENZA A Negative INFLUENZA B Negative RSV PCR Negative Normal [facility] Comment on above: Performed By: #### M 100.678 #### [facility] [address] [place], [address] No Panel Informationon 12-17 [facility] H. pylori Ag IA Ql (Stl)Orde red By: Maria Ines Zazueta on 12-16-2023 Interpretation and review of laboratory results Normal [facility] Microorganism or agent identified Nom (Unsp spec) Negative Negative for H. Pylori antigen by EIA [facility] C-REACTIVE PROTEINon 024 CRP [Mass/Vol] 2.0 mg/dL High NINF - 0.9 mg/dL [facility] CBC W Auto Differential pane l (Bld)on 12-13-2023 Basophils (Bld) [#/Vol] 0.05 10*3/uL [facility] Basophils/100 WBC (Bld) 0.6 % C [facility] Differential cell count method Nom (Bld) Auto [facility] Eosinophils (Bld) [#/Vol] 0.17 10*3/uL [facility] Eosinophils/100 WBC (Bld) 1.9 % [facility] Erythrocyte distribution width (RBC) [Ratio] 13.2 % 11.5 - 15.0 % [facility] Hematocrit (Bld) [Volume fraction] 40.2 % 36.0 - 46.0 % [facility] Hemoglobin (Bld) [Mass/Vol] 12.8 g/dL 11.5 - 15.5 g/dL [facility] Immature granulocytes (Bld) [#/Vol] BANNERF [facility] Immature granulocytes/100 WBC (Bld) 0.2 % [facility] Lymphocytes (Bld) [#/Vol] 2.38 10*3/uL [facility] Lymphocytes/100 WBC (Bld) 26.8 % [facility] MCH (RBC) [Entitic mass] 27.2 pg 26. 0 - 34.0 pg [facility] MCHC (RBC) [Mass/Vol] 31.8 g/dL 30.5 - 36.0 g/dL [facility] MCV (RBC) [Entitic vol] 85.5 fL 80.0 - 100.0 fL [facility] Monocytes (Bld) [#/Vol] 0.45 10*3/uL [facility] Monocytes/100 WBC (Bld) 5.1 % [facility] Neutrophils (Bld) [#/Vol] 5.81 10*3/uL [facility] Neutrophils/100 WBC (Bld) 65.4 % [facility] Nucleated RBC (Bld) [#/Vol] [facility] Nucleated RBC/100 WBC (Bld) [Ratio] 0.0 % /100 WBC [facility] Platelet mean volume (Bld) [Entitic vol] 10.4 fL 9.0 - 12.7 fL [facility] Platelets (Bld) [#/Vol] 293 10*3/uL [facility] RBC (Bld) [#/Vol] 4.70 10*6/uL 3.90 - 5.2 0 m/uL [facility] WBC (Bld) [#/Vol] 8.88 10*3/uL [facility] Comprehensive metabolic 2000 panelOrdered By: Brianne Kam on 12-13-2023 Albumin [Mass/Vol] 4.2 g/dL 3.9 - 4.9 g/dL [facility] ALP [Catalytic activity/Vol] 103 U/L 34 - 123 U/L [facility] ALT [Catalytic activity/Vol] 21 U/L 7 - 38 U/L [facility] Anion gap [Moles/Vol] 4 mmol/L Low 9 - 18 mmol/L [facility] AST [Catalytic activity/Vol] 15 U/L 13 - 35 U/L [facility] Bilirubin [Mass/Vol] 0.3 mg/dL 0.2 - 1 .3 mg/dL [facility] Calcium [Mass/Vol] 9.7 mg/dL 8.5 - 10. 2 mg/dL [facility] Chloride [Moles/Vol] 107 mmol/L High 97 - 10 5 mmol/L [facility] CO2 [Moles/Vol] 28 mmol/L 22 - 30 mmol/L [facility] Creatinine [Mass/Vol] 0.79 mg/dL 0.58 - 0.96 mg/dL [facility] GFR/1.73 sq M.predicted among non-blacks MDRD (S/P/Bld) [Vol rate/Area] 106 mL/min/{1.73_m2} - PINF [facility] Comment on above: Estimated Glomerular Filtration Rate (eGFR) is calculated using the 2020 CKD-EPI creatinine equation. This equation utilizes serum creatinine, sex, and age as parameters. The creatinine assay has traceable calibration to isotope dilution-mass spectrometry. Refer to KDIGO guidelines for clinical interpretation. In patients with unstable renal function, e.g. those with acute kidney injury, the eGFR may not accurately reflect actual GFR. Glucose [Mass/Vol] 100 mg/dL High 74 - 99 mg/dL [facility] Comment on above: The [place] Diab[employer] Association (ADA) provides guidance for cutoff values for fasting glucose and random glucose. The ADA defines fasting as no caloric intake for at least 8 hours. Fasting plasma glucose results between 100 to 125 mg/dL indicate increased risk for diabetes (prediabetes). Fasting plasma glucose results greater than or equal to 126 mg/dL meet the criteria for diagnosis of diabetes. In the absence of unequivocal hyperglycemia, results should be confirmed by repeat testing. In a patient with classic symptoms of hyperglycemia or hyperglycemic crisis, random plasma glucose results greater than or equal to 200 mg/dL meet the criteria for diagnosis of diabetes. Reference: Standards of Medical Care in Diabetes 2016, [place] [employer]. Diabetes Care. 2016.39(Suppl 1). Interpretation and review of laboratory results Abnormal [facility] Potassium [Moles/Vol] 4.4 mmol/L 3.7 - 5.1 mmol/L [facility] Protein [Mass/Vol] 7.6 g/dL 6.3 - 8.0 g/dL [facility] Sodium [Moles/Vol] 139 mmol/L 136 - 144 mmol/L [facility] Urea nitrogen [Mass/Vol] 13 mg/dL 7 - 21 mg/d L [facility] ESR Westergren method (Bld) [Velocity]on 12-13-2023 ESR (Bld) [Velocity] 35 mm/h High [facility] Interpretation and review of laboratory results Abnormal [facility] LIPASEon 12-13-2023 Lipase [Catalytic activity/Vol] 14 U/L Low 16 - 61 U/L [facility] No Panel Informationon 12-12 Interpretation and review of laboratory results Abnormal [facility] IMPRESSION: Findings are suggestive of hepatic steatosis or diffuse liver parenchymal disease. Splenomegaly. Propeller Inspector: MAC Transcribe Date/Time: Dec 13 2023 10:32A Dictated by : WILFREDO JOY MD This examination was interpreted and the report reviewed and electronically signed by: WILFREDO JOY MD on Dec 13 2023 10:39AM [facility] DIVISION OF RADIOLOGY Radiology Study observation (narrative) [facility] No Panel InformationOrdered By: [facility] Provider on 12-13-2023 [facility] UA DIP, URINE (POC)on 2023 BILIRUBIN UA (POCT) Negative Negative [facility] CLARITY UA (POCT) Clear [facility] COLOR UA (POCT) Yellow [facility] GLUCOSE UA (POCT) Negative Negative mg/dL [facility] Hemoglobin Ql (U) Negative Negative [facility] KETONE UA (POCT) Negative Negative mg/dL [facility] LEUKOCYTES UA (POCT) Negative Negative [facility] NITRITE UA (POCT) Negative Negative [facility] PH UA (POCT) 6.0 4.5 - 8.0 [facility] Protein Ql (U) Negative Negative mg/dL [facility] SPECIFIC GRAVITY UA (POCT) >=1.030 1.005 - 1.030 [facility] UROBILINOGEN UA (POCT) 0.2 Brittnee l E.U./dL [facility] Location:[address], [place], [address] [facility] POINT OF CARE [facility] UA DIP,URINE HCG (POC)on Beta HCG ( test) Ql (U) Negative Negative [facility] Comment on above: [facility] [address] [place] [address], [address] Software Technician (POCT) Internal QC [place] [facility] Location:[facility], [address], [place], [address] [facility] POINT OF CARE [facility] US ABD SPLEEN - NBon 024 * * *Final Report* * * DATE OF EXAM: Dec 13 2023 10:26AM U 1232 - US ABD SPLEEN -NB / PROCEDURE REASON: multiple diagnoses * * * * Physician Interpretation * * * * EXAM TITLE: US ABD RIGHT UPPER QUADRANT, US ABD SPLEEN -NB HISTORY: Right upper quadrant abdominal pain. TECHNIQUE: Sonography of the right upper quadrant and spleen was performed. Images were obtained and stored in a permanent archive. MQ: URUQ_1 COMPARISON: None. RESULT: Limitations: Body habitus and bowel gas. Pancreas: Normal sonographic appearance in the visualized portions. Portions obscured: tail Liver: Echotexture: Grossly homogeneous Echogenicity: Increase in echogenicity and decrease in penetration Surface contour: Smooth Lesions: None. Biliary: No intrahepatic biliary duct dilation. CBD: 4 mm in diameter. Gallbladder: Normal caliber -Contents: No cholelithiasis -Wall: 2 mm in thickness -Other: Negative sonographic Pardo's sign. Kidneys: Within normal limits, measuring 11.3 cm in length of the right kidney and 14.2 cm in length of the left kidney. Spleen: Splenomegaly is demonstrated measuring 14.2 x 13.3 x 5.2 cm. No mass lesion seen. DIVISION OF RADIOLOGY Provider, [facility] - 12/13/2023 * * *Final Report* * * DATE OF EXAM: Dec 13 2023 10:26AM U 1232 - US ABD SPLEEN -NB / PROCEDURE REASON: multiple diagnoses * * * * Physician Interpretation * * * * EXAM TITLE: US ABD RIGHT UPPER QUADRANT, US ABD SPLEEN -NB HISTORY: Right upper quadrant abdominal pain. TECHNIQUE: Sonography of the right upper quadrant and spleen was performed. Images were obtained and stored in a permanent archive. MQ: URUQ_1 COMPARISON: None. RESULT: Limitations: Body habitus and bowel gas. Pancreas: Normal sonographic appearance in the visualized portions. Portions obscured: tail Liver: Echotexture: Grossly homogeneous Echogenicity: Increase in echogenicity and decrease in penetration Surface contour: Smooth Lesions: None. Biliary: No intrahepatic biliary duct dilation. CBD: 4 mm in diameter. Gallbladder: Normal caliber -Contents: No cholelithiasis -Wall: 2 mm in thickness -Other: Negative sonographic Pardo's sign. Kidneys: Within normal limits, measuring 11.3 cm in length of the right kidney and 14.2 cm in length of the left kidney. Spleen: Splenomegaly is demonstrated measuring 14.2 x 13.3 x 5.2 cm. No mass lesion seen. IMPRESSION IMPRESSION: Findings are suggestive of hepatic steatosis or diffuse liver parenchymal disease. Splenomegaly. Propeller Inspector: MAC Transcribe Date/Time: Dec 13 2023 10:32A Dictated by : WILFREDO JOY MD This examination was interpreted and the report reviewed and electronically signed by: WILFREDO JOY MD on Dec 13 2023 10:39AM [facility] US Abdomen RUQon 12-13-2023 * * *Final Report* * * DATE OF EXAM: Dec 13 2023 10:26AM U 1032 - US ABD RIGHT UPPER QUADRANT / PROCEDURE REASON: multiple diagnoses * * * * Physician Interpretation * * * * EXAM TITLE: US ABD RIGHT UPPER QUADRANT, US ABD SPLEEN -NB HISTORY: Right upper quadrant abdominal pain. TECHNIQUE: Sonography of the right upper quadrant and spleen was performed. Images were obtained and stored in a permanent archive. MQ: URUQ_1 COMPARISON: None. RESULT: Limitations: Body habitus and bowel gas. Pancreas: Normal sonographic appearance in the visualized portions. Portions obscured: tail Liver: Echotexture: Grossly homogeneous Echogenicity: Increase in echogenicity and decrease in penetration Surface contour: Smooth Lesions: None. Biliary: No intrahepatic biliary duct dilation. CBD: 4 mm in diameter. Gallbladder: Normal caliber -Contents: No cholelithiasis -Wall: 2 mm in thickness -Other: Negative sonographic Pardo's sign. Kidneys: Within normal limits, measuring 11.3 cm in length of the right kidney and 14.2 cm in length of the left kidney. Spleen: Splenomegaly is demonstrated measuring 14.2 x 13.3 x 5.2 cm. No mass lesion seen. DIVISION OF RADIOLOGY Provider, [facility] - 12/13/2023 * * *Final Report* * * DATE OF EXAM: Dec 13 2023 10:26AM [facility] 1032 - US ABD RIGHT UPPER QUADRANT / PROCEDURE REASON: multiple diagnoses * * * * Physician Interpretation * * * * EXAM TITLE: US ABD RIGHT UPPER QUADRANT, US ABD SPLEEN -NB HISTORY: Right upper quadrant abdominal pain. TECHNIQUE: Sonography of the right upper quadrant and spleen was performed. Images were obtained and stored in a permanent archive. MQ: [id number] COMPARISON: None. RESULT: Limitations: Body habitus and bowel gas. Pancreas: Normal sonographic appearance in the visualized portions. Portions obscured: tail Liver: Echotexture: Grossly homogeneous Echogenicity: Increase in echogenicity and decrease in penetration Surface contour: Smooth Lesions: None. Biliary: No intrahepatic biliary duct dilation. CBD: 4 mm in diameter. Gallbladder: Normal caliber -Contents: No cholelithiasis -Wall: 2 mm in thickness -Other: Negative sonographic Pardo's sign. Kidneys: Within normal limits, measuring 11.3 cm in length of the right kidney and 14.2 cm in length of the left kidney. Spleen: Splenomegaly is demonstrated measuring 14.2 x 13.3 x 5.2 cm. No mass lesion seen. IMPRESSION IMPRESSION: Findings are suggestive of hepatic steatosis or diffuse liver parenchymal disease. Splenomegaly. Propeller Inspector: MAC Transcribe Date/Time: Dec 13 2023 10:32A Dictated by : WILFREDO JOY MD This examination was interpreted and the report reviewed and electronically signed by: WILFREDO JOY MD on Dec 13 2023 10:39AM [facility] Urgent Care Visit Reporton 0 11-13-2023 Urgent Care Visit Report [facility] [address], [address] [place] [address] OFFICE VISIT Date of Service: 11/13/23 MR#: [id number] Acct: [id number] Name: DEJAH ADORNO Rep #: [id number] : 1995 Provider: AVIS Correia Age/Sex: 28/F Location: [facility] Status: Signed Intake Vital Signs 10/06/23 08:30 Height 5 ft 6 in Intake Visit Reasons: PE NON DOT PHYSICAL/[place] Allergies doxycycline Allergy (Severe, Verified 10/05/23 05:54) Angioedema metronidazole [From Flagyl] Allergy (Severe, Verified 10/05/23 05:54) Angioedema PFSH Medical History (Updated 11/13/23 @ 13:16 by Mata ALBARRAN PA) Physical exam, pre-employment Surgical History Hx of tonsillectomy Social History Smoking Status: Never smoker HPI HPI Details: DEJAH ADORNO, is a 28 F who presents to the office today for Office Procedures Physical Exam Coding PE Coding Pre-employment PE: Yes Coding Level of Care Code No Charge Diagnoses Physical exam, pre-employment Z02.1 Assessment and Plan Assessment and Plan (1) Physical exam, pre-employment: Status: Acute 11/13/23 1321 Date Mata ALBARRAN PA Cosigner Signature: Date (if applicable) CC: Normal [facility] Absolute lymphocyte countOrd ered By: Raudel Parikh on 07-02-2023 Lymphocytes Auto (Unsp spec) [#/Vol] 3.30 10*3/uL 0.83-4.51 [facility] Basophil percentageOrdered B y: Raudelkade Parikh on 07-02-2023 Basophils/100 WBC (Bld) 0.5 % 0-1 [facility] Chloride [Moles/Vol] 105 mmol/L 98-107 [facility] Eosinophils/100 WBC (Bld) 1.7 % 0-5 [facility] Glucose [Mass/Vol] 96 mg/dL 74-106 [facility] Neutrophils (Bld) [#/Vol] 7.8 10*3/uL 2.0-7.7 [facility] Neutrophils/100 WBC (Bld) 63.9 % 47-70 [facility] Potassium [Moles/Vol] 4.0 mmol/L 3.5-5.1 [facility] Sodium [Moles/Vol] 139 mmol/L 136-145 [facility] WBC (Bld) [#/Vol] 12.2 10*3/uL 4.4-11.0 [facility] Blood erythrocytes count (nu mber/volume)Ordered By: Raudel Parikh on 07-02-2023 RBC (Bld) [#/Vol] 4.63 10*6/uL 4.2-5.4 [facility] Blood hemoglobin measurement (mass/volume)Ordered By: Raudel Parikh on 07-02-2023 Hemoglobin (Bld) [Mass/Vol] 12.8 g/dL 12.0-15.0 [facility] Blood lymphocytes/100 leukoc ytesOrdered By: Raudel Parikh on 07-02-2023 Lymphocytes/100 WBC (Bld) 27.0 % 19-41 [facility] Blood monocytes/100 leukocyt esOrdered By: Raudel Parikh on 07-02-2023 Monocytes/100 WBC (Bld) 6.5 % 0-10 [facility] Blood platelet mean volumeOr dered By: Raudel Parikh on 07-02-2023 Platelet mean volume (Bld) [Entitic vol] 10.2 fL 6.2-12.0 [facility] Determination of erythrocyte mean corpuscular volume (MCV)Ordered By: Raudel Parikh on 07-02-2023 MCV (RBC) [Entitic vol] 87.9 fL 81-99 [facility] Hematocrit Auto (Bld) [Volum e fraction]Ordered By: Raudel Parikh on 07-02-2023 Hematocrit (Bld) [Volume fraction] 40.7 % 37-47 [facility] Laboratory - Chemistry and C hemistry - challengeOrdered By: Raudel Parikh on 07-02-2023 CO2 [Moles/Vol] 29.0 mmol/L 21.0-32.0 [facility] Urea nitrogen/Creatinine [Mass ratio] 12.5 mg/mg 10-20 [facility] Laboratory - Hematology and Cell countsOrdered By: Raudel Parikh on 07-02-2023 Erythrocyte distribution width (RBC) [Entitic vol] 42.4 fL 35.1-43.9 [facility] Erythrocyte distribution width (RBC) [Ratio] 13.3 % 11.6-14.6 [facility] Immature granulocytes/100 WBC (Bld) 0.400 % 0.0-0.9 [facility] Comment on above: IG% - Immature Granu locytes (promyelocytes, myelocytes and metamyelocytes) > 1% indicates that a LEFT SHIFT is Present. MCH (RBC) [Entitic mass] 27.6 pg 27.0-32.0 [facility] Nucleated RBC/100 WBC (Bld) [Ratio] 0 % 0-5 [facility] MCHC Auto (RBC) [Mass/Vol]Or dered By: Raudel Parikh on 07-02-2023 MCHC (RBC) [Mass/Vol] 31.4 g/dL 32-36 [facility] No Panel InformationOrdered By: Raudel Parikh on 07-02-2023 D-Dimer Quantitative (PE/DVT) 0.31 FEU/ug/m 0.27-0.49 [facility] Comment on above: NORMAL D-Dimer level (<0.50) indicates no DVT or PE. Estimated GFR (MDRD) Amer 112 mL/min >60 [facility] Comment on above: GFR Calc Estimated GFR (MDRD) Non-Af Amer 93 mL/min >60 [facility] Comment on above: Non- GFR Calc Troponin I High Sensitivity 6 pg/mL 3.0-54.0 [facility] Comment on above: Please Note: New Ena t Units and Gender Specific Reference Ranges. For more information see Policy Stat Procedure [facility] High Sensitivity Troponin (TNIH) and attachments. Platelets bldOrdered By: Cony Parikh on 07-02-2023 Platelets (Bld) [#/Vol] 314 10*3/uL 150-450 [facility] Serum or plasma calcium christine urement (mass/volume)Ordered By: Raudel Parikh on 07-02-2023 Calcium [Mass/Vol] 8.9 mg/dL 8.5-10.1 [facility] Serum or plasma creatinine m easurement (mass/volume)Ordered By: Raudel Parikh on 07-02-2023 Creatinine [Mass/Vol] 0.80 mg/dL 0.55-1.02 [facility] Comment on above: The validity of the calculated GFR & GFRAA in patients over 70 years has not been determined. Clinical correlation is essential. Serum or plasma urea nitroge n measurement (mass/volume)Ordered By: Raudel Parikh on 07-02-2023 Urea nitrogen [Mass/Vol] 10 mg/dL -18 [facility] Thin prep Papanicolaou smear with manual screeningOrdered By: Raudel Parikh on 07-02-2023 Thin prep Papanicolaou smear with manual screening 12 16- [facility] HCG QUAL UR B/Oon 03-31-2023 status Negative neg - pos [facility] Quality Check Yes [facility] Influenza virus A and B RNA and SARS-CoV-2 (COVID-19) N gene panel TAYO+probe (Resp)on 11-25-2022 FLUAV RNA TAYO+probe Ql (Unsp spec) Not detected Not Detected [facility] FLUBV RNA TAYO+probe Ql (Unsp spec) Not detected Not Detected [facility] SARS-CoV-2 (COVID-19) RNA TAYO+probe Ql (Resp) Not detected See comment [facility] STREP A MOLECULAR (POC)on Procedural Control Valid [facility] Strep A (POCT) Negative Negative [facility] Influenza virus A and B RNA and SARS-CoV-2 (COVID-19) N gene panel TAYO+probe (Resp)on 08-11-2022 FLUAV RNA TAYO+probe Ql (Unsp spec) Negative Negative for Influenza A by RT-PCR [facility] FLUBV RNA TAYO+probe Ql (Unsp spec) Negative Negative for Influenza B by RT-PCR [facility] SARS-CoV-2 (COVID-19) RNA TAYO+probe Ql (Resp) SARS-CoV-2 (Agent of COVID-19) Not Detected by RT-PCR or equivalent method. Not Detected [facility] UA DIP, URINE (POC)on 2021 BILIRUBIN UA (POCT) Negative Negative [facility] CLARITY UA (POCT) Clear [facility] COLOR UA (POCT) Yellow [facility] GLUCOSE UA (POCT) Negative Negative mg/dL [facility] HEMOGLOBIN/BLOOD UA (POCT) Negative Negative [facility] KETONE UA (POCT) Negative Negative mg/dL [facility] LEUKOCYTES UA (POCT) Trace Abnormal Negative [facility] NITRITE UA (POCT) Negative [facility] PH UA (POCT) 5.5 4.5 - 8.0 [facility] Protein Ql (U) Negative Negative mg/dL [facility] SPECIFIC GRAVITY UA (POCT) 1.025 1.005 - 1.030 [facility] UROBILINOGEN UA (POCT) 0.2 E.U./dL Brittnee l E.U./dL [facility] STREP A MOLECULAR (POC)on Procedural Control Valid [facility] Strep A (POCT) Negative Negative [facility] XR KNEE GENERAL 4V AP BOTH/P A BOTH/LAT/MERC RIGHTon 12-06-2021 [facility] XR Knee - right 4 Viewson IMPRESSION: Unremarkable study Propeller Inspector: MAC Transcribe Date/Time: Dec 06 2021 8:22A Dictated by : JONATAN STOVALL MD This examination was interpreted and the report reviewed and electronically signed by: JONATAN STOVALL MD on Dec 06 2021 8:27AM EST [id number] SE_DIVISION OF RADIOLOGY * * *Final Report* * * DATE OF EXAM: Dec 06 2021 8:21AM WOX 5203 - XR KNEE 4V AP/PA BOTH+LAT/MIQUEL RT / PROCEDURE REASON: Acute pain of right knee * * * * Physician Interpretation * * * * HISTORY: Acute pain of right knee pain in right knee for a few days no inj anterior area TECHNIQUE: Upright AP and tunnel views and lateral and sunrise views of the right knee COMPARISON: 09/09/2020 RESULT: Bony and joint structures appear intact. No knee joint effusion is noted. [id number] SE_DIVISION OF RADIOLOGY Provider, [facility] - 12/06/2021 * * *Final Report* * * DATE OF EXAM: Dec 06 2021 8:21AM WOX 5203 - XR KNEE 4V AP/PA BOTH+LAT/MIQUEL RT / PROCEDURE REASON: Acute pain of right knee * * * * Physician Interpretation * * * * HISTORY: Acute pain of right knee pain in right knee for a few days no inj anterior area TECHNIQUE: Upright AP and tunnel views and lateral and sunrise views of the right knee COMPARISON: 09/09/2020 RESULT: Bony and joint structures appear intact. No knee joint effusion is noted. IMPRESSION IMPRESSION: Unremarkable study Propeller Inspector: [facility] Transcribe Date/Time: Dec 06 2021 8:22A Dictated by : JONATAN STOVALL MD This examination was interpreted and the report reviewed and electronically signed by: JONATAN STOVALL MD on Dec 06 2021 8:27AM EST [facility] Radiology Study observation (narrative) [facility] XR Knee - right 4 ViewsOrder ed By: Ccf Provider on 12-06-2021 [facility] XR Knee - left 4 Viewson IMPRESSION: No acute fracture identified. Relative widening of left knee lateral femorotibial compartment on PA flexion view. Patellae are laterally subluxed bilaterally. Propeller Inspector: [facility] Transcribe Date/Time: Sep 09 2020 8:44A Dictated by : Marjan MIRZA MD This examination was interpreted and the report reviewed and electronically signed by: Marjan MIRZA MD on Sep 09 2020 8:53AM EST DIVISION OF RADIOLOGY * * *Final Report* * * DATE OF EXAM: Sep 09 2020 8:25AM WOX 5202 - XR KNEE 4V AP/PA BOTH+LAT/MIQUEL LT / PROCEDURE REASON: Acute pain of left knee * * * * Physician Interpretation * * * * EXAM: XR KNEE 4V AP/PA BOTH+LAT/MIQUEL LT HISTORY: Acute pain of left knee. Anterior and posterior left knee pain, twisting injury x1 week ago. VIEWS: Bilateral weightbearing AP and PA flexion, bilateral merchant and left lateral. COMPARISON: No relevant comparison. FINDINGS: Suboptimal merchant views secondary to large body habitus/underexposure. Patellae are laterally subluxed bilaterally. There is right knee motion and relative widening of left knee lateral femorotibial compartment on PA flexion view. No acute fracture or left knee lipohemarthrosis indicated. DIVISION OF RADIOLOGY Provider, [facility] - 09/09/2020 * * *Final Report* * * DATE OF EXAM: Sep 09 2020 8:25AM WOX 5202 - XR KNEE 4V AP/PA BOTH+LAT/MIQUEL LT / PROCEDURE REASON: Acute pain of left knee * * * * Physician Interpretation * * * * EXAM: XR KNEE 4V AP/PA BOTH+LAT/MIQUEL LT HISTORY: Acute pain of left knee. Anterior and posterior left knee pain, twisting injury x1 week ago. VIEWS: Bilateral weightbearing AP and PA flexion, bilateral merchant and left lateral. COMPARISON: No relevant comparison. FINDINGS: Suboptimal merchant views secondary to large body habitus/underexposure. Patellae are laterally subluxed bilaterally. There is right knee motion and relative widening of left knee lateral femorotibial compartment on PA flexion view. No acute fracture or left knee lipohemarthrosis indicated. IMPRESSION IMPRESSION: No acute fracture identified. Relative widening of left knee lateral femorotibial compartment on PA flexion view. Patellae are laterally subluxed bilaterally. Propeller Inspector: MAC Transcribe Date/Time: Sep 09 2020 8:44A Dictated by : Marjan MIRZA MD This examination was interpreted and the report reviewed and electronically signed by: Marjan MIRZA MD on Sep 09 2020 8:53AM EST [facility] Radiology Study observation (narrative) [facility] X[facility] Knee - left 4 ViewsOrdere d By: Ccf Provider on 09-09-2020 [facility] Vital Signs Date Time Vital Sign Value Performing Clinician Danielle valencia 03-11-2025 13:24-0400 Body mass index (BMI) [Ratio] 74.05 kg/m2 Paradise Camanche RESCUE INSTRUCTOR.ENDOCRINOLOGY NURSE Work Phone: [facility] 03-11-2025 13:24-0400 Body weight 214.46 kg Paradise Peace RESCUE INSTRUCTOR.ENDOCRINOLOGY NURSE Work Phone: [facility] 03-11-2025 13:24-0400 Diastolic blood pressure 72 mm[Hg] Paradise Camanche RESCUE INSTRUCTOR.ENDOCRINOLOGY NURSE Work Phone: [facility] 03-11-2025 13:24-0400 Systolic blood pressure 126 mm[Hg] Paradise Peace RESCUE INSTRUCTOR.ENDOCRINOLOGY NURSE Work Phone: [facility] 01-13-2025 07:48-0400 Body mass index (BMI) [Ratio] 71.76 kg/m2 Jhonny Fowler MD Work Phone: [facility] 01-13-2025 07:48-0400 Body weight 207.84 kg Jhonny Fowler MD Work Phone: [facility] 01-13-2025 07:48-0400 Diastolic blood pressure 74 mm[Hg] Jhonny Fowler MD Work Phone: [facility] 01-13-2025 07:48-0400 Heart rate 71 /min Jhonny Fowler MD Work Phone: [facility] 01-13-2025 07:48-0400 Respiratory rate 18 /min Jhonny Fowler MD Work Phone: [facility] 01-13-2025 07:48-0400 SaO2% (BldA) [Mass fraction] 99 % Jhonny Fowler MD Work Phone: [facility] 01-13-2025 07:48-0400 Systolic blood pressure 128 mm[Hg] Jhonny Fowler MD Work Phone: [facility] 11-22-2024 07:54-0400 Body mass index (BMI) [Ratio] 74.58 kg/m2 Jhonny Fowler MD Work Phone: [facility] 11-22-2024 07:54-0400 Body weight 216 kg Jhonny Fowler MD Work Phone: [facility] 11-22-2024 07:54-0400 Diastolic blood pressure 76 mm[Hg] Jhonny Fowler MD Work Phone: [facility] 11-22-2024 07:54-0400 Heart rate 87 /min Jhonny Fowler MD Work Phone: [facility] 11-22-2024 07:54-0400 Respiratory rate 18 /min Jhonny Fowler MD Work Phone: [facility] 11-22-2024 07:54-0400 SaO2% (BldA) [Mass fraction] 98 % Jhonny Fowler MD Work Phone: 9(352)141-544286 [place] [address] 11-22-2024 07:54-0400 Systolic blood pressure 120 mm[Hg] Jhonyn Fowler MD Work Phone: 4(785)535-230186 [place] [address] 10-27-2024 03:57-0400 Body temperature 98.2 [degF] Dr. Hal Fowler MD Work Phone: 1(201)423-508351 [place] [address] 10-27-2024 03:57-0400 Diastolic blood pressure 83 mm[Hg] Dr. Hal Fowler MD Work Phone: 5(256)737-537451 [place] [address] 10-27-2024 03:57-0400 Heart rate 73 /min Dr. Hal Fowler MD Work Phone: 0(845)392-867251 [place] [address] 10-27-2024 03:57-0400 Respiratory rate 18 /min Dr. Hal Fowler MD Work Phone: 7(341)971-844251 [place] [address] 10-27-2024 03:57-0400 SaO2% (BldA) [Mass fraction] 99 % Dr. Hal Fowler MD Work Phone: 4(945)130-172027 [place] [address] 10-27-2024 03:57-0400 Systolic blood pressure 131 mm[Hg] Dr. Hal Fowler MD Work Phone: 6(118)200-956151 [place] [address] 10-27-2024 03:28-0400 Body height 167.[address] Hal Fowler MD Work Phone: 7(542)507-401851 [place] [address] 10-27-2024 03:28-0400 Body mass index (BMI) [Ratio] 77.6 kg/m2 Dr. Hal Fowler MD Work Phone: 5(955)474-307451 [place] [address] 10-27-2024 03:28-0400 Body weight 218.[address] Hal Fowler MD Work Phone: 1(395)730-246051 [place] [address] 09-27-2024 08:12-0500 Body height 170.2 cm Paradise Camanche RESCUE INSTRUCTORROBE Work Phone: 1(339)178-918486 [place] [address] 09-27-2024 08:12-0500 Body mass index (BMI) [Ratio] 75.02 kg/m2 Paradise Camanche RESCUE INSTRUCTOR.ENDOCRINOLOGY NURSE Work Phone: [facility] 09-27-2024 08:12-0500 Body weight 217.27 kg Paradise Peace RESCUE INSTRUCTOR.ENDOCRINOLOGY NURSE Work Phone: [facility] 09-27-2024 08:12-0500 Diastolic blood pressure 80 mm[Hg] Paradise Peace RESCUE INSTRUCTOR.ENDOCRINOLOGY NURSE Work Phone: [facility] 09-27-2024 08:12-0500 Systolic blood pressure 118 mm[Hg] Paradise Peace RESCUE INSTRUCTOR.ENDOCRINOLOGY NURSE Work Phone: [facility] 08-09-2024 07:59-0500 Body mass index (BMI) [Ratio] 77.31 kg/m2 Aria Suppan RESCUE INSTRUCTOR.ENDOCRINOLOGY NURSE Work Phone: [facility] 08-09-2024 07:59-0500 Body temperature 98.1 [degF] Aria Suppan RESCUE INSTRUCTOR.ENDOCRINOLOGY NURSE Work Phone: [facility] 08-09-2024 07:59-0500 Body weight 217.27 kg Aria Suppan RESCUE INSTRUCTOR.ENDOCRINOLOGY NURSE Work Phone: [facility] 08-09-2024 07:59-0500 Diastolic blood pressure 80 mm[Hg] Aria Suppan RESCUE INSTRUCTOR.ENDOCRINOLOGY NURSE Work Phone: [facility] 08-09-2024 07:59-0500 Heart rate 76 /min Aria Suppan RESCUE INSTRUCTOR.ENDOCRINOLOGY NURSE Work Phone: [facility] 08-09-2024 07:59-0500 Respiratory rate 16 /min Aria Suppan RESCUE INSTRUCTOR.ENDOCRINOLOGY NURSE Work Phone: [facility] 08-09-2024 07:59-0500 SaO2% (BldA) [Mass fraction] 97 % Aria Suppan RESCUE INSTRUCTOR.ENDOCRINOLOGY NURSE Work Phone: [facility] 08-09-2024 07:59-0500 Systolic blood pressure 128 mm[Hg] Aria Suppan RESCUE INSTRUCTOR.ENDOCRINOLOGY NURSE Work Phone: [facility] 05-07-2024 08:05-0400 Body mass index (BMI) [Ratio] 75.65 kg/m2 Anabella Podlogar RESCUE INSTRUCTOR.ENDOCRINOLOGY NURSE Work Phone: [facility] 05-07-2024 08:05-0400 Body weight 212.6 kg Anabella Podlogar RESCUE INSTRUCTOR.ENDOCRINOLOGY NURSE Work Phone: [facility] 05-07-2024 08:05-0400 Diastolic blood pressure 88 mm[Hg] Anabella Podlogar RESCUE INSTRUCTOR.ENDOCRINOLOGY NURSE Work Phone: [facility] 05-07-2024 08:05-0400 Heart rate 77 /min Anabella Podlogar RESCUE INSTRUCTOR.ENDOCRINOLOGY NURSE Work Phone: [facility] 05-07-2024 08:05-0400 Respiratory rate 18 /min Anabella Podlogar RESCUE INSTRUCTOR.ENDOCRINOLOGY NURSE Work Phone: [facility] 05-07-2024 08:05-0400 SaO2% (BldA) [Mass fraction] 96 % Anabella Podlogar RESCUE INSTRUCTOR.ENDOCRINOLOGY NURSE Work Phone: [facility] 05-07-2024 08:05-0400 Systolic blood pressure 124 mm[Hg] Anabella Podlogar RESCUE INSTRUCTOR.ENDOCRINOLOGY NURSE Work Phone: [facility] 03-05-2024 16:28-0400 Blood Pressure Location RISHI ASHBY MD [facility] 03-05-2024 16:28-0400 Blood Pressure Method RISHI ASHBY MD [facility] 03-05-2024 16:28-0400 Diastolic Blood Pressure Non-Invasive 68 mm[Hg] RISHI ASHBY MD [facility] 03-05-2024 16:28-0400 Heart rate 97 /min RISHI ASHBY MD [facility] 03-05-2024 16:28-0400 Respiratory rate 18 /min RISHI ASHBY MD [facility] 03-05-2024 16:28-0400 Systolic Blood Pressure Non-Invasive 130 mm[Hg] RISHI ASHBY MD [facility] 03-05-2024 14:59-0400 Blood Pressure Location RISHI ASHBY MD [facility] 03-05-2024 14:59-0400 Blood Pressure Method RISHI ASHBY MD [facility] 03-05-2024 14:59-0400 Body temperature 98.42 [degF] RISHI ASHBY MD [facility] 03-05-2024 14:59-0400 Diastolic Blood Pressure Non-Invasive 75 mm[Hg] RISHI ASHBY MD [facility] 03-05-2024 14:59-0400 Heart rate 104 /min RISHI ASHBY MD [facility] 03-05-2024 14:59-0400 Respiratory rate 18 /min RISHI ASHBY MD [facility] 03-05-2024 14:59-0400 Systolic Blood Pressure Non-Invasive 139 mm[Hg] RISHI ASHBY MD [facility] 01-16-2024 15:59-0400 Body height 167.6 cm Brooklyn Restrepo APRN.ENDOCRINOLOGY NURSE Work Phone: [facility] 01-16-2024 15:59-0400 Body mass index (BMI) [Ratio] 76.05 kg/m2 Brooklyn Restrepo APRN.ENDOCRINOLOGY NURSE Work Phone: [facility] 01-16-2024 15:59-0400 Body temperature 97.5 [degF] Brooklyn Matthew RESCUE INSTRUCTOR.ENDOCRINOLOGY NURSE Work Phone: [facility] 01-16-2024 15:59-0400 Body weight 213.74 kg Brooklyn Matthew RESCUE INSTRUCTOR.ENDOCRINOLOGY NURSE Work Phone: [facility] 01-16-2024 15:59-0400 Diastolic blood pressure 74 mm[Hg] Brooklyn Matthew RESCUE INSTRUCTOR.ENDOCRINOLOGY NURSE Work Phone: [facility] 01-16-2024 15:59-0400 Heart rate 103 /min Brooklyn Matthew RESCUE INSTRUCTOR.ENDOCRINOLOGY NURSE Work Phone: [facility] 01-16-2024 15:59-0400 SaO2% (BldA) [Mass fraction] 97 % Brooklyn Matthew RESCUE INSTRUCTOR.ENDOCRINOLOGY NURSE Work Phone: [facility] 01-16-2024 15:59-0400 Systolic blood pressure 120 mm[Hg] Brooklyn Matthew RESCUE INSTRUCTOR.ENDOCRINOLOGY NURSE Work Phone: [facility] [facility]2023 08:01-0400 Body mass index (BMI) [Ratio] 74.96 kg/m2 Riddhikade Brewerhof RESCUE INSTRUCTOR.ENDOCRINOLOGY NURSE Work Phone: [facility] 12-20-2023 08:01-0400 Body weight 210.65 kg Riddhi Daniellahof RESCUE INSTRUCTOR.ENDOCRINOLOGY NURSE Work Phone: [facility] 12-20-2023 08:01-0400 Diastolic blood pressure 80 mm[Hg] Riddhi Tannhof RESCUE INSTRUCTOR.ENDOCRINOLOGY NURSE Work Phone: [facility] 12-20-2023 08:01-0400 Heart rate 80 /min Riddhi Tannhof RESCUE INSTRUCTOR.ENDOCRINOLOGY NURSE Work Phone: [facility] 12-20-2023 08:01-0400 Respiratory rate 18 /min Riddhi Tannhof RESCUE INSTRUCTOR.ENDOCRINOLOGY NURSE Work Phone: [facility] 12-20-2023 08:01-0400 SaO2% (BldA) [Mass fraction] 98 % Riddhi Tannhof RESCUE INSTRUCTOR.ENDOCRINOLOGY NURSE Work Phone: [facility] 12-20-2023 08:01-0400 Systolic blood pressure 128 mm[Hg] Riddhi Alonso APRN.ENDOCRINOLOGY NURSE Work Phone: [facility] 12-19-2023 00:14-0400 Body temperature 98.1 [degF] Dr. Hal Fowler Work Phone: [facility] 12-19-2023 00:14-0400 Diastolic blood pressure 79 mm[Hg] Dr. Hal Fowler Work Phone: [facility] 12-19-2023 00:14-0400 Heart rate 82 /min Dr. Hal Fowler Work Phone: [facility] 12-19-2023 00:14-0400 Respiratory rate 16 /min Dr. Hal Fowler Work Phone: [facility] 12-19-2023 00:14-0400 SaO2% (BldA) [Mass fraction] 97 % Dr. Hal Fowler Work Phone: [facility] 12-19-2023 00:14-0400 Systolic blood pressure 133 mm[Hg] Dr. Hal Fowler Work Phone: [facility] 12-18-2023 21:59-0400 Body height 167.[address] Hal Fowler Work Phone: [facility] 12-18-2023 21:59-0400 Body mass index (BMI) [Ratio] 69.5 kg/m2 Dr. Hal Fowler Work Phone: [facility] 12-18-2023 21:59-0400 Body weight 195.[address] Hal Fowler Work Phone: [facility] 12-13-2023 08:44-0400 Diastolic blood pressure 80 mm[Hg] Jhonny Fowler MD Work Phone: [facility] 12-13-2023 08:44-0400 Heart rate 84 /min Jhonny Fowler MD Work Phone: [facility] 12-13-2023 08:44-0400 Respiratory rate 18 /min Jhonny Fowler MD Work Phone: [facility] 12-13-2023 08:44-0400 Systolic blood pressure 118 mm[Hg] Jhonny Fowler MD Work Phone: [facility] 10-06-2023 09:37-0500 Body temperature 98 [degF] [facility] 10-06-2023 09:37-0500 Diastolic blood pressure 74 mm[Hg] [facility] 10-06-2023 09:37-0500 Heart rate 91 /min [facility] 10-06-2023 09:37-0500 Respiratory rate 16 /min [facility] 10-06-2023 09:37-0500 SaO2% (BldA) [Mass fraction] 98 % [facility] 10-06-2023 09:37-0500 Systolic blood pressure 134 mm[Hg] [facility] 10-06-2023 08:30-0500 Body height 167.[address] [facility] 10-05-2023 09:06-0500 Body temperature 98.3 [degF] [facility] 10-05-2023 09:06-0500 Diastolic blood pressure 76 mm[Hg] [facility] 10-05-2023 09:06-0500 Heart rate 86 /min [facility] 10-05-2023 09:06-0500 Respiratory rate 18 /min [facility] 10-05-2023 09:06-0500 SaO2% (BldA) [Mass fraction] 99 % [facility] 10-05-2023 09:06-0500 Systolic blood pressure 121 mm[Hg] [facility] 10-05-2023 05:47-0500 Body height 167.[address] [facility] 10-05-2023 05:47-0500 Body mass index (BMI) [Ratio] 78 kg/m2 [facility] 10-05-2023 05:47-0500 Body weight 219.[address] [facility] 09-18-2023 10:03-0500 Diastolic blood pressure 88 mm[Hg] Yamilka Cristina MD Work Phone: [facility] 09-18-2023 10:03-0500 Heart rate 84 /min Yamilka Cristina MD Work Phone: [facility] 09-18-2023 10:03-0500 Systolic blood pressure 159 mm[Hg] Yamilka Cristina MD Work Phone: [facility] 09-18-2023 08:57-0500 Body height 167.6 cm Yamilka Cristina MD Work Phone: [facility] 09-18-2023 08:57-0500 Body weight 216 kg Yamilka Cristina MD Work Phone: [facility] 08-21-2023 22:45-[address] Cuff Size DR MICHELL GUERIN DO [facility] 08-21-2023 22:45-[address] MICHELL GUERIN DO [facility] 08-21-2023 22:45-[address] MICHELL GUERIN DO [facility] 08-21-2023 22:45-0500 Body height 167.[address] MICHELL GUERIN DO [facility] 08-21-2023 22:45-0500 Body temperature 98.24 [degF] DR MICHELL GUERIN DO [facility] 08-21-2023 22:45-0500 Body weight 204.[address] MICHELL GUERIN DO [facility] 08-21-2023 22:45-0500 Diastolic Blood Pressure Non-Invasive 92 mm[Hg] DR MICHELL GUERIN DO [facility] 08-21-2023 22:45-0500 Heart rate 67 /min DR MICHELL GUERIN DO [facility] 08-21-2023 22:45-0500 Reason For Taking VItal Signs DR MICHELL GUERIN DO [facility] 08-21-2023 22:45-0500 Respiratory rate 18 /min DR MICHELL GUERIN DO [facility] 08-21-2023 22:45-0500 Systolic Blood Pressure Non-Invasive 161 mm[Hg] DR MICHELL GUERIN DO [facility] 07-02-2023 21:39-0500 SaO2% (BldA) [Mass fraction] 98 % [facility] 07-02-2023 21:12-0500 Body height 167.[address] [facility] 07-02-2023 21:12-0500 Body temperature 98.9 [degF] [facility] 07-02-2023 21:12-0500 Diastolic blood pressure 95 mm[Hg] [facility] 07-02-2023 21:12-0500 Heart rate 107 /min [facility] 07-02-2023 21:12-0500 Respiratory rate 16 /min [facility] 07-02-2023 21:12-0500 Systolic blood pressure 172 mm[Hg] [facility] 06-30-2023 08:12-0500 Body weight 214.1 kg Aydee Simeon RESCUE INSTRUCTOR.CNM Work Phone: [facility] 06-30-2023 08:12-0500 Diastolic blood pressure 76 mm[Hg] Aydee Simeon RESCUE INSTRUCTOR.CNM Work Phone: [facility] 06-30-2023 08:12-0500 Systolic blood pressure 120 mm[Hg] Aydee Simeon RESCUE INSTRUCTOR.CNM Work Phone: [facility] 05-26-2023 11:04-0400 Body height 168.9 cm Paradise Pryorcalf RESCUE INSTRUCTOR.ENDOCRINOLOGY NURSE Work Phone: [facility] 05-26-2023 11:04-0400 Body weight 212.28 kg Paradise Peace RESCUE INSTRUCTOR.ENDOCRINOLOGY NURSE Work Phone: [facility] 05-26-2023 11:04-0400 Diastolic blood pressure 70 mm[Hg] Paradise Camanche RESCUE INSTRUCTOR.ENDOCRINOLOGY NURSE Work Phone: [facility] 05-26-2023 11:04-0400 Heart rate 94 /min Paradise Peace RESCUE INSTRUCTOR.ENDOCRINOLOGY NURSE Work Phone: [facility] 05-26-2023 11:04-0400 Respiratory rate 14 /min Paradise Peace RESCUE INSTRUCTOR.ENDOCRINOLOGY NURSE Work Phone: [facility] 05-26-2023 11:04-0400 SaO2% (BldA) [Mass fraction] 99 % Paradise Camanche RESCUE INSTRUCTOR.ENDOCRINOLOGY NURSE Work Phone: [facility] 05-26-2023 11:04-0400 Systolic blood pressure 118 mm[Hg] Paradise Peace RESCUE INSTRUCTOR.ENDOCRINOLOGY NURSE Work Phone: [facility] 05-04-2023 10:10-0400 Body weight 214.55 kg Paradise Camanche RESCUE INSTRUCTOR.ENDOCRINOLOGY NURSE Work Phone: [facility] 05-04-2023 10:10-0400 Diastolic blood pressure 80 mm[Hg] Paradise Camanche RESCUE INSTRUCTOR.ENDOCRINOLOGY NURSE Work Phone: [facility] 05-04-2023 10:10-0400 Systolic blood pressure 138 mm[Hg] Paradise Camanche RESCUE INSTRUCTOR.ENDOCRINOLOGY NURSE Work Phone: [facility] 03-31-2023 09:59-0400 Body weight 210.92 kg Munira Steven MD Work Phone: [facility] 03-31-2023 09:59-0400 Diastolic blood pressure 70 mm[Hg] Munira Steven MD Work Phone: [facility] 03-31-2023 09:59-0400 Systolic blood pressure 110 mm[Hg] Munira Steven MD Work Phone: [facility] 11-25-2022 10:14-0400 Body height 169.6 cm Anabella Podlogar RESCUE INSTRUCTOR.ENDOCRINOLOGY NURSE Work Phone: [facility] 11-25-2022 10:14-0400 Body temperature 98.29 [degF] Anabella Podlogar RESCUE INSTRUCTOR.ENDOCRINOLOGY NURSE Work Phone: [facility] 11-25-2022 10:140400 Body weight 212.65 kg Anabella Podlogar RESCUE INSTRUCTOR.ENDOCRINOLOGY NURSE Work Phone: [facility] 11-25-2022 10:14-0400 Diastolic blood pressure 74 mm[Hg] Anabella Podlogar RESCUE INSTRUCTOR.ENDOCRINOLOGY NURSE Work Phone: [facility] 11-25-2022 10:14-0400 Heart rate 86 /min Anabella Podlogar RESCUE INSTRUCTOR.ENDOCRINOLOGY NURSE Work Phone: [facility] 11-25-2022 10:140400 Respiratory rate 16 /min Naabella Podlogar RESCUE INSTRUCTOR.ENDOCRINOLOGY NURSE Work Phone: [facility] 11-25-2022 10:14-0400 SaO2% (BldA) [Mass fraction] 93 % Anabella Podlogar RESCUE INSTRUCTOR.ENDOCRINOLOGY NURSE Work Phone: [facility] 11-25-2022 10:14-0400 Systolic blood pressure 132 mm[Hg] Anabella Podlogar RESCUE INSTRUCTOR.ENDOCRINOLOGY NURSE Work Phone: [facility] 11-08-2022 16:45-0400 Body temperature 98.01 [degF] Brad Serrano RESCUE INSTRUCTOR.ENDOCRINOLOGY NURSE Work Phone: [facility] 11-08-2022 16:45-0400 Body weight 214.55 kg Brad Serrano RESCUE INSTRUCTOR.ENDOCRINOLOGY NURSE Work Phone: [facility] 11-08-2022 16:45-0400 Diastolic blood pressure 78 mm[Hg] Brad Serrano RESCUE INSTRUCTOR.ENDOCRINOLOGY NURSE Work Phone: [facility] 11-08-2022 16:45-0400 Heart rate 86 /min Brad Serrano RESCUE INSTRUCTOR.ENDOCRINOLOGY NURSE Work Phone: [facility] 11-08-2022 16:45-0400 Respiratory rate 18 /min Brad Zach RESCUE INSTRUCTOR.ENDOCRINOLOGY NURSE Work Phone: [facility] 11-08-2022 16:45-0400 SaO2% (BldA) [Mass fraction] 98 % Brad Zach RESCUE INSTRUCTOR.ENDOCRINOLOGY NURSE Work Phone: [facility] 11-08-2022 16:45-0400 Systolic blood pressure 148 mm[Hg] Brad Zach RESCUE INSTRUCTOR.ENDOCRINOLOGY NURSE Work Phone: [facility] 10-20-2022 10:29-0500 Body temperature 98.91 [degF] Leann Harshad RESCUE INSTRUCTOR.ENDOCRINOLOGY NURSE Work Phone: [facility] 10-20-2022 10:29-0500 Body weight 212.92 kg Leann Harshad RESCUE INSTRUCTOR.ENDOCRINOLOGY NURSE Work Phone: [facility] 10-20-2022 10:29-0500 Diastolic blood pressure 90 mm[Hg] Leann Harshad RESCUE INSTRUCTOR.ENDOCRINOLOGY NURSE Work Phone: [facility] 10-20-2022 10:29-0500 Heart rate 106 /min Leann Harshad RESCUE INSTRUCTOR.ENDOCRINOLOGY NURSE Work Phone: [facility] 10-20-2022 10:29-0500 Respiratory rate 18 /min Leann Harshad RESCUE INSTRUCTOR.ENDOCRINOLOGY NURSE Work Phone: [facility] 10-20-2022 10:29-0500 SaO2% (BldA) [Mass fraction] 98 % Leann Harshad RESCUE INSTRUCTOR.ENDOCRINOLOGY NURSE Work Phone: [facility] 10-20-2022 10:29-0500 Systolic blood pressure 136 mm[Hg] Leann Harshad RESCUE INSTRUCTOR.ENDOCRINOLOGY NURSE Work Phone: [facility] 08-21-2022 12:48-0500 Diastolic blood pressure 94 mm[Hg] Sonya Galarza RESCUE INSTRUCTOR.ENDOCRINOLOGY NURSE Work Phone: [facility] 08-21-2022 12:48-0500 Systolic blood pressure 142 mm[Hg] Sonya Galarza RESCUE INSTRUCTOR.ENDOCRINOLOGY NURSE Work Phone: [facility] 08-11-2022 09:02-0500 Body temperature 98.91 [degF] Clem Franciscolora RESCUE INSTRUCTOR.ENDOCRINOLOGY NURSE Work Phone: [facility] 08-11-2022 09:02-0500 Body weight 210.56 kg Clem Franciscolora RESCUE INSTRUCTOR.ENDOCRINOLOGY NURSE Work Phone: [facility] 08-11-2022 09:02-0500 Diastolic blood pressure 70 mm[Hg] Clem Kericonstantinolora RESCUE INSTRUCTOR.ENDOCRINOLOGY NURSE Work Phone: [facility] 08-11-2022 09:02-0500 Heart rate 82 /min Clem Kericonstantinolora RESCUE INSTRUCTOR.ENDOCRINOLOGY NURSE Work Phone: [facility] 08-11-2022 09:02-0500 Respiratory rate 16 /min [facility] RESCUE INSTRUCTOR.ENDOCRINOLOGY NURSE Work Phone: [facility] 08-11-2022 09:02-0500 SaO2% (BldA) [Mass fraction] 98 % Clem Franciscolora RESCUE INSTRUCTOR.ENDOCRINOLOGY NURSE Work Phone: [facility] 08-11-2022 09:02-0500 Systolic blood pressure 130 mm[Hg] Clem Franciscolora RESCUE INSTRUCTOR.ENDOCRINOLOGY NURSE Work Phone: [facility] 04-27-2022 10:10-0400 Body weight 190.96 kg Aydee Plotayala RESCUE INSTRUCTOR.CNM Work Phone: [facility] 04-27-2022 10:10-0400 Diastolic blood pressure 68 mm[Hg] Aydee Cailin RESCUE INSTRUCTOR.CNM Work Phone: [facility] 04-27-2022 10:10-0400 Systolic blood pressure 122 mm[Hg] Aydee Simeon RESCUE INSTRUCTOR.CNM Work Phone: [facility] 04-19-2022 08:19-0400 Body temperature 99.19 [degF] Brad Serrano RESCUE INSTRUCTOR.ENDOCRINOLOGY NURSE Work Phone: [facility] 04-19-2022 08:19-0400 Body weight 195.05 kg Brad Zach RESCUE INSTRUCTOR.ENDOCRINOLOGY NURSE Work Phone: [facility] 04-19-2022 08:19-0400 Diastolic blood pressure 82 mm[Hg] Brad Zach RESCUE INSTRUCTOR.ENDOCRINOLOGY NURSE Work Phone: [facility] 04-19-2022 08:19-0400 Heart rate 118 /min Brad Zach RESCUE INSTRUCTOR.ENDOCRINOLOGY NURSE Work Phone: [facility] 04-19-2022 08:19-0400 Respiratory rate 18 /min Brad Zach RESCUE INSTRUCTOR.ENDOCRINOLOGY NURSE Work Phone: [facility] 04-19-2022 08:19-0400 SaO2% (BldA) [Mass fraction] 97 % Brad Zach RESCUE INSTRUCTOR.ENDOCRINOLOGY NURSE Work Phone: [facility] 04-19-2022 08:19-0400 Systolic blood pressure 124 mm[Hg] Brad Zach RESCUE INSTRUCTOR.ENDOCRINOLOGY NURSE Work Phone: [facility] 04-15-2022 08:08-0400 Body temperature 97.9 [degF] Misty Praisler-Wood RESCUE INSTRUCTOR.ENDOCRINOLOGY NURSE Work Phone: [facility] 04-15-2022 08:08-0400 Body weight 193.96 kg Misty Praisler-Wood RESCUE INSTRUCTOR.ENDOCRINOLOGY NURSE Work Phone: [facility] 04-15-2022 08:08-0400 Heart rate 85 /min Misty Praisler-Wood RESCUE INSTRUCTOR.ENDOCRINOLOGY NURSE Work Phone: [facility] 04-15-2022 08:08-0400 Respiratory rate 18 /min Misty Praisler-Wood RESCUE INSTRUCTOR.ENDOCRINOLOGY NURSE Work Phone: [facility] 04-15-2022 08:08-0400 SaO2% (BldA) [Mass fraction] 98 % Misty Praisler-Wood RESCUE INSTRUCTOR.ENDOCRINOLOGY NURSE Work Phone: [facility] 04-01-2022 09:25-0400 Body weight 191.24 kg Paradise Peace RESCUE INSTRUCTOR.ENDOCRINOLOGY NURSE Work Phone: [facility] 04-01-2022 09:25-0400 Diastolic blood pressure 80 mm[Hg] Paradise Peace RESCUE INSTRUCTOR.ENDOCRINOLOGY NURSE Work Phone: [facility] 04-01-2022 09:25-0400 Systolic blood pressure 140 mm[Hg] Paradise Camanche RESCUE INSTRUCTOR.ENDOCRINOLOGY NURSE Work Phone: [facility] 02-09-2022 15:00-0400 Body height 170.[address] [facility] Work Phone: 02-09-2022 15:00-0400 Body mass index (BMI) [Ratio] 59.5 kg/m2 [facility] Work Phone: 02-09-2022 15:00-0400 Body temperature 98.5 [degF] [facility] Work Phone: 02-09-2022 15:00-0400 Body weight 172.[address] [facility] Work Phone: 02-09-2022 15:00-0400 Diastolic blood pressure 85 mm[Hg] [facility] Work Phone: 02-09-2022 15:00-0400 Heart rate 84 /min [facility] Work Phone: 02-09-2022 15:00-0400 Respiratory rate 14 /min [facility] Work Phone: 02-09-2022 15:00-0400 SaO2% (BldA) [Mass fraction] 97 % [facility] Work Phone: 02-09-2022 15:00-0400 Systolic blood pressure 137 mm[Hg] [facility] Work Phone: 01-13-2022 13:56-0400 Body weight 194.32 kg Paradise Camanche RESCUE INSTRUCTOR.ENDOCRINOLOGY NURSE Work Phone: [facility] 01-13-2022 13:56-0400 Diastolic blood pressure 66 mm[Hg] Paradise Camanche RESCUE INSTRUCTOR.ENDOCRINOLOGY NURSE Work Phone: [facility] 01-13-2022 13:56-0400 Systolic blood pressure 110 mm[Hg] Paradisemona PryorCamanchenoelle SILVESTRE Work Phone: [facility] 12-06-2021 07:16-0400 Body temperature 97.5 [degF] Hallie Bogner PA-C Work Phone: [facility] 12-06-2021 07:16-0400 Body weight 190.78 kg Hallie Bogner PA-C Work Phone: [facility] 12-06-2021 07:16-0400 Diastolic blood pressure 70 mm[Hg] Hallie Bogner PA-C Work Phone: [facility] 12-06-2021 07:16-0400 Heart rate 71 /min Hallie Bogner PA-C Work Phone: [facility] 12-06-2021 07:16-0400 Respiratory rate 20 /min Hallie Bogner PA-C Work Phone: [facility] 12-06-2021 07:16-0400 SaO2% (BldA) [Mass fraction] 99 % Hallie Bogner PA-C Work Phone: [facility] 12-06-2021 07:16-0400 Systolic blood pressure 110 mm[Hg] Hallie Bogner PA-C Work Phone: [facility] 11-17-2021 07:46-0400 Body temperature 97.81 [degF] Mansoor Hampton MD Work Phone: [facility] 11-17-2021 07:46-0400 Body weight 191.42 kg Mansoor Hampton MD Work Phone: [facility] 11-17-2021 07:46-0400 Diastolic blood pressure 82 mm[Hg] Mansoor Hampton MD Work Phone: [facility] 11-17-2021 07:46-0400 Heart rate 96 /min Mansoor Hampton MD Work Phone: [facility] 11-17-2021 07:46-0400 Respiratory rate 16 /min Mansoor Hampton MD Work Phone: [facility] 11-17-2021 07:46-0400 SaO2% (BldA) [Mass fraction] 98 % Mansoor Hampton MD Work Phone: [facility] 11-17-2021 07:46-0400 Systolic blood pressure 140 mm[Hg] Mansoor Hampton MD Work Phone: [facility] Encounters Encounter Date Encounter Type Care Provider Facility Start: 05-01-2025 End: 05-01-2025 ambulatory KELLEYRachid MEYER Facility:[facility] Start: 05-01-2025 End: 05-01-2025 ambulatory ALICIA LANG Facility:[facility] Start: 03-11-2025 End: 03-11-2025 Patient encounter procedure Paradise Camanche RESCUE INSTRUCTOR.ENDOCRINOLOGY NURSE Work Phone: OB/Gynecology Comment on above: Abnormal uterine ble eding (AUB) (Primary Dx) Start: 03-11-2025 End: 03-11-2025 ambulatory Paradise Camanche RESCUE INSTRUCTOR.ENDOCRINOLOGY NURSE Work Phone: OB/Gynecology Comment on above: bleeding after sex Start: 01-14-2025 End: 03-16-2025 Follow-up encounter Jhonny Fowler MD Work Phone: [facility] [place] Comment on above: Results Start: 01-13-2025 End: 01-13-2025 ambulatory PARADISE PEACE Facility:[facility] Start: 01-13-2025 End: 01-13-2025 ambulatory JHONNY FOWLER Facility:[facility] Start: 01-13-2025 End: 01-13-2025 Patient encounter procedure Jhonny Fowler MD Work Phone: [facility] [place] Comment on above: Annual physical exam (Primary Dx); Morbid obesity with BMI of 70 and over, adult (HCC); Mild intermittent asthma, uncomplicated (HCC); Gastroesophageal reflux disease, unspecified whether esophagitis present; Decreased visual acuity; Migraine without aura, not intractable, without status migrainosus; Enlargement of spleen; Vitamin D deficiency; Encounter for immunization Start: 12-28-2024 End: 12-30-2024 ambulatory Jhonny Fowler MD Work Phone: [facility] [place] Comment on above: spleen ultrasound Start: 12-23-2024 End: 12-24-2024 Refill Jhonny Fowler MD Work Phone: [facility] [place] Comment on above: Refill Request Start: 12-20-2024 End: 12-20-2024 Follow-up encounter Luna Dyer MA [facility] [place] Comment on above: Results Start: 12-19-2024 End: 12-19-2024 ambulatory PARADISE HAND Facility:[facility] Start: 12-19-2024 End: 12-19-2024 Subsequent hospital visit by physician Xr [facility] [place] Work Phone: Radiology Comment on above: Abnormal chest x-ray [R93.89] Start: 12-19-2024 End: 12-19-2024 Office outpatient visit 15 minutes Angie Fairchild RESCUE INSTRUCTOR.ENDOCRINOLOGY NURSE Work Phone: Telemedicine Comment on above: Viral URI with cough (Primary Dx) Start: 12-19-2024 End: 12-19-2024 ambulatory ANGIE FAIRCHILD Facility:[facility] Start: 12-05-2024 End: 12-05-2024 ambulatory JHONNY FOWLER Facility:[facility] Start: 12-03-2024 End: 12-03-2024 ambulatory Nurse Intm/Famp Triage [facility] Work Phone: Nurse Phone Triage Comment on above: Breathing Problem Start: 11-22-2024 End: 11-22-2024 Patient encounter procedure Jhonny Fowler MD Work Phone: [facility] [place] Comment on above: Acute left-sided low back pain without sciatica (Primary Dx); Urinary frequency; Encounter for test, result unknown Start: 11-22-2024 End: 11-22-2024 ambulatory JHONNY FOWLER Facility:[facility] Start: 11-21-2024 End: 11-22-2024 ambulatory Jhonny Fowler MD Work Phone: [facility] Comment on above: migraine Start: 10-27-2024 End: 10-27-2024 Emergency department patient visit Julian Perdomo Facility:[facility] Start: 10-08-2024 End: 10-09-2024 Refill Alicia Lang APRN.ENDOCRINOLOGY NURSE Work Phone: [facility] Comment on above: Refill Request Start: 10-07-2024 End: 10-07-2024 ambulatory Paradise Hand APRN.ENDOCRINOLOGY NURSE Work Phone: OB/Gynecology Comment on above: pap results Start: 10-01-2024 End: 10-03-2024 ambulatory Paradise Hand APRN.ENDOCRINOLOGY NURSE Work Phone: OB/Gynecology Comment on above: Vitamin D level Start: 10-01-2024 End: 10-03-2024 E-mail encounter from caregiver Paradise Hand APRN.ENDOCRINOLOGY NURSE Work Phone: OB/Gynecology Start: 09-30-2024 End: 11-30-2024 Follow-up encounter Paradise Hand APRN.ENDOCRINOLOGY NURSE Work Phone: OB/Gynecology Comment on above: Results Start: 09-27-2024 End: 09-27-2024 ambulatory JHONNY FOWLER Facility:[facility] Start: 09-27-2024 End: 09-27-2024 Patient encounter procedure Paradise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 Drug use: Not Currently Types: Marijuana [facility] 03-11-2025 Note HNO ID: [id number] Author: PARADISE HAND APRN.ENDOCRINOLOGY NURSE Service: ? Author Type: Nurse Practitioner Type: Progress Notes Filed: 03/11/2025 14:08 Note Text: Dejah Adorno is a 29 year old female who presents for problem visit heavy bleeding for 5 hours. HPI: Patient states after intercourse this morning she started with bright red heavy bleeding. She had a menses last week that lasted approximately 4 days with light bleeding. She denies any pain with intercourse or with the bleeding. OB History Gravida0 Para0 Term0 Preterm0 AB0 Living0 SAB0 IAB0 Ectopic0 Multiple0 Live Births0 Sign Installer History LMP: 03/03/2025 (Exact Date), Having periods Age at Menarche: 14 Age at First : Age at Menopause: Sign Installer History Comments: Sexual Activity: Yes; Male Contraception: Not used PAST MEDICAL HISTORY Diagnosis Date Asthma (HCC) Fatty liver GERD (gastroesophageal reflux disease) LGSIL on Pap smear of cervix 03/09/2023 Migraine without aura and without status migrainosus, not intractable 07/10/2019 Morbid obesity with BMI of 70 and over, adult (HCC) Papilledema PCOS (polycystic ovarian syndrome) 2016 PMH - PAST MEDICAL HISTORY OF 03/2003 normal color vision Splenomegaly 01/17/2024 mild Unspecified hearing loss, bilateral 07/10/2019 Rt>LT, 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 Vitamin D deficiency 12/21/2021 PAST SURGICAL HISTORY Procedure Laterality Date COLPOSCOPY CERVIX BX CERVIX AND ENDOCRV CURRETAGE 03/31/2023 TONSILLECTOMY PRIMARY/SECONDARY FAMILY HISTORY Problem Relation Age of Onset other (Pulmonary Embolism) Mother with embolism Anxiety disorder Brother Depression Brother Breast Cancer Maternal Grandmother Hypertension Maternal Grandfather Lung Cancer Paternal Grandmother Bipolar disorder Maternal Aunt Diabetes Other mggm Social History Tobacco Use Smoking status: Former Current packs/day: 0.00 Types: Cigarettes Quit date: 01/18/2018 Years since quittin.1 Smokeless tobacco: Never Tobacco comments: . step mom and sibling smokes outside Vaping Use Vaping status: Never Used Substance Use Topics Alcohol use: Not Currently Drug use: Not Currently Types: Marijuana Current Outpatient Medications Medication Sig fluticasone propionate (FLONASE NASAL) Use 1 spray in the nose as needed. cyclobenzaprine (FLEXERIL) 10 mg tablet Take 1 tablet by mouth three times a day as needed for muscle spasm. cholecalciferol, Vitamin D3, (VITAMIN D3) 1,250 mcg (50,000 unit) cap capsule Take 1 capsule by mouth one time a week. omeprazole (PRILOSEC) 40 mg capsule Take 1 capsule by mouth once daily. albuterol HFA (VENTOLIN HFA) 90 mcg/actuation inhaler Inhale 2 puffs as instructed every 4 hours as needed for wheezing/shortness of breath. medroxyPROGESTERone (PROVERA) 10 mg tablet Take 1 tablet by mouth once daily. (Patient taking differently: Take 1 tablet by mouth once daily.) EPINEPHrine (EPIPEN 2-MANSI) 0.3 mg/0.3 mL auto-injector Inject 0.3 mL intramuscularly as needed. No current facility-administered medications for this visit. Allergies As of Date: 03/11/2025 Allergen Noted Reaction DOXYCYCLINE 12/13/2023 Anaphylaxis FLAGYL [METRONIDAZOLE] 12/13/2023 Anaphylaxis Fully Assessed 03/11/2025 REVIEW OF SYSTEMS Expanded ROS: N/A Allergies and current medication updated:Yes SENSITIVE EXAM: The sensitive examination was discussed with the Patient or Patient's Authorized Tea Plantation Worker. As applicable, any other physician, advance practice provider, medical student, or other health professional student that will be observing or involved in the sensitive examination for educational or training purposes was discussed with the Patient or Authorized Tea Plantation Worker. The Patient or Authorized Tea Plantation Worker has agreed to proceed with the sensitive examination. (Sensitive examination includes inspection and/or palpation of the breasts, pelvis, prostate and anorectal regions). EXAM: BP 126/72 Wt 472 lb 12.8 oz (214.5kg) LMP 03/03/2025 GENERAL: pleasant, female in no apparent distress HEENT: Normocephalic, atraumatic, mucus membranes moist, and no lesions CHEST: Normal inspiratory effort PELVIC: external genitalia normal, normal Bartholin's glands, urethra, [place]'s glands, no vulvar lesions, physiologic discharge present, normal appearing perineal body and perianal region BIMANUAL: deferred NEURO: alert and oriented x3,exam grossly non-focal EXTREMITIES: normal ASSESSMENT AND PLAN: Assessment AND Plan Abnormal uterine bleeding (AUB) Continue to monitor bleeding, if bleeding becomes heavy or passing extremely large blood clots call the office. If bleeding has not started to lighten up by the end of the week call the office and I will order some Aygestin to stop the menses Paradise Hand APRN.JONO Medical Decision Making: Problems: Low: Acute, uncomplicated illness or injury Risk: (more content not included)... [facility] 03-11-2025 History of Presen t illness Narrative Dejah Adorno is a 29 year old female who presents for problem visit heavy bleeding for 5 hours. HPI: Patient states after intercourse this morning she started with bright red heavy bleeding. She had a menses last week that lasted approximately 4 days with light bleeding. She denies any pain with intercourse or with the bleeding. OB History Gravida0 Para0 Term0 Preterm0 AB0 Living0 SAB0 IAB0 Ectopic0 Multiple0 Live Births0 Sign Installer History LMP: 03/03/2025 (Exact Date), Having periods Age at Menarche: 14 Age at First : Age at Menopause: Sign Installer History Comments: Sexual Activity: Yes; Male Contraception: Not used PAST MEDICAL HISTORY Diagnosis Date Asthma (HCC) Fatty liver GERD (gastroesophageal reflux disease) LGSIL on Pap smear of cervix 03/09/2023 Migraine without aura and without status migrainosus, not intractable 07/10/2019 Morbid obesity with BMI of 70 and over, adult (HCC) Papilledema PCOS (polycystic ovarian syndrome) 2016 PMH - PAST MEDICAL HISTORY OF 03/2003 normal color vision Splenomegaly 01/17/2024 mild Unspecified hearing loss, bilateral 07/10/2019 Rt>LT, 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 Vitamin D deficiency 12/21/2021 PAST SURGICAL HISTORY Procedure Laterality Date COLPOSCOPY CERVIX BX CERVIX & ENDOCRV CURRETAGE 03/31/2023 TONSILLECTOMY PRIMARY/SECONDARY <AGE 12 FAMILY HISTORY Problem Relation Age of Onset other (Pulmonary Embolism) Mother with embolism Anxiety disorder Brother Depression Brother Breast Cancer Maternal Grandmother Hypertension Maternal Grandfather Lung Cancer Paternal Grandmother Bipolar disorder Maternal Aunt Diabetes Other mggm Social History Tobacco Use Smoking status: Former Current packs/day: 0.00 Types: Cigarettes Quit date: 01/18/2018 Years since quittin.1 Smokeless tobacco: Never Tobacco comments: . step mom and sibling smokes outside Vaping Use Vaping status: Never Used Substance Use Topics Alcohol use: Not Currently Drug use: Not Currently Types: Marijuana Current Outpatient Medications Medication Sig fluticasone propionate (FLONASE NASAL) Use 1 spray in the nose as needed. cyclobenzaprine (FLEXERIL) 10 mg tablet Take 1 tablet by mouth three times a day as needed for muscle spasm. cholecalciferol, Vitamin D3, (VITAMIN D3) 1,250 mcg (50,000 unit) cap capsule Take 1 capsule by mouth one time a week. omeprazole (PRILOSEC) 40 mg capsule Take 1 capsule by mouth once daily. albuterol HFA (VENTOLIN HFA) 90 mcg/actuation inhaler Inhale 2 puffs as instructed every 4 hours as needed for wheezing/shortness of breath. medroxyPROGESTERone (PROVERA) 10 mg tablet Take 1 tablet by mouth once daily. (Patient taking differently: Take 1 tablet by mouth once daily.) EPINEPHrine (EPIPEN 2-MANSI) 0.3 mg/0.3 mL auto-injector Inject 0.3 mL intramuscularly as needed. No current facility-administered medications for this visit. Allergies As of Date: 03/11/2025 Allergen Noted Reaction DOXYCYCLINE 12/13/2023 Anaphylaxis FLAGYL [METRONIDAZOLE] 12/13/2023 Anaphylaxis Fully Assessed 03/11/2025 REVIEW OF SYSTEMS Expanded ROS: N/A Allergies and current medication updated:Yes SENSITIVE EXAM: The sensitive examination was discussed with the Patient or Patient's Authorized Tea Plantation Worker. As applicable, any other physician, advance practice provider, medical student, or other health professional student that will be observing or involved in the sensitive examination for educational or training purposes was discussed with the Patient or Authorized Tea Plantation Worker. The Patient or Authorized Tea Plantation Worker has agreed to proceed with the sensitive examination. (Sensitive examination includes inspection and/or palpation of the breasts, pelvis, prostate and anorectal regions). EXAM: BP 126/72 Wt 472 lb 12.8 oz (214.5kg) LMP 03/03/2025 GENERAL: pleasant, female in no apparent distress HEENT: Normocephalic, atraumatic, mucus membranes moist, and no lesions CHEST: Normal inspiratory effort PELVIC: external genitalia normal, normal Bartholin's glands, urethra, [place]'s glands, no vulvar lesions, physiologic discharge present, normal appearing perineal body and perianal region BIMANUAL: deferred NEURO: alert and oriented x3,exam grossly non-focal EXTREMITIES: normal ASSESSMENT AND PLAN: Assessment & Plan Abnormal uterine bleeding (AUB) Continue to monitor bleeding, if bleeding becomes heavy or passing extremely large blood clots call the office. If bleeding has not started to lighten up by the end of the week call the office and I will order some Aygestin to stop the menses Paradise Hand APRN.JONO Medical Decision Making: Problems: Low: Acute, uncomplicated illness or injury Risk: Low: Low risk from testing/treatment Medical Decision Making Level: 3 - Low documented in this encounter [facility] 03-11-2025 Telephone encounter Note Patient called. States that she has been bleeding for the last 5 hours. Changing her pad every 1.5-2 hours. Not completely soaking a pad. No pain or cramping. It had been several weeks since she last had intercourse. Scheduled patient an appointment for evaluation. Yu Rodriguez RN [facility] 03-11-2025 Miscellaneous Notes Patient called. States that she has been bleeding for the last 5 hours. Changing her pad every 1.5-2 hours. Not completely soaking a pad. No pain or cramping. It had been several weeks since she last had intercourse. Scheduled patient an appointment for evaluation. Yu Rodriguez RN documented in this encounter [facility] 01-15-2025 Miscellaneous Notes Patient returned call and given provider's message below and patient verbalized understanding. Kady Hensley RN left for patient to return call. Lawanda Hagen LPN Message left for patient to return call to review results and recommendations. Lawanda Hagen LPN ----- Message from Jhonny Fowlre MD sent at 01/14/2025 10:49 AM EDT ----- Normal labs aside from high cholesterol, which is improving from 3 years ago. Recommend low cholesterol diet and exercise. Recheck in 1 year. documented in this encounter [facility] 01-15-2025 Telephone encounter Note Patient returned call and given provider's message below and patient verbalized understanding. Kady Hensley RN [facility] 01-15-2025 Telephone encounter Note Vm left for patient to return call. Lawanda Hagen LPN [facility] 01-14-2025 Telephone encounter Note Message left for patient to return call to review results and recommendations. Lawanda Hagen LPN [facility] 01-14-2025 Telephone encounter Note ----- Message from Jhonny Fowler MD sent at 01/14/2025 10:49 AM EDT ----- Normal labs aside from high cholesterol, which is improving from 3 years ago. Recommend low cholesterol diet and exercise. Recheck in 1 year. [facility] 01-13-2025 Instructions Jhonny Fowler MD - 01/13/2025 8:30 AM EDT - Continue your weekly vitamin D supplement; recheck your vitamin D level in about 12 weeks. - Use your albuterol inhaler as needed (about once a week) for coughing, wheezing, or shortness of breath. - Use Flexeril as needed for neck muscle relaxation. - Use Flonase as needed for nasal congestion. - Keep your EpiPen available for any medication allergic reactions. - Today you received a Tdap vaccine (tetanus, diphtheria, pertussis), which protects you for 10 years. - Complete the vision screening before you leave; schedule a formal eye exam at the [facility] on [address]. - You had fasting blood work today, including CBC, kidney and liver function, diabetes screen, thyroid tests, and cholesterol. We ll review the results and follow up if any abnormalities appear. - Maintain your healthy eating pattern--lean proteins, vegetables, whole grains--and continue avoiding processed foods and sweets. Keep using diet soda for caffeine if needed. - Aim for at least 30 minutes of walking 4-5 times per week; watch portion sizes to support ongoing weight loss. - Continue managing occasional migraines with ibuprofen and rest; try to avoid triggers such as lack of sleep and sudden caffeine withdrawal. Let us know if migraines become more frequent or severe. - Plan to return in about 6 months for your annual physical and a weight check. If you need help or want to check in sooner, call us for a same-day or next-day appointment. documented in this encounter [facility] 01-13-2025 Note HNO ID: [id number] Author: JHONNY FOWLER MD Service: ? Author Type: Physician Type: Progress Notes Filed: 01/13/2025 09:00 Note Text: Chief Complaint Patient presents with: Physical Recording using Rapid Vocabulary software for draft documentation of the visit was discussed with the patient/authorized authorization representative; all questions welcomed and answered. Patient/authorized authorization representative agreed to proceed HPI Dejah Adorno is a 29 year old female who presents here today for Above Complaints. Annual Wellness Exam: - Recent Pap smear was normal; tested positive for BV in September, treated successfully. - Last tetanus shot over 10 years ago. - Recent TB test at [facility]. Vision Changes: - Difficulty seeing objects at a distance, requiring squinting. - Left eye perceived as weaker than right eye. - No complete loss of vision or scotomas. - No recent eye exam since high school. - No associated eye pain, redness, or drainage. - No recent eye trauma or injury. Asthma: - Uses albuterol inhaler PRN, approximately once a week for cough, wheezing, and dyspnea. - No recent pulmonary function testing. GERD: - Managed with omeprazole. - Reports improvement with dietary changes, avoiding fast food and processed foods. - Consumes whole meats, vegetables, and whole grains. - Drinks diet soda for caffeine to prevent migraines. Migraines: - Occur approximately once a month. - Managed with ibuprofen and rest. - Triggered by lack of caffeine and sleep. - No current prophylactic medication. Obesity: - Weight loss of approximately 30 lbs since November. - Engages in regular walking. - Aims to lose an additional 50 lbs by the end of the year. - Previous concern for fatty liver. Vitamin D Deficiency: - Taking 50,000 units of vitamin D weekly. - No recent recheck of vitamin D levels. Allergies: - Allergic to doxycycline and Flagyl, carries an EpiPen. - Uses Flonase PRN. Social History: - Former smoker, quit a long time ago. - Denies current use of tobacco, vaping, alcohol, or drugs. - Lives with boyfriend; feels safe at home. - Currently working at [employer], transitioning to a new job at [employer]. Past medical history, appointments, medications, allergies reviewed. 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 Vitamin D deficiency 12/21/2021 Previous Surgical History PAST SURGICAL HISTORY Procedure Laterality Date COLPOSCOPY CERVIX BX CERVIX AND ENDOCRV CURRETAGE 03/31/2023 TONSILLECTOMY PRIMARY/SECONDARY Family History FAMILY HISTORY Problem Relation Age of Onset other (Pulmonary Embolism) Mother with embolism Anxiety disorder Brother Depression Brother Breast Cancer Maternal Grandmother Hypertension Maternal Grandfather Lung Cancer Paternal Grandmother Bipolar disorder Maternal Aunt Diabetes Other mggm Patient Allergies ALLERGIES Allergen Reactions Doxycycline Anaphylaxis Flagyl [Metronidazo* Anaphylaxis Current Medications Current Outpatient Medications on File Prior to Visit Medication Sig fluticasone propionate (FLONASE NASAL) Use 1 spray in the nose as needed. cyclobenzaprine (FLEXERIL) 10 mg tablet Take 1 tablet by mouth three times a day as needed for muscle spasm. cholecalciferol, Vitamin D3, (VITAMIN D3) 1,250 mcg (50,000 unit) cap capsule Take 1 capsule by mouth one time a week. omeprazole (PRILOSEC) 40 mg capsule Take 1 capsule by mouth once daily. albuterol HFA (VENTOLIN HFA) 90 mcg/actuation inhaler Inhale 2 puffs as instructed every 4 hours as needed for wheezing/shortness of breath. medroxyPROGESTERone (PROVERA) 10 mg tablet Take 1 tablet by mouth once daily. hydrOXYzine HCl (ATARAX) 25 mg tablet Take 1 tablet by mouth every 6 hours as needed for itching/rash. EPINEPHrine (EPIPEN 2-MANSI) 0.3 mg/0.3 mL auto-injector Inject 0.3 mL intramuscularly as needed. benzonatate (TESSALON PERLE) 100 mg capsule Take 1-2 capsules by mouth three times a day as needed. ipratropium bromide (ATROVENT) 42 mcg (0.06 %) nasal spray Use 2 sprays in the nose four times daily. (Patient not taking: Reported on 01/13/2025) No current facility-administered medications on file prior to visit. Social History Social History Tobacco Use Smoking status: Former Current packs/day: 0.00 Types: Cigarettes Quit date: 01/18/2018 Years since quittin.9 Smokeless tobacco: Never Tobacc (more content not included)... [facility] 01-13-2025 History of Presen t illness Narrative Chief Complaint Patient presents with: Physical Recording using Rapid Vocabulary software for draft documentation of the visit was discussed with the patient/authorized authorization representative; all questions welcomed and answered. Patient/authorized authorization representative agreed to proceed HPI Dejah Adorno is a 29 year old female who presents here today for Above Complaints. Annual Wellness Exam: - Recent Pap smear was normal; tested positive for BV in September, treated successfully. - Last tetanus shot over 10 years ago. - Recent TB test at [facility]. Vision Changes: - Difficulty seeing objects at a distance, requiring squinting. - Left eye perceived as weaker than right eye. - No complete loss of vision or scotomas. - No recent eye exam since high school. - No associated eye pain, redness, or drainage. - No recent eye trauma or injury. Asthma: - Uses albuterol inhaler PRN, approximately once a week for cough, wheezing, and dyspnea. - No recent pulmonary function testing. GERD: - Managed with omeprazole. - Reports improvement with dietary changes, avoiding fast food and processed foods. - Consumes whole meats, vegetables, and whole grains. - Drinks diet soda for caffeine to prevent migraines. Migraines: - Occur approximately once a month. - Managed with ibuprofen and rest. - Triggered by lack of caffeine and sleep. - No current prophylactic medication. Obesity: - Weight loss of approximately 30 lbs since November. - Engages in regular walking. - Aims to lose an additional 50 lbs by the end of the year. - Previous concern for fatty liver. Vitamin D Deficiency: - Taking 50,000 units of vitamin D weekly. - No recent recheck of vitamin D levels. Allergies: - Allergic to doxycycline and Flagyl, carries an EpiPen. - Uses Flonase PRN. Social History: - Former smoker, quit a long time ago. - Denies current use of tobacco, vaping, alcohol, or drugs. - Lives with boyfriend; feels safe at home. - Currently working at [employer], transitioning to a new job at [employer]. Past medical history, appointments, medications, allergies reviewed. 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 Vitamin D deficiency 12/21/2021 Previous Surgical History PAST SURGICAL HISTORY Procedure Laterality Date COLPOSCOPY CERVIX BX CERVIX & ENDOCRV CURRETAGE 03/31/2023 TONSILLECTOMY PRIMARY/SECONDARY <AGE 12 Family History FAMILY HISTORY Problem Relation Age of Onset other (Pulmonary Embolism) Mother with embolism Anxiety disorder Brother Depression Brother Breast Cancer Maternal Grandmother Hypertension Maternal Grandfather Lung Cancer Paternal Grandmother Bipolar disorder Maternal Aunt Diabetes Other mggm Patient Allergies ALLERGIES Allergen Reactions Doxycycline Anaphylaxis Flagyl [Metronidazo* Anaphylaxis Current Medications Current Outpatient Medications on File Prior to Visit Medication Sig fluticasone propionate (FLONASE NASAL) Use 1 spray in the nose as needed. cyclobenzaprine (FLEXERIL) 10 mg tablet Take 1 tablet by mouth three times a day as needed for muscle spasm. cholecalciferol, Vitamin D3, (VITAMIN D3) 1,250 mcg (50,000 unit) cap capsule Take 1 capsule by mouth one time a week. omeprazole (PRILOSEC) 40 mg capsule Take 1 capsule by mouth once daily. albuterol HFA (VENTOLIN HFA) 90 mcg/actuation inhaler Inhale 2 puffs as instructed every 4 hours as needed for wheezing/shortness of breath. medroxyPROGESTERone (PROVERA) 10 mg tablet Take 1 tablet by mouth once daily. hydrOXYzine HCl (ATARAX) 25 mg tablet Take 1 tablet by mouth every 6 hours as needed for itching/rash. EPINEPHrine (EPIPEN 2-MANSI) 0.3 mg/0.3 mL auto-injector Inject 0.3 mL intramuscularly as needed. benzonatate (TESSALON PERLE) 100 mg capsule Take 1-2 capsules by mouth three times a day as needed. ipratropium bromide (ATROVENT) 42 mcg (0.06 %) nasal spray Use 2 sprays in the nose four times daily. (Patient not taking: Reported on 01/13/2025) No current facility-administered medications on file prior to visit. Social History Social History Tobacco Use Smoking status: Former Current packs/day: 0.00 Types: Cigarettes Quit date: 01/18/2018 Years since quittin.9 Smokeless tobacco: Never Tobacco comments: . step mom and sibling smokes outside Vaping Use Vaping status: Never Used Substance Use Topics Alcohol use: Not Currently Drug use: Not Currently Types: Marijuana Review of Symptoms REVIEW OF SYSTEMS GENERAL: No weight loss, malaise or fevers HEENT: No changes in hearing or vision, no nose bleeds or other nasal problems NECK: Negative for lumps, goiter, pain and significant neck swelling RESPIRATORY: Negative for cough, hemoptysis, wheezing, COPD, dyspnea or shortness of breath CARDIOVASCULAR: Negative for chest pain, leg swelling, hypertension, CHF or palpitations GI: No nausea, vomiting, or diarrhea : No history of dysuria, frequency or incontinence NEUROLOGY PROFESSOR: Negative for abnormal vaginal bleeding, abnormal vaginal discharge MUSCULOSKELETAL: Negative for joint pain or swelling, back pain or muscle pain SKIN: Negative for lesions, rash, and itching PSYCH: Negative for sleep disturbance, mood disorder and recent psychosocial stressors HEMATOLOGY/LYMPHOLOGY: Negative for prolonged bleeding, bruising easily or swollen nodes ENDOCRINE: Negative for cold or heat intolerance, polyuria, polydipsia and goiter NEURO: No history of headaches, syncope, paralysis, seizures or tremors EXAM: BP 128/74 Pulse 71 Resp 18 Wt (!) 207.8 kg (458 lb 3.2 oz) LMP 07/22/2024 (Approximate) SpO2 99% BMI 71.76 kg/m Vision: OD:20/30 OS:20/50 OU:20/30 General Appearance: Well appearing, alert, in no acute distress, well-hydrated, well nourished.. Skin: Skin color, texture, turgor normal, no suspicious rashes or lesions. Head: Normocephalic, no masses, lesions, tenderness or abnormalities. Eyes: Anicteric sclera. Pupils are equally round and reactive to light. Extraocular movements are intact. , Fundi-grossly normal. Ears: External ears normal, canals clear. Nose/Sinuses: Nares normal, septum midline, mucosa normal, no drainage or sinus tenderness. Oropharynx: Lips, mucosa, and tongue normal, teeth and gums normal, oropharynx normal. Neck: Supple, no adenopathy; thyroid symmetric, normal size, no bruits. Lungs: Lungs clear to auscultation. No wheezing, rhonchi, rales.. Heart: RRR without murmur, gallop, or rubs. No ectopy. Abdomen: Normal abdominal exam, Abdomen soft, non-tender. Bowel sounds normal. No masses, organomegaly. Extremities: No deformities, edema, skin discoloration, clubbing or cyanosis. Good capillary refill. . Peripheral Pulses: Normal. Neurologic: CN II-XII grossly intact. Lymph Nodes: No cervical lymphadenopathy and No supraclavicular lymphadenopathy. Health Maintenance List DTaP,Tdap,Td Vaccine(7 - Td or Tdap) due on 12/03/2019 Covid-19 Vaccine( season) due on 01/13/2026 Influenza Vaccine(Season Ended) due on 04/14/2025 Depression Screening due on 08/09/2025 Anxiety Screening due on 08/09/2025 Cervical Cancer Screening due on 09/27/2025 Hepatitis B Vaccine Completed Hepatitis C Screening Completed HIV Screening Completed Data reviewed Latest Ref Rng 12/19/2024 Vitamin D 25 Hydroxy 31.0 - 80.0 ng/mL 8.5 (L) Legend: (L) Low 1. Annual physical exam (Z00.00) - Conducted comprehensive physical examination. - No abnormalities noted on examination. - Ordered routine blood work including CBC, CMP, lipid panel, HbA1c, and TSH. - Follow-up in 6 months to monitor weight and overall health progress. 2. Morbid obesity with BMI of 70 and over, adult ([facility]) (E66.01) - Current BMI over 70. - Significant weight loss of nearly 30 pounds since November. - Advised continuation of current dietary modifications focusing on whole foods, lean proteins, and vegetables. - Recommended regular physical activity, aiming for at least 30 minutes of exercise 4-5 times per week. - Set a realistic weight loss goal of 1-2 pounds per week. - Follow-up in 6 months to monitor progress. 3. Mild intermittent asthma, uncomplicated ([facility]) (J45.20) - Symptoms include occasional coughing, wheezing, and shortness of breath, managed with albuterol inhaler approximately once a week. - No recent pulmonary function tests performed. - Advised to monitor symptoms and report any increase in frequency or severity. - Continue current use of albuterol inhaler as needed. 4. Gastroesophageal reflux disease, unspecified whether esophagitis present (K21.9) - Symptoms improved with dietary changes and weight loss. - Continue current management with omeprazole. - Monitor for any recurrence of symptoms. 5. Decreased visual acuity (H54.7) - Noted difficulty with distance vision, left eye weaker than right. - No pain, redness, or drainage reported. - Performed vision screening as noted above. - Referred to optometry for comprehensive eye examination. 6. Migraine without aura, not intractable, without status migrainosus (G43.009) - Occurrence approximately once a month, managed with ibuprofen and rest. - Identified triggers include lack of caffeine and sleep. - No current use of prophylactic medication. - Advised to maintain regular sleep patterns and avoid known triggers. 7. Enlargement of spleen (R16.1) - Previous ultrasound in April showed splenomegaly. - No current abdominal pain or other concerning symptoms. - Monitor liver function tests as part of routine blood work. - No repeat imaging necessary at this time. 8. Vitamin D deficiency (E55.9) - Currently taking 50,000 units of vitamin D weekly. - Recheck vitamin D levels in 12 weeks. 9. Encounter for immunization (Z23) - Administered Tdap vaccine; patient declined COVID booster. Jhonny Fowler MD documented in this encounter [facility] 12-30-2024 Telephone encounter Note Her last spleen imaging in April was stable. I would not recommend repeat imaging at this point. Keep f/u as scheduled and will discuss further at that time. [facility] Work Phone: 12-30-2024 Miscellaneous Notes Her last spleen imaging in April was stable. I would not recommend repeat imaging at this point. Keep f/u as scheduled and will discuss further at that time. documented in this encounter [facility] 12-24-2024 Telephone encounter Note Prescription Refill Information The patient has been identified by name and date of : Yes Caregiver verified no other encounters exist for this prescription request: Yes Caregiver confirmed with patient/requestor that no other refills are due, in the near future, with this provider at this time: Yes The last office visit in the department: 12/05/2024 Does the patient have a future office visit with this provider/department: Yes Requested Prescriptions Pending Prescriptions Disp Refills cyclobenzaprine (FLEXERIL) 10 mg tablet 30 tablet 0 Sig: Take 1 tablet by mouth three times a day as needed for muscle spasm. Aria Childs LPN December 24, 2024 7:16 AM [facility] 12-24-2024 Miscellaneous Notes Prescription Refill Information The patient has been identified by name and date of : Yes Caregiver verified no other encounters exist for this prescription request: Yes Caregiver confirmed with patient/requestor that no other refills are due, in the near future, with this provider at this time: Yes The last office visit in the department: 12/05/2024 Does the patient have a future office visit with this provider/department: Yes Requested Prescriptions Pending Prescriptions Disp Refills cyclobenzaprine (FLEXERIL) 10 mg tablet 30 tablet 0 Sig: Take 1 tablet by mouth three times a day as needed for muscle spasm. Aria Childs LPN December 24, 2024 7:16 AM documented in this encounter [facility] 12-20-2024 Telephone encounter Note Patient calls and notified of results and providers instructions. Patient verbalizes understanding with no further questions. Jordy Villalpando RN [facility] 12-20-2024 Miscellaneous Notes Patient calls and notified of results and providers instructions. Patient verbalizes understanding with no further questions. Jordy Villalpando RN Please let the pt know that her vitamin D level is very low. I sent in Vitamin D 50,000 to take once weekly for the next 2 months. After she completes that then recheck level. Paradise Hand APRN.CNP documented in this encounter [facility] 12-20-2024 Telephone encounter Note Patient calls and notified of results and providers instructions. Patient verbalizes understanding. Jordy Villalpando RN [facility] 12-20-2024 Miscellaneous Notes Patient calls and notified of results and providers instructions. Patient verbalizes understanding. Jordy Villalpando RN documented in this encounter [facility] 12-20-2024 Telephone encounter Note Please let the pt know that her vitamin D level is very low. I sent in Vitamin D 50,000 to take once weekly for the next 2 months. After she completes that then recheck level. Paradise Hand APRN.CNP [facility] 12-19-2024 History of Presen t illness Narrative Radiology Service Progress Note PATIENT NAME: Dejah Adorno DATE OF SERVICE: December 19, 2024 TIME: 10:59 AM PATIENT IDENTITY VERIFICATION COMPLETED USING TWO (2) IDENTIFIERS: Name and Date of confirmed by patient verbally. FALL SCREENING: Has the patient had 2 falls in the last year or 1 fall with injury or currently using an Ambulatory Assistive Device (Walker, Cane, Wheelchair, Crutches, etc.)? No PATIENT GENDER DATA: Assigned female at . status: : No status: NO. PATIENT RELEVANT IMPLANT DATA REVIEWED: Not Applicable PATIENT PRESENTS WITH AN IMPLANTABLE OR ATTACHED PATCH WORKER: No RADIOLOGY DEPARTMENT: General X-ray: Exam(s) Completed: Chest X-Ray PERIPHERAL IV DATA: Not applicable SIGNED BY: MANN Arnold) December 19, 2024 10:59 AM documented in this encounter [facility] 12-19-2024 Note HNO ID: [id number] Author: LATASHA NAM RT (R) Service: ? Author Type: Technologist Type: Progress Notes Filed: 12/19/2024 11:04 Note Text: Radiology Service Progress Note PATIENT NAME: Dejah Adorno DATE OF SERVICE: December 19, 2024 TIME: 10:59 AM PATIENT IDENTITY VERIFICATION COMPLETED USING TWO (2) IDENTIFIERS: Name and Date of confirmed by patient verbally. FALL SCREENING: Has the patient had 2 falls in the last year or 1 fall with injury or currently using an Ambulatory Assistive Device (Walker, Cane, Wheelchair, Crutches, etc.)? No PATIENT GENDER DATA: Assigned female at . status: : No status: NO. PATIENT RELEVANT IMPLANT DATA REVIEWED: Not Applicable PATIENT PRESENTS WITH AN IMPLANTABLE OR ATTACHED PATCH WORKER: No RADIOLOGY DEPARTMENT: General X-ray: Exam(s) Completed: Chest X-Ray PERIPHERAL IV DATA: Not applicable SIGNED BY: MANN Arnold) December 19, 2024 10:59 AM [facility] 12-19-2024 Instructions Angie Fairchild APRN.ENDOCRINOLOGY NURSE - 12/19/2024 8:29 AM EDT Get plenty of rest and drink lots of fluids to help your body fight the viral symptoms. Use Tylenol or Motrin as needed for any pain or headache you experience. Continue taking Mucinex for your cough as you have been; remember to avoid taking two cough suppressants together if you later receive one. If you become very congested or your cough worsens, let us know--options like a prescription nasal spray or cough suppressant may be considered. A note for work covering today s absence has been sent to your MyChart. Please monitor your symptoms over the next week; if you notice any worsening or if your symptoms persist, contact our office. How to Manage Common Symptoms at Home Fever- Fever is a temperature over 100.4 [...] damp washcloths to the forehead and wrists. Use the following definitions to help put the level of fever into proper perspective: 100-102 F (37.8 - 38.9 C): Low-grade fevers and may help body fight infection. 102-104 F (38.9 - 40 C): Moderate-grade fevers; cause discomfort. Over 104 F (over 40 C): High fevers; cause discomfort, weakness, headache, lethargy. Over 106 F (over 41 C): The fever itself can be harmful. FEVER MEDICINES: For fever relief, take acetaminophen. Treat fevers above 101 F (38.3 C). The goal of fever therapy is to bring the fever down to a comfortable level. Remember that fever medicine usually lowers fever 2-3 F (1-1.5 C). Cough- To help treat a cough: Stay well hydrated. Try warm water or tea with lemon and/or honey to help soothe the cough. Use a humidifier to add moisture to the air. Try a product with menthol, like a cough drop or a rub for your chest such as Vicks, which can help reduce cough. Try cough drops or hard candy Avoid smoking and other strong odors or perfumes. Try breathing exercises to keep your lungs open and clear. Take a big deep breath through your nose and hold for 5 seconds before slowly releasing. Repeat frequently, while you are awake. OTC COUGH DROPS: Cough drops can help a lot, especially for mild coughs. They reduce coughing by soothing your irritated throat and removing that tickle sensation in the back of the throat. Cough drops also have the advantage of portability - you can carry them with you. HOME REMEDY - HARD CANDY: Hard candy works just as well as medicine-flavored OTC cough drops. People who have diabetes should use sugar-free candy. HOME REMEDY - HONEY: This old home remedy has been shown to help decrease coughing at night. The adult dosage is 2 teaspoons (10 ml) at bedtime. Honey should not be given to infants under one year of age. HUMIDIFIER: If the air is dry, use a humidifier in the bedroom. (Reason: dry air makes coughs worse) AVOID TOBACCO SMOKE: Smoking or being exposed to smoke makes coughs much worse. Congestion-Treatment can help relieve symptoms: Try OTC nasal saline spray, or nasal saline rinse to relieve mucus congestion. Nasal strips can help keep nasal passages open, to increase airflow. Elevating your head with an extra pillow in bed can help reduce congestion. Using a humidifier can increase moisture in the air, and make breathing easier. Taking showers or baths with eucalyptus and mentholated products Use Nasal Washes: -Introduction: Saline (salt water) nasal irrigation (nasal wash) is an effective and simple home remedy for treating stuffy nose and sinus congestion. The nose can be irrigated by pouring, spraying, or squirting salt water into the nose and then letting it run back out. -How it Helps: The salt water rinses out excess mucus, washes out any irritants (dust, allergens) that might be present, and moistens the nasal cavity. -Methods: There are several ways to perform nasal irrigation. You can use a saline nasal spray bottle (available [id number]), a rubber ear syringe, a medical syringe without the needle, or a Neti Pot. Cyli-Rp-Ovdx Instructions: Step 1: Lean over a sink. Step 2: Gently squirt or spray warm salt water into one of your nostrils. Step 3: Some of the water may run into the back of your throat. Spit this out. If you swallow the salt water it will not hurt you. Step 4: Blow your nose to clean out the water and mucus. Step 5: Repeat steps 1-4 for the other nostril. You can do this a couple times a day if it seems to help you. How to Make Saline (Salt Water) Nasal Wash: You can make your own saline nasal wash. Put 1 cup (8 oz; 240 ml) of water in a clean container. Add 3/4 teaspoon of non-iodized salt (such as aaliyah or pickling salt) to the water. Add 1/4 teaspoon baking soda to the water. Stir well. Use bottled or boiled tap water that has cooled. Sore Throat Stay well hydrated. Gargle with salt water [...] emergency medical attention Look for emergency warning signs. If having any of these symptoms, seek emergency medical care immediately: Trouble breathing Persistent pain or pressure in the chest New confusion Inability to wake or stay awake Bluish lips or face *This list is not all possible symptoms. Please call your medical provider for any other symptoms that are severe or concerning to you. All Natural DIY Pineapple Cough Syrup Ingredients: -2 thick slices of pineapple, peel removed, but core intact (about 2 cps) - 1 tbsp honey - 1/2 tsp cayenne pepper (omit or reduce for children) - a thumb sized piece of jean (omit or reduce for children), peeled, sliced or rough chopped - juice of 1 lemon Instructions: Give the pineapple a rough chop, including core, which is not only edible but very healthy Blend everything up in a blender operator or dry food products mixer until smooth Use a mesh strainer to get a smoother syrup if desired. Can use straight from blender operator. Keep refrigerated and take when needed as often as needed. Can mix in tea or water. Note: DO NOT give anything w/ honey to children un calin 1 yr old. If you have a persistent cough, seek medical attention. Recipe slightly adapted from [employer] documented in this encounter [facility] 12-19-2024 Note HNO ID: [id number] Author: ANGIE FAIRCHILD APRN.ENDOCRINOLOGY NURSE Service: ? Author Type: Nurse Practitioner Type: Progress Notes Filed: 12/19/2024 08:29 Note Text: Telemedicine Visit - Distance Health Virtual Visit Note Patient seen on [employer] Video Visit platform. Location of patient: [place] Jhonny Fowler MD I have communicated my name and active licensure. The patient's identity and physical location were verified at the time of this visit. Either the patient or their legal authorization representative has been informed of the risks and benefits of -- and alternatives to -- treatment through a remote evaluation and consents to proceed with the evaluation remotely. Subjective The patient is a 29-year-old female presenting with acute onset URI symptoms. Upper Respiratory Infection Symptoms: - Onset today. - Symptoms include congestion, rhinorrhea, post-nasal drip, mild sore throat, and cough. - Reports mild dyspnea, described as difficulty taking a full breath due to gunky throat. - Denies high-pitched wheezing. - Mild frontal headache, described as pressure headache. - Denies ear pain, pressure, or lymphadenopathy. - Denies nausea, emesis, or diarrhea. 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 - No recent travel. - Has not performed COVID-19 or flu test at home. - Took Mucinex and Tylenol today for symptom relief. - Allergies to doxycycline and Flagyl. Constitutional: (-) fever, (+) generalized discomfort Head: (+) headache Ears/Nose/Mouth/Throat: (-) ear pain, (+) congestion, (+) post nasal drip, (+) sore throat Neck: (-) neck swelling Respiratory: (+) cough, (+) shortness of breath, (+) wheezing Gastrointestinal: (-) nausea, (-) vomiting, (-) diarrhea Hematologic/Lymphatic: (-) lymphadenopathy Objective Last menstrual period 07/22/2024. Video Exam (Examination performed via Video enabled technology) General appearance: Alert, oriented, pleasant, in NAD: Yes Ill appearing: No Lethargic appearing: No Eyes: Sclera clear: Yes Conjunctiva without erythema: Yes Ears: Tragus / outer ear tenderness by self palpation: No Oropharynx: moist mucus membranes, no tonsillar hypertrophy/exudate, uvula midline and pharynx non-erythematous, lips, teeth and gums are without obvious lesion Frontal sinus tenderness by self palpation: Yes Maxillary sinus tenderness by self palpation: No Tender cervical adenopathy by self palpation: No Respiratory distress: No Coughing noted: No Audible wheezing noted: No 1. Viral URI with cough (J06.9) - Onset today with symptoms including congestion, cough, mild sore throat, and pressure headache; no fever, ear pain, nausea, vomiting, or diarrhea. 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 - Physical exam reveals no lymphadenopathy or significant findings in the oropharynx. - Differential diagnosis includes viral etiology given the acute onset and symptomatology. - Advised rest, increased fluid intake, and continuation of Tylenol for analgesia. - Discussed use of Motrin as needed for additional pain management. - Recommended continuation of Mucinex for expectoration. - Prescribed nasal spray for congestion and cough suppressant for symptomatic relief; transmitted prescriptions to [facility] in [place]. - Provided work excuse letter for today to allow for rest and recovery. - Advised monitoring of symptoms and follow-up if symptoms persist or worsen. Attestation Recording using Rapid Vocabulary software for draft documentation of the visit was discussed with the patient/authorized authorization representative; all questions welcomed and answered. Patient/authorized authorization representative agreed to proceed IF YOUR SYMPTOMS PERSIST OR WORSENING IN THE NEXT 7 DAYS THEN PLEASE FOLLOW UP WITH YOUR PCP - Red flags discussed for need for in person care - All questions answered Angie Fairchild APRN.ENDOCRINOLOGY NURSE Differential Diagnoses - is more likely for the following reason(s): suggested by HANDP CODIN [facility] 12-19-2024 History of Presen t illness Narrative Telemedicine Visit - Distance Health Virtual Visit Note Patient seen on [employer] Video Visit platform. Location of patient: [place] Jhonny Fowler MD I have communicated my name and active licensure. The patient's identity and physical location were verified at the time of this visit. Either the patient or their legal authorization representative has been informed of the risks and benefits of -- and alternatives to -- treatment through a remote evaluation and consents to proceed with the evaluation remotely. Subjective The patient is a 29-year-old female presenting with acute onset URI symptoms. Upper Respiratory Infection Symptoms: - Onset today. - Symptoms include congestion, rhinorrhea, post-nasal drip, mild sore throat, and cough. - Reports mild dyspnea, described as difficulty taking a full breath due to gunky throat. - Denies high-pitched wheezing. - Mild frontal headache, described as pressure headache. - Denies ear pain, pressure, or lymphadenopathy. - Denies nausea, emesis, or diarrhea. 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 - No recent travel. - Has not performed COVID-19 or flu test at home. - Took Mucinex and Tylenol today for symptom relief. - Allergies to doxycycline and Flagyl. Constitutional: (-) fever, (+) generalized discomfort Head: (+) headache Ears/Nose/Mouth/Throat: (-) ear pain, (+) congestion, (+) post nasal drip, (+) sore throat Neck: (-) neck swelling Respiratory: (+) cough, (+) shortness of breath, (+) wheezing Gastrointestinal: (-) nausea, (-) vomiting, (-) diarrhea Hematologic/Lymphatic: (-) lymphadenopathy Objective Last menstrual period 07/22/2024. Video Exam (Examination performed via Video enabled technology) General appearance: Alert, oriented, pleasant, in NAD: Yes Ill appearing: No Lethargic appearing: No Eyes: Sclera clear: Yes Conjunctiva without erythema: Yes Ears: Tragus / outer ear tenderness by self palpation: No Oropharynx: moist mucus membranes, no tonsillar hypertrophy/exudate, uvula midline and pharynx non-erythematous, lips, teeth and gums are without obvious lesion Frontal sinus tenderness by self palpation: Yes Maxillary sinus tenderness by self palpation: No Tender cervical adenopathy by self palpation: No Respiratory distress: No Coughing noted: No Audible wheezing noted: No 1. Viral URI with cough (J06.9) - Onset today with symptoms including congestion, cough, mild sore throat, and pressure headache; no fever, ear pain, nausea, vomiting, or diarrhea. 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 - Physical exam reveals no lymphadenopathy or significant findings in the oropharynx. - Differential diagnosis includes viral etiology given the acute onset and symptomatology. - Advised rest, increased fluid intake, and continuation of Tylenol for analgesia. - Discussed use of Motrin as needed for additional pain management. - Recommended continuation of Mucinex for expectoration. - Prescribed nasal spray for congestion and cough suppressant for symptomatic relief; transmitted prescriptions to [facility] in [place]. - Provided work excuse letter for today to allow for rest and recovery. - Advised monitoring of symptoms and follow-up if symptoms persist or worsen. Attestation Recording using Rapid Vocabulary software for draft documentation of the visit was discussed with the patient/authorized authorization representative; all questions welcomed and answered. Patient/authorized authorization representative agreed to proceed IF YOUR SYMPTOMS PERSIST OR WORSENING IN THE NEXT 7 DAYS THEN PLEASE FOLLOW UP WITH YOUR PCP - Red flags discussed for need for in person care - All questions answered Angie Fairchild APRN.CNP Differential Diagnoses - is more likely for the following reason(s): suggested by H&P CODIN documented in this encounter [facility] 12-05-2024 Note HNO ID: [id number] Author: JUAN CARLOS GARAY RT(Mary) Service: Radiology Author Type: Technologist Type: Progress Notes Filed: 12/05/2024 09:44 Note Text: Radiology Service Progress Note PATIENT NAME: Dejah Adorno DATE OF SERVICE: December 05, 2024 TIME: 9:35 AM PATIENT IDENTITY VERIFICATION COMPLETED USING TWO (2) IDENTIFIERS: Name and Date of confirmed by patient verbally. FALL SCREENING: Has the patient had 2 falls in the last year or 1 fall with injury or currently using an Ambulatory Assistive Device (Walker, Cane, Wheelchair, Crutches, etc.)? No PATIENT GENDER DATA: Assigned female at . status: : No status: NO. PATIENT RELEVANT IMPLANT DATA REVIEWED: Not Applicable PATIENT PRESENTS WITH AN IMPLANTABLE OR ATTACHED PATCH WORKER: No RADIOLOGY DEPARTMENT: General X-ray: Exam(s) Completed: Chest X-Ray PERIPHERAL IV DATA: Not applicable SIGNED BY: RT Elo(R) December 05, 2024 9:35 AM [facility] 12-05-2024 Note HNO ID: [id number] Author: ANABELLA HASKINS APRN.CNP Service: ? Author Type: Nurse Practitioner Type: Progress Notes Filed: 12/05/2024 10:06 Note Text: 12/05/2024 Patient presents with: Shortness of Breath SUBJECTIVE: This is a 29 year old that is here today for Above Complaints. Reports for over a year will have an episode where it feels like she can not take a deep breath in. Reports will hyperventilate until it goes away. Doesn't think it is related to anxiety. Has an inhaler but has not used it when feeling this way. Happens maybe twice a week. Happens at random and not tied to any specific event like physical activity. Denies wheezing, orthopnea, hemoptysis, cough, chest pain, or palpitations. Also has some mucous in her throat. For over a year. Reports it is sticky and thick. Has not tried anything routinely to see if it helps.Admits to heartburn and acid reflux. Also has some nasal congestion at times. Denies fevers, chills, sore throat, or rhinorrhea. 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 Vitamin D deficiency 12/21/2021 ALLERGIES Doxycycline and Flagyl [Metronidazole] MEDICATIONS Current Outpatient Medications Medication Sig meloxicam (MOBIC) 15 mg tablet Take 1 tablet by mouth once daily. With food. cyclobenzaprine (FLEXERIL) 10 mg tablet Take 1 tablet by mouth three times a day as needed for muscle spasm. medroxyPROGESTERone (PROVERA) 10 mg tablet Take 1 tablet by mouth once daily. hydrOXYzine HCl (ATARAX) 25 mg tablet Take 1 tablet by mouth every 6 hours as needed for itching/rash. albuterol HFA (VENTOLIN HFA) 90 mcg/actuation inhaler Inhale 2 Puffs as instructed every 4 hours as needed for wheezing/shortness of breath. EPINEPHrine (EPIPEN 2-MANSI) 0.3 mg/0.3 mL auto-injector Inject 0.3 mL intramuscularly as needed. No current facility-administered medications for this visit. Medications and allergies reviewed by this provider. SOCIAL HISTORY Social History Tobacco Use Smoking status: Former Current packs/day: 0.00 Types: Cigarettes Quit date: 01/18/2018 Years since quittin.8 Smokeless tobacco: Never Tobacco comments: . step mom and sibling smokes outside Vaping Use Vaping status: Never Used Substance Use Topics Alcohol use: Not Currently Drug use: Not Currently Types: Marijuana REVIEW OF SYSTEMS All other reviewed and negative other than HPI. OBJECTIVE: BP 120/90 Pulse 92 Ht 170.2 cm (5' 7) Wt (!) 220.2 kg (485 lb 6.4 oz) LMP 07/22/2024 (Approximate) SpO2 97% BMI 76.02 kg/m? . Vital signs reviewed by this provider. APPEARANCE Well appearing, alert, in no acute distress, well-hydrated, well nourished. EYES conjunctiva and sclera normal. HEART RRR with normal S1 and S2, no murmurs, no gallops, no JVD appreciated LUNG clear to auscultation. No wheezes, rhonchi or rales EXTREMITIES Extremities normal, No deformities, No skin discoloration, and No edema SKIN Skin color, texture, turgor normal, no suspicious rashes or lesions to exposed skin DTaP,Tdap,Td Vaccine(7 - Td or Tdap) due on 12/03/2019 Influenza Vaccine(1) due on 04/14/2024 Covid-19 Vaccine(3 - 2023- season) due on 04/14/2024 Depression Screening due on 08/09/2025 Anxiety Screening due on 08/09/2025 Cervical Cancer Screening due on 09/27/2025 Hepatitis B Vaccine Completed Hepatitis C Screening Completed HIV Screening Completed ASSESSMENT/PLAN: 1. SOB (shortness of breath) - ICD9: 786.05, ICD10: R06.02 (primary diagnosis) - no red flag symptoms or exam findings - red flag symptoms discussed, verbalizes understanding - XR CHEST 2V FRONTAL/LAT - ALBUTEROL SULFATE HFA 90 MCG/ACTUATION AEROSOL INHALER - will see if trial of albuterol inhaler helps during episodes - need to follow-up for physical 2. Gastroesophageal reflux disease, unspecified whether esophagitis present - ICD9: 530.81, ICD10: K21.9 - Discussed lifestyle modifications including losing weight, limiting caffeine, no meals three hours before sleep, and head of bed elevation - OMEPRAZOLE 40 MG CAPSULE,DELAYED RELEASE - follow-up if symptoms fail to improve 3. Heartburn - ICD9: 787.1, ICD10: R12 - plan as in #2 - OMEPRAZOLE 40 MG CAPSULE,DELAYED RELEASE 4. Thick sputum - ICD9: 786.4, ICD10: R09.3 - possible related to allergies or heartburn - she can also try Flonase nasal spray, allergy pill and mucinex OTC as directed on packaging - increase water intake - follow-up if fails to improve Anabella Haskins APRN.ENDOCRINOLOGY NURSE Prescription instructions reviewed with patient as ap (more content not included)... [facility] 12-03-2024 Telephone encounter Note Pt reports for the past couples years, every couple months, she randomly has trouble taking a deep breath, takes a couple minutes before she is able to. Pt doesn't think it's anxiety. No symptoms right now. Had episode this morning. Pt would like to get checked out to see if it's her lungs or heart. Pt does not have lung or heart history or symptoms. Scheduled appt for per patient request. Answer Assessment - Initial Assessment Questions 1. RESPIRATORY STATUS: Pt reports for the past couple of years, has had episodes, every couple of months, has problems taking a deep breath, that lasts a couple minutes then resolves. Not having SOB right now. No wheezing right now. 2. ONSET: Couple years ago 3. PATTERN Comes and goes for past couple years 4. SEVERITY: Normally has no trouble breathing. When it occurs- happens randomly- tries to take a deep breath and feels like it gets stuck in her throat and doesn't go to her lungs. Keeps trying for a couple minutes then is able. During this time is able to breath through her nose but won't go down her throat. When it happens she is not necessarily feeling anxious about anything. 5. RECURRENT SYMPTOM: Recurrent about every 2 months. Has seasonal allergies. 6. CARDIAC HISTORY: Doesn't have cardiac hx personally but father of heart attack at age 41. 7. LUNG HISTORY: Pt has inhaler for allergies but has never been tested for asthma. Reports mother from PE in lung at age 35. 8. CAUSE: No idea. Not having symptoms right now, just wants to get it checked out to see if it's asthma, lungs, or heart. No illness right now. 9. OTHER SYMPTOMS: A little wheezy today, gone now, started after the breathing episode. No respiratory illness that she knows of. 10. O2 SATURATION MONITOR: No 11. : No. Had doctor's appt 2 weeks ago and test was negative. 12. TRAVEL: No. No exposures that she knows of. Protocols used: Breathing [id number] [facility] 12-03-2024 Miscellaneous Notes Pt reports for the past couples years, every couple months, she randomly has trouble taking a deep breath, takes a couple minutes before she is able to. Pt doesn't think it's anxiety. No symptoms right now. Had episode this morning. Pt would like to get checked out to see if it's her lungs or heart. Pt does not have lung or heart history or symptoms. Scheduled appt for per patient request. Answer Assessment - Initial Assessment Questions 1. RESPIRATORY STATUS: Pt reports for the past couple of years, has had episodes, every couple of months, has problems taking a deep breath, that lasts a couple minutes then resolves. Not having SOB right now. No wheezing right now. 2. ONSET: Couple years ago 3. PATTERN Comes and goes for past couple years 4. SEVERITY: Normally has no trouble breathing. When it occurs- happens randomly- tries to take a deep breath and feels like it gets stuck in her throat and doesn't go to her lungs. Keeps trying for a couple minutes then is able. During this time is able to breath through her nose but won't go down her throat. When it happens she is not necessarily feeling anxious about anything. 5. RECURRENT SYMPTOM: Recurrent about every 2 months. Has seasonal allergies. 6. CARDIAC HISTORY: Doesn't have cardiac hx personally but father of heart attack at age 41. 7. LUNG HISTORY: Pt has inhaler for allergies but has never been tested for asthma. Reports mother from PE in lung at age 35. 8. CAUSE: No idea. Not having symptoms right now, just wants to get it checked out to see if it's asthma, lungs, or heart. No illness right now. 9. OTHER SYMPTOMS: A little wheezy today, gone now, started after the breathing episode. No respiratory illness that she knows of. 10. O2 SATURATION MONITOR: No 11. : No. Had doctor's appt 2 weeks ago and test was negative. 12. TRAVEL: No. No exposures that she knows of. Protocols used: Breathing [id number] documented in this encounter [facility] 11-22-2024 Telephone encounter Note Patient was in for OV today for other c/o. Lawanda Hagen LPN [facility] 11-22-2024 Miscellaneous Notes Patient was in for OV today for other c/o. Lawanda Hagen LPN I cannot write them a letter without seeing them in office. Do they want an appointment with available provider? documented in this encounter [facility] 11-22-2024 Note HNO ID: [id number] Author: JHONNY FOWLER MD Service: ? Author Type: Physician Type: Progress Notes Filed: 11/22/2024 08:58 Note Text: Chief Complaint Patient presents with: Pain, Back UTI: C/o frequency HPI Taylr O Kyree is a 29 year old female who presents here today for Above Complaints. Patient complaining of left lower back pain in the last 2 weeks and wanted to make sure she didn't have a UTI. Got a new mattress a couple weeks ago and thinks that may be related. No other fall or injury. Denies as intermittent sharp pain, currently 2/10, without radiation down her legs. Exacerbated with bending and twisting. Denies fever/chills, loss of bowel/bladder control, saddle anesthesia, LE weakness. Taking ibuprofen and previous rx for muscle relaxer and switched back to her old mattress. Pain gradually improving. Evaluated by chiropractor on Monday who treated her with TENS unit and adjustment of her back and pelvis. Symptoms have been better over the last couple of days. Urinating more frequently without dysuria, hematuria, urgency, abdominal pain, nausea, vomiting. Past medical history, appointments, medications, allergies reviewed. 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 Vitamin D deficiency 12/21/2021 Previous Surgical History PAST SURGICAL HISTORY Procedure Laterality Date COLPOSCOPY CERVIX BX CERVIX AND ENDOCRV CURRETAGE 03/31/2023 TONSILLECTOMY PRIMARY/SECONDARY Family History FAMILY HISTORY Problem Relation Age of Onset other (Pulmonary Embolism) Mother with embolism Anxiety disorder Brother Depression Brother Breast Cancer Maternal Grandmother Hypertension Maternal Grandfather Lung Cancer Paternal Grandmother Bipolar disorder Maternal Aunt Diabetes Other mggm Patient Allergies ALLERGIES Allergen Reactions Doxycycline Anaphylaxis Flagyl [Metronidazo* Anaphylaxis Current Medications Current Outpatient Medications on File Prior to Visit Medication Sig cyclobenzaprine (FLEXERIL) 10 mg tablet Take 1 tablet by mouth three times a day as needed for muscle spasm. medroxyPROGESTERone (PROVERA) 10 mg tablet Take 1 tablet by mouth once daily. (Patient taking differently: Take 10 mg by mouth as needed.) hydrOXYzine HCl (ATARAX) 25 mg tablet Take 1 tablet by mouth every 6 hours as needed for itching/rash. albuterol HFA (VENTOLIN HFA) 90 mcg/actuation inhaler Inhale 2 Puffs as instructed every 4 hours as needed for wheezing/shortness of breath. EPINEPHrine (EPIPEN 2-MANSI) 0.3 mg/0.3 mL auto-injector Inject 0.3 mL intramuscularly as needed. No current facility-administered medications on file prior to visit. Social History Social History Tobacco Use Smoking status: Former Current packs/day: 0.00 Types: Cigarettes Quit date: 01/18/2018 Years since quittin.8 Smokeless tobacco: Never Tobacco comments: . step mom and sibling smokes outside Vaping Use Vaping status: Never Used Substance Use Topics Alcohol use: Not Currently Drug use: Not Currently Types: Marijuana Review of Symptoms REVIEW OF SYSTEMS See HPI EXAM: BP 120/76 Pulse 87 Resp 18 Wt (!) 216 kg (476 lb 3.2 oz) LMP 07/22/2024 (Approximate) SpO2 98% BMI 74.58 kg/m? General Appearance: Well appearing, alert, in no acute distress, well-hydrated, well nourished.. Skin: Skin color, texture, turgor normal, no suspicious rashes or lesions. Back:no pain to palpation of vertebrae, good flexion and extension, good range of motion, no muscle tenderness, reflexes are 2+ and symmetric, motor and sensory appear to be normal, negative SLR test, no evidence of scoliosis Abdomen: Abdomen soft, non-tender. Bowel sounds normal. No masses, organomegaly. Health Maintenance List DTaP,Tdap,Td Vaccine(7 - Td or Tdap) due on 12/03/2019 Influenza Vaccine(1) due on 04/14/2024 Covid-19 Vaccine(3 - season) due on 04/14/2024 Depression Screening due on 08/09/2025 Anxiety Screening due on 08/09/2025 Cervical Cancer Screening due on 09/27/2025 Hepatitis B Vaccine Completed Hepatitis C Screening Completed HIV Screening Completed Latest Ref Rng 11/22/2024 GLUCOSE UA (POCT) Negative mg/dL Negative BILIRUBIN UA (POCT) Negative Negative KETONE UA (POCT) Negative mg/dL Negative SPECIFIC GRAVITY UA (POCT) 1.005 - 1.030 1.020 HEMOGLOBIN/BLOOD UA (POCT) Negative Negative PH UA (POCT) 4.5 - 8.0 5.5 PROTEIN UA (POCT) Negative mg/dL Negative UROBILINOGEN UA (POCT) Normal E.U./dL 0.2 NITRITE UA (POCT) Negative Negati (more content not included)... [facility] 11-22-2024 History of Presen t illness Narrative Chief Complaint Patient presents with: Pain, Back UTI: C/o frequency HPI Dejah Adorno is a 29 year old female who presents here today for Above Complaints. Patient complaining of left lower back pain in the last 2 weeks and wanted to make sure she didn't have a UTI. Got a new mattress a couple weeks ago and thinks that may be related. No other fall or injury. Denies as intermittent sharp pain, currently 2/10, without radiation down her legs. Exacerbated with bending and twisting. Denies fever/chills, loss of bowel/bladder control, saddle anesthesia, LE weakness. Taking ibuprofen and previous rx for muscle relaxer and switched back to her old mattress. Pain gradually improving. Evaluated by chiropractor on Monday who treated her with TENS unit and adjustment of her back and pelvis. Symptoms have been better over the last couple of days. Urinating more frequently without dysuria, hematuria, urgency, abdominal pain, nausea, vomiting. Past medical history, appointments, medications, allergies reviewed. 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 Vitamin D deficiency 12/21/2021 Previous Surgical History PAST SURGICAL HISTORY Procedure Laterality Date COLPOSCOPY CERVIX BX CERVIX & ENDOCRV CURRETAGE 03/31/2023 TONSILLECTOMY PRIMARY/SECONDARY <AGE 12 Family History FAMILY HISTORY Problem Relation Age of Onset other (Pulmonary Embolism) Mother with embolism Anxiety disorder Brother Depression Brother Breast Cancer Maternal Grandmother Hypertension Maternal Grandfather Lung Cancer Paternal Grandmother Bipolar disorder Maternal Aunt Diabetes Other mggm Patient Allergies ALLERGIES Allergen Reactions Doxycycline Anaphylaxis Flagyl [Metronidazo* Anaphylaxis Current Medications Current Outpatient Medications on File Prior to Visit Medication Sig cyclobenzaprine (FLEXERIL) 10 mg tablet Take 1 tablet by mouth three times a day as needed for muscle spasm. medroxyPROGESTERone (PROVERA) 10 mg tablet Take 1 tablet by mouth once daily. (Patient taking differently: Take 10 mg by mouth as needed.) hydrOXYzine HCl (ATARAX) 25 mg tablet Take 1 tablet by mouth every 6 hours as needed for itching/rash. albuterol HFA (VENTOLIN HFA) 90 mcg/actuation inhaler Inhale 2 Puffs as instructed every 4 hours as needed for wheezing/shortness of breath. EPINEPHrine (EPIPEN 2-MANSI) 0.3 mg/0.3 mL auto-injector Inject 0.3 mL intramuscularly as needed. No current facility-administered medications on file prior to visit. Social History Social History Tobacco Use Smoking status: Former Current packs/day: 0.00 Types: Cigarettes Quit date: 01/18/2018 Years since quittin.8 Smokeless tobacco: Never Tobacco comments: . step mom and sibling smokes outside Vaping Use Vaping status: Never Used Substance Use Topics Alcohol use: Not Currently Drug use: Not Currently Types: Marijuana Review of Symptoms REVIEW OF SYSTEMS See HPI EXAM: BP 120/76 Pulse 87 Resp 18 Wt (!) 216 kg (476 lb 3.2 oz) LMP 07/22/2024 (Approximate) SpO2 98% BMI 74.58 kg/m General Appearance: Well appearing, alert, in no acute distress, well-hydrated, well nourished.. Skin: Skin color, texture, turgor normal, no suspicious rashes or lesions. Back:no pain to palpation of vertebrae, good flexion and extension, good range of motion, no muscle tenderness, reflexes are 2+ and symmetric, motor and sensory appear to be normal, negative SLR test, no evidence of scoliosis Abdomen: Abdomen soft, non-tender. Bowel sounds normal. No masses, organomegaly. Health Maintenance List DTaP,Tdap,Td Vaccine(7 - Td or Tdap) due on 12/03/2019 Influenza Vaccine(1) due on 04/14/2024 Covid-19 Vaccine( - 2023- season) due on 04/14/2024 Depression Screening due on 08/09/2025 Anxiety Screening due on 08/09/2025 Cervical Cancer Screening due on 09/27/2025 Hepatitis B Vaccine Completed Hepatitis C Screening Completed HIV Screening Completed Latest Ref Rng 11/22/2024 GLUCOSE UA (POCT) Negative mg/dL Negative BILIRUBIN UA (POCT) Negative Negative KETONE UA (POCT) Negative mg/dL Negative SPECIFIC GRAVITY UA (POCT) 1.005 - 1.030 1.020 HEMOGLOBIN/BLOOD UA (POCT) Negative Negative PH UA (POCT) 4.5 - 8.0 5.5 PROTEIN UA (POCT) Negative mg/dL Negative UROBILINOGEN UA (POCT) Normal E.U./dL 0.2 NITRITE UA (POCT) Negative Negative LEUKOCYTES UA (POCT) Negative Trace ! COLOR UA (POCT) Yellow CLARITY UA (POCT) Slightly Cloudy Legend: ! Abnormal ASSESSMENT/PLAN: 1. Acute left-sided low back pain without sciatica - ICD9: 724.2, ICD10: M54.50 (primary diagnosis) Suspect muscle strain. Will treat with rest, ice/heat, NSAIDs, home exercises given in office. If not improving in 2-3 weeks, would refer to PT. - MELOXICAM 15 MG TABLET 2. Urinary frequency - ICD9: 788.41, ICD10: R35.0 acute UA negative for infection, blood, and glucose. Call if symptoms change/worsen. - UA DIP, URINE (POC) 3. Encounter for test, result unknown - ICD9: V72.40, ICD10: Z32.00 Negative. May start NSAIDs. Discussed control and condom use. - HCG QUAL UR B/O Jhonny Fowler MD documented in this encounter [facility] 11-21-2024 Telephone encounter Note I cannot write them a letter without seeing them in office. Do they want an appointment with available provider? [facility] 10-10-2024 Telephone encounter Note I have placed an order to check her Vit D level. Paradise Hand APRN.CNP [facility] 10-10-2024 Telephone encounter Note ----- Message from Estrella England RN sent at 10/09/2024 9:03 AM EST ----- Please send a letter to let the pt know that her pap is normal. Paradise Hand APRN.CNP [facility] 10-10-2024 Miscellaneous Notes I have placed an order to check her Vit D level. Paradise Hand APRN.CNP ----- Message from Estrella England RN sent at 10/09/2024 9:03 AM EST ----- Please send a letter to let the pt know that her pap is normal. Paradise Hand APRN.CNP Left message informing Pt we were calling re: results and that [employer]t message would be sent and to call office if she has any questions. Estrella England RN BV positive. To treat with Clindamycin 300 mg PO BID for 7 days. 1) No alcohol during treatment and for 24 hours after last dose. 2) No intercourse during treatment. 3) Probiotic by mouth once daily for 30 days or as needed. Paradise Hand APRN.CNP documented in this encounter [facility] 10-09-2024 Telephone encounter Note Patient Comment: request a refill for stiff neck muscles Prescription Refill Information The patient has been identified by name and date of : Yes Caregiver verified no other encounters exist for this prescription request: Yes Caregiver confirmed with patient/requestor that no other refills are due, in the near future, with this provider at this time: Yes The last office visit in the department: 08/09/24 Does the patient have a future office visit with this provider/department: Yes Requested Prescriptions Pending Prescriptions Disp Refills cyclobenzaprine (FLEXERIL) 10 mg tablet 30 tablet 0 Sig: Take 1 tablet by mouth three times a day as needed for muscle spasm. Ranjit Phan LPN October 09, 2024 7:28 AM [facility] 10-09-2024 Miscellaneous Notes Patient Comment: request a refill for stiff neck muscles Prescription Refill Information The patient has been identified by name and date of : Yes Caregiver verified no other encounters exist for this prescription request: Yes Caregiver confirmed with patient/requestor that no other refills are due, in the near future, with this provider at this time: Yes The last office visit in the department: 08/09/24 Does the patient have a future office visit with this provider/department: Yes Requested Prescriptions Pending Prescriptions Disp Refills cyclobenzaprine (FLEXERIL) 10 mg tablet 30 tablet 0 Sig: Take 1 tablet by mouth three times a day as needed for muscle spasm. Ranjit Phan LPN October 09, 2024 7:28 AM documented in this encounter [facility] 09-30-2024 Telephone encounter Note Left message informing Pt we were calling re: results and that [employer] message would be sent and to call office if she has any questions. Estrella England RN [facility] 09-30-2024 Telephone encounter Note BV positive. To treat with Clindamycin 300 mg PO BID for 7 days. 1) No alcohol during treatment and for 24 hours after last dose. 2) No intercourse during treatment. 3) Probiotic by mouth once daily for 30 days or as needed. Paradise Hand APRN.JONO [facility] 09-27-2024 Note HNO ID: [id number] Author: PARADISE HAND APRN.CNP Service: ? Author Type: Nurse Practitioner Type: Progress Notes Filed: 09/27/2024 10:28 Note Text: Senior Cost Analyst offered: Patient declines. Dejah is a 28 year old who presents for an annual gynecologic exam without complaints. Still get period: Yes LMP: Abnormal 08/06 spotting Menses: Abnormal menses, last one was about 2 months ago Menstrual flow: Light Bleeding amount bothersome: No Bleeding between periods: Yes, sometimes gets spotting after intercourse Period symptoms: Acne and Cramps Sexually active: Yes Time with current partner: 2.5 years Contraception: None Contraception frequency: Never HPV vaccine: Yes HPV:N/A Last pap smear: 2022 LSIL History of abnormal pap: Yes Colposcopy: Yes: 2 years ago, Normal Leep: No. Cone biopsy: No. Bothersome pelvic pain: No Last mammogram: never OB History Gravida0 Para0 Term0 Preterm0 AB0 Living0 SAB0 IAB0 Ectopic0 Multiple0 Live Births0 Sign Installer History LMP: 07/22/2024 (Approximate), Having periods Age at Menarche: 14 Age at First : Age at Menopause: Sign Installer History Comments: Sexual Activity: Yes; Male Contraception: Not used PAST MEDICAL HISTORY Diagnosis Date Fatty liver LGSIL on Pap smear of cervix 03/09/2023 Migraine without aura and without status migrainosus, not intractable 07/10/2019 Obesity 03/09/2011 PCOS (polycystic ovarian syndrome) 2016 PMH - PAST MEDICAL HISTORY OF 03/2003 normal color vision Splenomegaly 01/17/2024 mild Unspecified hearing loss, bilateral 07/10/2019 Rt>LT, 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 Vitamin D deficiency 12/21/2021 PAST SURGICAL HISTORY Procedure Laterality Date COLPOSCOPY CERVIX BX CERVIX AND ENDOCRV CURRETAGE 03/31/2023 TONSILLECTOMY PRIMARY/SECONDARY FAMILY HISTORY Problem Relation Age of Onset other (Pulmonary Embolism) Mother with embolism Anxiety disorder Brother Depression Brother Breast Cancer Maternal Grandmother Hypertension Maternal Grandfather Lung Cancer Paternal Grandmother Bipolar disorder Maternal Aunt Diabetes Other mggm SOCIAL HISTORY Social History Tobacco Use Smoking status: Former Current packs/day: 0.00 Types: Cigarettes Quit date: 01/18/2018 Years since quittin.6 Smokeless tobacco: Never Tobacco comments: . step mom and sibling smokes outside Vaping Use Vaping status: Never Used Substance Use Topics Alcohol use: Not Currently Drug use: Not Currently Types: Marijuana REVIEW OF SYSTEMS Abdomen: No abdominal pain, nausea, vomiting, diarrhea, or constipation. No bloating, early satiety, indigestion, or increased flatulence. Bladder: No dysuria, gross hematuria, urinary frequency, urinary urgency, or incontinence. Breast: No breast lumps, nipple d/c, overlying skin changes, redness or skin retraction. Allergies and current medication updated:Yes SENSITIVE EXAM: The sensitive examination was discussed with the Patient or Patient's Authorized Tea Plantation Worker. As applicable, any other physician, advance practice provider, medical student, or other health professional student that will be observing or involved in the sensitive examination for educational or training purposes was discussed with the Patient or Authorized Tea Plantation Worker. The Patient or Authorized Tea Plantation Worker has agreed to proceed with the sensitive examination. (Sensitive examination includes inspection and/or palpation of the breasts, pelvis, prostate and anorectal regions). EXAM: BP 118/80 Ht 5' 7 (1.70m) Wt 479 lb (217.3kg) LMP 07/22/2024 BMI 75.00 kg/(m2). GENERAL: pleasant, female in no apparent distress HEENT: Normocephalic, atraumatic, mucus membranes moist, and no lesions DERMATOLOGY: Normal, without lesions, non-icteric, and non-hirsute BREAST: soft, non-tender, symmetric, no dominant mass, normal nipple-areolar complex, no lymphadenopathy, and no nipple discharge CHEST: Normal inspiratory effort ABDOMEN: soft, non-tender, and no masses PELVIC: external genitalia normal, normal Bartholin's glands, urethra, [place]'s glands, no vulvar lesions, no cervical lesions, physiologic discharge present, normal appearing perineal body and perianal region BIMANUAL: non-tender and difficulty to assess due body habitus RECTOVAGINAL: deferred. NEURO: alert and oriented x3,exam grossly non-focal EXTREMITIES: normal ASSESSMENT/PLAN: 1) Health maintenance: Pap done with reflex HPV. Mammogram starting age 40. Nutrition, exercise and routine health maintenance exams reviewed. Calcium/Vitamin D supplementation information provided. Colon cancer screening: start at age 45 2) Contraception: none. Contraceptive options reviewed and information provided. 3) STD screening: Accepted STD check for Gonorrhea and Chlamydia. 4) Follow up one year or sooner as needed 5) Provera ordered for irregular periods R (more content not included)... [facility] 09-27-2024 History of Presen t illness Narrative Senior Cost Analyst offered: Patient declines. Dejah is a 28 year old who presents for an annual gynecologic exam without complaints. Still get period: Yes LMP: Abnormal 08/06 spotting Menses: Abnormal menses, last one was about 2 months ago Menstrual flow: Light Bleeding amount bothersome: No Bleeding between periods: Yes, sometimes gets spotting after intercourse Period symptoms: Acne and Cramps Sexually active: Yes Time with current partner: 2.5 years Contraception: None Contraception frequency: Never HPV vaccine: Yes HPV:N/A Last pap smear: 2022 LSIL History of abnormal pap: Yes Colposcopy: Yes: 2 years ago, Normal Leep: No. Cone biopsy: No. Bothersome pelvic pain: No Last mammogram: never OB History Gravida0 Para0 Term0 Preterm0 AB0 Living0 SAB0 IAB0 Ectopic0 Multiple0 Live Births0 Sign Installer History LMP: 07/22/2024 (Approximate), Having periods Age at Menarche: 14 Age at First : Age at Menopause: Sign Installer History Comments: Sexual Activity: Yes; Male Contraception: Not used PAST MEDICAL HISTORY Diagnosis Date Fatty liver LGSIL on Pap smear of cervix 03/09/2023 Migraine without aura and without status migrainosus, not intractable 07/10/2019 Obesity 03/09/2011 PCOS (polycystic ovarian syndrome) 2016 PMH - PAST MEDICAL HISTORY OF 03/2003 normal color vision Splenomegaly 01/17/2024 mild Unspecified hearing loss, bilateral 07/10/2019 Rt>LT, 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 Vitamin D deficiency 12/21/2021 PAST SURGICAL HISTORY Procedure Laterality Date COLPOSCOPY CERVIX BX CERVIX & ENDOCRV CURRETAGE 03/31/2023 TONSILLECTOMY PRIMARY/SECONDARY <AGE 12 FAMILY HISTORY Problem Relation Age of Onset other (Pulmonary Embolism) Mother with embolism Anxiety disorder Brother Depression Brother Breast Cancer Maternal Grandmother Hypertension Maternal Grandfather Lung Cancer Paternal Grandmother Bipolar disorder Maternal Aunt Diabetes Other mggm SOCIAL HISTORY Social History Tobacco Use Smoking status: Former Current packs/day: 0.00 Types: Cigarettes Quit date: 01/18/2018 Years since quittin.6 Smokeless tobacco: Never Tobacco comments: . step mom and sibling smokes outside Vaping Use Vaping status: Never Used Substance Use Topics Alcohol use: Not Currently Drug use: Not Currently Types: Marijuana REVIEW OF SYSTEMS Abdomen: No abdominal pain, nausea, vomiting, diarrhea, or constipation. No bloating, early satiety, indigestion, or increased flatulence. Bladder: No dysuria, gross hematuria, urinary frequency, urinary urgency, or incontinence. Breast: No breast lumps, nipple d/c, overlying skin changes, redness or skin retraction. Allergies and current medication updated:Yes SENSITIVE EXAM: The sensitive examination was discussed with the Patient or Patient's Authorized Tea Plantation Worker. As applicable, any other physician, advance practice provider, medical student, or other health professional student that will be observing or involved in the sensitive examination for educational or training purposes was discussed with the Patient or Authorized Tea Plantation Worker. The Patient or Authorized Tea Plantation Worker has agreed to proceed with the sensitive examination. (Sensitive examination includes inspection and/or palpation of the breasts, pelvis, prostate and anorectal regions). EXAM: BP 118/80 Ht 5' 7 (1.70m) Wt 479 lb (217.3kg) LMP 07/22/2024 BMI 75.00 kg/(m^2). GENERAL: pleasant, female in no apparent distress HEENT: Normocephalic, atraumatic, mucus membranes moist, and no lesions DERMATOLOGY: Normal, without lesions, non-icteric, and non-hirsute BREAST: soft, non-tender, symmetric, no dominant mass, normal nipple-areolar complex, no lymphadenopathy, and no nipple discharge CHEST: Normal inspiratory effort ABDOMEN: soft, non-tender, and no masses PELVIC: external genitalia normal, normal Bartholin's glands, urethra, [place]'s glands, no vulvar lesions, no cervical lesions, physiologic discharge present, normal appearing perineal body and perianal region BIMANUAL: non-tender and difficulty to assess due body habitus RECTOVAGINAL: deferred. NEURO: alert and oriented x3,exam grossly non-focal EXTREMITIES: normal ASSESSMENT/PLAN: 1) Health maintenance: Pap done with reflex HPV. Mammogram starting age 40. Nutrition, exercise and routine health maintenance exams reviewed. Calcium/Vitamin D supplementation information provided. Colon cancer screening: start at age 45 2) Contraception: none. Contraceptive options reviewed and information provided. 3) STD screening: Accepted STD check for Gonorrhea and Chlamydia. 4) Follow up one year or sooner as needed 5) Provera ordered for irregular periods Paradise Hand APRN.CNP documented in this encounter [facility] 08-09-2024 Telephone encounter Note Patient notified. Verbalized understanding. [facility] 08-09-2024 Miscellaneous Notes Patient notified. Verbalized understanding. Please let pt. Know that I was going to have her just complete the amoxicillin. We are limited in the antibiotics to use for dental due to angioedema documented in this encounter [facility] 08-09-2024 Telephone encounter Note Please let pt. Know that I was going to have her just complete the amoxicillin. We are limited in the antibiotics to use for dental due to angioedema [facility] 08-09-2024 Instructions Aria Preciado APRN.CNP - 08/09/2024 8:32 AM EST 1) epi-pen ordered for angioedema 2) Hydroxyzine 25 mg every 6 hours as needed for itching or anxiety 3) Follow up in 6 months documented in this encounter [facility] 08-09-2024 Note HNO ID: [id number] Author: SUPPAN, ARIA, RESCUE INSTRUCTOR.ENDOCRINOLOGY NURSE Service: ? Author Type: Clinical Nurse Specialist Type: Progress Notes Filed: 08/09/2024 08:33 Note Text: This is a 28 year old female who presents today with: Patient presents with: Allergic Reaction: Allergic reaction to amoxicillin HISTORY OF PRESENT ILLNESS: Dejah Adorno is a 28 year old female. Patient presents with: Allergic Reaction: Allergic reaction to amoxicillin Hx of anaphylaxis on doxycyline and flagyl in sep. Dentist started her on amoxicillin- took it for 3 days. Got itchy bumpon neck and face. Itchy all over body. Quit amoxicillin 2 days go. Benadryl x1. Getting little bumps still on face. Also, anxious all the time. PAST MEDICAL HISTORY: PAST MEDICAL HISTORY Diagnosis Date Fatty liver LGSIL on Pap smear of cervix 03/09/2023 Migraine without aura and without status migrainosus, not intractable 07/10/2019 Obesity 03/09/2011 PCOS (polycystic ovarian syndrome) 2015 PMH - PAST MEDICAL HISTORY OF 03/2003 normal color vision Splenomegaly 01/17/2024 mild Unspecified hearing loss, bilateral 07/10/2019 Rt>LT, 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 Vitamin D deficiency 12/21/2021 PAST SURGICAL HISTORY Procedure Laterality Date COLPOSCOPY CERVIX BX CERVIX AND ENDOCRV CURRETAGE 03/31/2023 TONSILLECTOMY PRIMARY/SECONDARY ALLERGIES Doxycycline and Flagyl [Metronidazole] MEDICATIONS Current Outpatient Medications Medication Sig cyclobenzaprine (FLEXERIL) 10 mg tablet Take 1 tablet by mouth three times a day as needed for muscle spasm. omeprazole (PRILOSEC) 40 mg capsule Take 1 capsule by mouth once daily. (Patient not taking: Reported on 12/20/2023) medroxyPROGESTERone (PROVERA) 10 mg tablet Take 1 tablet by mouth once daily. (Patient not taking: Reported on 05/07/2024) BORIC ACID 600 MG VAGINAL SUPPOSITORY Use 1 Suppository vaginally once daily. Unwrap and insert as directed. (Patient not taking: Reported on 12/20/2023) ondansetron orally disintegrating (ZOFRAN ODT) 4 mg disintegrating tablet Take 1 tablet by mouth every 6 hours as needed for nausea/vomiting. (Patient not taking: Reported on 12/20/2023) albuterol HFA (VENTOLIN HFA) 90 mcg/actuation inhaler Inhale 2 Puffs as instructed every 4 hours as needed for wheezing/shortness of breath. No current facility-administered medications for this visit. FAMILY HISTORY Problem Relation Age of Onset other (Pulmonary Embolism) Mother with embolism Anxiety disorder Brother Depression Brother Breast Cancer Maternal Grandmother Hypertension Maternal Grandfather Lung Cancer Paternal Grandmother Bipolar disorder Maternal Aunt Diabetes Other mggm Social History Tobacco Use Smoking status: Former Current packs/day: 0.00 Types: Cigarettes Quit date: 01/18/2018 Years since quittin.5 Smokeless tobacco: Never Tobacco comments: . step mom and sibling smokes outside Vaping Use Vaping status: Never Used Substance Use Topics Alcohol use: Not Currently Drug use: Not Currently Types: Marijuana EXAM: BP 128/80 Pulse 76 Temp 36.7 ?C (98.1 ?F) (Tympanic) Resp 16 Wt (!) 217.3 kg (479 lb) LMP 09/14/2022 (Approximate) SpO2 97% BMI 77.31 kg/m? PHYSICAL EXAM: Physical Exam Vitals reviewed. Constitutional: Appearance: Normal appearance. HENT: Head: Normocephalic. Cardiovascular: Rate and Rhythm: Normal rate and regular rhythm. Pulses: Normal pulses. Heart sounds: Normal heart sounds. Pulmonary: Effort: Pulmonary effort is normal. Breath sounds: Normal breath sounds. Abdominal: General: Bowel sounds are normal. Palpations: Abdomen is soft. Musculoskeletal: General: Normal range of motion. Skin: General: Skin is warm and dry. Comments: Pictures a=of raised hives on neck Neurological: Mental Status: She is alert and oriented to person, place, and time. LABS: ASSESSMENT/PLAN: 1. Screening for depression - ICD9: V79.0, ICD10: Z13.31 (primary diagnosis) Negative - DEPRESSION SCREENING 2. Encounter for screening examination for other mental health and behavioral disorders - ICD9: V79.8, ICD10: Z13.39 Negative - ANXIETY SCREENING 3. Hives - ICD9: 708.9, ICD10: L50.9 - Likely viral or allergic etiology discussed with patient - Follow up if symptoms persist or worsen. - HYDROXYZINE HCL 25 MG TABLET - Will order epi-pen for acute angioedema 4. OVIDIO (generalized anxiety disorder) - ICD9: 300.02, ICD10: F41.1 Chronic - HYDROXYZINE HCL 25 MG TABLET every 6 hours as needed Discussed treatment plan and patient voices understanding. Patient's questions answered appropriately. Medications and potential side effects were discussed and patient voices understanding. Return to the office as scheduled or as needed for worsening/no improvement. Aria Preciado APRN.[facility] 08-09-2024 History of Presen t illness Narrative This is a 28 year old female who presents today with: Patient presents with: Allergic Reaction: Allergic reaction to amoxicillin HISTORY OF PRESENT ILLNESS: Dejah Adorno is a 28 year old female. Patient presents with: Allergic Reaction: Allergic reaction to amoxicillin Hx of anaphylaxis on doxycyline and flagyl in sep. Dentist started her on amoxicillin- took it for 3 days. Got itchy bumpon neck and face. Itchy all over body. Quit amoxicillin 2 days go. Benadryl x1. Getting little bumps still on face. Also, anxious all the time. PAST MEDICAL HISTORY: PAST MEDICAL HISTORY Diagnosis Date Fatty liver LGSIL on Pap smear of cervix 03/09/2023 Migraine without aura and without status migrainosus, not intractable 07/10/2019 Obesity 03/09/2011 PCOS (polycystic ovarian syndrome) 2016 PMH - PAST MEDICAL HISTORY OF 03/2003 normal color vision Splenomegaly 01/17/2024 mild Unspecified hearing loss, bilateral 07/10/2019 Rt>LT, 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 Vitamin D deficiency 12/21/2021 PAST SURGICAL HISTORY Procedure Laterality Date COLPOSCOPY CERVIX BX CERVIX & ENDOCRV CURRETAGE 03/31/2023 TONSILLECTOMY PRIMARY/SECONDARY <AGE 12 ALLERGIES Doxycycline and Flagyl [Metronidazole] MEDICATIONS Current Outpatient Medications Medication Sig cyclobenzaprine (FLEXERIL) 10 mg tablet Take 1 tablet by mouth three times a day as needed for muscle spasm. omeprazole (PRILOSEC) 40 mg capsule Take 1 capsule by mouth once daily. (Patient not taking: Reported on 12/20/2023) medroxyPROGESTERone (PROVERA) 10 mg tablet Take 1 tablet by mouth once daily. (Patient not taking: Reported on 05/07/2024) BORIC ACID 600 MG VAGINAL SUPPOSITORY Use 1 Suppository vaginally once daily. Unwrap and insert as directed. (Patient not taking: Reported on 12/20/2023) ondansetron orally disintegrating (ZOFRAN ODT) 4 mg disintegrating tablet Take 1 tablet by mouth every 6 hours as needed for nausea/vomiting. (Patient not taking: Reported on 12/20/2023) albuterol HFA (VENTOLIN HFA) 90 mcg/actuation inhaler Inhale 2 Puffs as instructed every 4 hours as needed for wheezing/shortness of breath. No current facility-administered medications for this visit. FAMILY HISTORY Problem Relation Age of Onset other (Pulmonary Embolism) Mother with embolism Anxiety disorder Brother Depression Brother Breast Cancer Maternal Grandmother Hypertension Maternal Grandfather Lung Cancer Paternal Grandmother Bipolar disorder Maternal Aunt Diabetes Other mggm Social History Tobacco Use Smoking status: Former Current packs/day: 0.00 Types: Cigarettes Quit date: 01/18/2018 Years since quittin.5 Smokeless tobacco: Never Tobacco comments: . step mom and sibling smokes outside Vaping Use Vaping status: Never Used Substance Use Topics Alcohol use: Not Currently Drug use: Not Currently Types: Marijuana EXAM: BP 128/80 Pulse 76 Temp 36.7 C (98.1 F) (Tympanic) Resp 16 Wt (!) 217.3 kg (479 lb) LMP 09/14/2022 (Approximate) SpO2 97% BMI 77.31 kg/m PHYSICAL EXAM: Physical Exam Vitals reviewed. Constitutional: Appearance: Normal appearance. HENT: Head: Normocephalic. Cardiovascular: Rate and Rhythm: Normal rate and regular rhythm. Pulses: Normal pulses. Heart sounds: Normal heart sounds. Pulmonary: Effort: Pulmonary effort is normal. Breath sounds: Normal breath sounds. Abdominal: General: Bowel sounds are normal. Palpations: Abdomen is soft. Musculoskeletal: General: Normal range of motion. Skin: General: Skin is warm and dry. Comments: Pictures a=of raised hives on neck Neurological: Mental Status: She is alert and oriented to person, place, and time. LABS: ASSESSMENT/PLAN: 1. Screening for depression - ICD9: V79.0, ICD10: Z13.31 (primary diagnosis) Negative - DEPRESSION SCREENING 2. Encounter for screening examination for other mental health and behavioral disorders - ICD9: V79.8, ICD10: Z13.39 Negative - ANXIETY SCREENING 3. Hives - ICD9: 708.9, ICD10: L50.9 - Likely viral or allergic etiology discussed with patient - Follow up if symptoms persist or worsen. - HYDROXYZINE HCL 25 MG TABLET - Will order epi-pen for acute angioedema 4. OVIDIO (generalized anxiety disorder) - ICD9: 300.02, ICD10: F41.1 Chronic - HYDROXYZINE HCL 25 MG TABLET every 6 hours as needed Discussed treatment plan and patient voices understanding. Patient's questions answered appropriately. Medications and potential side effects were discussed and patient voices understanding. Return to the office as scheduled or as needed for worsening/no improvement. Aria Preciado APRN.JONO documented in this encounter [facility] 08-06-2024 Telephone encounter Note Phoned patient and updated her with PCP's message and she voiced understanding. Lawanda Hagen LPN [facility] 08-06-2024 Miscellaneous Notes Phoned patient and updated her with PCP's message and she voiced understanding. Lawanda Hagen LPN I would agree with ER if they cannot make it to express care. They need to contact their dentist about medication allergy as well so they can change antibiotics if needed. Phoned patient and reviewed message with her. She reported she isn't sure if she will be able to get into [facility] today before it closes. Patient asking about scheduling with provider for advised her if she continued to have issues and unable to get into [facility] then would recommend the ER. Patient voiced understanding and stated she would likely still schedule an OV for with a [facility] provider for acute visit. Lawanda Hagen LPN Agree with recommendations. Can take OTC zyrtec or claritin or beto for hives and itching while awaiting evaluation in EC. Pt reports she has 2 hives: 1 near ear, 1 near eyebrow. Has pinpoint red rash on elis cheeks on face. Mild itching. Started amoxicillin 3 days ago prescribed by dentist for infection in tooth. Rash appeared yesterday. Pt took a benadryl at 8:15 am today, and itching is less now. Protocol recommends patient be seen within 24 hours. Pt plans to go to EC today (pt aware EC closes at 3 pm today), but has to work today. Will try to get away from work to go to [facility]. Pt is not driving she has someone to drive her. Patient has not taken amoxicillin since last night, and will not take anymore until after she is seen by a medical provider. Pt agreeable to call 911 if develops, SOB, swelling in throat, tongue, lips, wheezing or if condition worsens. Reason for Disposition Hives or itching Answer Assessment - Initial Assessment Questions 1. APPEARANCE of RASH: Has taken 3 days of amoxicillin for nerve infection in tooth, prescribed by dentist. Tooth feels ok today. Has taken amoxicillin before and never had an allergic reaction to it. Developed pin point red rash on cheeks on face yesterday, and also a hive near ear, a hive near eyebrow, approx size of half a dime, pin dot rash on cheeks. Has hx of anaphylactic reaction to doxcycline and flagyl and had to be given epi injection within the last year, in October 2023. Pt took 1 benadryl at 8:15 am today-itching is less now. Has taken 3 days of amoxicillin for nerve infection in tooth, prescribed by dentist. Tooth feels ok today. Has taken amoxicillin before and never had an allergic reaction to it. Has not taken the amoxicillin since last night. 2. SIZE: 2 hives-probably size of half a dime. 3. LOCATION: pin dots on elis cheeks, 1 hive near ear, 1 hive near eyebrow. 4. COLOR: Red 5. ONSET: Yesterday 6. FEVER:Chills last night but no fever right now. 7. ITCHING: Mild 8. CAUSE: Started amoxicillin 500 mg 3 times a day- 3 days ago for nerve infection in a tooth. Prescribed by dentist. Has taken amoxicillin before in the past and never had reaction in the past. 9. NEW MEDICINES: Amoxicillin 10. OTHER SYMPTOMS: Has been sick the last week or so, throat is dry and scratchy, since before taking antibiotic. No joint pain. Has mild right ear ache near the tooth infection. No wheeze or SOB. Itching for 1 day on scalp and face. Pin dot rash on elis cheeks. 2 hives- one near ear, one near eyebrow. 11. : Not sure 100% but doesn't think she is. Protocols used: Rash - Widespread On [id number] documented in this encounter [facility] 08-06-2024 Telephone encounter Note I would agree with ER if they cannot make it to express care. They need to contact their dentist about medication allergy as well so they can change antibiotics if needed. [facility] 08-06-2024 Telephone encounter Note Phoned patient and reviewed message with her. She reported she isn't sure if she will be able to get into EC today before it closes. Patient asking about scheduling with provider for advised her if she continued to have issues and unable to get into EC then would recommend the ER. Patient voiced understanding and stated she would likely still schedule an OV for with a [facility] provider for acute visit. Lawanda Hagen LPN [facility] 08-06-2024 Telephone encounter Note Agree with recommendations. Can take OTC zyrtec or claritin or beto for hives and itching while awaiting evaluation in EC. [facility] 08-06-2024 Telephone encounter Note Pt reports she has 2 hives: 1 near ear, 1 near eyebrow. Has pinpoint red rash on elis cheeks on face. Mild itching. Started amoxicillin 3 days ago prescribed by dentist for infection in tooth. Rash appeared yesterday. Pt took a benadryl at 8:15 am today, and itching is less now. Protocol recommends patient be seen within 24 hours. Pt plans to go to EC today (pt aware EC closes at 3 pm today), but has to work today. Will try to get away from work to go to EC. Pt is not driving she has someone to drive her. Patient has not taken amoxicillin since last night, and will not take anymore until after she is seen by a medical provider. Pt agreeable to call 911 if develops, SOB, swelling in throat, tongue, lips, wheezing or if condition worsens. Reason for Disposition Hives or itching Answer Assessment - Initial Assessment Questions 1. APPEARANCE of RASH: Has taken 3 days of amoxicillin for nerve infection in tooth, prescribed by dentist. Tooth feels ok today. Has taken amoxicillin before and never had an allergic reaction to it. Developed pin point red rash on cheeks on face yesterday, and also a hive near ear, a hive near eyebrow, approx size of half a dime, pin dot rash on cheeks. Has hx of anaphylactic reaction to doxcycline and flagyl and had to be given epi injection within the last year, in October 2023. Pt took 1 benadryl at 8:15 am today-itching is less now. Has taken 3 days of amoxicillin for nerve infection in tooth, prescribed by dentist. Tooth feels ok today. Has taken amoxicillin before and never had an allergic reaction to it. Has not taken the amoxicillin since last night. 2. SIZE: 2 hives-probably size of half a dime. 3. LOCATION: pin dots on elis cheeks, 1 hive near ear, 1 hive near eyebrow. 4. COLOR: Red 5. ONSET: Yesterday 6. FEVER:Chills last night but no fever right now. 7. ITCHING: Mild 8. CAUSE: Started amoxicillin 500 mg 3 times a day- 3 days ago for nerve infection in a tooth. Prescribed by dentist. Has taken amoxicillin before in the past and never had reaction in the past. 9. NEW MEDICINES: Amoxicillin 10. OTHER SYMPTOMS: Has been sick the last week or so, throat is dry and scratchy, since before taking antibiotic. No joint pain. Has mild right ear ache near the tooth infection. No wheeze or SOB. Itching for 1 day on scalp and face. Pin dot rash on elis cheeks. 2 hives- one near ear, one near eyebrow. 11. : Not sure 100% but doesn't think she is. Protocols used: Rash - Widespread On [id number] [facility] 08-05-2024 Telephone encounter Note CAMRYN: 05/16/24 with SAMANTHA NOV: N/A Last refill: 05/16/24 With 30 and 0 refills Luna Dyer MA [facility] 08-05-2024 Miscellaneous Notes CAMRYN: 05/16/24 with SAMANTHA NOV: N/A Last refill: 05/16/24 With 30 and 0 refills Luna Dyer MA documented in this encounter [facility] 06-27-2024 Note HNO ID: [id number] Author: VIJI SINGH APRN.ENDOCRINOLOGY NURSE Service: ? Author Type: Nurse Practitioner Type: Progress Notes Filed: 06/27/2024 08:52 Note Text: Patient did not log in for her virtual visit with the provider today. She did not answer her phone when she was contacted prior to the appointment time. [facility] 06-27-2024 History of Presen t illness Narrative Patient did not log in for her virtual visit with the provider today. She did not answer her phone when she was contacted prior to the appointment time. documented in this encounter [facility] 05-16-2024 Note HNO ID: [id number] Author: ALICIA LANG APRN.JONO Service: ? Author Type: Nurse Practitioner Type: Progress Notes Filed: 05/16/2024 13:35 Note Text: VIRTUAL VISIT PROGRESS NOTE This is a virtual visit using [employer] Video Visit. It required patient-provider interaction for the medical decision making as documented below. I have communicated my name and active licensure. The patient's identity and physical location were verified at the time of this visit. Either the patient or their legal authorization representative has been informed of the risks and benefits of -- and alternatives to -- treatment through a remote evaluation and consents to proceed with the evaluation remotely. Dejah Adorno is a 28 year old female seen for stiff neck. Patient reports symptoms started this morning. Patient reports she woke up this morning and is unable to move her neck. Patient reports this has happened before and was given muscle relaxers. Patient reports she can move neck it is just very painful. Denies vision changes, dizziness, nausea, fever. HISTORY REVIEWED (electronic chart updated): PAST MEDICAL HISTORY Diagnosis Date Fatty liver LGSIL on Pap smear of cervix 03/09/2023 Migraine without aura and without status migrainosus, not intractable 07/10/2019 Obesity 03/09/2011 PCOS (polycystic ovarian syndrome) 2016 PMH - PAST MEDICAL HISTORY OF 03/2003 normal color vision Splenomegaly 01/17/2024 mild Unspecified hearing loss, bilateral 07/10/2019 Rt>LT, 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 Vitamin D deficiency 12/21/2021 PAST SURGICAL HISTORY Procedure Laterality Date COLPOSCOPY CERVIX BX CERVIX AND ENDOCRV CURRETAGE 03/31/2023 TONSILLECTOMY PRIMARY/SECONDARY FAMILY HISTORY Problem Relation Age of Onset other (Pulmonary Embolism) Mother with embolism Anxiety disorder Brother Depression Brother Breast Cancer Maternal Grandmother Hypertension Maternal Grandfather Lung Cancer Paternal Grandmother Bipolar disorder Maternal Aunt Diabetes Other mggm Social History Tobacco Use Smoking status: Former Current packs/day: 0.00 Types: Cigarettes Quit date: 01/18/2018 Years since quittin.3 Smokeless tobacco: Never Tobacco comments: . step mom and sibling smokes outside Vaping Use Vaping status: Never Used Substance Use Topics Alcohol use: Not Currently Drug use: Not Currently Types: Marijuana Current Outpatient Medications Medication Sig omeprazole (PRILOSEC) 40 mg capsule Take 1 capsule by mouth once daily. (Patient not taking: Reported on 12/20/2023) medroxyPROGESTERone (PROVERA) 10 mg tablet Take 1 tablet by mouth once daily. (Patient not taking: Reported on 05/07/2024) BORIC ACID 600 MG VAGINAL SUPPOSITORY Use 1 Suppository vaginally once daily. Unwrap and insert as directed. (Patient not taking: Reported on 12/20/2023) ondansetron orally disintegrating (ZOFRAN ODT) 4 mg disintegrating tablet Take 1 tablet by mouth every 6 hours as needed for nausea/vomiting. (Patient not taking: Reported on 12/20/2023) albuterol HFA (VENTOLIN HFA) 90 mcg/actuation inhaler Inhale 2 Puffs as instructed every 4 hours as needed for wheezing/shortness of breath. No current facility-administered medications for this visit. ALLERGIES Allergen Reactions Doxycycline Anaphylaxis Flagyl [Metronidazo* Anaphylaxis REVIEW OF SYSTEMS: SEE HPI PHYSICAL EXAMINATION: VIDEO EXAM: (if completed, performed via video enabled technology) NECK: Reduced ROM I spent a total of 11 minutes on the date of the service which included preparing to see the patient, [id number] patient care, completing clinical documentation, obtaining and/or reviewing separately obtained history, performing a medically appropriate examination, counseling and educating the patient/family/caregiver, ordering medications, tests, or procedures, communicating results to the patient/family/caregiver, and care coordination (not separately reported) Alicia Lang APRN.[facility] 05-16-2024 History of Presen t illness Narrative VIRTUAL VISIT PROGRESS NOTE This is a virtual visit using [employer] Video Visit. It required patient-provider interaction for the medical decision making as documented below. I have communicated my name and active licensure. The patient's identity and physical location were verified at the time of this visit. Either the patient or their legal authorization representative has been informed of the risks and benefits of -- and alternatives to -- treatment through a remote evaluation and consents to proceed with the evaluation remotely. Dejah Adorno is a 28 year old female seen for stiff neck. Patient reports symptoms started this morning. Patient reports she woke up this morning and is unable to move her neck. Patient reports this has happened before and was given muscle relaxers. Patient reports she can move neck it is just very painful. Denies vision changes, dizziness, nausea, fever. HISTORY REVIEWED (electronic chart updated): PAST MEDICAL HISTORY Diagnosis Date Fatty liver LGSIL on Pap smear of cervix 03/09/2023 Migraine without aura and without status migrainosus, not intractable 07/10/2019 Obesity 03/09/2011 PCOS (polycystic ovarian syndrome) 2016 PMH - PAST MEDICAL HISTORY OF 03/2003 normal color vision Splenomegaly 01/17/2024 mild Unspecified hearing loss, bilateral 07/10/2019 Rt>LT, 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 Vitamin D deficiency 12/21/2021 PAST SURGICAL HISTORY Procedure Laterality Date COLPOSCOPY CERVIX BX CERVIX & ENDOCRV CURRETAGE 03/31/2023 TONSILLECTOMY PRIMARY/SECONDARY <AGE 12 FAMILY HISTORY Problem Relation Age of Onset other (Pulmonary Embolism) Mother with embolism Anxiety disorder Brother Depression Brother Breast Cancer Maternal Grandmother Hypertension Maternal Grandfather Lung Cancer Paternal Grandmother Bipolar disorder Maternal Aunt Diabetes Other mggm Social History Tobacco Use Smoking status: Former Current packs/day: 0.00 Types: Cigarettes Quit date: 01/18/2018 Years since quittin.3 Smokeless tobacco: Never Tobacco comments: . step mom and sibling smokes outside Vaping Use Vaping status: Never Used Substance Use Topics Alcohol use: Not Currently Drug use: Not Currently Types: Marijuana Current Outpatient Medications Medication Sig omeprazole (PRILOSEC) 40 mg capsule Take 1 capsule by mouth once daily. (Patient not taking: Reported on 12/20/2023) medroxyPROGESTERone (PROVERA) 10 mg tablet Take 1 tablet by mouth once daily. (Patient not taking: Reported on 05/07/2024) BORIC ACID 600 MG VAGINAL SUPPOSITORY Use 1 Suppository vaginally once daily. Unwrap and insert as directed. (Patient not taking: Reported on 12/20/2023) ondansetron orally disintegrating (ZOFRAN ODT) 4 mg disintegrating tablet Take 1 tablet by mouth every 6 hours as needed for nausea/vomiting. (Patient not taking: Reported on 12/20/2023) albuterol HFA (VENTOLIN HFA) 90 mcg/actuation inhaler Inhale 2 Puffs as instructed every 4 hours as needed for wheezing/shortness of breath. No current facility-administered medications for this visit. ALLERGIES Allergen Reactions Doxycycline Anaphylaxis Flagyl [Metronidazo* Anaphylaxis REVIEW OF SYSTEMS: SEE HPI PHYSICAL EXAMINATION: VIDEO EXAM: (if completed, performed via video enabled technology) NECK: Reduced ROM I spent a total of 11 minutes on the date of the service which included preparing to see the patient, [id number] patient care, completing clinical documentation, obtaining and/or reviewing separately obtained history, performing a medically appropriate examination, counseling and educating the patient/family/caregiver, ordering medications, tests, or procedures, communicating results to the patient/family/caregiver, and care coordination (not separately reported) Alicia Lang APRN.ENDOCRINOLOGY NURSE documented in this encounter [facility] 05-08-2024 Telephone encounter Note Patient notified of results and provider's instructions. Patient verbalizes understanding. Karen Maddox RN [facility] 05-08-2024 Miscellaneous Notes Patient notified of results and provider's instructions. Patient verbalizes understanding. Karen Maddox RN Left a message for pt to call the office and ask to speak to a nurse. Marilyn Pichardo LPN ----- Message from Anabella Haskins APRN.ENDOCRINOLOGY NURSE sent at 05/08/2024 2:03 PM EDT ----- US still shows some enlargement but some smaller. No further imaging is needed at this time. Anabella Haskins APRN.ENDOCRINOLOGY NURSE documented in this encounter [facility] 05-08-2024 Telephone encounter Note Left a message for pt to call the office and ask to speak to a nurse. Marilyn Pichardo LPN [facility] 05-08-2024 Telephone encounter Note ----- Message from Anabella Haskins APRN.JONO sent at 05/08/2024 2:03 PM EDT ----- US still shows some enlargement but some smaller. No further imaging is needed at this time. Anabella Haskins APRN.ENDOCRINOLOGY NURSE [facility] 05-08-2024 Telephone encounter Note Call placed to patient and notified. Patient verbalizes understanding. Jordy Villalpando RN [facility] 05-08-2024 Miscellaneous Notes Call placed to patient and notified. Patient verbalizes understanding. Jordy Villalpando RN Since there are now RBC in urine sample we can repeat this in a month. Please let patient know documented in this encounter [facility] 05-08-2024 Telephone encounter Note Since there are now RBC in urine sample we can repeat this in a month. Please let patient know [facility] 05-08-2024 History of Presen t illness Narrative Radiology Service Progress Note PATIENT NAME: Dejah Adorno DATE OF SERVICE: May 08, 2024 TIME: 7:23 AM PATIENT IDENTITY VERIFICATION COMPLETED USING TWO (2) IDENTIFIERS: Name and Date of confirmed by patient verbally. FALL SCREENING: Has the patient had 2 falls in the last year or 1 fall with injury or currently using an Ambulatory Assistive Device (Walker, Cane, Wheelchair, Crutches, etc.)? No PATIENT GENDER DATA: Female. status: : No status: NO. PATIENT RELEVANT IMPLANT DATA REVIEWED: Not Applicable PATIENT PRESENTS WITH AN IMPLANTABLE OR ATTACHED PATCH WORKER: No RADIOLOGY DEPARTMENT: Ultrasound PERIPHERAL IV DATA: Not applicable SIGNED BY: Alison Mckoy RDMS May 08, 2024 7:23 AM documented in this encounter [facility] 05-08-2024 Note HNO ID: [id number] Author: ALISON MCKOY RDMS Service: ? Author Type: Interventional Physiatrist Type: Progress Notes Filed: 05/08/2024 07:23 Note Text: Radiology Service Progress Note PATIENT NAME: Dejah Adorno DATE OF SERVICE: May 08, 2024 TIME: 7:23 AM PATIENT IDENTITY VERIFICATION COMPLETED USING TWO (2) IDENTIFIERS: Name and Date of confirmed by patient verbally. FALL SCREENING: Has the patient had 2 falls in the last year or 1 fall with injury or currently using an Ambulatory Assistive Device (Walker, Cane, Wheelchair, Crutches, etc.)? No PATIENT GENDER DATA: Female. status: : No status: NO. PATIENT RELEVANT IMPLANT DATA REVIEWED: Not Applicable PATIENT PRESENTS WITH AN IMPLANTABLE OR ATTACHED PATCH WORKER: No RADIOLOGY DEPARTMENT: Ultrasound PERIPHERAL IV DATA: Not applicable SIGNED BY: Alison Mckoy RDMS May 08, 2024 7:23 AM [facility] 05-07-2024 Note HNO ID: [id number] Author: ANABELLA HASKINS APRN.ENDOCRINOLOGY NURSE Service: ? Author Type: Nurse Practitioner Type: Progress Notes Filed: 05/07/2024 09:13 Note Text: 05/07/2024 Patient presents with: Follow Up: Enlarged spleen, is having some cramping to the area that comes and goes x3 days SUBJECTIVE: This is a 28 year old that is here today for Above Complaints. Since Monday has had some intermittent left upper quadrant cramping which as times can wrap around to her left flank area. No aggravating features. Took some stool softeners. Believes her left upper quadrat has a little swelling in comparison to her right. Admits to some fatigue and looser stools but reports stools always run a little lose. Denies weight loss, fevers, chills, nausea, vomiting, melana, hematochezia, constipation, dysuria, urinary urgency/frequency or hematuria Latest Ref Rng 05/07/2024 GLUCOSE UA (POCT) Negative mg/dL Negative BILIRUBIN UA (POCT) Negative Negative KETONE UA (POCT) Negative mg/dL Negative SPECIFIC GRAVITY UA (POCT) 1.005 - 1.030 1.025 HEMOGLOBIN/BLOOD UA (POCT) Negative Large ! PH UA (POCT) 4.5 - 8.0 6.0 PROTEIN UA (POCT) Negative mg/dL Negative UROBILINOGEN UA (POCT) Normal E.U./dL 0.2 NITRITE UA (POCT) Negative Negative LEUKOCYTES UA (POCT) Negative Trace ! COLOR UA (POCT) Dark yellow CLARITY UA (POCT) Clear Legend: ! Abnormal PAST MEDICAL HISTORY Diagnosis Date Fatty liver LGSIL on Pap smear of cervix 03/09/2023 Migraine without aura and without status migrainosus, not intractable 07/10/2019 Obesity 03/09/2011 PCOS (polycystic ovarian syndrome) 2016 PMH - PAST MEDICAL HISTORY OF 03/2003 normal color vision Splenomegaly 01/17/2024 mild Unspecified hearing loss, bilateral 07/10/2019 Rt>LT, 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 Vitamin D deficiency 12/21/2021 ALLERGIES Doxycycline and Flagyl [Metronidazole] MEDICATIONS Current Outpatient Medications Medication Sig omeprazole (PRILOSEC) 40 mg capsule Take 1 capsule by mouth once daily. (Patient not taking: Reported on 12/20/2023) medroxyPROGESTERone (PROVERA) 10 mg tablet Take 1 tablet by mouth once daily. BORIC ACID 600 MG VAGINAL SUPPOSITORY Use 1 Suppository vaginally once daily. Unwrap and insert as directed. (Patient not taking: Reported on 12/20/2023) ondansetron orally disintegrating (ZOFRAN ODT) 4 mg disintegrating tablet Take 1 tablet by mouth every 6 hours as needed for nausea/vomiting. (Patient not taking: Reported on 12/20/2023) albuterol HFA (VENTOLIN HFA) 90 mcg/actuation inhaler Inhale 2 Puffs as instructed every 4 hours as needed for wheezing/shortness of breath. No current facility-administered medications for this visit. Medications and allergies reviewed by this provider. SOCIAL HISTORY Social History Tobacco Use Smoking status: Former Current packs/day: 0.00 Types: Cigarettes Quit date: 01/18/2018 Years since quittin.3 Smokeless tobacco: Never Tobacco comments: . step mom and sibling smokes outside Vaping Use Vaping status: Never Used Substance Use Topics Alcohol use: Not Currently Drug use: Not Currently Types: Marijuana REVIEW OF SYSTEMS All other reviewed and negative other than HPI. OBJECTIVE: BP 124/88 Pulse 77 Resp 18 Wt (!) 212.6 kg (468 lb 11.2 oz) LMP 09/14/2022 (Approximate) SpO2 96% BMI 75.65 kg/m? . Vital signs reviewed by this provider. APPEARANCE Well appearing, alert, in no acute distress, well-hydrated, well nourished. and Morbidly obese EYES PERRLA, conjunctiva and sclera normal. HEART RRR with normal S1 and S2, no murmurs, no gallops, no JVD appreciated LUNG clear to auscultation. No wheezes, rhonchi or rales ABDOMEN bowel sounds normoactive, no bruits, soft, non-tender, non-distended, without organomegaly or palpable masses- difficulty exam due to body habitus. No rebound tenderness or guarding BACK: No CVA tenderness SKIN Skin color, texture, turgor normal, no suspicious rashes or lesions to exposed skin Depression Screening Never done Anxiety Screening Never done DTaP,Tdap,Td Vaccine(7 - Td or Tdap) due on 12/03/2019 Cervical Cancer Screening due on 03/09/2024 Covid-19 Vaccine(3 - 2023- season) due on 04/14/2024 Influenza Vaccine(1) due on 04/14/2024 Hepatitis B Vaccine Completed HPV Vaccine Completed Hepatitis C Screening Completed HIV Screening Completed ASSESSMENT/PLAN: 1. LUQ cramping - ICD9: 789.02, ICD10: R10.12 (primary diagnosis) - no red flag symptoms or exam findings - red flag symptoms discussed, verbalizes understanding - would recommend OTC pain relievers as directed on packaging, may also use heat for 15 minutes at a time - follow-up if symptoms fail to improve to ER with red flag symptoms 2. Acute left-sided low back pain without sciatica - ICD9: 724.2, ICD10: M54.50 - no red flag symptoms or exam findings - red flag symptoms discussed, verbalizes understanding - UA (more content not included)... [facility] 05-07-2024 History of Presen t illness Narrative 05/07/2024 Patient presents with: Follow Up: Enlarged spleen, is having some cramping to the area that comes and goes x3 days SUBJECTIVE: This is a 28 year old that is here today for Above Complaints. Since Monday has had some intermittent left upper quadrant cramping which as times can wrap around to her left flank area. No aggravating features. Took some stool softeners. Believes her left upper quadrat has a little swelling in comparison to her right. Admits to some fatigue and looser stools but reports stools always run a little lose. Denies weight loss, fevers, chills, nausea, vomiting, melana, hematochezia, constipation, dysuria, urinary urgency/frequency or hematuria Latest Ref Rng 05/07/2024 GLUCOSE UA (POCT) Negative mg/dL Negative BILIRUBIN UA (POCT) Negative Negative KETONE UA (POCT) Negative mg/dL Negative SPECIFIC GRAVITY UA (POCT) 1.005 - 1.030 1.025 HEMOGLOBIN/BLOOD UA (POCT) Negative Large ! PH UA (POCT) 4.5 - 8.0 6.0 PROTEIN UA (POCT) Negative mg/dL Negative UROBILINOGEN UA (POCT) Normal E.U./dL 0.2 NITRITE UA (POCT) Negative Negative LEUKOCYTES UA (POCT) Negative Trace ! COLOR UA (POCT) Dark yellow CLARITY UA (POCT) Clear Legend: ! Abnormal PAST MEDICAL HISTORY Diagnosis Date Fatty liver LGSIL on Pap smear of cervix 03/09/2023 Migraine without aura and without status migrainosus, not intractable 07/10/2019 Obesity 03/09/2011 PCOS (polycystic ovarian syndrome) 2016 PMH - PAST MEDICAL HISTORY OF 03/2003 normal color vision Splenomegaly 01/17/2024 mild Unspecified hearing loss, bilateral 07/10/2019 Rt>LT, 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 Vitamin D deficiency 12/21/2021 ALLERGIES Doxycycline and Flagyl [Metronidazole] MEDICATIONS Current Outpatient Medications Medication Sig omeprazole (PRILOSEC) 40 mg capsule Take 1 capsule by mouth once daily. (Patient not taking: Reported on 12/20/2023) medroxyPROGESTERone (PROVERA) 10 mg tablet Take 1 tablet by mouth once daily. BORIC ACID 600 MG VAGINAL SUPPOSITORY Use 1 Suppository vaginally once daily. Unwrap and insert as directed. (Patient not taking: Reported on 12/20/2023) ondansetron orally disintegrating (ZOFRAN ODT) 4 mg disintegrating tablet Take 1 tablet by mouth every 6 hours as needed for nausea/vomiting. (Patient not taking: Reported on 12/20/2023) albuterol HFA (VENTOLIN HFA) 90 mcg/actuation inhaler Inhale 2 Puffs as instructed every 4 hours as needed for wheezing/shortness of breath. No current facility-administered medications for this visit. Medications and allergies reviewed by this provider. SOCIAL HISTORY Social History Tobacco Use Smoking status: Former Current packs/day: 0.00 Types: Cigarettes Quit date: 01/18/2018 Years since quittin.3 Smokeless tobacco: Never Tobacco comments: . step mom and sibling smokes outside Vaping Use Vaping status: Never Used Substance Use Topics Alcohol use: Not Currently Drug use: Not Currently Types: Marijuana REVIEW OF SYSTEMS All other reviewed and negative other than HPI. OBJECTIVE: BP 124/88 Pulse 77 Resp 18 Wt (!) 212.6 kg (468 lb 11.2 oz) LMP 09/14/2022 (Approximate) SpO2 96% BMI 75.65 kg/m . Vital signs reviewed by this provider. APPEARANCE Well appearing, alert, in no acute distress, well-hydrated, well nourished. and Morbidly obese EYES PERRLA, conjunctiva and sclera normal. HEART RRR with normal S1 and S2, no murmurs, no gallops, no JVD appreciated LUNG clear to auscultation. No wheezes, rhonchi or rales ABDOMEN bowel sounds normoactive, no bruits, soft, non-tender, non-distended, without organomegaly or palpable masses- difficulty exam due to body habitus. No rebound tenderness or guarding BACK: No CVA tenderness SKIN Skin color, texture, turgor normal, no suspicious rashes or lesions to exposed skin Depression Screening Never done Anxiety Screening Never done DTaP,Tdap,Td Vaccine(7 - Td or Tdap) due on 12/03/2019 Cervical Cancer Screening due on 03/09/2024 Covid-19 Vaccine( season) due on 04/14/2024 Influenza Vaccine(1) due on 04/14/2024 Hepatitis B Vaccine Completed HPV Vaccine Completed Hepatitis C Screening Completed HIV Screening Completed ASSESSMENT/PLAN: 1. LUQ cramping - ICD9: 789.02, ICD10: R10.12 (primary diagnosis) - no red flag symptoms or exam findings - red flag symptoms discussed, verbalizes understanding - would recommend OTC pain relievers as directed on packaging, may also use heat for 15 minutes at a time - follow-up if symptoms fail to improve to ER with red flag symptoms 2. Acute left-sided low back pain without sciatica - ICD9: 724.2, ICD10: M54.50 - no red flag symptoms or exam findings - red flag symptoms discussed, verbalizes understanding - UA DIP, URINE (POC) - follow-up if fails to improve to ER with red flag symptoms 3. Microscopic hematuria - ICD9: 599.72, ICD10: R31.29 - no red flag symptoms or exam findings - red flag symptoms discussed, verbalizes understanding - URINALYSIS, WITH MICROSCOPIC - follow-up pending UA Micro 4. History of splenomegaly - ICD9: V12.3, ICD10: Z87.898 - US ABD SPLEEN Anabella Podlogar, RESCUE INSTRUCTOR.ENDOCRINOLOGY NURSE Prescription instructions reviewed with patient as applicable. Patient advised if symptoms do not improve or if symptoms worsen sooner, to contact their primary care physician. Potential red flag symptoms discussed with the patient. Reviewed appropriate action plan to take if red flag symptoms occur. Patient agreeable to treatment plan. Medical Decision Making: Problems: Moderate: New problem with uncertain prognosis Data: Unique test(s) ordered: 2 Risk: Moderate: Moderate risk from testing/treatment Medical Decision Making Level: 4 - Moderate documented in this encounter [facility] 03-05-2024 Hospital Discharg e instructions Patient Education 03/05/2024 16:29:06 Diabetes and Your Child: Low Blood Sugar Diabetes and Your Child: Low Blood Sugar Low blood sugar (hypoglycemia) happens when there is too little sugar (glucose) in your child s blood. It can be caused by skipping meals or snacks, eating too little food, or taking too much insulin or diabetes medicine. A lot of physical activity can also cause low blood sugar, even hours later. In severe cases, low blood sugar can cause seizures or passing out. How to recognize a low Everyone s symptoms are different. Your child may feel dizzy, weak, hungry, headachy, sweating, or shaky. Your child may seem cranky or confused. They also may seem to be having nightmares or be crying out in their sleep. Severe hypoglycemia can cause seizures. If lows happen very often over time, your child may no longer be able to sense them. Encourage your child to recognize his or her symptoms and tell you about them right away. What to do Actions to take include: Stay calm so you can better help your child. Check your child s blood sugar to make sure that it is low. If you re not able to check, treat for low blood sugar anyway. Give your child 15 to 20 grams of fast-acting sugar. Examples are 3 to 4 glucose tablets, a tube of sugar gel, or 4 ounces ( cup) of juice or regular soda. Diet soda will not help at all. Chocolate, cookies, and other fatty sweets will not work as quickly. Don't use carbohydrate sources high in protein such as milk or nuts. These may increase the insulin response to dietary carbohydrates. If possible, recheck blood sugar in 15 minutes. If it is still low, give your child another 15 to 20 grams of fast-acting sugar. Once your child s blood sugar is normal, give your child a snack or meal to eat. If your child s blood sugar does not go back up, call your healthcare provider or take your child to the emergency room. How to prevent low blood sugar Recommendations to help your child: Check that your child eats meals and snacks on time, and eats before exercising. Have your child carry fast-acting sugar. Don t inject insulin near a muscle that s going to be exercised. Check your child s blood sugar often, especially after exercise and at bedtime In an age-appropriate manner, teach your child about low blood sugar and how to manage it Tips Other tips include: Keep fast-acting sugars handy. Check blood sugar often, especially after activity and before bed. Always keep an emergency diabetes kit close at hand. Check that your child 's school or daycare also has an emergency kit. Glucagon injections For severe low blood sugar, your child may need a glucagon injection. Your child may also need this is they can't tolerate oral glucose because they are vomiting, are too sluggish to swallow, or are unconscious. . This is a medicine that frees the glucose already stored in your child's body. Ask your child's healthcare provider about glucagon emergency kits for home and school. 3976-6956 [employer]. [address] [place] [address]. All rights reserved. This information is not intended as a substitute for professional medical care. Always follow your healthcare professional's instructions. 03/05/2024 16:04:40 Dizziness, Uncertain Cause Dizziness (Uncertain Cause) Dizziness is a common symptom. It may be described as lightheadedness, spinning, or feeling like you are going to faint. Dizziness can have many causes. Be sure to tell the healthcare provider about: All medicines you take, including prescription, [id number], herbs, and supplements Any other symptoms you have Any health problems you are being treated for Any past major health problems you've had, such as a heart attack, balance issues, hearing problems, or blood pressure problems Anything that causes the dizziness to get worse or better Today's exam did not show an exact cause for your dizziness. Other tests may be needed. Follow up with your healthcare provider. Home care Dizziness that occurs with sudden standing may be a sign of mild dehydration. Drink extra fluids for the next few days. If you recently started a new medicine, stopped a medicine, or had the dose of a current medicine changed, talk with the prescribing healthcare provider. Your medicine plan may need adjustment. If dizziness lasts more than a few seconds, sit or lie down until it passes. This may help prevent injury in case you pass out. Get up slowly when you feel better. Don't drive or use power tools or dangerous equipment until you have had no dizziness for at least 48 hours. Follow-up care Follow up with your healthcare provider for further evaluation within the next 7 days or as advised. When to seek medical advice Call your healthcare provider for any of the following: Worsening of symptoms or new symptoms Passing out or seizure Repeated vomiting Headache Palpitations (the sense that your heart is fluttering or beating fast or hard) Shortness of breath Blood in vomit or stool (black or red color) Weakness of an arm or leg or 1 side of the face Vision or hearing changes Trouble walking or speaking Chest, arm, neck, back, or jaw pain [id number] [employer] [place] [address]. All rights reserved. This information is not intended as a substitute for professional medical care. Always follow your healthcare professional's instructions. Follow Up Care 03/05/2024 14:52:16 With:JHONNY FOWLER MD Address: [address] [place] [address] [phone]- When:2-4 days [facility] 03-05-2024 Note Discharge Instructions Thank you for allowing [facility] to assist you with your healthcare needs. The following is important discharge information regarding your hospital visit. Diagnosis from Today's Visit Dizziness What to Do Next Instructions from Your Care Team No qualifying data available. Post Acute Orders No qualifying data available. You Need to Schedule the Following Appointments Follow Up with JHONNY FOWLER MD When:Within 2-4 days Where:[address] [place] [address] [phone]- Allergies NKA Medications Please ask your primary [...] medication providers or retail pharmacies. Education Materials Dizziness (Uncertain Cause) Dizziness is a common symptom. It may be described as lightheadedness, spinning, or feeling like you are going to faint. Dizziness can have many causes. Be sure to tell the healthcare provider about: All medicines you take, including prescription, [id number], herbs, and supplements Any other symptoms you have Any health problems you are being treated for Any past major health problems you've had, such as a heart attack, balance issues, hearing problems, or blood pressure problems Anything that causes the dizziness to get worse or better Today's exam did not show an exact cause for your dizziness. Other tests may be needed. Follow up with your healthcare provider. Home care Dizziness that occurs with sudden standing may be a sign of mild dehydration. Drink extra fluids for the next few days. If you recently started a new medicine, stopped a medicine, or had the dose of a current medicine changed, talk with the prescribing healthcare provider. Your medicine plan may need adjustment. If dizziness lasts more than a few seconds, sit or lie down until it passes. This may help prevent injury in case you pass out. Get up slowly when you feel better. Don't drive or use power tools or dangerous equipment until you have had no dizziness for at least 48 hours. Follow-up care Follow up with your healthcare provider for further evaluation within the next 7 days or as advised. When to seek medical advice Call your healthcare provider for any of the following: Worsening of symptoms or new symptoms Passing out or seizure Repeated vomiting Headache Palpitations (the sense that your heart is fluttering or beating fast or hard) Shortness of breath Blood in vomit or stool (black or red color) Weakness of an arm or leg or 1 side of the face Vision or hearing changes Trouble walking or speaking Chest, arm, neck, back, or jaw pain [id number] [employer]. [address] [place] [address], [place] [address]. All rights reserved. This information is not intended as a substitute for professional medical care. Always follow your healthcare professional's instructions. Additional Information VACCINATE! IT SAVES LIVES! Members of the community who have not yet received the COVID-19 vaccine and would like to receive it can visit one of [facility] vaccine clinics. There are many vaccine clinic locations within the [facility]. For locations and available times, please visit [email or web address] [email or web address] It is important to note that some COVID mobile vaccine clinics are held outdoors and may be canceled in rainy or stormy conditions. To learn more about pediatric vaccinations (ages 5-11), we invite you to visit the [facility] webpage. [email or web address]://[email or web address]/p [email or web address]-[email or web address]-Freq hhipwx-Fjgue-[email or web address].html To learn more about the COVID-19 vaccine, we invite you to visit the CDC website for a list of frequently asked questions. https://www.cdc.gov/coronavirus/ 2019-ncov/vaccines/faq.html [facility] Patient Portal Access Instructions: Stay connected with your healthcare team and access your personal medical information anytime with the [facility] Patient Portal. If you would like a full copy of your medical records please contact the [facility] Medical Records Department Monday through Monday between 8a.m. and 4:30p.m. Please follow the directions below to access the portal: 1.Access the email account you provided upon registration to the hospital.2.Look for an invitation email from [facility].3.Open the email and access the invitation link: Accept Invitation to [facility]4.Fill in the required alvarez to create your account. Sign into www.[employer] with your username and password that you [...] you will allow to register on the [facility] Patient Portal for access to your information. You can also access the [facility] Patient Portal on the [employer]. Simply click on Health Records under Health Data and then click on the copygram logo. HOW TO SAFELY DISPOSE OF PRESCRIPTION [...] Call your local pharmacy or go to [email or web address] to find one close to you.3.Make use of household items: Use cat litter or old coffee grounds to dispose medications if other options are not available. Mix your drugs with these household products, seal them in an airtight container and throw it into the garbage. Call [facility]: [phone] to be sure your drugs can be [...] a CHART COPY Signatures Patient Education Materials Dizziness, Uncertain Cause Medication Leaflets My discharge plan and instructions have been reviewed and explained to me and I,DEJAH ADORNO understand my current condition and have read and understand these discharge instructions. I have received a written copy of the plan/instructions. If I have questions, I am aware that I should contact my doctor. 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 Automated exposure control, iterative reconstruction, and/or weight based adjustment of the mA/kV was utilized to reduce the radiation dose to as low as reasonably achievable. COMPARISON: None available HISTORY: ORDERING SYSTEM PROVIDED HISTORY: Reason for Exam: pain/headache FINDINGS: Examination is compromised by patient body habitus. Agency Operator (topogram) images: Unremarkable BRAIN/VENTRICLES: No evidence of acute hemorrhage, mass effect or midline shift. Huffman-white matter differentiation is well maintained. No evidence of intra-axial mass lesion or extra-axial fluid collection. The ventricular system and basal cisterns are patent and normal in morphology. ORBITS: The visualized portions of the orbits demonstrate no acute abnormality. SINUSES: The paranasal sinuses and mastoid air cells are unremarkable. SOFT TISSUE/SKULL: No acute abnormality of the visualized skull or soft tissues. IMPRESSION: No acute intracranial hemorrhage, hydrocephalus, or mass effect. I have personally reviewed the images of this examination and agree with the resident's findings and interpretation. Interpreted by: Janet Bravo MD Preliminary Report By: Thierry Nagy Electronically signed By Janet Bravo MD Dictated Date: 03/05/2024 3:42:00 PM Prelim Date: 03/05/2024 3:52:21 PM Sign Date: 03/05/2024 3:52:21 PM Ordering Provider: RISHI ASHBY [facility] 03-05-2024 Telephone encounter Note Agree. [facility] 03-05-2024 Miscellaneous Notes Agree. Patient reports she is getting migraines more often in the last couple of weeks, speech becomes garbled randomly, tremors in elis hands, chest, and body- like shivering but is not cold, yesterday lasted for hours, brain fog- head feels strange, eye pain. Protocol recommends ER Now. Patient agreeable and will have someone drive her. Reason for Disposition Headache (and neurologic deficit) [1] Loss of speech or garbled speech AND [2] sudden onset AND [3] brief (now gone) Answer Assessment - Initial Assessment Questions 1. SYMPTOM: Speech randomly becomes garbled for the past week. Doesn't last longer than a minute, then goes away, then returns. Also having tremors in elis hands random once or twice a day for a couple of days, yesterday lasted hours. Also having brain fog that stays pretty constant. Also getting migraines more often the last couple of weeks. Takes tylenol and advil and they work some most of the time but doesn't make headache go away. Didn't have a migraine when the tremors started, 2 days ago. Is able to work and do ADL's but still has the symptoms while at work. 2. ONSET: 1 week ago. 3. LAST NORMAL The last time felt normal was about a week ago. 4. PATTERN Comes and goes. Shaky arms, chest right now. Its like shivering- but not cold. 5. CARDIAC SYMPTOMS: No CP. No SOB. No palpitations. 6. NEUROLOGIC SYMPTOMS: No headache right now but having more frequently in the past couple of weeks. Hands have been numb a lot lately, but it goes away, sometimes wakes up and hands are numb, hands will go numb when crocheting, and has to put it down but hasn't dropped anything. Brain fog- head feels strange. No vision loss, but eyes hurt when wakes up- no reddness noted. Eyes have been twitching for weeks- patient assumed it was related to migraines. Mixes up words somtimes in a sentence- speech becomes garbled. Patient reports she is steady on her feet. 7. OTHER SYMPTOMS: No other symptoms. 8. : Can get but recently a test was negative. Protocols used: Neurologic [id number] Attempted to contact pt x2 and left msg to call us back as soon as possible to discuss her symptoms listed in her [employer] msg requesting an appt. Pt wrote in [employer] msg reason for visit as tremors, fogginess, messing up words and then in comments put shaking, dizziness, messing up speech. Was requesting the appt on 03/11. [employer] response sent back to pt as well to call us back as soon as possible or go to the emergency room. documented in this encounter [facility] 03-05-2024 Telephone encounter Note Please see triage phone encounter. Msg was left for pt to return the call to us as soon as possible. [facility] 03-05-2024 Miscellaneous Notes Please see triage phone encounter. Msg was left for pt to return the call to us as soon as possible. documented in this encounter [facility] 03-05-2024 Telephone encounter Note Patient reports she is getting migraines more often in the last couple of weeks, speech becomes garbled randomly, tremors in elis hands, chest, and body- like shivering but is not cold, yesterday lasted for hours, brain fog- head feels strange, eye pain. Protocol recommends ER Now. Patient agreeable and will have someone drive her. Reason for Disposition Headache (and neurologic deficit) [1] Loss of speech or garbled speech AND [2] sudden onset AND [3] brief (now gone) Answer Assessment - Initial Assessment Questions 1. SYMPTOM: Speech randomly becomes garbled for the past week. Doesn't last longer than a minute, then goes away, then returns. Also having tremors in elis hands random once or twice a day for a couple of days, yesterday lasted hours. Also having brain fog that stays pretty constant. Also getting migraines more often the last couple of weeks. Takes tylenol and advil and they work some most of the time but doesn't make headache go away. Didn't have a migraine when the tremors started, 2 days ago. Is able to work and do ADL's but still has the symptoms while at work. 2. ONSET: 1 week ago. 3. LAST NORMAL The last time felt normal was about a week ago. 4. PATTERN Comes and goes. Shaky arms, chest right now. Its like shivering- but not cold. 5. CARDIAC SYMPTOMS: No CP. No SOB. No palpitations. 6. NEUROLOGIC SYMPTOMS: No headache right now but having more frequently in the past couple of weeks. Hands have been numb a lot lately, but it goes away, sometimes wakes up and hands are numb, hands will go numb when crocheting, and has to put it down but hasn't dropped anything. Brain fog- head feels strange. No vision loss, but eyes hurt when wakes up- no reddness noted. Eyes have been twitching for weeks- patient assumed it was related to migraines. Mixes up words somtimes in a sentence- speech becomes garbled. Patient reports she is steady on her feet. 7. OTHER SYMPTOMS: No other symptoms. 8. : Can get but recently a test was negative. Protocols used: Neurologic [id number] [facility] 03-05-2024 Telephone encounter Note Attempted to contact pt x2 and left msg to call us back as soon as possible to discuss her symptoms listed in her MyChart msg requesting an appt. Pt wrote in MyChart msg reason for visit as tremors, fogginess, messing up words and then in comments put shaking, dizziness, messing up speech. Was requesting the [facility] as well to call us back as soon as possible or go to the emergency room. [facility] 01-23-2024 Telephone encounter Note Pt notified he would need an appointment and advised to call in and schedule Ana Rascon MA [facility] 01-23-2024 Miscellaneous Notes Pt notified he would need an appointment and advised to call in and schedule Ana Rascon MA Pt made aware Provider is out of the Office. Also made pt aware after review office has never prescribed her a muscle relaxer and the medication came from the ED. Riana Menchaca MA documented in this encounter [facility] 01-23-2024 Telephone encounter Note Pt made aware Provider is out of the Office. Also made pt aware after review office has never prescribed her a muscle relaxer and the medication came from the ED. Riana Menchaca MA [facility] 01-22-2024 Telephone encounter Note Please review and advise. Do you recommend an US f/u at any point in time? Riana Menchaca MA [facility] 01-22-2024 Miscellaneous Notes Please review and advise. Do you recommend an US f/u at any point in time? Riana Menchaca MA Pt notified via [employer]. Riana Menchaca MA Yes, that is correct. Pt was notified of HIV testing in this message. From previous message you wanted pt to complete this testing, if normal/negative just continue to monitor. No other work up needed, is this correct so we can notify pt? Riana Menchaca MA documented in this encounter [facility] 01-22-2024 Telephone encounter Note Pt notified via [employer]. Riana Menchaca MA [facility] 01-22-2024 Telephone encounter Note Yes, that is correct. [facility] 01-22-2024 Telephone encounter Note Pt was notified of HIV testing in this message. From previous message you wanted pt to complete this testing, if normal/negative just continue to monitor. No other work up needed, is this correct so we can notify pt? Riana Menchaca MA [facility] 01-22-2024 Telephone encounter Note Phoned patient and reviewed provider's message with her. Patient voiced understanding. Lawanda Hagen LPN [facility] 01-22-2024 Miscellaneous Notes Phoned patient and reviewed provider's message with her. Patient voiced understanding. Lawanda Hagen LPN HIV testing is standard workup for enlarged spleen. Her testing was negative. Chest xray was also normal. At this point with mildly enlarged spleen and other testing being negative I would monitor at this time. Patient is very anxious about enlarge spleen. Question if testing for HIV is normal procedure for an enlarged spleen? Denies any symptoms. Has been with current partner for 2 years. Prior to that had two partners and tested negative for HIV in 2020. Denies any other risky behaviors at this time. Order approved. Patient notified and verbalized understanding. She would like to schedule US for next month. Order pended, please file if agreeable. If filed, will send to PSS to contact pt to schedule. Marie Albrecht MA Her spleen appears to be mildly enlarged on this ultrasound and she was not having pain in her left upper quadrant. With her blood counts being normal, I would recommend rechecking an ultrasound as previously noted to make sure this is not an error or over read by the radiologist. The rest of her labs are back and do not show signs of pancreatitis. Her inflammatory markers are slightly high which is non specific. I would recommend treatment as noted below. Call if symptoms do not improve with Omeprazole or if worsening. Patient notified and verbalized understanding. She is asking for further explanation of US results and expresses being anxious regarding enlarged spleen. Please review and advise. Marie Albrecht MA Patient's blood counts, kidney and liver function are unremarkable. No sign of infection on these labs. Her labs for pancreatitis and inflammation are still pending. For her pain, I would recommend checking a stool sample for h pylori and then starting her on Omeprazole 40 mg daily after she brings in the sample. This is a heartburn medication that would help with gastritis or an ulcer. She cannot take omeprazole prior to bringing in the sample, or it could skew the test results. Will call with the rest of her lab results. Consider repeat imaging in 1-2 months to confirm enlarged spleen. documented in this encounter [facility] 01-22-2024 Telephone encounter Note [employer] message sent to pt notifying her of normal results. If questions to contact the office. Riana Menchaca MA [facility] 01-22-2024 Miscellaneous Notes [employer] message sent to pt notifying her of normal results. If questions to contact the office. Riana Menchaca MA ----- Message from Jhonny Fowler MD sent at 01/22/2024 7:02 AM EDT ----- Normal chest xray. documented in this encounter [facility] 01-22-2024 Telephone encounter Note ----- Message from Jhonny Fowler MD sent at 01/22/2024 7:02 AM EDT ----- Normal chest xray. [facility] 01-22-2024 Telephone encounter Note HIV testing is standard workup for enlarged spleen. Her testing was negative. Chest xray was also normal. At this point with mildly enlarged spleen and other testing being negative I would monitor at this time. [facility] 01-20-2024 History of Presen t illness Narrative Radiology Service Progress Note PATIENT NAME: Dejah Adorno DATE OF SERVICE: January 20, 2024 TIME: 8:17 AM PATIENT IDENTITY VERIFICATION COMPLETED USING TWO (2) IDENTIFIERS: Name and Date of confirmed by patient verbally. FALL SCREENING: Has the patient had 2 falls in the last year or 1 fall with injury or currently using an Ambulatory Assistive Device (Walker, Cane, Wheelchair, Crutches, etc.)? No PATIENT GENDER DATA: Female. status: : No status: NO. PATIENT RELEVANT IMPLANT DATA REVIEWED: Not Applicable PATIENT PRESENTS WITH AN IMPLANTABLE OR ATTACHED PATCH WORKER: No RADIOLOGY DEPARTMENT: General X-ray: Exam(s) Completed: Chest X-Ray PERIPHERAL IV DATA: Not applicable SIGNED BY: RT Clayton(R) January 20, 2024 8:17 AM documented in this encounter [facility] 01-19-2024 Telephone encounter Note Patient is very anxious about enlarge spleen. Question if testing for HIV is normal procedure for an enlarged spleen? Denies any symptoms. Has been with current partner for 2 years. Prior to that had two partners and tested negative for HIV in 2020. Denies any other risky behaviors at this time. [facility] 01-19-2024 Telephone encounter Note Patient notified and states that she will come in for the additional testing. [facility] 01-19-2024 Miscellaneous Notes Patient notified and states that she will come in for the additional testing. TC no answer. Left VM to return call. HERIBERTO Henry Patient's repeat US of the spleen shows continued mild enlargement. Her recent blood work does not identify any obvious cause for this. I would recommend additional testing with HIV screening and chest xray. If this workup is normal and she is otherwise asymptomatic. I would just monitor at this time. documented in this encounter [facility] 01-17-2024 Telephone encounter Note TC no answer. Left VM to return call. HERIBERTO Henry [facility] 01-17-2024 Telephone encounter Note Patient's repeat US of the spleen shows continued mild enlargement. Her recent blood work does not identify any obvious cause for this. I would recommend additional testing with HIV screening and chest xray. If this workup is normal and she is otherwise asymptomatic. I would just monitor at this time. [facility] 01-16-2024 History of Presen t illness Narrative HISTORY AND PHYSICAL Dejah Adorno 1995 REFERRING PHYSICIAN: Riddhi Alonso APRN, CNP CHIEF COMPLAINT: Difficulty Swallowing HPI: The patient is a 28 year old female with a complaint of dysphagia for the last month made worse by relaxing back while sitting. Dysphagia was occurring with liquids, pills and food Dejah was seen in [place] ED on 12/18/23 after an episode of food sticking that self resolved. In the ED they told her it was related to post nasal drip and to start using Claritin and Flonase spray Dejah refers that since she saw Riddhi her symptoms has improved and the dysphagia is minimal- one time a day with multiple days between episodes and is only with food. She refers this could be d/t the Flonase/Claritin. She also refers she use to take Prilosec but stopped because she wasn't able to swallow the pill and she was suggested to get an OTC PPI liquid (unsure of the name) which she is using when she gets reflux symptoms. Dejah also refers she had an episode of abd pain and was instructed to change her diet which she has done and thinks this could also be contributing to the relief of symptoms. Dejah denies bloody emesis, abd pain, coughing, belching, SOB, CP and family history of esophageal/stomach issues. She does refer slight weight loss when dysphagia was at its worse but has regained that weight. The patient is being seen by me today at the request of Riddhi Alonso APRN, CNP for my opinion and advice regarding Dejah's dysphagia. PAST MEDICAL HISTORY Diagnosis Date Fatty liver Migraine without aura and without status migrainosus, not intractable 07/10/2019 Obesity 03/09/2011 PCOS (polycystic ovarian syndrome) 2016 PMH - PAST MEDICAL HISTORY OF 03/2003 normal color vision Splenomegaly Unspecified hearing loss, bilateral 07/10/2019 Rt>LT, 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 Vitamin D deficiency 12/21/2021 PAST SURGICAL HISTORY Procedure Laterality Date TONSILLECTOMY PRIMARY/SECONDARY <AGE 14 Current Outpatient Medications Medication Sig medroxyPROGESTERone (PROVERA) 10 mg tablet Take 1 tablet by mouth once daily. albuterol HFA (VENTOLIN HFA) 90 mcg/actuation inhaler Inhale 2 Puffs as instructed every 4 hours as needed for wheezing/shortness of breath. omeprazole (PRILOSEC) 40 mg capsule Take 1 capsule by mouth once daily. (Patient not taking: Reported on 12/20/2023) BORIC ACID 600 MG VAGINAL SUPPOSITORY Use 1 Suppository vaginally once daily. Unwrap and insert as directed. (Patient not taking: Reported on 12/20/2023) ondansetron orally disintegrating (ZOFRAN ODT) 4 mg disintegrating tablet Take 1 tablet by mouth every 6 hours as needed for nausea/vomiting. (Patient not taking: Reported on 12/20/2023) No current facility-administered medications for this visit. ALLERGIES: Doxycycline and Flagyl [Metronidazole] PERSONAL HISTORY: Social History Tobacco Use Smoking status: Former Types: Cigarettes Quit date: 01/18/2018 Years since quittin.9 Smokeless tobacco: Never Tobacco comments: . step mom and sibling smokes outside Vaping Use Vaping Use: Never used Substance Use Topics Alcohol use: Not Currently Drug use: Not Currently Types: Marijuana FAMILY HISTORY: FAMILY HISTORY Problem Relation Age of Onset other (Pulmonary Embolism) Mother with embolism Anxiety disorder Brother Depression Brother Breast Cancer Maternal Grandmother Hypertension Maternal Grandfather Lung Cancer Paternal Grandmother Bipolar disorder Maternal Aunt Diabetes Other mggm REVIEW OF SYMPTOMS: REVIEW OF SYSTEMS: General: The patient denies fatigue, denies weight loss, denies weight gain, denies feeling hot, and feelings of cold. Eyes: The patient denies glaucoma, denies eye injury/surgery, denies glasses or contacts. Ear/Nose/Throat: The patient denies allergies, denies hayfever, denies ear infections, and denies bloody noses. Cardiovascular: The patient denies chest pain, denies heart disease, denies high blood pressure, denies high cholesterol, and denies poor circulation. Respiratory: The patient denies tuberculosis, denies pneumonia, denies frequent cough, denies shortness of breath, and denies coughing up blood. Gastrointestinal: The patient + difficulty swallowing, denies acid reflux, denies ulcers, denies jaundice/hepatitis, denies gallbladder problems, denies vomiting, denies black or tarry stools, denies hemorrhoids, denies bleeding from rectum, denies diverticulitis, denies constipation, denies diarrhea, denies loss of stool control, and denies hernias. Kidney/Bladder: The patient denies kidney stones, denies urine infections, and denies bloody urine. Skin: The patient denies a history of skin cancer, denies bleeding/changing moles, and denies a history of skin rash. Neurologic: The patient denies a history of epilepsy/convulsions, denies headaches, denies head/spinal injuries, and denies stroke/TIA. Psychiatric: The patient denies psychiatric medications, denies depression, and denies voices. Endocrine: The patient denies thyroid disorders, denies diabetes, and denies hormonal problems. Hematologic: The patient denies a history of bruising, denies bleeding, and denies anemia. Infections: The patient denies a history of measles and mumps, denies rheumatic fever, and denies sexually transmitted diseases. Musculoskeletal: The patient denies back pain/injury, denies back problems, denies sciatica, denies knee/foot trouble, denies arthritis, or denies gout. PHYSICAL EXAMINATION: General: The patient is 28 year old female, well nourished, well hydrated in no acute distress. The patient is oriented to time, place, and person. VITALS: Blood pressure 120/74, pulse 103, temperature 36.4 C (97.5 F), height 167.6 cm (5' 6), weight (!) 213.7 kg (471 lb 3.2 oz), last menstrual period 09/14/2022, SpO2 97%. HEENT: Normal cephalic, ataumatic, pupils are equally round, sclera are anicteric, mucous membranes are moist, oropharynx is clear. Neck has no masses, asymmetry or lymphadenopathy. Thyroid is unremarkable. Respiratory: Clear to auscultation and percussion. Normal respiratory excursion and pattern. Cardiac: Examination is regular rate and rhythm. Abdominal exam: Soft, nontender, with no palpable masses. No hepatosplenomegaly. No palpable hernias. Extremities: no clubbing, cyanosis or edema. No adenopathy. LABORATORY VALUES: As Noted RADIOLOGIC STUDIES: As Noted Assessment IMPRESSION: dysphagia ASSESSMENT/PLAN: 1. Dysphagia, unspecified type - ICD9: 787.20, ICD10: R13.10 - XR ESOPHAGRAM - Continue OTC PPI-discussed returning to Prilosec pill daily if able to tolerate swallowing, if not Prilosec ODT or the liquid one she was using prior - Discussed sitting upright after meal for at least 30 minutes and continuing to work on diet change - Discussed red flag symptoms and went to go to the ED Discussed risk of doing a EGD d/t BMI. Since symptoms have almost resolved Dejah was agreeable to try conservative measures first, but was instructed to inform the office if symptoms worsen. My findings have been communicated to Dr. Jhonny Fowler MD via shared medical record. This note will be forwarded to Riddhi Alonso APRN, CNP. Return to Clinic: The patient is instructed to follow-up with me after the testing has been completed. Brooklyn Restrepo APRN.JONO documented in this encounter [facility] 01-15-2024 History of Presen t illness Narrative Radiology Service Progress Note PATIENT NAME: Dejah Adorno DATE OF SERVICE: January 15, 2024 TIME: 8:45 AM PATIENT IDENTITY VERIFICATION COMPLETED USING TWO (2) IDENTIFIERS: Name and Date of confirmed by patient verbally. FALL SCREENING: Has the patient had 2 falls in the last year or 1 fall with injury or currently using an Ambulatory Assistive Device (Walker, Cane, Wheelchair, Crutches, etc.)? No PATIENT GENDER DATA: Female. status: : No status: NO. PATIENT RELEVANT IMPLANT DATA REVIEWED: Not Applicable PATIENT PRESENTS WITH AN IMPLANTABLE OR ATTACHED PATCH WORKER: No RADIOLOGY DEPARTMENT: Ultrasound PERIPHERAL IV DATA: Not applicable SIGNED BY: Sonya Cavazos RDMS RVT January 15, 2024 8:45 AM documented in this encounter [facility] 01-05-2024 Telephone encounter Note Attempted to contact patient but no answer. Left message that if symptoms persist to go to the ER for evaluation and to call with any questions or concerns. [facility] 01-05-2024 Miscellaneous Notes Attempted to contact patient but no answer. Left message that if symptoms persist to go to the ER for evaluation and to call with any questions or concerns. As noted below, I am applications consultant even though out on vacation. Was not able to switch call. So still helping with applications consultant notes for providers not available. Agree with triage recommendations and with Flower's recommendation to be seen if symptoms persist despite trial on treatment for gas. Not sure whether her pain is from the finding of splenomegaly on recent ultrasound. ASKING DR MILLING/POLISHING OPERATOR TO REVIEW. Dr. Fowler is out of the office so TE was forwarded to Doctor applications consultant office. Message left for patient to call back for applications consultant provider recommendations below. Funmi Conde LPN Triage message went to wrong provider. This triage note was in response to Funmi Conde's [employer] request to have his [employer] message to her triaged and sent to Dr. Fowler. PCP Jhonny Fowler MD Not sure why this came to me but would recommend a visit if not feeling improved with home remedies or any concerns Pt sends the following [employer] msg: Hello, i m having some pretty bad cramping on my upper left side and it s worse when i breath. Just wondering if that s anything to be concerned about with the swollen spleen. Triage call done and protocol recommends Home care. Care plan reviewed with patient. If pt feels it is gas, take some OTC Gas-X or Tums. Patient voices understanding. Advised patient that if symptoms get worse to go to the ER. Pt also states it is probably nothing as she states she can be dramatic. Reason for Disposition [1] MILD-MODERATE pain AND [2] comes and goes (cramps) Answer Assessment - Initial Assessment Questions 1. LOCATION: Left upper abd stomach area and slightly to left flank 2. RADIATION: denies 3. ONSET: around 6190-8597 4. SUDDEN: gradual 5. PATTERN: states feels like a crampy pain all the time which is a 1-2/10. When she takes a deep breath, it becomes a 7/10. When she breaths normal, states it is maybe a 1 or 2. 6. SEVERITY:see above - MILD (1-3): Doesn't interfere with normal activities, abdomen soft and not tender to touch. - MODERATE (4-7): Interferes with normal activities or awakens from sleep, abdomen tender to touch. - SEVERE (8-10): Excruciating pain, doubled over, unable to do any normal activities. 7. RECURRENT SYMPTOM: denies 8. CAUSE: Pt wondering if maybe it is gas 9. RELIEVING/AGGRAVATING FACTORS: deep breath makes it much worse 10. OTHER SYMPTOMS: maybe some slight nausea. Denies any fever, back or chest pain or vomiting 11. : n/a Protocols used: Abdominal Pain - [id number] documented in this encounter [facility] 01-05-2024 Telephone encounter Note As noted below, I am applications consultant even though out on vacation. Was not able to switch call. So still helping with applications consultant notes for providers not available. Agree with triage recommendations and with Flower's recommendation to be seen if symptoms persist despite trial on treatment for gas. Not sure whether her pain is from the finding of splenomegaly on recent ultrasound. [facility] Work Phone: 01-05-2024 Telephone encounter Note ASKING DR MILLING/POLISHING OPERATOR TO REVIEW. [facility] 01-05-[address] Fowler is out of the office so TE was forwarded to Doctor applications consultant office. Message left for patient to call back for applications consultant provider recommendations below. Funmi Conde LPN [facility] 01-05-2024 Telephone encounter Note Triage message went to wrong provider. This triage note was in response to Funmi Conde's [employer] request to have his [employer] message to her triaged and sent to Dr. Fowler. [facility] 01-05-2024 Telephone encounter Note PCP Jhonny Fowler MD Not sure why this came to me but would recommend a visit if not feeling improved with home remedies or any concerns [facility] Work Phone: 01-05-2024 Telephone encounter Note Pt has an appt with Dr. Luis on 01/15 for dysphagia. [facility] 01-05-2024 Miscellaneous Notes Pt has an appt with Dr. Luis on 01/15 for dysphagia. See mychart message. Ana Rascon MA documented in this encounter [facility] 01-05-2024 Telephone encounter Note Pt sends the following [employer] msg: Hello, i m having some pretty bad cramping on my upper left side and it s worse when i breath. Just wondering if that s anything to be concerned about with the swollen spleen. Triage call done and protocol recommends Home care. Care plan reviewed with patient. If pt feels it is gas, take some OTC Gas-X or Tums. Patient voices understanding. Advised patient that if symptoms get worse to go to the ER. Pt also states it is probably nothing as she states she can be dramatic. Reason for Disposition [1] MILD-MODERATE pain AND [2] comes and goes (cramps) Answer Assessment - Initial Assessment Questions 1. LOCATION: Left upper abd stomach area and slightly to left flank 2. RADIATION: denies 3. ONSET: around 2521-8405 4. SUDDEN: gradual 5. PATTERN: states feels like a crampy pain all the time which is a 1-2/10. When she takes a deep breath, it becomes a 7/10. When she breaths normal, states it is maybe a 1 or 2. 6. SEVERITY:see above - MILD (1-3): Doesn't interfere with normal activities, abdomen soft and not tender to touch. - MODERATE (4-7): Interferes with normal activities or awakens from sleep, abdomen tender to touch. - SEVERE (8-10): Excruciating pain, doubled over, unable to do any normal activities. 7. RECURRENT SYMPTOM: denies 8. CAUSE: Pt wondering if maybe it is gas 9. RELIEVING/AGGRAVATING FACTORS: deep breath makes it much worse 10. OTHER SYMPTOMS: maybe some slight nausea. Denies any fever, back or chest pain or vomiting 11. : n/a Protocols used: Abdominal Pain - [id number] [facility] 12-25-2023 Telephone encounter Note See [employer] message. Ana Rascon MA [facility] 12-20-2023 Instructions Riddhi Alonso APRN.JONO - 12/20/2023 8:17 AM EDT Get additional labs completed Schedule consult with general surgery Try to eat softer meal, have a beverage available Red flag symptoms go to ER Follow up pending test results. documented in this encounter [facility] 12-20-2023 History of Presen t illness Narrative This is a 28 year old female who presents today with: Patient presents with: Throat Problem: X1 month, when eating starts to swallow and begins choking, went to [facility] ER on 12/17 and was told it is d/t drainage HISTORY OF PRESENT ILLNESS: Dejah Adorno is a 28 year old female. Patient presents with: Throat Problem: X1 month, when eating starts to swallow and begins choking, went to [facility] ER on 12/17 and was told it is d/t drainage Patient of Dr. Fowler here in the office for difficulty swallowing. Symptoms started about a month ago, random of epsidoes. Refers that food is getting stuck in her throat, will cough food back up. No Difficulty with liquids. Refers that she went to [facility] ER a couple nights ago, refers they did Covid testing and was discharged. Mild post nasal drip. No vomiting. History of GERD, taking omeprazole 20 mg daily. Stopped taking due to difficulty swallowing. Denies having any episodes of heartburn. PAST MEDICAL HISTORY: PAST MEDICAL HISTORY Diagnosis Date Fatty liver Migraine without aura and without status migrainosus, not intractable 07/10/2019 Obesity 03/09/2011 PCOS (polycystic ovarian syndrome) 2016 PMH - PAST MEDICAL HISTORY OF 03/2003 normal color vision Splenomegaly Unspecified hearing loss, bilateral 07/10/2019 Rt>LT, 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 Vitamin D deficiency 12/21/2021 PAST SURGICAL HISTORY Procedure Laterality Date TONSILLECTOMY PRIMARY/SECONDARY <AGE 14 ALLERGIES Doxycycline and Flagyl [Metronidazole] MEDICATIONS Current Outpatient Medications Medication Sig omeprazole (PRILOSEC) 40 mg capsule Take 1 capsule by mouth once daily. medroxyPROGESTERone (PROVERA) 10 mg tablet Take 1 tablet by mouth once daily. BORIC ACID 600 MG VAGINAL SUPPOSITORY Use 1 Suppository vaginally once daily. Unwrap and insert as directed. ondansetron orally disintegrating (ZOFRAN ODT) 4 mg disintegrating tablet Take 1 tablet by mouth every 6 hours as needed for nausea/vomiting. albuterol HFA (VENTOLIN HFA) 90 mcg/actuation inhaler Inhale 2 Puffs as instructed every 4 hours as needed for wheezing/shortness of breath. No current facility-administered medications for this visit. FAMILY HISTORY Problem Relation Age of Onset other (Pulmonary Embolism) Mother with embolism Anxiety disorder Brother Depression Brother Breast Cancer Maternal Grandmother Hypertension Maternal Grandfather Lung Cancer Paternal Grandmother Bipolar disorder Maternal Aunt Diabetes Other mggm Social History Tobacco Use Smoking status: Former Types: Cigarettes Quit date: 01/18/2018 Years since quittin.9 Smokeless tobacco: Never Tobacco comments: . step mom and sibling smokes outside Vaping Use Vaping Use: Never used Substance Use Topics Alcohol use: Not Currently Drug use: Not Currently Types: Marijuana REVIEW OF SYSTEMS GENERAL: No weight loss, malaise or fevers/chills HEENT: Negative for frequent or significant headaches, No changes in hearing or vision. NECK: Negative for lumps, goiter, pain and significant neck swelling RESPIRATORY: Negative for cough, hemoptysis, wheezing, dyspnea or shortness of breath CARDIOVASCULAR: Negative for chest pain, leg swelling, orthopnea, or palpitations GI: + Difficulty swallowing : No history of dysuria, frequency or incontinence MUSCULOSKELETAL: Negative for joint pain or swelling. SKIN: Negative for lesions, rash, and itching ENDOCRINE: Negative for cold or heat intolerance, polyuria, polydipsia and goiter NEURO: No history of headaches, syncope, paralysis, seizures or tremors MOOD: Negative for depression, anxiety, or suicidal ideation. EXAM: BP 128/80 Pulse 80 Resp 18 Wt (!) 210.7 kg (464 lb 6.4 oz) LMP 09/14/2022 (Approximate) SpO2 98% BMI 74.96 kg/m PHYSICAL EXAM: General Appearance: Well appearing, alert, in no acute distress, well-hydrated, well nourished. Skin: Skin color, texture, turgor normal, no suspicious rashes or lesions. Head: Normocephalic, no masses, lesions, tenderness or abnormalities. Eyes: Anicteric sclera. Pupils are equally round and reactive to light. Extraocular movements are intact. Neck: Supple, no adenopathy; thyroid symmetric, normal size, no bruits. Lungs: Lungs clear to auscultation. No wheezing, rhonchi, rales.. Heart: RRR without murmur, gallop, or rubs. No ectopy. Abdomen: Normal abdominal exam, Abdomen soft, non-tender. Bowel sounds normal. No masses, organomegaly. Extremities: No deformities, edema, skin discoloration, clubbing or cyanosis. Good capillary refill. Peripheral Pulses: Normal, Capillary refill <2secs, strong peripheral pulses, Pulses palpable. Neurologic: Gait normal. Sensation grossly intact. ASSESSMENT/PLAN: 1. Dysphagia, unspecified type - ICD9: 787.20, ICD10: R13.10 - Get additional labs completed. - Recommend consult to general surgery to discuss EGD. - Instructed to eat softer foods, have beverages readily available. - Red flag symptoms given to patient, she verbalizes understanding when to seek emergency care. - CONSULT TO GENERAL SURGERY - THYROID STIMULATING HORMONE - T4 FREE/FREE THYROXINE - T3 - THYROID PEROXIDASE ANTIBODY Follow-up pending test results or sooner as needed. Discussed treatment plan and patient voices understanding. Patient's questions answered appropriately. Medications and potential side effects were discussed and patient voices understanding. Riddhi Alonso APRN.ENDOCRINOLOGY NURSE This note was partially generated using Dragon voice recognition system. Note was reviewed for accuracy. There may be minor misspellings or grammar miscues with [employer] voice recognition. documented in this encounter [facility] 12-14-2023 Telephone encounter Note 30 day rx sent as requested. [facility] 12-14-2023 Miscellaneous Notes 30 day rx sent as requested. See pt message. Requesting a #30 day supply only vs #90 day. Pended Rx. Update pt via mychart once sent. Will put refills on Rx. Riana Menchaca MA documented in this encounter [facility] 12-14-2023 Telephone encounter Note See pt message. Requesting a #30 day supply only vs #90 day. Pended Rx. Update pt via LUMO [employer] once sent. Will put refills on Rx. Riana Menchaca MA [facility] 12-13-2023 Telephone encounter Note Order approved. [facility] 12-13-2023 Telephone encounter Note Patient notified and verbalized understanding. She would like to schedule US for next month. Order pended, please file if agreeable. If filed, will send to PSS to contact pt to schedule. Marie Albrecht MA [facility] 12-13-2023 Telephone encounter Note Her spleen appears to be mildly enlarged on this ultrasound and she was not having pain in her left upper quadrant. With her blood counts being normal, I would recommend rechecking an ultrasound as previously noted to make sure this is not an error or over read by the radiologist. The rest of her labs are back and do not show signs of pancreatitis. Her inflammatory markers are slightly high which is non specific. I would recommend treatment as noted below. Call if symptoms do not improve with Omeprazole or if worsening. [facility] 12-13-2023 Telephone encounter Note Patient notified and verbalized understanding. She is asking for further explanation of US results and expresses being anxious regarding enlarged spleen. Please review and advise. Marie Albrecht MA [facility] 12-13-2023 Telephone encounter Note Patient's blood counts, kidney and liver function are unremarkable. No sign of infection on these labs. Her labs for pancreatitis and inflammation are still pending. For her pain, I would recommend checking a stool sample for h pylori and then starting her on Omeprazole 40 mg daily after she brings in the sample. This is a heartburn medication that would help with gastritis or an ulcer. She cannot take omeprazole prior to bringing in the sample, or it could skew the test results. Will call with the rest of her lab results. Consider repeat imaging in 1-2 months to confirm enlarged spleen. [facility] 12-13-2023 History of Presen t illness Narrative Radiology Service Progress Note PATIENT NAME: Dejah Adorno DATE OF SERVICE: December 13, 2023 TIME: 1:29 PM PATIENT IDENTITY VERIFICATION COMPLETED USING TWO (2) IDENTIFIERS: Name and Date of confirmed by patient verbally. FALL SCREENING: Has the patient had 2 falls in the last year or 1 fall with injury or currently using an Ambulatory Assistive Device (Walker, Cane, Wheelchair, Crutches, etc.)? No PATIENT GENDER DATA: Female. status: : No status: NO. PATIENT RELEVANT IMPLANT DATA REVIEWED: Not Applicable PATIENT PRESENTS WITH AN IMPLANTABLE OR ATTACHED PATCH WORKER: No RADIOLOGY DEPARTMENT: Ultrasound PERIPHERAL IV DATA: Not applicable SIGNED BY: Sonya Cavazos RDMS RVT December 13, 2023 1:29 PM documented in this encounter [facility] 12-13-2023 History of Presen t illness Narrative Chief Complaint Patient presents with: Flank Pain HPI Dejah Adorno is a 28 year old female who presents here today for Above Complaints. Accompanied today by boyfriend Mansoor. Patient complaining of 4 days of intermittent pain in her RUQ and right flank. Describing as aching pain, currently 2/10. Occasionally gets sharp pain without known exacerbating factors. Pain usually lasts a couple of minutes. Does not seem to be triggered by eating. Not treating with anything OTC. Admits to nausea with vomiting x1 without hematemesis or coffee ground emesis, heartburn, chronic diarrhea. Denies fever/chills, constipation, hematochezia, melena, urinary symptoms, vaginal bleeding/discharge. Past medical history, appointments, medications, allergies reviewed. Previous Medical History PAST MEDICAL HISTORY Diagnosis Date Migraine without aura and without status migrainosus, not intractable 07/10/2019 Obesity 03/09/2011 PCOS (polycystic ovarian syndrome) 2016 PMH - PAST MEDICAL HISTORY OF 03/2003 normal color vision Unspecified hearing loss, bilateral 07/10/2019 Rt>LT, 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 Vitamin D deficiency 12/21/2021 Previous Surgical History PAST SURGICAL HISTORY Procedure Laterality Date TONSILLECTOMY PRIMARY/SECONDARY <AGE 14 Family History FAMILY HISTORY Problem Relation Age of Onset other (Pulmonary Embolism) Mother with embolism Anxiety disorder Brother Depression Brother Breast Cancer Maternal Grandmother Hypertension Maternal Grandfather Lung Cancer Paternal Grandmother Bipolar disorder Maternal Aunt Diabetes Other mggm Patient Allergies ALLERGIES Allergen Reactions Doxycycline Anaphylaxis Flagyl [Metronidazo* Anaphylaxis Current Medications Current Outpatient Medications on File Prior to [...] hours as needed for wheezing/shortness of breath. BORIC ACID 600 MG VAGINAL SUPPOSITORY Use 1 Suppository vaginally once daily. Unwrap and insert as directed. No current facility-administered medications on file prior to visit. Social History Social History Tobacco Use Smoking status: Former Types: Cigarettes Quit date: 01/18/2018 Years since quittin.9 Smokeless tobacco: Never Tobacco comments: . step mom and sibling smokes outside Vaping Use Vaping Use: Never used Substance Use Topics Alcohol use: Not Currently Drug use: Not Currently Types: Marijuana Review of Symptoms REVIEW OF SYSTEMS See HPI EXAM: BP 118/80 Pulse 84 Resp 18 LMP 09/14/2022 (Approximate) General Appearance: Well appearing, alert, in no acute distress, well-hydrated, well nourished.. Skin: Skin color, texture, turgor normal, no suspicious rashes or lesions. Lungs: Lungs clear to auscultation. No wheezing, rhonchi, rales.. Heart: RRR without murmur, gallop, or rubs. No ectopy. Abdomen: Abdomen soft. Bowel sounds normal. No masses, organomegaly, Positive findings: tenderness marked RUQ with guarding without rebound. Health Maintenance List DTaP,Tdap,Td Vaccine(7 - Td or Tdap) due on 12/03/2019 Covid-19 Vaccine( season) due on 04/14/2023 Behavioral Health Screening Never done Influenza Vaccine(Season Ended) due on 04/14/2024 Pap Testing due on 03/09/2026 Hepatitis B Vaccine Completed HPV Vaccine Completed Hepatitis C Screening Completed HIV Screening Completed Latest Ref Rng 12/13/2023 GLUCOSE UA (POCT) Negative mg/dL Negative BILIRUBIN UA (POCT) Negative Negative KETONE UA (POCT) Negative mg/dL Negative SPECIFIC GRAVITY UA (POCT) 1.005 - 1.030 >=1.030 HEMOGLOBIN/BLOOD UA (POCT) Negative Negative PH UA (POCT) 4.5 - 8.0 6.0 PROTEIN UA (POCT) Negative mg/dL Negative UROBILINOGEN UA (POCT) Normal E.U./dL 0.2 NITRITE UA (POCT) Negative Negative LEUKOCYTES UA (POCT) Negative Negative COLOR UA (POCT) Yellow CLARITY UA (POCT) Clear ASSESSMENT/PLAN: 1. RUQ pain - ICD9: 789.01, ICD10: R10.11 (primary diagnosis) Suspect gallbladder as likely cause. Will obtain STAT labs and imaging and call with results. UA negative for infection. Urine testing negative in office. Discussed bland diet, avoidance of fatty foods. Red flags for re-assessment reviewed with patient in detail. - US ABD RIGHT UPPER QUADRANT 2. Flank pain - ICD9: 789.09, ICD10: R10.9 See above. - UA DIP, URINE (POC) - US ABD RIGHT UPPER QUADRANT - COMPLETE BLOOD COUNT AND DIFFERENTIAL - COMPREHENSIVE METABOLIC PANEL - LIPASE - SEDIMENTATION RATE, WESTERGREN - C-REACTIVE PROTEIN 3. Nausea and vomiting, unspecified vomiting type - ICD9: 787.01, ICD10: R11.2 See above. - HCG QUAL UR B/O Jhonny Fowler MD documented in this encounter [facility] 12-12-2023 Telephone encounter Note Reviewed and agree. [facility] Work Phone: 12-12-2023 Miscellaneous Notes Reviewed and agree. Patient calling wanting appointment for right flank pain that comes and goes. Patient states pain scale is 2/10, sharp, stabbing,achy at times. Patient also states it only lasts a few minutes and has not taken anything for pain. Bowels are normal, no pain after eating. Patient notes does drink caffeine. Appointment made for 12/13/2023 at 8:40am with . Patient advised if worsens from now til tomorrow urgent care or ER. Priscilla Trejo LPN documented in this encounter [facility] 12-12-2023 Telephone encounter Note Patient calling wanting appointment for right flank pain that comes and goes. Patient states pain scale is 2/10, sharp, stabbing,achy at times. Patient also states it only lasts a few minutes and has not taken anything for pain. Bowels are normal, no pain after eating. Patient notes does drink caffeine. Appointment made for 12/13/2023 at 8:40am with . Patient advised if worsens from now til tomorrow urgent care or ER. Priscilla Trejo LPN [facility] Work Phone: 10-10-2023 Miscellaneous Notes Call to patient. Patient could NOT take appointment on 10/16/23, She asked for an appointment at next [facility] date, 10/30/23 in am. Patient accepted appointment on 10/30/23 at 8:30am. Radha Ingram Pt information given to PSS to scheduled appointment 10/16/23 Genesis Mcclendon RN Pt had allergic reaction from doxycycline and Flagyl Doxy-2 days left Flagyl- 1 week left On pt went to [place] ED for allergic reaction -Lip, throat, face swelling given epi - per pt Sx remain urethra/clitoris pain and constant urination Will send to provider for recommendations Genesis Mcclendon RN documented in this encounter [facility] 10-06-2023 Miscellaneous Notes Triage Protocol Recommended: PCP Triage or ER now. Pt has chosen to go to ER now. She has someone to take her and assist her. Reason for Disposition [1] Drug rash suspected AND [2] started taking new medicine within last 2 weeks(Exception: Antihistamine, eye drops, ear drops, decongestant or other OTC cough/cold medicines.) Face or lip swelling Answer Assessment - Initial Assessment Questions Patient calling for advise. Reports yesterday she developed hives and went to [facility] ER due to allergic reaction after taking recently prescribed antibiotics for bacterial vaginosis infection. ER gave her epi, steroids and benadryl. She was discharged and prescribed prednisone to take for 5 days. Reports she was good last night. Reports this morning she took her 1st dose of prednisone. Widespread hives are returning. She took a benadryl about 1 hour ago. Reports her lip is starting to swell now. 1. APPEARANCE of RASH: raised red, varying sizes 2. SIZE: pin point to as large as 2 inches wide 3. LOCATION: arms, legs, stomach 4. COLOR: pink 5. ONSET:they have returned again this morning 6. FEVER: not measured 7. ITCHING: moderate to severe 8. CAUSE: Pt believes it may the antibiotics she took yesterday 9. NEW MEDICINES: as above 10. OTHER SYMPTOMS: DENIES current SOB, wheezing, swollen tongue or throat, trouble swallowing, sore throat Protocols used: [id number], Rash - Widespread On [id number] documented in this encounter [facility] 10-04-2023 Miscellaneous Notes LVM rx sent to pharmacy, no need to restart, pt can start medication where she left off. Call office with any questions Genesis TERAN Ordered. Can start regimen where left off and does not need to restart. Yamilka Cristina MD Pt called, states she was cleaning her house the other day and thinks she threw out her medications. Pt requesting vibramycin and Moxifloxacin reorder Will notify provider Genesis Mcclendon RN documented in this encounter [facility] 09-27-2023 Miscellaneous Notes Reviewed new orders Pt verbalized understanding and denies any questions. Karen Lund RN Done. Yamilka Cristina MD Called pt, reviewed results and new orders. Pt requesting partner treatment: Mansoor Torres [birth year] Allergy: Codeine Pharmacy: [facility] Karen Lund RN Please notify patient that ureaplasma culture was positive. Would recommend treatment with doxycycline followed by moxifloxacin. May also be beneficial to treat partner as can be sexually transmitted. Would not necessarily consider to be an STD as can live in vagina without issue but cause irritation for some individuals. If sent partner's full name and can sent treatment. Yamilka Cristina MD documented in this encounter [facility] 09-18-2023 Miscellaneous Notes Please call regarding boric acid prescription. Difficulty with e-script. ADDENDUM: Sent to [facility]. Phone number [phone] Yamilka Cristina MD documented in this encounter [facility] 09-18-2023 Instructions Yamilka Cristina MD - 09/18/2023 10:14 AM EST As [...] me know :) documented in this encounter [facility] 09-18-2023 History of Presen t [...] new partner 2 years ago. Treated in [place]. Reports 2x treatments with Clindamycin, Flagyl 2-3 [...] other medical problems Consultation requested by Aydee Simeon CNM for an opinion regarding recurrent BV. My final recommendations will be communicated back to the requesting physician by way of shared Medical record or letter to requesting physician via US mail. OB History T0 L0 SAB0 IAB0 Ectopic0 Multiple0 Live Births0 Sign Installer History LMP: 09/14/2022 (Approximate), Having periods Age at Menarche: Age at First : Age at Menopause: Sign Installer History Comments: Sexual Activity: Yes; Male Contraception: [...] performed today. Discussed longer course of treatment. 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 [...] Weakness or dizziness Shaking chills Drenching sweats [phone] [employer]. [address] [place] [address]. All rights reserved. This information is not intended as a substitute for professional medical care. Always follow your healthcare professional's instructions. Follow Up Care 08/21/2023 22:40:04 With:JHONNY FOWLER MD Address: [address] [place] [address] [phone]- When:2-4 days [facility] 08-21-2023 Note Discharge Instructions Thank you for allowing [facility] to assist you with your healthcare needs. The following is important discharge information regarding your hospital visit. Diagnosis from Today's Visit Leg pain-swelling What to Do Next Instructions from Your Care Team Discharge ED Outpatient Vascular Lab - Ordered -- Test Requested: RLE, Lower extremity, Right, Test Reason: Edema, Mon-Fri 8am-4:30pm: Call [phone] at 7:30am to schedule a same day appointment for testing. Please be aware there may be a short wait time. Post Acute Orders No qualifying data available. You Need to Schedule the Following Appointments Follow Up with JHONNY FOWLER MD When Within 2-4 days Where: [address] [place] [address] [phone]- Allergies NKA Medications Please ask your primary [...] or varicose veins, don t sit or lens fabricating machine tender one place for long periods of time. [...] Weakness or dizziness Shaking chills Drenching sweats [phone] [employer]. [address] [place] [address], [place] [address]. All rights reserved. This information is not intended as a substitute for professional medical care. Always follow your healthcare professional's instructions. Additional Information VACCINATE! IT SAVES LIVES! Members of the community who have not yet received the COVID-19 vaccine and would like to receive it can visit one of [facility] vaccine clinics. There are many vaccine clinic locations within the [facility]. For locations and available times, please visit [email or web address] [email or web address] It is important to note that some COVID mobile vaccine clinics are held outdoors and may be canceled in rainy or stormy conditions. To learn more about pediatric vaccinations (ages 5-11), we invite you to visit the [facility] webpage. [email or web address] [email or web address] To learn more about the COVID-19 vaccine, we invite you to visit the CDC website for a list of frequently asked questions. https://www.cdc.gov/coronavirus/ 2019-ncov/vaccines/faq.html [facility] Patient Portal Access Instructions: Stay connected with your healthcare team and access your personal medical information anytime with the [facility] Patient Portal. If you would like a full copy of your medical records please contact the [facility] Medical Records Department Monday through Monday between 8a.m. and 4:30p.m. Please follow the directions below to access the portal: 1.Access the email account you provided upon registration to the hospital.2.Look for an invitation email from [facility].3.Open the email and access the invitation link: Accept Invitation to [facility]4.Fill in the required alvarez to create your account. Sign into www.[employer] with your username and password that you [...] you will allow to register on the [facility] Patient Portal for access to your information. You can also access the [facility] Patient Portal on the [employer]. Simply click on Health Records under Health Data and then click on the copygram logo. HOW TO SAFELY DISPOSE OF PRESCRIPTION [...] Call your local pharmacy or go to [email or web address] to find one close to you.3.Make use of household items: Use cat litter or old coffee grounds to dispose medications if other options are not available. Mix your drugs with these household products, seal them in an airtight container and throw it into the garbage. Call [facility]: [phone] to be sure your drugs can be [...] been reviewed and explained to me and I,DEJAH ADORNO understand my current condition and have read and understand these discharge instructions. I have received a written copy of the plan/instructions. If I have questions, I am aware that I should contact my doctor. 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 Marie Albrecht MA Pt recently in [facility] ER for chest pain. Would like to see patient within the next 5 days in office. Will need to call and schedule. Marie Albrecht MA documented in this encounter [facility] 07-05-2023 Miscellaneous Notes Patient notified. ALICIA CLEMENTS, RN Please notify patient that RX for Doxycycline 100 mg PO BID x 7 days was sent to pharmacy. Please have her complete all medication orally. Also, she needs to continue using the Clindamycin vaginally as well. Thank you. Aydee Simeon APRN.CNM documented in this encounter [facility] 07-03-2023 Miscellaneous Notes Patient viewed the following message from provider. Brett Pond, Your swab was positive for BV. Please keep using the Clindamycin vaginally. Let me know if you have any questions or concerns. Aydee Simeon, GINNA documented in this encounter [facility] 07-02-2023 Discharge summary Note Date/Time July 02, 2023 9:40pm [facility] Medical Records Department [address] [place] [address] Emergency Department Summary 07/02/23 MR#: [id number] Acct: [id number] Name: DEJAH ADORNO Rep #:[id number] : 1995 27 From: Raudel Parikh MD PCP: Dr. Hal Fowler MD Status :REG ER Location: ED HPI History of Present Illness Chief Complaint: Chest Pain Informant: patient Narrative Narrative: 27-year-old female states she has been having chest pain has been waxing and waning all day today, it is left-sided feels like it is inside sometimes it feels more like it is in her back than her chest. It is there right now mildly,it was worse earlier. Has seem random, no obvious associated activities with this, not exertional, seems maybe a little pleuritic. No recent leg pain or swelling no history of DVT or PE but states her mom of a pulmonary embolus and her dad of an ME. She states she came in tonight more because she sat up and suddenly was dizzy, with the room feeling like it was spinning and feeling foggy in her head. Afterremaining still for couple minutes the symptoms gradually resolved. She did notfeel nauseated, she had no vision disturbance, peripheral neurologic symptoms, earache, tinnitus. She states she had a cold 2 or 3 weeks ago that was a bad head cold and is now resolved. She denies having any ear pain now. PFSH PFSH Home Medications clindamycin phosphate 2 % vaginal cream 1 appful vaginal QHS 07/02/23 [History Last Taken Unknown] meclizine 25 mg tablet 25 mg PO Q8H PRN PRN Dizziness #20 tabs 07/02/23 [Rx Last Taken Unknown] Allergy/AdvReac Type Severity Reaction Status Date / Time No Known Allergies Allergy Verified 07/02/23 21:10 Surgical History (Updated 07/02/23 @ 21:12 by Zora Huston) Hx of tonsillectomy Social History Smoking Status: Never smoker ROS ROS ED Constitutional Constitutional ED: Denies chills or fever(s) Eyes Eyes: Denies change in vision or diplopia ENT ENT ED: Reports vertigo; Denies rhinorrhea or sore throat Cardiovascular Cardiovascular: Reports chest pain; Denies palpitations Respiratory/Chest Respiratory/Chest: Denies cough or dyspnea Gastrointestinal Gastrointestinal: Denies abdominal pain, diarrhea, nausea or vomiting Genitourinary Genitourinary ED: Denies dysuria or hematuria Musculoskeletal Musculoskeletal: Reports back pain; Denies neck pain Integumentary Denies abscess or rash Neurologic Neurologic: Denies headache(s), paresthesias or weakness Psychiatric Psychiatric: Denies anxiety or suicidal thoughts EXAM Physical Exam Const Vital Signs: 07/02/23 21:12 07/02/23 21:39 Temperature 98.9 F Temperature Source Temporal Pulse Rate 107 H Respiratory Rate 16 Blood Pressure 172/95 H Blood Pressure Mean 120 Pulse Ox 100 98 Oxygen Delivery Method Room Air Positive well nourished and well developed Constitutional Narrative: Morbid obesity General Appearance ED: well developed and NAD HEENT Reports moist mucous membranes HEENT Narrative: Right TM and EAC normal. Left TM is slightly erythematous without bulging, EAC normal. normocephalic and atraumatic Eyes PERRL and EOMs intact bilaterally Eyes Narrative: No pathologic nystagmus. Neck full ROM and supple Chest Wall inspection of chest normal and palpation of chest normal Resp normal respiratory effort and clear to auscultation bilaterally Cardio regular rate, regular rhythm and no murmurs Rate: Negative for tachycardic GI non-tender and non-distended Auscultation: normoactive bowel sounds Palpation: soft Back/Spine no CVA tenderness General Back: other FROM Extremity normal to inspection and no calf tenderness General Extremety ED: Negative for edema, pulses abnormal or tenderness General Extremity: Negative for edema or pulses abnormal Neuro oriented x3, CN's II-XII intact bilaterally and no sensory deficits noted Sensorium / Orientation: awake and alert Motor Exam: strength 5/5 throughout Skin no rashes or lesions noted and no wounds Heart Score History: Slightly/Non-Suspicious ECG: Normal Age: </= 45 years Risk Factors: 1 or 2 Risk Factors (Family history) Troponin: </= Normal Limit Score: 1 MDM MDM MDM Narrative Medical decision making narrative: Patient had a single episode of what seems like peripheral vertigo tonight, and I think that is unrelated to her chest discomfort. Differential for the latter includes esophageal etiologies, less likely to be pneumothorax, she has no risk for PE except for family history, less likely to be acute coronary syndrome, pericarditis myocarditis all in the differential as well as musculoskeletal etiologies. D-dimer is negative, ruling out pulmonary embolus in this patient with a mild resting tachycardia in triage but not during exam, EKG is normal, troponin is within normal limits after having discomfort all day, and the rest of her tests are unremarkable. 2 view chest x-ray is normal in my interpretation with no signs of pneumonia or pneumothorax, radiology in agreement. She was given a dose of Maalox, she is not sure if it really helped any but she has mild discomfort, she is hypertensive and that should be reevaluated but there are no signs of heart strain or injury at this time. Stable for discharge home close outpatient follow-up. She was given a dose of meclizine which helped with any recurrent vertigo. With regards to the left ear, it was a little red I would not treat her with antibiotics at this time butI advised her to keep an eye on it she is happy to return here if needed. Lab Data Attestation: I reviewed the patient's lab results. Labs: Laboratory Results - last 24 hr 07/02/23 07/02/23 21:30 21:54 WBC 12.2 H RBC 4.63 Hgb 12.8 Hct 40.7 MCV 87.9 MCH 27.6 MCHC 31.4 L RDW Std Deviation 42.4 RDW Coeff of Kourtney 13.3 Plt Count 314 MPV 10.2 Immature Gran % (Auto) 0.400 Neut % (Auto) 63.9 Lymph % (Auto) 27.0 [place] % (Auto) 6.5 Eos % (Auto) 1.7 Baso % (Auto) 0.5 Absolute Neuts (auto) 7.8 H Absolute Lymphs (auto) 3.30 Nucleated RBC % 0 D-Dimer Quant (PE/DVT) Cancelled 0.31 Sodium 139 Potassium 4.0 Chloride 105 Carbon Dioxide 29.0 Anion Gap 5 BUN 10 Creatinine 0.80 Est GFR (MDRD) Af Amer 112 Est GFR (MDRD) Non-Af 93 BUN/Creatinine Ratio 12.5 Glucose 96 Calcium 8.9 Troponin I High Sens 6 Radiography Diagnostic Testing: Clinical Impression(s) from Imaging Studies Chest X-Ray 07/02/23 22:10 IMPRESSION: Normal x-ray examination of the chest. Electronically Signed: Chidi Benites MD at 22:25 EST , Rhythm Strip Rhythm Strip: Sinus Rhythm Rate: 95 Ectopy: None EKG Initial EKG: Attestation: I personally reviewed and interpreted this EKG as follows: Interpretation: Sinus Rhythm and No Acute Injury Pattern Comments: RSR prime. Normal EKG. Discharge Plan Triage Chief Complaint: Chest Pain ED Provider: Raudel Parikh Dx/Rx/DC Orders Clinical Impression: Left-sided chest pain, Episodic peripheral vertigo, Episode of hypertension Instructions: Hypertension Dc, ED Chest Pain, Uncertain Cause, ED Vertigo, Unspecified Prescriptions: New meclizine [meclizine] 25 mg tablet 25 mg PO Q8H PRN PRN (Reason: Dizziness) Qty: 20 0RF No Action clindamycin phosphate 2 % cream 1 appful VAGINAL QHS Rx Instructions: FOR 7 DAYS, STARTED 07/01/23 Primary Care Provider: Hal Fowler Referrals: Clem Lua MD [Non-Staff] - (Follow-up this coming week for blood pressurerecheck, and to have your left ear rechecked especially if it is starting to bother you) Disposition Disposition: Home, Self Care What to do if you have Problems For any increased pain, shortness of breath, bleeding, nausea or vomiting, chestpain, or any unexpected problems, contact your Primary Care Provider. Call [facility] ([phone]) or report to the closest Emergency Room. Call 911 if necessary. 07/02/232248 <Electronically signed by Raudel Parikh MD> Cosigner Signature (if applicable): CC: Dr. Hal Fowler MD ~ Signed [facility] Work Phone: [phone]) 515-291211-17-2023 Instructions* Patient Instructions* Aydee Simeon APRN.CNM - 06/30/2023 8:43 AM EST [facility]- Probiotic to take daily documented in this encounterUniversity [facility]11[facility]23 History of Present illness Narrative* Aydee Simeon APRN.CNM - 06/30/2023 8:10 AM EST Dejah Adorno is a 27 year old female who presents for problem visit of continued vaginal burning,irritation, swelling and pain. Stated she has been dealing with this for the past coupld of months.Was treated with Flagyl PO x two rounds last month for bacterial vaginosis. Stated feels like things get cleared up for about a week and then symptoms return. Has increased burning around clitorisand urethra. Increased vaginal discharge and odor. Continues to state she knows she still has BV. No recent intercourse. Denies use of any soaps, lotions, detergent changes or creams to vaginal area.Denies any dysuria. REVIEW OF SYSTEMS Abdomen: No bloating, early satiety, indigestion, or increased flatulence. No abdominal pain, nausea, vomiting, diarrhea, or constipation. Bladder: No dysuria, gross hematuria, urinary frequency, urinary urgency, or incontinence. Breast: No breast lumps, nipple d/c, overlying skin changes, redness or skin retraction. 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 Leah Boykin LPN * Telephone Encounter - Leah Boykin LPN - 06/08/2023 10:02 AM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 protected by the Federal Confidentiality of Alcohol and Drug Abuse Patient Records regulations: The Federal rules restrict any use of the information to criminally investigate or prosecute any alcohol or drug abuse patient.[facility] CenterIn the event this information is protected by the Federal Confidentiality of Alcohol and Drug Abuse Patient Records regulations: The Federal rules restrict any use of the information to criminally investigate or prosecute any alcohol or drug abuse patient.[facility] CenterIn the event this information is protected by the Federal Confidentiality of Alcohol and Drug Abuse Patient Records regulations: The Federal rules restrict any use of the information to criminally investigate or prosecute any alcohol or drug abuse patient.[facility] CenterIn the event this information is protected by the Federal Confidentiality of Alcohol and Drug Abuse Patient Records regulations: The Federal rules restrict any use of the information to criminally investigate or prosecute any alcohol or drug abuse patient.[facility] CenterIn the event this information is protected by the Federal Confidentiality of Alcohol and Drug Abuse Patient Records regulations: The Federal rules restrict any use of the information to criminally investigate or prosecute any alcohol or drug abuse patient.[facility] CenterIn the event this information is protected by the Federal Confidentiality of Alcohol and Drug Abuse Patient Records regulations: The Federal rules restrict any use of the information to criminally investigate or prosecute any alcohol or drug abuse patient.[facility] CenterIn the event this information is protected by the Federal Confidentiality of Alcohol and Drug Abuse Patient Records regulations: The Federal rules restrict any use of the information to criminally investigate or prosecute any alcohol or drug abuse patient.[facility] CenterIn the event this information is protected by the Federal Confidentiality of Alcohol and Drug Abuse Patient Records regulations: The Federal rules restrict any use of the information to criminally investigate or prosecute any alcohol or drug abuse patient.[facility] CenterIn the event this information is protected by the Federal Confidentiality of Alcohol and Drug Abuse Patient Records regulations: The Federal rules restrict any use of the information to criminally investigate or prosecute any alcohol or drug abuse patient.[facility] CenterIn the event this information is protected by the Federal Confidentiality of Alcohol and Drug Abuse Patient Records regulations: The Federal rules restrict any use of the information to criminally investigate or prosecute any alcohol or drug abuse patient.[facility] CenterIn the event this information is protected by the Federal Confidentiality of Alcohol and Drug Abuse Patient Records regulations: The Federal rules restrict any use of the information to criminally investigate or prosecute any alcohol or drug abuse patient.[facility] CenterIn the event this information is protected by the Federal Confidentiality of Alcohol and Drug Abuse Patient Records regulations: The Federal rules restrict any use of the information to criminally investigate or prosecute any alcohol or drug abuse patient.[facility] CenterIn the event this information is protected by the Federal Confidentiality of Alcohol and Drug Abuse Patient Records regulations: The Federal rules restrict any use of the information to criminally investigate or prosecute any alcohol or drug abuse patient.[facility] CenterIn the event this information is protected by the Federal Confidentiality of Alcohol and Drug Abuse Patient Records regulations: The Federal rules restrict any use of the information to criminally investigate or prosecute any alcohol or drug abuse patient.[facility] CenterIn the event this information is protected by the Federal Confidentiality of Alcohol and Drug Abuse Patient Records regulations: The Federal rules restrict any use of the information to criminally investigate or prosecute any alcohol or drug abuse patient.[facility] CenterIn the event this information is protected by the Federal Confidentiality of Alcohol and Drug Abuse Patient Records regulations: The Federal rules restrict any use of the information to criminally investigate or prosecute any alcohol or drug abuse patient.[facility] CenterIn the event this information is protected by the Federal Confidentiality of Alcohol and Drug Abuse Patient Records regulations: The Federal rules restrict any use of the information to criminally investigate or prosecute any alcohol or drug abuse patient.[facility] CenterIn the event this information is protected by the Federal Confidentiality of Alcohol and Drug Abuse Patient Records regulations: The Federal rules restrict any use of the information to criminally investigate or prosecute any alcohol or drug abuse patient.[facility] CenterIn the event this information is protected by the Federal Confidentiality of Alcohol and Drug Abuse Patient Records regulations: The Federal rules restrict any use of the information to criminally investigate or prosecute any alcohol or drug abuse patient.[facility] CenterIn the event this information is protected by the Federal Confidentiality of Alcohol and Drug Abuse Patient Records regulations: The Federal rules restrict any use of the information to criminally investigate or prosecute any alcohol or drug abuse patient.[facility] CenterIn the event this information is protected by the Federal Confidentiality of Alcohol and Drug Abuse Patient Records regulations: The Federal rules restrict any use of the information to criminally investigate or prosecute any alcohol or drug abuse patient.[facility] CenterIn the event this information is protected by the Federal Confidentiality of Alcohol and Drug Abuse Patient Records regulations: The Federal rules restrict any use of the information to criminally investigate or prosecute any alcohol or drug abuse patient.[facility] CenterIn the event this information is protected by the Federal Confidentiality of Alcohol and Drug Abuse Patient Records regulations: The Federal rules restrict any use of the information to criminally investigate or prosecute any alcohol or drug abuse patient.[facility] CenterIn the event this information is protected by the Federal Confidentiality of Alcohol and Drug Abuse Patient Records regulations: The Federal rules restrict any use of the information to criminally investigate or prosecute any alcohol or drug abuse patient.[facility] CenterIn the event this information is protected by the Federal Confidentiality of Alcohol and Drug Abuse Patient Records regulations: The Federal rules restrict any use of the information to criminally investigate or prosecute any alcohol or drug abuse patient.[facility] CenterIn the event this information is protected by the Federal Confidentiality of Alcohol and Drug Abuse Patient Records regulations: The Federal rules restrict any use of the information to criminally investigate or prosecute any alcohol or drug abuse patient.[facility] CenterIn the event this information is protected by the Federal Confidentiality of Alcohol and Drug Abuse Patient Records regulations: The Federal rules restrict any use of the information to criminally investigate or prosecute any alcohol or drug abuse patient.[facility] CenterIn the event this information is protected by the Federal Confidentiality of Alcohol and Drug Abuse Patient Records regulations: The Federal rules restrict any use of the information to criminally investigate or prosecute any alcohol or drug abuse patient.[facility] CenterIn the event this information is protected by the Federal Confidentiality of Alcohol and Drug Abuse Patient Records regulations: The Federal rules restrict any use of the information to criminally investigate or prosecute any alcohol or drug abuse patient.[facility] CenterIn the event this information is protected by the Federal Confidentiality of Alcohol and Drug Abuse Patient Records regulations: The Federal rules restrict any use of the information to criminally investigate or prosecute any alcohol or drug abuse patient.[facility] CenterIn the event this information is protected by the Federal Confidentiality of Alcohol and Drug Abuse Patient Records regulations: The Federal rules restrict any use of the information to criminally investigate or prosecute any alcohol or drug abuse patient.[facility] CenterIn the event this information is protected by the Federal Confidentiality of Alcohol and Drug Abuse Patient Records regulations: The Federal rules restrict any use of the information to criminally investigate or prosecute any alcohol or drug abuse patient.[facility] CenterIn the event this information is protected by the Federal Confidentiality of Alcohol and Drug Abuse Patient Records regulations: The Federal rules restrict any use of the information to criminally investigate or prosecute any alcohol or drug abuse patient.[facility] CenterIn the event this information is protected by the Federal Confidentiality of Alcohol and Drug Abuse Patient Records regulations: The Federal rules restrict any use of the information to criminally investigate or prosecute any alcohol or drug abuse patient.[facility] CenterIn the event this information is protected by the Federal Confidentiality of Alcohol and Drug Abuse Patient Records regulations: The Federal rules restrict any use of the information to criminally investigate or prosecute any alcohol or drug abuse patient.[facility] Reason for Visit (unrecogniz ed section and content) Reason Comments Ear Pain left, head congestio n, cough x 3 days Reason Comments Knee Pain Chronic R knee pain, worsened x4 days, no injury Reason Comments Results Patient Update Reason Comments Nausea Abdominal Pain Reason Comments Patient Question Reason Comments Std Exposure december 19 Reason Comments Appointment Cancelled Reason Comments Discussion [...] Colposcopy Specialty Diagnoses / Procedures Referred By Contac t Referred To Contact [facility] Diagnoses LGSIL on Pap smear of cervix Procedures COLPOSCOPY COLPOSCOPY CERVIX BX CERVIX & ENDOCRV CURRETAGE [facility], RUFUS.ENDOCRINOLOGY NURSE [address] [place] [address] [facility] [address] [facility] [address] Referral ID Status Reason Start Date Expiration Date V isits Requested Visits Authorized [id number] Closed Auto-Generate d Referral 03/18/2023 03/17/2024 1 1 Reason Comments Vaginal Problem Reason Comments vaginitis Reason Comments Vaginal Problem Vaginal odor and irr itation Reason Comments ER F/U Reason Comments Orders Reason Comments Allergic Reaction Reason Comments Flank Pain Reason Comments Flank Pain Reason Comments Radiology US Specialty Diagnoses / Procedures Referred By Contac t Referred To Contact [facility] Diagnoses Flank pain RUQ pain Procedures US ABD RIGHT UPPER QUADRANT US ABDOMINAL REAL TIME W/IMAGE LIMITED Jhonny Fowler MD [address] [place] [address] [place] [address] Referral ID Status Reason Start Date Expiration Date V isits Requested Visits Authorized [id number] Closed Auto-Generate d Referral 12/13/2023 01/11/2025 1 1 Reason Comments Throat Problem X1 month, when eatin g starts to swallow and begins choking, went to [facility] ER on 12/17 and was told it is d/t drainage Reason Comments LUQ pain worse with a deep br eath Reason Comments Radiology US Specialty Diagnoses / Procedures Referred By Contac t Referred To Contact [facility] Diagnoses Splenomegaly Procedures US ABD SPLEEN US ABDOMINAL REAL TIME W/IMAGE LIMITED Jhonny Fowler MD [address] [place] [address] [place] [address] Referral ID Status Reason Start Date Expiration Date V isits Requested Visits Authorized [id number] Closed Auto-Generate d Referral 01/13/2024 01/11/2025 1 1 Reason Comments Difficulty Swallowing Specialty Diagnoses / Procedures Referred By Contac t Referred To Contact General Surgery / INITIAL DEPT Diagnoses Dysphagia, unspecified type Procedures CONSULT TO GENERAL SURGERY OFFICE/OUTPATIENT NEW HIGH MDM 60 MINUTES OFFICE/OUTPATIENT ESTABLISHED MOD MDM 30 MIN Riddhi Alonso APRN.JONO [address] [place] [address] [place] [address] Referral ID Status Reason Start Date Expiration Date V isits Requested Visits Authorized [id number] Closed PCP Requested Referral 01/16/2024 08/13/2024 1 1 Reason Comments MyChart msg Tremor speech difficulties Dizziness Reason Comments Follow Up Enlarged spleen, is having some cramping to the area that comes and goes x3 days Reason Comments Acute Visit Reason Onset Date Comments Refill Request 08/03/2024 Reason Comments Hives Reason Comments Allergic Reaction Allergic reaction to amoxicillin Reason Comments Well Woman Reason Onset Date Comments Refill Request 10/08/2024 Reason Comments Pain, Back UTI C/o frequency Reason Onset Date Comments Results 09/30/2024 Reason Comments Breathing Problem Reason Comments Illness Return To Work Letter Reason Onset Date Comments Results 12/20/2024 Reason Onset Date Comments Refill Request 12/23/2024 Reason Comments Physical Reason Onset Date Comments Results 01/14/2025 Reason Comments Problem Visit Pt reported heavy re d bleeding after intercourse AM. Care Teams (unrecognized sec tion and content) Chief Scientific Officer Relationship Specialty Start Date End Date Clem Lua MD [facility] [place] [address] PCP - General Family Practice 07/19/19 Chief Scientific Officer Relationship Specialty Start Date End Date Clem Lua MD [address] [place] [address] [place] [address] PCP - General Family Practice 07/19/19 Chief Scientific Officer Relationship Specialty Start Date End Date Clem Lua MD [address] [place] [address] [place] [address] PCP - General Family Practice 07/19/19 Chief Scientific Officer Relationship Specialty Start Date End Date Clem Lua MD [address] [place] [address] [place] [address] PCP - General Family Practice 07/19/19 Chief Scientific Officer Relationship Specialty Start Date End Date Clem Lua MD [address] [place] [address] [place] [address] PCP - General Family Practice 07/19/19 Chief Scientific Officer Relationship Specialty Start Date End Date Clem Lua MD [address] [place] [address] [place] [address] PCP - General Family Practice 07/19/19 Chief Scientific Officer Relationship Specialty Start Date End Date Clem Lua MD [address] [place] [address] [place] [address] PCP - General Family Practice 07/19/19 Chief Scientific Officer Relationship Specialty Start Date End Date Clem Lua MD [address] [place] [address] [place] [address] PCP - General Family Practice 07/19/19 Chief Scientific Officer Relationship Specialty Start Date End Date Clem Lua MD [address] [facility] [place] [address] PCP - General Family Practice 07/19/19 Chief Scientific Officer Relationship Specialty Start Date End Date Clem Lua MD [address] [facility] [place] [address] PCP - General Family Medicine 07/19/19 Chief Scientific Officer Relationship Specialty Start Date End Date Clem Lua MD [address] [facility] [place] [address] PCP - General Family Medicine 07/19/19 Chief Scientific Officer Relationship Specialty Start Date End Date Clem Lua MD [facility] [place] [address] PCP - General Family Medicine 07/19/19 Chief Scientific Officer Relationship Specialty Start Date End Date Clem Lua MD [address] [facility] [place] [address] PCP - General Family Medicine 07/19/19 Chief Scientific Officer Relationship Specialty Start Date End Date Clem Lua MD [address] [facility] [place] [address] PCP - General Family Medicine 07/19/19 Chief Scientific Officer Relationship Specialty Start Date End Date Clem Lua MD [address] [facility] [place] [address] PCP - General Family Medicine 07/19/19 Chief Scientific Officer Relationship Specialty Start Date End Date Jhonny Fowler MD [facility] [place] [address] PCP - General Family Medicine 11/22/22 Chief Scientific Officer Relationship Specialty Start Date End Date Jhonny Fowler MD [address] [facility] [place] [address] PCP - General Family Medicine 11/22/22 Chief Scientific Officer Relationship Specialty Start Date End Date Jhonny Fowler MD [address] [facility] [place] [address] PCP - General Family Medicine 11/22/22 Chief Scientific Officer Relationship Specialty Start Date End Date Jhonny Fowler MD [address] [facility] [place] [address] PCP - General Family Medicine 11/22/22 Chief Scientific Officer Relationship Specialty Start Date End Date Jhonny Fowler MD [address] [facility] [place] [address] PCP - General Family Medicine 11/22/22 Chief Scientific Officer Relationship Specialty Start Date End Date Jhonny Fowler MD [address] [facility] [place] [address] PCP - General Family Medicine 11/22/22 Chief Scientific Officer Relationship Specialty Start Date End Date Jhonny Fowler MD [address] [facility] [place] [address] PCP - General Family Medicine 11/22/22 Chief Scientific Officer Relationship Specialty Start Date End Date Jhonny Fowler MD [address] [facility] [place] [address] PCP - General Family Medicine 11/22/22 Chief Scientific Officer Relationship Specialty Start Date End Date Jhonny Fowler MD [address] [facility] [place] [address] PCP - General Family Medicine 11/22/22 Chief Scientific Officer Relationship Specialty Start Date End Date Jhonny Fowler MD [address] [facility] [place] [address] PCP - General Family Medicine 11/22/22 Team Status: Active Member Role Status Dates Dr. Clem Lua MD Family Provider Active Dr. Hal Fowler MD Primary Care Provider Acti ve Team Status: Inactive Member Role Status Dates Dr. Raudel Parikh MD Emergency Provider Active Dr. Hal Fowler MD Primary Care Provider Acti ve Chief Scientific Officer Relationship Specialty Start Date End Date Jhonny Fowler MD [address] [facility] [place] [address] PCP - General Family Medicine 11/22/22 Chief Scientific Officer Relationship Specialty Start Date End Date Jhonny Fowler MD [address] [place] [address] PCP - General Family Medicine 11/22/22 Chief Scientific Officer Relationship Specialty Start Date End Date Jhonny oFwler MD [address] [place] [address] PCP - General Family Medicine 11/22/22 Team Status: Inactive Member Role Status Dates Dr. Raudel Parikh MD Attending Provider, Emergency Provider Active Dr. Hal Fowler MD Primary Care Provider Acti ve Team Status: Inactive Member Role Status Dates Dr. Hal Fowler MD Primary Care Provider Acti ve Dr. Dylan Beckham DO Emergency Provider Active Team Status: Inactive Member Role Status Dates Dr. Hal Fowler MD Primary Care Provider Acti ve Dr. David Bojorquez MD Emergency Provider Active Chief Scientific Officer Relationship Specialty Start Date End Date Jhonny Fowler MD [address] [facility] [place] [address] PCP - General Family Medicine 11/22/22 Chief Scientific Officer Relationship Specialty Start Date End Date Jhonny Fowler MD [address] [place] [address] PCP - General Family Medicine 11/22/22 Chief Scientific Officer Relationship Specialty Start Date End Date Jhonny Fowler MD [address] [place] [address] PCP - General Family Medicine 11/22/22 Team Status: Inactive Member Role Status Dates Dr. Hal Fowler MD Primary Care Provider, Ref erring Provider Active Mata Martin PA, PA Attending Provider Active Team Status: Inactive Member Role Status Dates Dr. Hal Fowler MD Primary Care Provider Acti ve Dr. Maurizio Cates , Emergency Provider Active Team Status: Inactive Member Role Status Dates Dr. Hal Fowler MD Primary Care Provider Acti ve Dr. Dylan Beckham DO Attending Provider, Emergency Pr ovider Active Team Status: Inactive Member Role Status Dates Dr. Hal Fowler MD Primary Care Provider Acti ve Dr. David Bojorquez MD Attending Provider, Emergency Pro vider Active Chief Scientific Officer Relationship Specialty Start Date End Date Jhonny Fowler MD [address] [place] [address] PCP - General Family Medicine 11/22/22 Chief Scientific Officer Relationship Specialty Start Date End Date Jhonny Fowler MD [address] [place] [address] PCP - General Family Medicine 11/22/22 Chief Scientific Officer Relationship Specialty Start Date End Date Jhonny Fowler MD [address] [place] [address] PCP - General Family Medicine 11/22/22 Chief Scientific Officer Relationship Specialty Start Date End Date Jhonny Fowler MD [address] [place] [address] PCP - General Family Medicine 11/22/22 Chief Scientific Officer Relationship Specialty Start Date End Date Jhonny Fowler MD [address] [facility] [place] [address] PCP - General Family Medicine 11/22/22 Chief Scientific Officer Relationship Specialty Start Date End Date Clem Lua MD [address] [facility] [place] [address] PCP - General Family Medicine 07/19/19 11/21/22 Chief Scientific Officer Relationship Specialty Start Date End Date Clem Lua MD [address] [facility] [place] [address] PCP - General Family Medicine 07/19/19 11/21/22 Chief Scientific Officer Relationship Specialty Start Date End Date Jhonny Fowler MD [address] [facility] [place] [address] PCP - General Family Medicine 11/22/22 Chief Scientific Officer Relationship Specialty Start Date End Date Jhonny Fowler MD [address] [facility] [place] [address] PCP - General Family Medicine 11/22/22 PodlogarAnabella APRN.ENDOCRINOLOGY NURSE [address] [facility] [place] [address] [employer] [facility] 07/20/24 Chief Scientific Officer Relationship Specialty Start Date End Date Jhonny Fowler MD [address] [facility] [place] [address] PCP - General Family Medicine 11/22/22 Podlogar, Anabella, RESCUE INSTRUCTOR.ENDOCRINOLOGY NURSE [address] [facility] [place] [address] [employer] [facility] 07/20/24 Chief Scientific Officer Relationship Specialty Start Date End Date Jhonny Fowler MD [address] [facility] [place] [address] PCP - General Family Medicine 11/22/22 Podlogar, Anabella, RESCUE INSTRUCTOR.ENDOCRINOLOGY NURSE [address] [facility] [place] [address] [employer] [facility] 07/20/24 Chief Scientific Officer Relationship Specialty Start Date End Date Jhonny Fowler MD [address] [facility] [place] [address] PCP - General Family Medicine 11/22/22 Podlogar, Anabella, RESCUE INSTRUCTOR.ENDOCRINOLOGY NURSE [address] [facility] [place] [address] [employer] [facility] 07/20/24 Chief Scientific Officer Relationship Specialty Start Date End Date Jhonny Fowler MD [address] [facility] [place] [address] PCP - General Family Medicine 11/22/22 Podlogar, Anabella, RESCUE INSTRUCTOR.ENDOCRINOLOGY NURSE [address] [facility] [place] [address] [employer] [facility] 07/20/24 Chief Scientific Officer Relationship Specialty Start Date End Date Jhonny Fowler MD [address] [facility] [place] [address] PCP - General Family Medicine 11/22/22 Podlogar, Anabella, RESCUE INSTRUCTOR.ENDOCRINOLOGY NURSE [address] [facility], [place] [address] [employer] [facility] 07/20/24 Chief Scientific Officer Relationship Specialty Start Date End Date Jhonny Fowler MD [address] [facility], [place] [address] PCP - General Family Medicine 11/22/22 PodAnabella lantigua APRN.ENDOCRINOLOGY NURSE [address] [facility], [place] [address] [facility] Team Status: Active Member Role Status Dates Dr. Hal Fowler MD Primary Care Provider Acti ve Team Status: Inactive Member Role Status Dates Dr. Hal Fowler MD Primary Care Provider Acti ve Start: October 27, 2024 End: October 27, 2024 Dr. Julian Perdomo DO Emergency Provider Active Start: October 27, 2024 End: October 27, 2024 Chief Scientific Officer Relationship Specialty Start Date End Date Jhonny Fowler MD [address] [facility], [place] [address] PCP - General Family Medicine 11/22/22 Anabella Haskins RESCUE INSTRUCTOR.ENDOCRINOLOGY NURSE [address] [facility], [place] [address] [facility] Medicine 07/20/24 Alicia Lang RESCUE INSTRUCTOR.ENDOCRINOLOGY NURSE [address] [facility], [place] [address] [facility] Medicine 11/04/24 Chief Scientific Officer Relationship Specialty Start Date End Date Jhonny Fowler MD [address] [facility], [place] [address] PCP - General Family Medicine 11/22/22 PodlogarAnabella APRN.ENDOCRINOLOGY NURSE [address] [place], [place] [address] [employer] [facility] 07/20/24 Alicia Lang APRN.ENDOCRINOLOGY NURSE [address] [place], [place] [address] [facility] Chief Scientific Officer Relationship Specialty Start Date End Date Jhonny Fowler MD [address] [place], [place] [address] PCP - General Family Medicine 11/22/22 PodlogarAnabella APRN.ENDOCRINOLOGY NURSE [address] [place] [address] [facility] 07/[facility]/24 Alicia Lang APRN.ENDOCRINOLOGY NURSE [address] [place], [place] [address] [facility] 10/25/24 11/03/24 Alicia Lang APRN.ENDOCRINOLOGY NURSE [address] [place], [place] [address] [facility] 11/04/24 Chief Scientific Officer Relationship Specialty Start Date End Date Jhonny Fowler MD [address] [place], [place] [address] PCP - General Family Medicine 11/22/22 PodlogarAnabella APRN.ENDOCRINOLOGY NURSE [address] [place] [address] [facility] 07/20/24 Alicia Lang APRN.ENDOCRINOLOGY NURSE [address] [facility] [place] [address] [facility] 11/04/24 Chief Scientific Officer Relationship Specialty Start Date End Date Jhonny Fowler MD [address] [facility] [place] [address] PCP - General Family Medicine 11/22/22 Podlogar, Anabella, RESCUE INSTRUCTOR.ENDOCRINOLOGY NURSE [address] [facility] [place] [address] [facility] 07/20/24 Alicia Lang APRN.ENDOCRINOLOGY NURSE [address] [place] [address] [facility] 11/04/24 Chief Scientific Officer Relationship Specialty Start Date End Date Jhonny Fowler MD [address] [facility] [place] [address] PCP - General Family Medicine 11/22/22 Podlogar, Anabella, RESCUE INSTRUCTOR.ENDOCRINOLOGY NURSE [address] [facility] [place] [address] [facility] 07/20/24 Alicia Lang RESCUE INSTRUCTOR.ENDOCRINOLOGY NURSE [address] [place] [address] [facility] 11/04/24 Chief Scientific Officer Relationship Specialty Start Date End Date Jhonny Fowler MD [address] [facility] [place] [address] PCP - General Family Medicine 11/22/22 Podlogar, Anabella, RESCUE INSTRUCTOR.ENDOCRINOLOGY NURSE [address] [place] [address] [facility] 07/20/24 Alicia Lang APRN.ENDOCRINOLOGY NURSE [address] [place] [address] [facility] 11/04/24 Chief Scientific Officer Relationship Specialty Start Date End Date Jhonny Fowler MD [address] [place] [address] PCP - General Family Medicine 11/22/22 PodlogarAnabella APRN.ENDOCRINOLOGY NURSE [address] [place] [address] [employer] [facility] 07/20/24 Alicia Lang APRN.ENDOCRINOLOGY NURSE [address] [place] [address] [employer] [facility] 11/04/24 12/29/24 Chief Scientific Officer Relationship Specialty Start Date End Date Jhonny Fowler MD [address] [place] [address] PCP - General Family Medicine 11/22/22 PodlogarAnabella APRN.ENDOCRINOLOGY NURSE [address] [place] [address] [employer] [facility] 07/20/24 Chief Scientific Officer Relationship Specialty Start Date End Date Jhonny Fowler MD [address] [place] [address] PCP - General Family Medicine 11/22/22 PodlogarAnabella APRN.ENDOCRINOLOGY NURSE [address] [place] [address] [facility] 07/20/24 Chief Scientific Officer Relationship Specialty Start Date End Date Jhonny Fowler MD [address] [place] [address] PCP - General Family Medicine 11/22/22 PodlogarAnabella APRN.ENDOCRINOLOGY NURSE [address] [place] [address] [facility] 07/20/24 Alicia Lang APRN.ENDOCRINOLOGY NURSE [address] [place] [address] [facility] 01/23/25 Chief Scientific Officer Relationship Specialty Start Date End Date Jhonny Fowler MD [address] [place] [address] PCP - General Family Medicine 11/22/22 PodlogarAnabella APRN.ENDOCRINOLOGY NURSE [address] [place] [address] [facility] 07/20/24 Alicia Lang APRN.ENDOCRINOLOGY NURSE [address] [place] [address] [facility] 01/23/25 Goals (unrecognized section and content) Goals may be documented in a n alternate sectionGoals may be documented in an alternate section No data available for this section No data available for this sectionGoals may be documented in an alternate sectionGoals may be documented in an alternate sectionGoals may be documented in an alternate section No data available for this sectionGoals may be documented in an alternate section FOR RECORDS PERTAINING TO PATIENTS WHO ARE [...] BE BASED ON THE PRIMARY CLINICAL RECORDS. [facility]. provides no warranty or guarantee of the accuracy or completeness of information in this document.
--- NOTE | 2025-05-16 22:10 | RAD_ITS ---
PROCEDURE: FOOT MIN 3 VIEWS 05/16/2025 REASON FOR EXAM: FALL AND PAIN TECHNIQUE: Procedure Code: RADFO Modality: DX Procedure: FOOT MIN 3 VIEWS Laterality: Left COMPARISON: Ankle radiographs 05/16/2020. FINDINGS: Bones: No visible fracture. No suspicious bone lesion. Mild plantar calcaneal spurring. Joints: Normal alignment. Joint spaces preserved. No arthropathic features. Soft tissues: Soft tissues are unremarkable. RAD/Foot min 3 Views IMPRESSION: Mild plantar calcaneal spurring. No acute fractures or dislocations. Reading [facility] [place]
[2025-05-16 22:40] VITALS: BP 104/72; PULSE 88; RESP 16; TEMP 36.7; O2SAT 98
== END 2025-05-16 22:44 | disposition home or self-care (01) ==
PROVIDERS: Emergency Provider Emergency Medicine; PCP Family Medicine; Visit Provider Emergency Medicine
DX: S93.402A Sprain of unspecified ligament of left ankle, initial encounter (principal); S90.32XA Contusion of left foot, initial encounter; W01.0XXA Fall on same level from slipping, tripping and stumbling without subsequent striking against object, initial encounter; Z87.891 Personal history of nicotine dependence
CPT/HCPCS: 73610; 73630; 99283